=== PATIENT | male | born 1965 | race Hispanic/Latino ===

== ENCOUNTER → 2024-05-13 | Outpatient (CLI) | payer OTHER ==
--- NOTE | 2024-05-13 14:12 | HMCIMG ---
CT HEART SAVER PROMOTIONAL HISTORY: Calcium scoring COMPARISON: None TECHNIQUE: Computed tomography of the heart was performed with ECG gating and suspended respiration. Postprocessing was performed on a computer workstation to obtain diastolic phase images, determine calcium score and provide a quantitative assessment of extent of disease. This CT included only the heart. HeartSaver score is 2836.4. Please see cardiac calcium score report. The available CT chest images show no acute finding. CT was performed with one or more following dose reduction techniques: automated exposure control, adjustment of the mA and kv according to patient's size, or use of a iterative reconstruction technique.
== END | disposition home or self-care (01) ==
LOC: RAH 12:12
PROVIDERS: ATTEND Internal Medicine Cardiovascular Disease
DX: Z13.6 Encounter for screening for cardiovascular disorders (principal)
CPT/HCPCS: 75571

== ENCOUNTER 2024-08-05 02:10 | Inpatient (IN) | payer SELFPAY ==
[2024-08-05] VITALS (45 sets, daily range): BP systolic 101–158; BP diastolic 51–104; PULSE 68–118; RESP 7–30; TEMP 98.3–98.8; O2SAT 96–97
[~2024-08-05] VITALS: Ht 161.8 cm; Wt 72.1 kg
--- NOTE | 2024-08-05 02:17 | NUR ---
UA CUP PROVIDED
--- NOTE | 2024-08-05 02:23 | ERN ---
General Chief Complaint: Chest Pain Stated Complaint: CHEST PAIN Time Seen by MD: 02:12 Source: patient History of Present Illness Initial Comments Patient is a 59-year-old gentleman coming in complaining of left-sided chest pain. Per patient this has been ongoing since today. He quantifies the pain at 8/10. He states the pain is sharp does not radiate anywhere and states that he has been has not taken any aspirin or nitroglycerin. He does have a history of hypertension and cholesterol. Allergies: Coded Allergies: No Known Allergies (Unverified Allergy, Unknown, 08/05/24) ROS Dictation CONSTITUTIONAL: No chills, no fever, no weakness, no diaphoresis, no malaise. HEAD/FACE: No signs of trauma. EENT: No eye pain, no blurred vision, no tearing, no double vision, no ear pain, no ear discharge, no nose pain, no nasal congestion, no throat pain, no throat swelling, no mouth pain. RESPIRATORY: No cough, no orthopnea, no SOB, no stridor, no wheezing. CARDIOVASCULAR: chest pain, no edema, no palpitations, no syncope. GASTROINTESTINAL/ABDOMINAL: No abdominal pain, no constipation, no diarrhea, no nausea, no vomiting. GENITOURINARY: No abnormal discharge, no dysuria, no frequent urination, no hematuria. No complaints of pain in the genitals. MUSCULOSKELETAL: No back pain, no gout, no joint pain, no joint swelling, no muscle pain, no muscle stiffness, no neck pain. INTEGUMENTARY: No change in color, no change in hair/nails, no dryness, no lesion, no lumps, no rash. NEUROLOGICAL/PSYCH: No anxiety, not depressed, no emotional problem, no headache, no numbness, no pre-existing deficit, no history of seizures, no tremors, no weakness. HEMATOLOGIC/LYMPHATIC: Not anemic, no history of blood clots, no apparent bleeding, no bruising, glands not swollen. All Systems Negative, Except as Noted. Physical Exam Physical Exam Dictation VITAL SIGNS: Reviewed. GENERAL APPEARANCE: Alert, oriented x3, no acute distress, obese. HEAD AND FACE: Non-traumatic. EYES: PERRL, pink conjunctivas, eyelid no trauma, anterior chamber clear. EARS: Pinnas intact and no signs of trauma or erythema. Ear canals clear and no discharge. TMs no erythema. NOSE: No discharge, no bleeding. OROPHARYNX: Mouth normal, teeth no caries, tongue pink. Pharynx clear, no erythema. Tonsils no exudates, no abscesses noted. Mucous membrane moist. NECK: Supple, non-tender, no thyromegaly, no masses, no JVD, no bruits. BREAST: Deferred. CHEST: No tenderness, no crepitus, no paradoxical movement, no retractions. LUNGS: Clear, well-ventilated, symmetric, no rales, no wheezing, no rhonchi, no stridor, good breath sounds bilaterally. HEART: Regular rate, regular rhythm, no murmur, no gallops. VASCULAR: No peripheral edema. ABDOMEN: Soft, positive bowel sounds, nondistended, no guarding, nontender, no rebound, no masses no hepatomegaly, no splenomegaly, no Fitch's sign, no hernias. RECTAL: Deferred. GENITAL: Deferred. NEUROLOGICAL: Normal speech, gross motor function intact, gross sensory function intact. MUSCULOSKELETAL: Neck nontender, full range of motion, back nontender, full range of motion. EXTREMITIES: Nontender, full range of motion. SKIN: Color pink, dry, no turgor, no rash, no lacerations, no abrasions, no contusions. LYMPHATICS: Deferred. Results Laboratory and Microbiology Lab and Micro Result Laboratory Tests Test 08/05/24 02:27 08/05/24 04:32 White Blood Count 10.9 K/uL (4.8-10.8) H Red Blood Count 4.86 MIL/uL (4.50-6.20) Hemoglobin 15.5 g/dL (14.0-18.0) Hematocrit 44.4 % (42-54) Mean Corpuscular Volume 91.4 fL (79-99) Mean Corpuscular Hemoglobin 31.9 pg (27.0-33.0) Mean Corpuscular Hemoglobin Concent 34.9 g/dL (32.0-36.0) Red Cell Distribution Width 13.0 % (11.0-15.5) Platelet Count 254 K/uL (130-400) Mean Platelet Volume 9.6 fL (7.5-10.5) Immature Granulocyte % (Auto) 0.4 % (0-1) Neutrophils (%) (Auto) 65.0 % (40.0-77.0) Lymphocytes (%) (Auto) 26.4 % (21.0-51.0) Monocytes (%) (Auto) 7.5 % (3.0-13.0) Eosinophils (%) (Auto) 0.5 % (0.0-8.0) Basophils (%) (Auto) 0.2 % (0.0-5.0) Neutrophils # (Auto) 7.1 K/uL (1.8-7.7) Lymphocytes # (Auto) 2.9 K/uL (1.0-4.8) Monocytes # (Auto) 0.8 K/uL (0.1-1.0) Eosinophils # (Auto) 0.06 K/uL (0.00-0.70) Basophils # (Auto) 0.02 K/uL (0.00-0.20) Absolute Immature Granulocyte (auto 0.04 K/uL (0-1) Nucleated Red Blood Cells 0.0 % (0.0-0.19) Prothrombin Time 9.5 SEC (9.6-11.6) L Prothromb Time International Ratio <= 0.93 (0.85-1.15) Activated Partial Thromboplast Time 22.5 SEC (26.3-35.5) L Urine Color COLORLESS (YELLOW) Urine Appearance CLEAR (CLEAR) Urine pH 6.0 (5.0-8.0) Urine Specific Langtry 1.001 (1.001-1.031) Urine Protein NEGATIVE mg/dL (NEGATIVE) Urine Glucose (UA) 500 mg/dL (NEGATIVE) H Urine Ketones NEGATIVE mg/dL (NEGATIVE) Urine Occult Blood NEGATIVE (NEGATIVE) Urine Nitrate NEGATIVE (NEGATIVE) Urine Bilirubin NEGATIVE mg/dL (NEGATIVE) Urine Urobilinogen 0.2 mg/dL (0.2-1.0) Urine Leukocyte Esterase NEGATIVE Lauren/uL Sodium Level 141 mmol/L (136-145) Potassium Level 3.5 mmol/L (3.5-5.1) Chloride Level 101 mmol/L (101-111) Carbon Dioxide Level 20 mmol/L (21-32) L Blood Urea Nitrogen 6 mg/dL (7-18) L Creatinine 0.7 mg/dL (0.5-1.3) Glomerular Filtration Rate Calc 107 mL/min (>90) Random Glucose 229 mg/dL (70-105) H Total Calcium 9.5 mg/dL (8.5-10.1) Magnesium Level 1.90 mg/dL (1.80-2.40) Total Creatine Kinase 812 U/L (21-232) *H Troponin I High Sensitivity 43676 ng/L (4-75) *H 07063 ng/L (4-75) *H B-Type Natriuretic Peptide 147 pg/mL (0-100) H Urine Opiates Screen NEGATIVE (NEGATIVE) Urine Barbiturates Screen NEGATIVE (NEGATIVE) Urine Phencyclidine Screen NEGATIVE (NEGATIVE) Urine Amphetamines Screen NEGATIVE (NEGATIVE) Urine Benzodiazepines Screen NEGATIVE (NEGATIVE) Urine Cocaine Screen NEGATIVE (NEGATIVE) Urine Marijuana (THC) Screen NEGATIVE (NEGATIVE) Serum Alcohol 117 mg/dL (0-10) H Labs Reviewed?: Yes EKG/XRAY/US/CT/MRI EKG Comment EKG #1 08/05/2024 time 2:15 a.m. Ventricular rate [address] wave elevations in lead three AVF ekg#2 08/05/2024 time 2:[address] wave changes three AVF ekg#3 08/05/2024 time 2:49 a.m. Ventricular rate [address] wave changes in leads three AVF more apparent in the previous ones MDM MDM: Differential diagnosis: STEMI, NSTEMI, ACS, Rationale: Tests considered and ordered secondary to shared decision making include: labs, ECG and radiology Previous outside records reviewed: Old ER visits. Risk of complication and/or morbidity or mortality of patient management: None Medications-Per medication reconciliation Need for hospitalization: Patient does meet criteria for hospitalization. Need for emergency major/minor surgery: No There are no social concerns with this patient. Prescription drug management Prescriptions will include symptomatic care Patient's prior external medical records from other ER visits were reviewed by me as indicated. Prior testing and results from previous visits were reviewed. Prior tests were taken into account with medical decision making and resource utilization, independent historian/historians were used to obtain complete medical history. I independently interpreted the test that were performed, results were reviewed by me and considered findings on radiology if ordered. Medical management and examination interpretation discussions were had by me with other qualified healthcare professionals as indicated for the patient's care. Patient is a 59-year-old gentleman coming in complaining of chest pressure initially is patient states that the pain began 40 minutes prior to ar rival. Cardiac workup positive for elevated troponin as well as EKG changes. STEMI alert was called for Dr. Toure not a true STEMI since she weighs were present. Per Dr Toure states to call off STEMI alert and treat patient medically. Patient will be admitted under the care of hospitalist group. ED Course Orders Procedure Category Date Status Time Cbc With Differential LAB 08/05/24 Complete 02:14 Prothrombin Time With LAB 08/05/24 Complete INR 02:14 B-Type Natriuretic LAB 08/05/24 Complete Peptide 02:14 Chest 1vw RAD 08/05/24 Taken 02:14 12 Lead Ekg Tracing- EKG 08/05/24 Logged Technical 02:14 Magnesium LAB 08/05/24 Complete 02:14 Creatine Kinase, Total LAB 08/05/24 Complete 02:14 Troponin I High LAB 08/05/24 Complete Sensitivity 02:14 Urinalysis Profile LAB 08/05/24 Complete 02:14 Partial LAB 08/05/24 Complete Thromboplastin Time 02:14 Basic Metabolic Panel LAB 08/05/24 Complete 02:14 Nitroglycerin 0.4mg PHA 08/05/24 In Process Sl Tab (Nitrostat) 02:30 Aspirin 325mg Ec Tab PHA 08/05/24 Complete (Aspirin 325mg Ec T 02:30 Drug Screen Urine LAB 08/05/24 Complete 02:14 Alcohol, Blood LAB 08/05/24 Complete 02:14 Pantoprazole 40mg Inj PHA 08/05/24 Complete (Protonix 40mg Inj 02:30 12 Lead Ekg Tracing- EKG 08/05/24 Logged Technical 02:49 Heparin 5,000 Unit PHA 08/05/24 Complete Vial (Heparin 5,000 U 03:00 Heparin 5,000 Unit PHA 08/05/24 Complete Vial (Heparin 5,000 U 11:00 Heparin 25,000 PHA 08/05/24 In Process Units/250ml D5w 03:00 Heparin 5,000 Unit PHA 08/05/24 Complete Vial (Heparin 5,000 U 03:00 Heparin 5,000 Unit PHA 08/05/24 Complete Vial (Heparin 5,000 U 02:57 Heparin 25,000 PHA 08/05/24 Complete Units/250ml D5w 02:57 Ticagrelor (Brilinta) PHA 08/05/24 Complete 03:30 Nitroglycerin PHA 08/05/24 In Process 50mg/D5w 250ml 03:30 Ticagrelor (Brilinta) PHA 08/05/24 Complete 03:08 Troponin I High LAB 08/05/24 Complete Sensitivity 03:19 Government Program Manager Procedure CATH 08/05/24 Logged Request Lidocaine Hcl PHA 08/05/24 Complete 400mg/20ml (Lidocaine 03:27 Iohexol (Omnipaque) PHA 08/05/24 Complete 03:27 Verapamil Hcl PHA 08/05/24 Complete (Calan/Isoptin) 03:27 Heparin 10,000 PHA 08/05/24 Complete Unit/10ml (Heparin 03:27 Heparin-Ns 1,000 PHA 08/05/24 Complete Unit/500 Ml 03:27 Nitroglycerin 50mg PHA 08/05/24 Complete Vial (Tridil 50mg/10m 03:28 Metoprolol Tartrate PHA 08/05/24 Complete (Lopressor) 04:30 Pt And Ptt LAB 08/05/24 Logged 09:00 Current Medications Medications (Trade) Dose Ordered Sig/Isidoro Route PRN Reason Start Time Stop Time Status Last Admin Dose Admin Aspirin (Aspirin 325mg Ec Tab) 325 mg ONCE ONCE PO 08/05/24 02:30 08/05/24 02:31 DC 08/05/24 02:30 Heparin Sodium (Porcine) (HEParin 10,000 UNIT/10ML) 10,000 unit STK-MED ONCE .ROUTE 08/05/24 03:27 08/05/24 03:28 DC Heparin Sodium (Porcine) (HEParin 5,000 UNIT VIAL) 5,000 unit ONCE ONCE IV 08/05/24 03:00 08/05/24 03:01 DC Heparin Sodium (Porcine) (HEParin 5,000 UNIT VIAL) 5,000 unit Q8H SQ 08/05/24 11:00 08/05/24 03:04 DC Heparin Sodium (Porcine) (HEParin 5,000 UNIT VIAL) 5,000 unit STK-MED ONCE .ROUTE 08/05/24 02:57 08/05/24 03:02 DC Heparin Sodium (Porcine) (HEParin 5,000 UNIT VIAL) 6,000 unit ONCE ONCE IV 08/05/24 03:00 08/05/24 03:03 DC 08/05/24 03:09 Heparin Sodium/ Dextrose 250 ml @ As Directed STK-MED ONCE IV 08/05/24 02:57 08/05/24 03:02 DC Heparin Sodium/ Dextrose 250 ml @ 0 mls/hr PROTOCOL IV 08/05/24 03:00 09/04/24 02:59 08/05/24 03:11 Heparin Sodium/ Sodium Chloride 0 ml @ As Directed STK-MED ONCE IV 08/05/24 03:27 08/05/24 03:28 DC Iohexol (Omnipaque) 35,000 mg STK-MED ONCE IV 08/05/24 03:27 08/05/24 03:27 DC Lidocaine HCl (Lidocaine HCl 400mg/20ml) 20 ml STK-MED ONCE .ROUTE 08/05/24 03:27 08/05/24 03:27 DC Metoprolol Tartrate (loprESSOR) 5 mg ONCE ONCE IV 08/05/24 04:30 08/05/24 04:31 DC 08/05/24 04:17 Nitroglycerin (Nitrostat) 0.4 mg AD PRN SL CHEST PAIN 08/05/24 02:30 09/04/24 02:29 08/05/24 02:46 Nitroglycerin (Tridil 50mg/ 10ml) 50 mg STK-MED ONCE .ROUTE 08/05/24 03:28 08/05/24 03:28 DC Nitroglycerin/ Dextrose 250 ml @ 0 mls/hr PROTOCOL IV 08/05/24 03:30 09/04/24 03:29 08/05/24 03:13 Pantoprazole Sodium (PROTonix 40MG INJ) 40 mg ONCE ONCE IVP 08/05/24 02:30 08/05/24 02:31 DC 08/05/24 02:30 Ticagrelor (BRILinta) 90 mg STK-MED ONCE .ROUTE 08/05/24 03:08 08/05/24 03:09 DC Ticagrelor (BRILinta) 180 mg ONCE ONCE PO 08/05/24 03:30 08/05/24 03:31 DC 08/05/24 03:12 Verapamil HCl (Calan/Isoptin) 5 mg STK-MED ONCE .ROUTE 08/05/24 03:27 08/05/24 03:27 DC Vital Signs Date Time Temp Pulse Resp B/P (MAP) Pulse Ox O2 Delivery O2 Flow Rate FiO2 08/05/24 04:28 64 19 116/67 98 Nasal Cannula* 2 28 08/05/24 04:17 120 123/80 08/05/24 04:06 113 19 129/75 98 Nasal Cannula* 2 08/05/24 03:13 121/78 08/05/24 02:25 112 19 147/88 96 Room Air* 0 21 08/05/24 02:11 96.6 118 20 128/95 99 Room Air Critical Care Note Comments Critical Care Procedure Note Authorized and Performed by: me Total critical care time: Approximately 36 minutes Due to a high probability of clinically significant, life threatening deterioration, the patient required my highest level of preparedness to intervene emergently and I personally spent this critical care time directly and personally managing the patient. This critical care time included obtaining a history; examining the patient; pulse oximetry; ordering and review of studies; arranging urgent treatment with development of a management plan; evaluation of patient's response to treatment; frequent reassessment; and, discussions with other providers. This critical care time was performed to assess and manage the high probability of imminent, life-threatening deterioration that could result in multi-organ failure. It was exclusive of separately billable procedures and treating other patients and teaching time. Please see MDM section and the rest of the note for further information on patient assessment and treatment. DX & DISP Disposition: Inpatient Decision to Admit Time: 05:15 Departure Impression: Primary Impression: NSTEMI (non-ST elevated myocardial infarction) Additional Impression: ACS (acute coronary syndrome) Condition: Stable Referrals: MARTHA CHIU MD (PCP) YVON CARDOZO MD August 05, 2024 02:23
[2024-08-05] MEDS: PANTOPrazole 40 MG/VIAL IVP ONE (02:30)
[2024-08-05] MEDS: ASPIRIN 325MG EC TAB PO ONE (02:30)
[2024-08-05] MEDS: NITROGLYCERIN 0.4 MG SL TAB SL PRN (02:31)
[2024-08-05 02:36] LABS: BASOPHILS # (AUTO) 0.02 K/uL (0.00-0.20); BASOPHILS % (AUTO) 0.2 % (0.0-5.0); EOSINOPHILS # (AUTO) 0.06 K/uL (0.00-0.70); EOSINOPHILS % (AUTO) 0.5 % (0.0-8.0); HEMATOCRIT 44.4 % (42-54); IMMATURE GRANULOCYTE ABSOLUTE 0.04 K/uL (0-1); LYMPHOCYTES # (AUTO) 2.9 K/uL (1.0-4.8); LYMPHOCYTES % (AUTO) 26.4 % (21.0-51.0); MEAN CORPUSCULAR HEMOGLOBIN 31.9 pg (27.0-33.0); MEAN CORPUSCULAR HGB CONC 34.9 g/dL (32.0-36.0); MEAN CORPUSCULAR VOLUME 91.4 fL (79-99); MONOCYTES # (AUTO) 0.8 K/uL (0.1-1.0); MONOCYTES % (AUTO) 7.5 % (3.0-13.0); NEUTROPHILS # (AUTO) 7.1 K/uL (1.8-7.7); PLATELET COUNT (AUTO) 254 K/uL (130-400); RED BLOOD CELL COUNT(AUTO) 4.86 MIL/uL (4.50-6.20); WHITE BLOOD COUNT (AUTO) 10.9 K/uL (4.8-10.8)
[2024-08-05 02:37] LABS: APPEARANCE,URINE CLEAR (CLEAR); BILIRUBIN,URINE NEGATIVE (NEGATIVE); COLOR,URINE COLORLESS (YELLOW); GLUCOSE, URINE (UA) 500 mg/dL (NEGATIVE); KETONES,URINE NEGATIVE (NEGATIVE); LEUKOCYTE ESTERASE ,URINE NEGATIVE Leu/uL (NEGATIVE); NITRATE,URINE NEGATIVE (NEGATIVE); OCCULT BLOOD,URINE NEGATIVE (NEGATIVE); PROTEIN,URINE NEGATIVE (NEGATIVE); UROBILINOGEN,URINE 0.2 mg/dL (0.2-1.0)
[2024-08-05 02:40] LABS: ADD UA MICROSCOPIC NO
[2024-08-05 02:44] LABS: CREATININE 0.7 mg/dL (0.5-1.3); POTASSIUM 3.5 mmol/L (3.5-5.1)
[2024-08-05 02:47] LABS: INR <= 0.93 (0.85-1.15); PROTHROMBIN TIME 9.5 SEC (9.6-11.6)
[2024-08-05 02:48] LABS: PARTIAL THROMBOPLASTIN TIME 22.5 SEC (26.3-35.5)
[2024-08-05 02:58] LABS: MAGNESIUM 1.9 mg/dL (1.80-2.40)
[2024-08-05 03:04] LABS: B-TYPE NATRIURETIC PEPTIDE 147 pg/mL (0-100)
[2024-08-05 03:05] LABS: AMPHET/METH SCREEN,URINE NEGATIVE (NEGATIVE); BARBITURATE SCREEN, URINE NEGATIVE (NEGATIVE); BENZODIAZEPINES SCREEN,URINE NEGATIVE (NEGATIVE); CANNABINOID SCREEN,URINE NEGATIVE (NEGATIVE); COCAINE SCREEN,URINE NEGATIVE (NEGATIVE); OPIATE SCREEN,URINE NEGATIVE (NEGATIVE); PHENCYCLIDINE SCREEN,URINE NEGATIVE (NEGATIVE)
[2024-08-05] MEDS: HEParin 5,000 UNIT VIAL ONE (03:07)
[2024-08-05] MEDS: HEParin 5,000 UNIT VIAL IV ONE ×2 (03:08→03:09)
[2024-08-05] MEDS: HEParin 25,000 UNITS/250ML D5W 250 ML IV ONE (03:08)
[2024-08-05] MEDS: HEParin 25,000 UNITS/250ML D5W 250 ML IV SCH (03:11)
[2024-08-05] MEDS: TICAGrelor 90 MG TABLET PO ONE (03:12)
[2024-08-05] MEDS: TICAGrelor 90 MG TABLET ONE (03:12)
[2024-08-05] MEDS: NITROGLYCERIN 50MG/D5W 250ML 250 BOT IV SCH (03:13)
[2024-08-05] MEDS ORDERED: VERAPAMIL HCL 2.5 MG/ML VIAL ONE (03:27)
[2024-08-05] MEDS ORDERED: HEParin 10,000 UNIT/10ML (1,000 UNIT/ML) VIAL ONE ×2 (03:27→12:38)
[2024-08-05] MEDS ORDERED: HEParin-NS 1,000 UNIT/500 ML 0 ML IV ONE (03:27)
[2024-08-05] MEDS ORDERED: LIDOCAINE HCL 400MG/20ML VIAL ONE ×2 (03:27→12:37)
[2024-08-05] MEDS ORDERED: IOHEXOL 350 MG/ML 100ML INFUS..BTL IV ONE ×2 (03:27→12:38)
[2024-08-05] MEDS ORDERED: NITROGLYCERIN 50MG VIAL ONE ×2 (03:28→12:38)
--- NOTE | 2024-08-05 03:28 | NUR ---
SE[facility]ER OPERATOR NURSES AT BEDSIDE, THEY ADVISE DR JOHNSON CANCELLED STEMICODE
[2024-08-05] MEDS: metoPROLOL tartRATE 1 MG/ML 5ML VIAL IV ONE (04:17)
--- NOTE | 2024-08-05 04:42 | NUR ---
PATIENT DID NOT BRING HOME MEDICATIONS
[2024-08-05] MEDS ORDERED: GLUCAGON 1MG KIT 1 MG ML IM PRN (05:30)
[2024-08-05] MEDS ORDERED: PoTASSium chloRIDE 20MEQ/100ML 100 ML IV PRN (05:30)
[2024-08-05] MEDS ORDERED: DEXTROSE 50%-WATER 50 ML DISP.SYRIN IV PRN (05:30)
[2024-08-05] MEDS: 0.9%NACL 1000ML 1,000 ML IV SCH ×2 (05:52→15:22)
--- NOTE | 2024-08-05 05:58 | NUR ---
Myrtle ZHENG NP MADE AWARE OF CRITICAL CARE CONSULT
[2024-08-05] MEDS ORDERED: LORazepam 2 MG/ML 1 ML VIAL IVP PRN (06:00)
[2024-08-05] MEDS ORDERED: PROMETHAZINE HCL 25 MG TABLET PO PRN (06:00)
[2024-08-05] MEDS ORDERED: PHARMACY COMMUNICATION MISC PRN (06:00)
[2024-08-05] MEDS: THIAMINE HCL 100 MG, FOLic ACID 5 MG/ML VIAL 1 MG, M.V.I. IV [ADULT] 10 ML in 0.9%NACL ... IV SCH (06:03)
[2024-08-05] MEDS: morPHINE 2 MG SYG IVP PRN ×2 (06:03→11:20)
--- NOTE | 2024-08-05 06:13 | HP ---
[facility] PH[facility] Date of Service: August 05, 2024 Time of Service: 05:40 PCP: Ganga Maya HISTORY OF PRESENT ILLNESS: This is a 59-year-old male with past medical history of diabetes, hypertension and hyperlipidemia who presents to the ED for complaints of left-sided chest pain which started around 8 pm last night while resting.Patient states he started having a chest pain since 2 days ago and it was intermittent and last night it got worse and becoming more persistent and pain is sharp associated with shortness of breath so he decided to come to the Ed for evaluation.Patient reports he had 5 beers last night denies cigarette and recreational drug use.Upon arrival to ER an initial ECG was taken and revealed ST 110 right bundle branch block inferior infarct acute and second EKG showed ST 108 right bundle branch block inferior infarct recent and the 3rd EKG showed ST 120 with Right bundle branch block Inferior infarct recent and probable posterior infarct acute . Seen and examined patient in the ER awake,alert and coherent ,appears uncomfortable continue to have chest pain. Vital signs temperature 96.6 heart rate 97, blood pressure 114/73 saturation 99% on 2 L nasal cannula. Labs: WBC 10.9 the rest of CBC result is normal. CO2 20, BUN six, glucose 229, BNP 147, total CK 812, troponin 13,930 to 23,113. Urine toxicology serum alcohol 117. Urinalysis consistent difficult for glucose two rest is unremarkable. Chest x- ray result is still pending at this time. While in the ER patient received aspirin 325 mg p.o., Protonix 40 mg IV, Brilinta 90 mg p.o., verapamil 5 mg IV and metoprolol 5 mg IV patient started on heparin and nitroglycerin drip.As per ER Dr Gomez STEMI alert was activated and was notified and consulted. We will admit patient to ICU for further medical management. REVIEW OF SYSTEMS CONSTITUTIONAL: Denies fevers, chills, or night sweats. No unintentional weight loss reported. NEUROLOGICAL: Denies headache, amaurosis fugax, motor weakness, sensory deficit, vertigo/spinning sensation, gait abnormalities, or tremors. ENT: No hearing loss, otalgia, otorrhea, rhinitis, rhinorrhea, hoarseness, or sore throat. CARDIOVASCULAR: Positive chest pain Deniesdyspnea on exertion, orthopnea, paroxysmal nocturnal dyspnea, palpitations, life-threatening arrhythmias, claudication. PULMONARY: Positive shortness of breaths Denies cough, phlegm/sputum, hemopt ysis, pleuritic chest pain. SLEEP: Denies morning headaches, daytime somnolence or napping. Denies di fficulty falling asleep, staying asleep, waking from sleep. Denies knowledge of snoring. GASTROINTESTINAL: Denies any type of dysphagia to either liquids or solids. Denies nausea, vomiting, pyrosis, early satiety, abdominal pain, diarrhea, constipation, or changes in stool consistency or caliber. Denies coffee-ground emesis, hematemesis, hematochezia, or melanotic stools. GENITOURINARY: Denies frequency, urgency, nocturia, hematuria or incontinence (Storage/Irritative symptoms.) Low urinary stream, straining to void, urinary intermittency or hesitancy, splitting of the voiding stream, terminal dribbling. ENDOCRINOLOGIC: Denies polyuria, polydipsia, polyphagia or heat/cold intolerances. HEMATOLOGIC: Denies thrombophilia/previous clots, or coagulopathy/bleeding disorders. ONCOLOGIC: Denies personal history of malignancy. DERMATOLOGIC: Denies rashes or pruritus. PSYCHIATRIC: Denies any suicidal or homicidal ideation. Denies hallucinations. PAST MEDICAL HISTORY: [ Diabetes, hypertension and hyperlipidemia ] PAST SURGICAL HISTORY: [ Patient denies ] PAST SOCIAL HISTORY: [ Patient denies cigarette and recreational drug use admits to drinking are alcohol occasionally and last consumption was last night he said he had five beers ] FAMILY HISTORY: [ Noncontributory] Coded Allergies: No Known Allergies (Unverified Allergy, Unknown, 08/05/24) PHYSICAL EXAM GENERAL APPEARANCE: The patient is awake, alert, and oriented, in no acute cardiopulmonary distress. NEUROLOGICAL: Cranial nerves II-XII grossly intact. Motor is 5/5 in bilateral upper and lower extremities proximal to distal. No sensory deficits. HEENT: Face is symmetric. Pupils are equal and reactive. Extraocular movements are intact. NECK: Supple. No JVD. No thyromegaly. No submental, submandibular, pre-/postauricular, occipital or supraclavicular lymphadenopathy. CHEST: Normal chest expansion. No Telemetry. LUNGS: Absence of any rales, rhonchi or any wheezing. CARDIOVASCULAR: Regular. S1 and S2 normal. No appreciable rubs, murmurs or gallops. ABDOMEN: Soft, nontender, and nondistended. There is no rebound, voluntary guarding, or rigidity. : Deferred. No Fitzpatrick. EXTREMITIES: Non-edematous and not cyanotic. No clubbing. Good capillary refill. SKIN: No skin breakdown. Vital Sign (Last 24 Hours) 08/05/24 08/05/24 02:11 05:34 Temp 96.6 Pulse 97 Resp 19 B/P (MAP) 114/73 Pulse Ox 99 O2 Delivery Nasal Cannula* O2 Flow Rate 2 FiO2 28 LABS: Laboratory: Test 08/05/24 04:32 08/05/24 02:27 Range/Units Troponin I High Sensitivity 14492 *H 4-75 ng/L White Blood Count 10.9 H 4.8-10.8 K/uL Red Blood Count 4.86 4.50-6.20 MIL/uL Hemoglobin 15.5 14.0-18.0 g/dL Hematocrit 44.4 42-54 % Mean Corpuscular Volume 91.4 79-99 fL Mean Corpuscular Hemoglobin 31.9 27.0-33.0 pg Mean Corpuscular Hemoglobin Concent 34.9 32.0-36.0 g/dL Red Cell Distribution Width 13.0 11.0-15.5 % Platelet Count 254 130-400 K/uL Mean Platelet Volume 9.6 7.5-10.5 fL Immature Granulocyte % (Auto) 0.4 0-1 % Neutrophils (%) (Auto) 65.0 40.0-77.0 % Lymphocytes (%) (Auto) 26.4 21.0-51.0 % Monocytes (%) (Auto) 7.5 3.0-13.0 % Eosinophils (%) (Auto) 0.5 0.0-8.0 % Basophils (%) (Auto) 0.2 0.0-5.0 % Neutrophils # (Auto) 7.1 1.8-7.7 K/uL Lymphocytes # (Auto) 2.9 1.0-4.8 K/uL Monocytes # (Auto) 0.8 0.1-1.0 K/uL Eosinophils # (Auto) 0.06 0.00-0.70 K/uL Basophils # (Auto) 0.02 0.00-0.20 K/uL Absolute Immature Granulocyte (auto 0.04 0-1 K/uL Nucleated Red Blood Cells 0.0 0.0-0.19 % Prothrombin Time 9.5 L 9.6-11.6 SEC Prothromb Time International Ratio <= 0.93 0.85-1.15 Activated Partial Thromboplast Time 22.5 L 26.3-35.5 SEC Urine Color COLORLESS YELLOW Urine Appearance CLEAR CLEAR Urine pH 6.0 5.0-8.0 Urine Specific Vevay 1.001 1.001-1.031 Urine Protein NEGATIVE NEGATIVE mg/dL Urine Glucose (UA) 500 H NEGATIVE mg/dL Urine Ketones NEGATIVE NEGATIVE mg/dL Urine Occult Blood NEGATIVE NEGATIVE Urine Nitrate NEGATIVE NEGATIVE Urine Bilirubin NEGATIVE NEGATIVE mg/dL Urine Urobilinogen 0.2 0.2-1.0 mg/dL Urine Leukocyte Esterase NEGATIVE NEGATIVE Lauren/uL Sodium Level 141 136-145 mmol/L Potassium Level 3.5 3.5-5.1 mmol/L Chloride Level 101 101-111 mmol/L Carbon Dioxide Level 20 L 21-32 mmol/L Blood Urea Nitrogen 6 L 7-18 mg/dL Creatinine 0.7 0.5-1.3 mg/dL Glomerular Filtration Rate Calc 107 >90 mL/min Random Glucose 229 H 70-105 mg/dL Total Calcium 9.5 8.5-10.1 mg/dL Magnesium Level 1.90 1.80-2.40 mg/dL Total Creatine Kinase 812 *H 21-232 U/L B-Type Natriuretic Peptide 147 H 0-100 pg/mL Urine Opiates Screen NEGATIVE NEGATIVE Urine Barbiturates Screen NEGATIVE NEGATIVE Urine Phencyclidine Screen NEGATIVE NEGATIVE Urine Amphetamines Screen NEGATIVE NEGATIVE Urine Benzodiazepines Screen NEGATIVE NEGATIVE Urine Cocaine Screen NEGATIVE NEGATIVE Urine Marijuana (THC) Screen NEGATIVE NEGATIVE Serum Alcohol 117 H 0-10 mg/dL Current Medications Medications (Trade) Dose Ordered Sig/Isidoro Route PRN Reason Start Time Stop Time Status Last Admin Dose Admin Dextrose (D50w) 50 ml AD PRN IV HYPOGLYCEMIA PROTOCOL 08/05/24 05:30 09/04/24 05:29 UNV Famotidine (Pepcid 20mg Vial) 20 mg BID IV 08/05/24 09:00 09/04/24 08:59 UNV Glucagon (Glucagon 1mg Kit) 1 mg AD PRN IM HYPOGLYCEMIA PROTOCOL 08/05/24 05:30 09/04/24 05:29 UNV Heparin Sodium (Porcine) (HEParin 5,000 UNIT VIAL) 5,000 unit Q8H SQ 08/05/24 11:00 08/05/24 03:04 DC Heparin Sodium/ Dextrose 250 ml @ 0 mls/hr PROTOCOL IV 08/05/24 03:00 09/04/24 02:59 08/05/24 03:11 13.87 MLS/HR Insulin Human Regular (humuLIN R 100 UNIT/ML 3ML) INSULIN SLIDING SCAL... ACHS SQ 08/05/24 07:30 09/04/24 07:29 UNV Magnesium Sulfate 50 ml @ 0 mls/hr PROTOCOL PRN IV OTHER [SEE ORDER COMMENTS] 08/05/24 05:30 09/04/24 05:29 UNV Nitroglycerin (Nitrostat) 0.4 mg AD PRN SL CHEST PAIN 08/05/24 02:30 09/04/24 02:29 08/05/24 02:46 0.4 MG Nitroglycerin/ Dextrose 250 ml @ 0 mls/hr PROTOCOL IV 08/05/24 03:30 09/04/24 03:29 08/05/24 03:13 3 MLS/HR Ondansetron HCl (zoFRAN 4MG INJ) 4 mg Q6H PRN IV NAUSEA/VOMITING 08/05/24 05:30 09/04/24 05:29 UNV Potassium Chloride 100 ml @ 50 mls/hr AD PRN IV POTASSIUM PROTOCOL 08/05/24 05:30 09/04/24 05:29 UNV Sodium Chloride 1,000 ml @ 100 mls/hr Q10H IV 08/05/24 05:30 09/04/24 05:29 UNV DIAGNOSTICS / RADIOLOGY: [ ] ASSESSMENT: Chest pain rule out ACS POA Possible inferior STEMI POA Alcohol Intoxication POA Uncontrolled diabetes POA Obesity POA Hyperlipidemia POA Hypertension POA Elevated CK POA Active alcohol drinker POA PLAN: We will admit patient in ICU We will keep patient nothing by mouth We will start NS @ 100 ml / hr x2 bags and re evaluate We will continue nitroglycerin and heparin drip We will start patient on aspirin 81 mg p.o. and atorvastatin 40 mg p.o. daily We will start on Famotidine 20 mg IV bid for GI prophylaxis We will replace electrolytes as needed per protocol Monitor for signs of alcohol withdrawal, CIWA protocol in place We will start on insulin sliding scale AC & HS with hypoglycemia protocol We will add prn medication for fever,pain,cough , nausea and vomiting We will reconcile home meds once medlist available Counseled on alcohol use cessation We will trend troponin q.6 x2 We will obtain echocardiogram Cardiology on-call consulted and notified per ER We will seek critical care consultation We will request labs in am Further orders to follow depending on above results Case discussed with attending physician and came up with above treatment and plan of care. ADVANCED CARE PLANNING 1. Which of the following were discussed? Hospice Care - No Therapeutic options - Yes Advance Directives - No Other discussions - 2. Discussed with who? Patient 3. Voluntary nature of this service was explained to the patient? Yes 4. Amount of time spent - __27 5. Reviewed by Physician? (if this service was performed by NPP) Yes Patient seen and examined by me. Agree with note by DRAWER IN SEE ADDITIONAL ORDERS PER CHART DISCUSSED WITH NURSING STAFF BOBBI TIPTONP August 05, 2024 06:13
[2024-08-05] MEDS ORDERED: diazePAM 5 MG/ML 2 ML SYG IVP PRN (06:30)
[2024-08-05 07:26] LABS: HEMOGLOBIN A1C 8.5 % (4.0-6.0)
[2024-08-05] MEDS: FAMOTIDINE 20MG VIAL IV SCH (07:47)
[2024-08-05] MEDS: INSULIN humuLIN R 100 UNIT/ML 3ML SQ SCH ×2 (07:47→12:34)
[2024-08-05 08:25] LABS: THYROID STIMULATING HORMONE 1.52 uIU/mL (0.36-3.74)
--- NOTE | 2024-08-05 08:52 | CONS ---
[facility] CONSULTATION NOTE Date Patient Seen: August 05, 2024 Time of Visit: 08:52 Supervising Physician: Dany Alanis MD Reason for Consultation: [facility] Primary Care Physician: [ Francesco Gee MD] Outpatient Specialists: [none ] Inpatient Consults: [Dany Noel MD, Marcela Talbert DO, DR Khalil Aattending: Dr Paola Frye MD ] PROBLEM LIST: ACS-NSTEMI Type I Leukocytosis w/ left shift essential HTN untreated hyperglycemia in the presence of new onset Type II DM2 Alcohol abuse obese HPI: [This is a 59-year-old obese female with a history of hypertension and hyperlipidemia who presented to ED after a night of drinking alcohol with chest pain. On arrival to the ED temperature was 96.6 heart rate of 118 respiratory rate of 20 blood pressure 128/95 with saturation 99% on room air. Initial laboratory was pertinent for white count of 10.9, sodium of 141 carbon dioxide 20 BUN of six creatinine of 0.7 GFR of 107 mg/dL with a glucose of 229 mg/dL magnesium 1.9 initial CK was 812 troponin 43239 and BNP of 147. Toxicology was positive for serum alcohol 117. Urine with 500 of glucose. On chest x-ray clear lungs. The patient was admitted by the [facility] team for NSTEMI to ICU on heparin drip and nitroglycerin drip per Cardiology recommendations. We were consulted by the primary team for critical care management. On assessment patient is awake alert and oriented x3. He was on nitroglycerin 19 mcg per minute and heparin drip protocol. He reported chest pain poorly 10 on room given morphine 2 mg IV now and ordered BUN q.4 hours. After the morphine patient has seemed to be more comfortable pain was relief. He is pending to be seen per Cardiology. He denies any headache dizziness nausea or vomiting. He only reports substernal chest pain that radiates to her left chest wall. He denies any chills fevers recent illness. 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 PAST MEDICAL HX: see above PAST SURGICAL HX: noncontributory SOCIAL HISTORY: No tobacco, ETOH, or illicit drug use Coded Allergies: No Known Allergies (Unverified Allergy, Unknown, 08/05/24) REVIEW OF SYSTEMS: General: No malaise or fever. Neurological: No fainting episodes or seizures. HEENT: No nasal congestion or nasal secretion. Respiratory: No cough, shortness of breath, or wheezing Cardiac:= chest pain, - palpitations Gastrointestinal: No vomiting or diarrhea. Genitourinary: No dysuria hematuria. Skin: No rashes or lesions. Hematological: No bruises or bleeding. Musculoskeletal: No joint pains or arthralgias. Psychiatric: No depression or panic attacks. PHYSICAL EXAM: GENERAL: alert, weak, awake oriented x 3 HEENT: EOMI, Sclera non icteric, moist mucosa NECK: Supple, no JVD, trachea midline LUNGS: Clear breath sounds bilaterally. No wheezes HEART: Regular rate and rhythm. Normal S1 and S2, without murmurs ABD: Abdomen soft, nontender. Bowel sounds present EXT: No clubbing cyanosis or edema NEURO: Alert and oriented to person, follows commands Vital Signs (last 8hr) Date Time Temp Pulse Resp B/P (MAP) Pulse Ox O2 Delivery O2 Flow Rate FiO2 08/05/24 08:17 69 18 122/67 99 Nasal Cannula* 2 08/05/24 07:34 98.6 63 18 116/66 99 Nasal Cannula* 2 28 08/05/24 06:32 98.4 83 19 108/63 100 Nasal Cannula* 2 28 08/05/24 05:34 97 19 114/73 99 Nasal Cannula* 2 28 08/05/24 04:28 64 19 116/67 98 Nasal Cannula* 2 08/05/24 04:17 120 123/80 08/05/24 04:06 113 19 129/75 98 Nasal Cannula* 2 08/05/24 03:13 121/78 08/05/24 02:25 112 19 147/88 96 Room Air* 0 21 08/05/24 02:11 96.6 118 20 128/95 99 Room Air LABS: Hematology Labs: Test 08/05/24 02:27 Range/Units White Blood Count 10.9 H 4.8-10.8 K/uL Red Blood Count 4.86 4.50-6.20 MIL/uL Hemoglobin 15.5 14.0-18.0 g/dL Hematocrit 44.4 42-54 % Mean Corpuscular Volume 91.4 79-99 fL Mean Corpuscular Hemoglobin 31.9 27.0-33.0 pg Mean Corpuscular Hemoglobin Concent 34.9 32.0-36.0 g/dL Red Cell Distribution Width 13.0 11.0-15.5 % Platelet Count 254 130-400 K/uL Mean Platelet Volume 9.6 7.5-10.5 fL Immature Granulocyte % (Auto) 0.4 0-1 % Neutrophils (%) (Auto) 65.0 40.0-77.0 % Lymphocytes (%) (Auto) 26.4 21.0-51.0 % Monocytes (%) (Auto) 7.5 3.0-13.0 % Eosinophils (%) (Auto) 0.5 0.0-8.0 % Basophils (%) (Auto) 0.2 0.0-5.0 % Neutrophils # (Auto) 7.1 1.8-7.7 K/uL Lymphocytes # (Auto) 2.9 1.0-4.8 K/uL Monocytes # (Auto) 0.8 0.1-1.0 K/uL Eosinophils # (Auto) 0.06 0.00-0.70 K/uL Basophils # (Auto) 0.02 0.00-0.20 K/uL Absolute Immature Granulocyte (auto 0.04 0-1 K/uL Nucleated Red Blood Cells 0.0 0.0-0.19 % Chemistry Labs: Test 08/05/24 07:23 08/05/24 04:32 08/05/24 02:28 08/05/24 02:27 Range/Units Whole Blood Glucose 258 H 70-110 MG/DL Troponin I High Sensitivity 68534 *H 4-75 ng/L Hemoglobin A1c 8.5 H 4.0-6.0 % Estimated Average Glucose (eAG) 197 H 70-126 mg/dL Sodium Level 141 136-145 mmol/L Potassium Level 3.5 3.5-5.1 mmol/L Chloride Level 101 101-111 mmol/L Carbon Dioxide Level 20 L 21-32 mmol/L Blood Urea Nitrogen 6 L 7-18 mg/dL Creatinine 0.7 0.5-1.3 mg/dL Glomerular Filtration Rate Calc 107 >90 mL/min Random Glucose 229 H 70-105 mg/dL Total Calcium 9.5 8.5-10.1 mg/dL Magnesium Level 1.90 1.80-2.40 mg/dL Total Creatine Kinase 812 *H 21-232 U/L B-Type Natriuretic Peptide 147 H 0-100 pg/mL Triglycerides Level 141 30-200 mg/dL Cholesterol Level 132 <200 mg/dL LDL Cholesterol 59 0-99 mg/dL HDL Cholesterol 62 29-71 mg/dL Thyroid Stimulating Hormone (TSH) 1.52 0.36-3.74 uIU/mL Coagulation Labs: Test 08/05/24 02:27 Range/Units Prothrombin Time 9.5 L 9.6-11.6 SEC Prothromb Time International Ratio <= 0.93 0.85-1.15 Activated Partial Thromboplast Time 22.5 L 26.3-35.5 SEC DIAGNOSTICS / RADIOLOGY RESULTS: [Signed PATIENT: MAYRA JUDD MR#: [id number] : 1965 SEX: M AGE: 59 LOCATION: [facility] ORDER 5 STATUS: ADM IN REPORT#: [id number] SERVICE 3 REASON: cp ORDERING PHYSICIAN: YVON CARDOZO MD PROCEDURE: CXR1VW - CHEST 1VW Exam Type: CHEST 1VW Clinical Information: cp Comparison: None Findings: The lungs are clear of infiltrates. The heart is normal in size. The bony and soft tissue structures of the chest are unremarkable. Impression: Clear lungs. DICTATED BY: EJ BLAIR MD DATE: 08/05/24924 ELECTRONICALLY SIGNED BY: EJ BLAIR MD DATE: 08/05/24927 ] PLAN Serial EKG/troponins Continuous cardiac monitoring BNP Cardiology consult 2D echocardiogram Heparin drip nitro gtt PPI for risk of bleeding Statin therapy Glucose goal less than 180 mg/dL Antiplatelet with aspirin, beta kaila, statin therapy Consider referral to cardiac rehab once ready for discharge inital co2 of 20 - order ketones, lR at 75 ml/hr stop once pt has a po diet. NEURO: Minimize central acting medications as possible. Fall Precautions. Well lighted room through the day and minimize interruptions through the night to prevent acute delirium. PULMONARY: Supplemental 02 as needed Titrate Fio2 to keep Spo2 > or = 90% DuoNebs and CPT as needed IS hourly while awake for pulmonary hygiene Out of bed to chair as tolerated VAP Bundle CARDIOVASCULAR: Follow hemodynamics. Titrate vasopressor to keep MAP >65 or systolic blood pressure >95mmHg DIPS: nitro and heparin LINES: [ piv] GI & NUTRITION: Continue nutritional support Aspirations precautions Prokinetic agents and laxatives as needed KIDNEYS & ELECTROLYTES: Strict monitoring of intake and output Daily weights Avoid nephrotoxic agents Monitor electrolytes and replace as needed Goal urine output of 30mL/hr or 0.5mL/kg/hr Urine output: [ ] Fluid Balance: [ ] ENDOCRINE: Maintain blood glucose between 100-180 at all times. Insulin sliding scale for blood glucose management INFECTIOUS DISEASE: Trend temperature. Mera-culture if febrile. Micro: [ ] Antibiotics: [ ] HEMATOLOGY & COAGULATION: Monitor H&H. Keep Hgb > 7 Transfuse 1 unit of PRBC for Hgb < 7 Transfuse 1 pack of platelets of platelets < 20, 000 Watch for any signs and symptoms of bleeding SKIN: Pressure ulcer prevention per facility protocol Rehab: PT/OT Prophylaxis: GI: [protonix ] DVT: on heparin gtt Code Status: Full Resuscitation Disposition: [icu ] Other: Total patient care time exceeds 35 minutes excluding all procedures. Case was discussed and seen with my supervising physician. The above plan was formulated and agreed upon. ATTESTATION BY PHYSICIAN The patient has been seen and evaluated, the case has been discussed with the N P, I agree with the clinical findings and plan of care. Dany Dai MD, NELLY J ARNP August 05, 2024 08:52
[2024-08-05] MEDS: PANTOPrazole 40 MG/VIAL IVP SCH (09:08)
[2024-08-05] MEDS: morPHINE 2 MG SYG IVP ONE (09:08)
[2024-08-05 09:19] LABS: BASOPHILS # (AUTO) 0.02 K/uL (0.00-0.20); BASOPHILS % (AUTO) 0.2 % (0.0-5.0); EOSINOPHILS # (AUTO) 0.01 K/uL (0.00-0.70); EOSINOPHILS % (AUTO) 0.1 % (0.0-8.0); HEMATOCRIT 39.6 % (42-54); IMMATURE GRANULOCYTE ABSOLUTE 0.07 K/uL (0-1); LYMPHOCYTES # (AUTO) 1.1 K/uL (1.0-4.8); LYMPHOCYTES % (AUTO) 9.7 % (21.0-51.0); MEAN CORPUSCULAR HGB CONC 35.1 g/dL (32.0-36.0); MONOCYTES # (AUTO) 0.5 K/uL (0.1-1.0); NEUTROPHILS # (AUTO) 9.2 K/uL (1.8-7.7); NEUTROPHILS % (AUTO) 84.4 % (40.0-77.0); PLATELET COUNT (AUTO) 218 K/uL (130-400); RED BLOOD CELL COUNT(AUTO) 4.35 MIL/uL (4.50-6.20); WHITE BLOOD COUNT (AUTO) 10.9 K/uL (4.8-10.8)
[2024-08-05 09:28] LABS: INR 0.95 (0.85-1.15); PROTHROMBIN TIME 10.1 SEC (9.6-11.6)
--- NOTE | 2024-08-05 09:28 | HMCIMG ---
Exam Type: CHEST 1VW Clinical Information: cp Comparison: None Findings: The lungs are clear of infiltrates. The heart is normal in size. The bony and soft tissue structures of the chest are unremarkable. Impression: Clear lungs.
[2024-08-05 09:30] LABS: PARTIAL THROMBOPLASTIN TIME 67.5 SEC (26.3-35.5)
[2024-08-05 10:09] LABS: POTASSIUM 4.2 mmol/L (3.5-5.1)
[2024-08-05 10:31] LABS: ALBUMIN 3.9 g/dL (3.5-5.0); BILIRUBIN,TOTAL 0.8 mg/dL (0.2-1.0); CREATININE 0.7 mg/dL (0.5-1.3); TOTAL PROTEIN, SERUM 7.6 g/dL (6.0-8.3)
--- NOTE | 2024-08-05 10:45 | PN ---
[facility] PROGRESS NOTE Date of Service: August 05, 2024 Time of Service: 10:45 SUBJECTIVE: This is a case of 59-year-old male with past medical history of diabetes, hypertension and hyperlipidemia who presented to the ED with complaints of left- sided chest pain which started around 8 pm last night while resting. He states that he has been experiencing intermittent chest pain since the past 2 days ago which has become persistent associated with SOB last night. Patient also reports that he had 5 beers last night and denies cigarette and recreational drug use. Initial ECG revealed ST 110 right bundle branch block, inferior infarct acute and second EKG showed ST 108 right bundle branch block inferior infarct recent and the 3rd EKG showed ST 120 with Right bundle branch block Inferior infarct recent and probable posterior infarct acute. Initial Labs WBC 10.9, BNP 147, total CK 812, troponin 13,930, serum alcohol 117. While in the ER patient received aspirin 325 mg p.o., Protonix 40 mg IV, Brilinta 90 mg p.o., verapamil 5 mg IV and metoprolol 5 mg IV and was started on heparin and nitroglycerin drip. He was admitted for further assessment and treatment in view of NSTEMI. 08/05/2024 Patient is seen and examined at the bedside. He complains of mild pressure-like left-sided chest pain and generalized body weakness. Vitals blood pressure ranging in 120/70s. Labs WBC 10.9, hemoglobin 13.9, BNP 147, PT 10.1, INR 0.95. Urinalysis positive for glucose. Urine toxicology negative and serum alcohol 117, glucose 229, magnesium 1.9, TCK 8. Troponin trend [id number] - [id number]. Currently on heparin and nitroglycerin drip. He is scheduled for cardiac catheterization procedure today. Chest x-ray revealed clear lungs and pending 2D echo results. REVIEW OF SYSTEMS CONSTITUTIONAL: Generalized body weakness Denies fevers, chills, or night sweats. No unintentional weight loss reported. NEUROLOGICAL: Denies headache, amaurosis fugax, motor weakness, sensory deficit, vertigo/spinning sensation, gait abnormalities, or tremors. ENT: No hearing loss, otalgia, otorrhea, rhinitis, rhinorrhea, hoarseness, or sore throat. CARDIOVASCULAR: Positive chest pain Deniesdyspnea on exertion, orthopnea, paroxysmal nocturnal dyspnea, palpitations, life-threatening arrhythmias, claudication. PULMONARY: Denies cough, phlegm/sputum, hemoptysis, pleuritic chest pain. SLEEP: Denies morning headaches, daytime somnolence or napping. Denies difficulty falling asleep, staying asleep, waking from sleep. Denies knowledge of snoring. GASTROINTESTINAL: Denies any type of dysphagia to either liquids or solids. Denies nausea, vomiting, pyrosis, early satiety, abdominal pain, diarrhea, constipation, or changes in stool consistency or caliber. Denies coffee-ground emesis, hematemesis, hematochezia, or melanotic stools. GENITOURINARY: Denies frequency, urgency, nocturia, hematuria or incontinence (Storage/Irritative symptoms.) Low urinary stream, straining to void, urinary intermittency or hesitancy, splitting of the voiding stream, terminal dribbling. ENDOCRINOLOGIC: Denies polyuria, polydipsia, polyphagia or heat/cold intolerances. HEMATOLOGIC: Denies thrombophilia/previous clots, or coagulopathy/bleeding disorders. ONCOLOGIC: Denies personal history of malignancy. DERMATOLOGIC: Denies rashes or pruritus. PSYCHIATRIC: Denies any suicidal or homicidal ideation. Denies hallucinations. PHYSICAL EXAM GENERAL APPEARANCE: The patient is awake, alert, and oriented, in no acute cardiopulmonary distress. NEUROLOGICAL: Cranial nerves II-XII grossly intact. Motor is 5/5 in bilateral upper and lower extremities proximal to distal. No sensory deficits. HEENT: Face is symmetric. Pupils are equal and reactive. Extraocular movements are intact. NECK: Supple. No JVD. No thyromegaly. No submental, submandibular, pre- /postauricular, occipital or supraclavicular lymphadenopathy. CHEST: Normal chest expansion. No Telemetry. LUNGS: Absence of any rales, rhonchi or any wheezing. CARDIOVASCULAR: Regular. S1 and S2 normal. No appreciable rubs, murmurs or ga llops. ABDOMEN: Soft, nontender, and nondistended. There is no rebound, voluntary guarding, or rigidity. : Deferred. No Fitzpatrick. EXTREMITIES: Non-edematous and not cyanotic. No clubbing. Good capillary refill. SKIN: No skin breakdown. Vital Signs (last 8hr) Date Time Temp Pulse Resp B/P (MAP) Pulse Ox O2 Delivery O2 Flow Rate FiO2 5/26/25 09:12 98.6 89 18 125/69 99 Nasal Cannula* 2 08/05/24 08:17 69 18 122/67 99 Nasal Cannula* 2 08/05/24 07:34 98.6 63 18 116/66 99 Nasal Cannula* 2 08/05/24 06:32 98.4 83 19 108/63 100 Nasal Cannula* 2 08/05/24 05:34 97 19 114/73 99 Nasal Cannula* 2 08/05/24 04:28 64 19 116/67 98 Nasal Cannula* 2 28 08/05/24 04:17 120 123/80 08/05/24 04:06 113 19 129/75 98 Nasal Cannula* 2 08/05/24 03:13 121/78 LABS: Laboratory: Test 08/05/24 09:10 08/05/24 07:23 08/05/24 04:32 08/05/24 02:28 Range/Units White Blood Count 10.9 H 4.8-10.8 K/uL Red Blood Count 4.35 L 4.50-6.20 MIL/uL Hemoglobin 13.9 L 14.0-18.0 g/dL Hematocrit 39.6 L 42-54 % Mean Corpuscular Volume 91.0 79-99 fL Mean Corpuscular Hemoglobin 32.0 27.0-33.0 pg Mean Corpuscular Hemoglobin Concent 35.1 32.0-36.0 g/dL Red Cell Distribution Width 13.0 11.0-15.5 % Platelet Count 218 130-400 K/uL Mean Platelet Volume 9.7 7.5-10.5 fL Immature Granulocyte % (Auto) 0.6 0-1 % Neutrophils (%) (Auto) 84.4 H 40.0-77.0 % Lymphocytes (%) (Auto) 9.7 L 21.0-51.0 % Monocytes (%) (Auto) 5.0 3.0-13.0 % Eosinophils (%) (Auto) 0.1 0.0-8.0 % Basophils (%) (Auto) 0.2 0.0-5.0 % Neutrophils # (Auto) 9.2 H 1.8-7.7 K/uL Lymphocytes # (Auto) 1.1 1.0-4.8 K/uL Monocytes # (Auto) 0.5 0.1-1.0 K/uL Eosinophils # (Auto) 0.01 0.00-0.70 K/uL Basophils # (Auto) 0.02 0.00-0.20 K/uL Absolute Immature Granulocyte (auto 0.07 0-1 K/uL Nucleated Red Blood Cells 0.0 0.0-0.19 % White Cell Morphology Comment See comments Prothrombin Time 10.1 9.6-11.6 SEC Prothromb Time International Ratio 0.95 0.85-1.15 Activated Partial Thromboplast Time 67.5 #H 26.3-35.5 SEC Sodium Level 138 136-145 mmol/L Potassium Level 4.2 3.5-5.1 mmol/L Chloride Level 102 101-111 mmol/L Carbon Dioxide Level 21 21-32 mmol/L Blood Urea Nitrogen 8 7-18 mg/dL Creatinine 0.7 0.5-1.3 mg/dL Glomerular Filtration Rate Calc 107 >90 mL/min Random Glucose 254 H 70-105 mg/dL Whole Blood Ketones Quantitative 1.6 H 0.0-0.6 mmol/L Lactic Acid Level 1.3 0.8-2.5 mmol/L Total Calcium 8.9 8.5-10.1 mg/dL Total Bilirubin 0.8 0.2-1.0 mg/dL Aspartate Amino Transf (AST/SGOT) 176 H 10-37 U/L Alanine Aminotransferase (ALT/SGPT) 39 12-78 U/L Alkaline Phosphatase 74 50-136 U/L Total Protein 7.6 6.0-8.3 g/dL Albumin 3.9 3.5-5.0 g/dL Whole Blood Glucose 258 H 70-110 MG/DL Troponin I High Sensitivity 22635 *H 4-75 ng/L Hemoglobin A1c 8.5 H 4.0-6.0 % Estimated Average Glucose (eAG) 197 H 70-126 mg/dL Test 08/05/24 02:27 Range/Units Urine Color COLORLESS YELLOW Urine Appearance CLEAR CLEAR Urine pH 6.0 5.0-8.0 Urine Specific [place] 1.001 1.001-1.031 Urine Protein NEGATIVE NEGATIVE mg/dL Urine Glucose (UA) 500 H NEGATIVE mg/dL Urine Ketones NEGATIVE NEGATIVE mg/dL Urine Occult Blood NEGATIVE NEGATIVE Urine Nitrate NEGATIVE NEGATIVE Urine Bilirubin NEGATIVE NEGATIVE mg/dL Urine Urobilinogen 0.2 0.2-1.0 mg/dL Urine Leukocyte Esterase NEGATIVE NEGATIVE Lauren/uL Magnesium Level 1.90 1.80-2.40 mg/dL Total Creatine Kinase 812 *H 21-232 U/L B-Type Natriuretic Peptide 147 H 0-100 pg/mL Triglycerides Level 141 30-200 mg/dL Cholesterol Level 132 <200 mg/dL LDL Cholesterol 59 0-99 mg/dL HDL Cholesterol 62 29-71 mg/dL Thyroid Stimulating Hormone (TSH) 1.52 0.36-3.74 uIU/mL Urine Opiates Screen NEGATIVE NEGATIVE Urine Barbiturates Screen NEGATIVE NEGATIVE Urine Phencyclidine Screen NEGATIVE NEGATIVE Urine Amphetamines Screen NEGATIVE NEGATIVE Urine Benzodiazepines Screen NEGATIVE NEGATIVE Urine Cocaine Screen NEGATIVE NEGATIVE Urine Marijuana (THC) Screen NEGATIVE NEGATIVE Serum Alcohol 117 H 0-10 mg/dL Current Medications Medications (Trade) Dose Ordered Sig/Isidoro Route PRN Reason Start Time Stop Time Status Last Admin Dose Admin Aspirin (Aspirin 81mg Ec Tab) 81 mg DAILY PO 08/06/24 09:00 09/05/24 08:59 Atorvastatin Calcium (LIPItor 40MG) 40 mg HS PO 08/05/24 21:00 09/04/24 20:59 Chlordiazepoxide HCl (LIBrium 25 MG CAP) 25 mg Q2H PRN PO ALCOHOL WITHDRAWAL PROTOCOL 08/05/24 06:00 08/12/24 05:59 Dextrose (D50w) 50 ml AD PRN IV HYPOGLYCEMIA PROTOCOL 08/05/24 05:30 09/04/24 05:29 Diazepam (VALium 5 MG/ML 2 ML SYG) 10 mg Q4H PRN IVP ALCOHOL WITHDRAWAL PROTOCOL 08/05/24 06:30 08/12/24 06:29 Famotidine (Pepcid 20mg Vial) 20 mg BID IV 08/05/24 09:00 08/05/24 09:01 DC 08/05/24 07:47 20 MG Glucagon (Glucagon 1mg Kit) 1 mg AD PRN IM HYPOGLYCEMIA PROTOCOL 08/05/24 05:30 09/04/24 05:29 Heparin Sodium (Porcine) (HEParin 5,000 UNIT VIAL) 5,000 unit Q8H SQ 08/05/24 11:00 08/05/24 03:04 DC Heparin Sodium/ Dextrose 250 ml @ 0 mls/hr PROTOCOL IV 08/05/24 03:00 09/04/24 02:59 5/26/25 03:11 13.87 MLS/HR Insulin Glargine (LANtus 100 UNITS/ML 10 ML VIAL) 10 units BID@0730,2100 SQ 08/05/24 21:00 09/04/24 20:59 Insulin Human Regular (humuLIN R 100 UNIT/ML 3ML) INSULIN SLIDING SCAL... ACHS SQ 08/05/24 07:30 08/05/24 08:55 DC 08/05/24 07:47 5 UNIT Insulin Human Regular (humuLIN R 100 UNIT/ML 3ML) INSULIN SLIDING SCAL... ACHS SQ 08/05/24 11:30 09/04/24 11:29 Lorazepam (AtiVAN) 2 mg Q4H PRN IVP ALCOHOL WITHDRAWAL PROTOCOL 08/05/24 06:00 08/05/24 06:04 DC Magnesium Sulfate 50 ml @ 0 mls/hr PROTOCOL PRN IV OTHER [SEE ORDER COMMENTS] 08/05/24 05:30 09/04/24 05:29 Morphine Sulfate (morPHINE 2MG SYG) 2 mg Q4H PRN IVP SEVERE PAIN (7-10) 08/05/24 06:00 08/05/24 08:31 DC 08/05/24 06:03 2 MG Nitroglycerin (Nitrostat) 0.4 mg AD PRN SL CHEST PAIN 08/05/24 02:30 09/04/24 02:29 08/05/24 02:46 0.4 MG Nitroglycerin/ Dextrose 250 ml @ 0 mls/hr PROTOCOL IV 08/05/24 03:30 09/04/24 03:29 08/05/24 03:13 3 MLS/HR Ondansetron HCl (zoFRAN 4MG INJ) 4 mg Q6H PRN IV NAUSEA/VOMITING 08/05/24 05:30 09/04/24 05:29 Pantoprazole Sodium (PROTonix 40MG INJ) 40 mg DAILY IVP 08/05/24 09:00 09/04/24 08:59 08/05/24 09:08 40 MG Pharmacy Profile Note (Pharmacy Communication) 1 each PROTOCOL PRN MISC ETOH Withdrawal Score changes 08/05/24 06:00 08/12/24 05:59 Potassium Chloride 100 ml @ 50 mls/hr AD PRN IV POTASSIUM PROTOCOL 08/05/24 05:30 09/04/24 05:29 Promethazine HCl (Phenergan) 25 mg Q6H PRN PO NAUSEA 08/05/24 06:00 09/04/24 05:59 Sodium Chloride 1,000 ml @ 75 mls/hr [id number] IV 08/05/24 05:30 09/04/24 05:29 08/05/24 05:52 100 MLS/HR Thiamine HCl 100 mg/Folic Acid 1 mg/Multivitamins/ Minerals 10 ml/ Sodium Chloride 1,011.2 ml @ 100 mls/ hr Q24H IV 08/05/24 06:00 08/07/24 16:07 08/05/24 06:03 100 MLS/HR DIAGNOSTICS / RADIOLOGY: PROCEDURE: [id number] - CHEST 1VW Exam Type: CHEST 1VW Clinical Information: cp Comparison: None Findings: The lungs are clear of infiltrates. The heart is normal in size. The bony and soft tissue structures of the chest are unremarkable. Impression: Clear lungs. ASSESSMENT: Chest pain, POA ACS- NSTEMI POA Alcohol Intoxication POA Uncontrolled diabetes POA Obesity POA Hyperlipidemia POA Hypertension POA Elevated CK POA Active alcohol drinker POA PLAN: Continue telemetry NSTEMI POA Continue nitroglycerin and heparin drip Continue [id number] mg daily Currently on Lipitor 40 mg daily, we will increase the dose to 80 mg We will coordinate with Cardiology on starting P2Y12 inhibitors Appreciate cardiology consult and we will follow their recommendations Elevated TCK POA Continue NS @ 100 ml / hr x2 bags and re evaluate Alcohol Intoxication POA Monitor for signs of alcohol withdrawal CIWA protocol in place Counseled on alcohol use cessation Uncontrolled diabetes POA Glucose 229 Continue insulin sliding scale AC & HS with hypoglycemia protocol Hyperlipidemia POA, Hypertension POA Normal lipid panel results Continue Atorvastatin Continue Famotidine 20 mg IV bid for GI prophylaxis Continue SCDs for DVT prophylaxis Monitor electrolytes and replace them as needed per protocol Continue prn medication for fever,pain,cough , nausea and vomiting Labs in a.m. Follow up on Cardiology consult recommendations ATTESTATION BY PHYSICIAN I have seen and examined the patient. I reviewed the documentation, medical decision making, and treatment plan as noted by the resident above. I agree with the findings and plan of care. Tomás Israel MD, PRIYANKA MD August 05, 2024 10:45
[2024-08-05] MEDS ORDERED: METF-446 PO (10:56)
[2024-08-05] MEDS ORDERED: METO-409 PO (10:56)
[2024-08-05] MEDS ORDERED: HEParin 5,000 UNIT VIAL SQ SCH (11:00)
--- NOTE | 2024-08-05 11:30 | NUR ---
C/O CHEST PAIN, MORPHINE ORDERED BY DR MAJANO. PT CONSTANTLY CALLING PEOPLE ON PHONE. PT ASKED FREQUENTLY TO RELAX AND REST.
[2024-08-05] MEDS ORDERED: HEParin-NS 1,000 UNIT/500 ML 1,000 ML IV ONE (12:38)
[2024-08-05] MEDS ORDERED: FENTanyl CITRate PF 50 MCG/1 ML 2ML VIAL ONE (13:10)
[2024-08-05] MEDS ORDERED: MIDAZOLAM HCL 1 MG/ML 2ML VIAL ONE (13:11)
--- NOTE | 2024-08-05 13:46 | CONS ---
Cardiology Consult Note Attending Architecture Intern: Dr. Eduardo Madrid Consulting Physician: Hospitalist Date of Service: 08/05/2024 Reason for Consult: ACS-NSTEMI HPI: This is a 59y/o male with a past medical HTN, DM2, and alcohol abuse who presents with chest pain of 2 days in duration. The symptoms began spontaneously and initially would develop after eating, but yesterday afternoon, his symptoms progressively worsened and became constant. The pain was described as sharp/burning in quality, 8/10 in intensity, and were nonradiating. The symptoms were not exacerbated or alleviated by anything. Associated symptoms include palpitations and shortness of breath. Pertinent negatives include headache, dizziness, syncope, PND, orthopnea, abdominal pain, nausea, vomiting, weight gain, lower extremity swelling, diaphoresis, fever, or chills. The patient's progression of symptoms prompted him to seek a higher level of care. While on the inpatient service, the patient was found to have progressively elevated troponin I levels. Cardiology was consulted for treatment recommendations. PMH: Listed above PSH: Listed above FH: Noncontributory SH: Positive for alcohol use. Denies tobacco or illicit drug use. Allergies: Coded Allergies: No Known Allergies (Unverified Allergy, Unknown, 08/05/24) Review of systems: General: Denies fever or chills HEENT: Denies changes in vision, earache or sore throat Neck: Denies pain or stiffness Cardio: As per the HPI Pulm: As per the HPI GI: Denies abdominal pain, nausea, vomiting, diarrhea, or constipation. MSK: Denies decrease ROM or joint pain. Heme: Denies anemia, easy bruising, or bleeding. Neuro: Denies headache, dizziness, or syncope. Psyche: Denies anxiety, depression, or suicidal ideation. Physical Exam: Vital Signs Date Time Temp Pulse Resp B/P (MAP) Pulse Ox O2 Delivery O2 Flow Rate FiO2 08/05/24 12:14 98.4 104 20 121/81 (94) 97 08/05/24 09:12 Nasal Cannula* 2 28 General: Alert and oriented. NAD HEENT: NC/AT. Oral mucosa is moist. Neck: No masses, JVD, or carotid bruits Lungs: NRD. SCM. Bilateral air entry. No wheezing, rales or rhonchi. Cardio: Regular rate. Normal S1 and S2, +S4. PMI was not displaced. Abdomen: Soft. NT. ND. Normal active bowel sounds x 4 quadrants. Extremities: Diminished throughout. No edema noted. Neuro: CN II-XII were grossly intact. No obvious focal deficits. Labs: Laboratory Tests Test 08/05/24 02:27 08/05/24 02:28 08/05/24 04:32 08/05/24 07:23 Range/Units White Blood Count 10.9 H 4.8-10.8 K/uL Red Blood Count 4.86 4.50-6.20 MIL/uL Hemoglobin 15.5 14.0-18.0 g/dL Hematocrit 44.4 42-54 % Mean Corpuscular Volume 91.4 79-99 fL Mean Corpuscular Hemoglobin 31.9 27.0-33.0 pg Mean Corpuscular Hemoglobin Concent 34.9 32.0-36.0 g/dL Red Cell Distribution Width 13.0 11.0-15.5 % Platelet Count 254 130-400 K/uL Mean Platelet Volume 9.6 7.5-10.5 fL Immature Granulocyte % (Auto) 0.4 0-1 % Neutrophils (%) (Auto) 65.0 40.0-77.0 % Lymphocytes (%) (Auto) 26.4 21.0-51.0 % Monocytes (%) (Auto) 7.5 3.0-13.0 % Eosinophils (%) (Auto) 0.5 0.0-8.0 % Basophils (%) (Auto) 0.2 0.0-5.0 % Neutrophils # (Auto) 7.1 1.8-7.7 K/uL Lymphocytes # (Auto) 2.9 1.0-4.8 K/uL Monocytes # (Auto) 0.8 0.1-1.0 K/uL Eosinophils # (Auto) 0.06 0.00-0.70 K/uL Basophils # (Auto) 0.02 0.00-0.20 K/uL Absolute Immature Granulocyte (auto 0.04 0-1 K/uL Nucleated Red Blood Cells 0.0 0.0-0.19 % Prothrombin Time 9.5 L 9.6-11.6 SEC Prothromb Time International Ratio <= 0.93 0.85-1.15 Activated Partial Thromboplast Time 22.5 L 26.3-35.5 SEC Urine Color COLORLESS YELLOW Urine Appearance CLEAR CLEAR Urine pH 6.0 5.0-8.0 Urine Specific [place] 1.001 1.001-1.031 Urine Protein NEGATIVE NEGATIVE mg/dL Urine Glucose (UA) 500 H NEGATIVE mg/dL Urine Ketones NEGATIVE NEGATIVE mg/dL Urine Occult Blood NEGATIVE NEGATIVE Urine Nitrate NEGATIVE NEGATIVE Urine Bilirubin NEGATIVE NEGATIVE mg/dL Urine Urobilinogen 0.2 0.2-1.0 mg/dL Urine Leukocyte Esterase NEGATIVE NEGATIVE Lauren/uL Sodium Level 141 136-145 mmol/L Potassium Level 3.5 3.5-5.1 mmol/L Chloride Level 101 101-111 mmol/L Carbon Dioxide Level 20 L 21-32 mmol/L Blood Urea Nitrogen 6 L 7-18 mg/dL Creatinine 0.7 0.5-1.3 mg/dL Glomerular Filtration Rate Calc 107 >90 mL/min Random Glucose 229 H 70-105 mg/dL Total Calcium 9.5 8.5-10.1 mg/dL Magnesium Level 1.90 1.80-2.40 mg/dL Total Creatine Kinase 812 *H 21-232 U/L Troponin I High Sensitivity 86453 *H 55454 *H 4-75 ng/L B-Type Natriuretic Peptide 147 H 0-100 pg/mL Triglycerides Level 141 30-200 mg/dL Cholesterol Level 132 <200 mg/dL LDL Cholesterol 59 0-99 mg/dL HDL Cholesterol 62 29-71 mg/dL Thyroid Stimulating Hormone (TSH) 1.52 0.36-3.74 uIU/mL Urine Opiates Screen NEGATIVE NEGATIVE Urine Barbiturates Screen NEGATIVE NEGATIVE Urine Phencyclidine Screen NEGATIVE NEGATIVE Urine Amphetamines Screen NEGATIVE NEGATIVE Urine Benzodiazepines Screen NEGATIVE NEGATIVE Urine Cocaine Screen NEGATIVE NEGATIVE Urine Marijuana (THC) Screen NEGATIVE NEGATIVE Serum Alcohol 117 H 0-10 mg/dL Hemoglobin A1c 8.5 H 4.0-6.0 % Estimated Average Glucose (eAG) 197 H 70-126 mg/dL Whole Blood Glucose 258 H 70-110 MG/DL Test 08/05/24 09:10 08/05/24 12:25 Range/Units White Blood Count 10.9 H 4.8-10.8 K/uL Red Blood Count 4.35 L 4.50-6.20 MIL/uL Hemoglobin 13.9 L 14.0-18.0 g/dL Hematocrit 39.6 L 42-54 % Mean Corpuscular Volume 91.0 79-99 fL Mean Corpuscular Hemoglobin 32.0 27.0-33.0 pg Mean Corpuscular Hemoglobin Concent 35.1 32.0-36.0 g/dL Red Cell Distribution Width 13.0 11.0-15.5 % Platelet Count 218 130-400 K/uL Mean Platelet Volume 9.7 7.5-10.5 fL Immature Granulocyte % (Auto) 0.6 0-1 % Neutrophils (%) (Auto) 84.4 H 40.0-77.0 % Lymphocytes (%) (Auto) 9.7 L 21.0-51.0 % Monocytes (%) (Auto) 5.0 3.0-13.0 % Eosinophils (%) (Auto) 0.1 0.0-8.0 % Basophils (%) (Auto) 0.2 0.0-5.0 % Neutrophils # (Auto) 9.2 H 1.8-7.7 K/uL Lymphocytes # (Auto) 1.1 1.0-4.8 K/uL Monocytes # (Auto) 0.5 0.1-1.0 K/uL Eosinophils # (Auto) 0.01 0.00-0.70 K/uL Basophils # (Auto) 0.02 0.00-0.20 K/uL Absolute Immature Granulocyte (auto 0.07 0-1 K/uL Nucleated Red Blood Cells 0.0 0.0-0.19 % White Cell Morphology Comment See comments Prothrombin Time 10.1 9.6-11.6 SEC Prothromb Time International Ratio 0.95 0.85-1.15 Activated Partial Thromboplast Time 67.5 #H 26.3-35.5 SEC Sodium Level 138 136-145 mmol/L Potassium Level 4.2 3.5-5.1 mmol/L Chloride Level 102 101-111 mmol/L Carbon Dioxide Level 21 21-32 mmol/L Blood Urea Nitrogen 8 7-18 mg/dL Creatinine 0.7 0.5-1.3 mg/dL Glomerular Filtration Rate Calc 107 >90 mL/min Random Glucose 254 H 70-105 mg/dL Whole Blood Ketones Quantitative 1.6 H 0.0-0.6 mmol/L Lactic Acid Level 1.3 0.8-2.5 mmol/L Total Calcium 8.9 8.5-10.1 mg/dL Total Bilirubin 0.8 0.2-1.0 mg/dL Aspartate Amino Transf (AST/SGOT) 176 H 10-37 U/L Alanine Aminotransferase (ALT/SGPT) 39 12-78 U/L Alkaline Phosphatase 74 50-136 U/L Troponin I High Sensitivity 34115 *H 4-75 ng/L Total Protein 7.6 6.0-8.3 g/dL Albumin 3.9 3.5-5.0 g/dL Whole Blood Glucose 196 H 70-110 MG/DL Assessment: -ACS-NSTEMI -HTN -DM2 -Alcohol abuse Plan: 1. ACS-NSTEMI -Stable -Cardiac enzymes-HS troponin I: 22532>63075>36102 -The above mentioned findings are diagnostic for ACS-NSTEMI. As a result, he will continue on goal directed ACS-NSTEMI treatment which includes aspirin 81 mg daily, ticagrelor 180 mg x 1 dose, IV heparin infusion (ACS protocol), metoprolol tartrate 25 mg BID, and atorvastatin 40 mg QHS. In addition, he will continue on the IV nitroglycerin infusion which should be titrated in order to provide resolution of chest pain. -In light of the patient's persistent chest pain and rising troponin levels, we will schedule the patient for an urgent LHC/coronary angiogram with possible intervention. The risks and benefits of the procedure have been explained to the patient and he wishes to proceed. -A 2D echocardiogram has been ordered (already done) to assess the patient's systolic/diastolic function and for any wall motion abnormalities. Thank you for this interesting consult and allowing us to participate in the car e of your patient. Further recommendations to follow. This case was discussed with my Supervising Physician, Dr. Eduardo Madrid, and the above mentioned plan was formulated and agreed upon. -Consult Note written by Anupama Salcedo, MSN, GERIATRIC AIDE, AGACNP-BC ANUPAMA SALCEDO ASSISTANT TRACK AND FIELD COACH August 05, 2024 13:45
--- NOTE | 2024-08-05 13:52 | EKG ---
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
--- NOTE | 2024-08-05 13:52 | EKG ---
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
--- NOTE | 2024-08-05 13:52 | EKG ---
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
[2024-08-05] MEDS ORDERED: BIVALIRUDIN 250 MG/VIAL IV ONE (13:53)
[2024-08-05] MEDS ORDERED: hydrALAZine 20MG/ML VIAL ONE (14:09)
--- NOTE | 2024-08-05 14:40 | PRN ---
PROCEDURE NOTE Indications: 1. ACS-NSTEMI 2. Chest pain, resistant to nitroglycerin and morphine 3. Acute alcohol intoxication Procedures: LHC, coronary angiogram, femoral angiogram Introduction: After informed written consent was obtained, the patient was brought to the Catheterization Lab in the usual fasting state. Following sterile prep and drape, a time out was performed, then moderate sedation was administered, 1mg of Versed and 50mcg of Fentanyl, then 1% Lidocaine was infiltrated into the right femoral groin. Using a Modified Seldinger technique, a 6Fr Sheath was inserted into the right common femoral artery. While under fluoroscopic guidance, diagnostic coronary catheters were advanced over a wire into the central circulation where they were aspirated, flushed and placed to pressure monitoring, once the wire was removed. Coronary Angio: The left and right coronary arteries were engaged with appropriate catheters and angiography was performed under continuous pressure monitoring. Left Heart Catheterization: A JR4 catheter was inserted into the LV and the pressure was recorded, then the catheter was removed from the LV. Cardiac Findings: Right dominant system LM: Large caliber vessel with mild luminal irregularities. The vessel bifurcates into the LAD and LCX. LAD: Medium caliber vessel with diffuse 80% stenosis in the proximal LAD. The rest of the vessel has mild luminal irregularities. FABIEN 3 blood flow distally. Diag 1: Small caliber vessel with mild luminal irregularities LCx: Medium caliber vessel with 30% stenosis in the mid LCX. OM1: Small caliber vessel with a 40% stenosis in the ostial OM1. OM2: Small caliber vessel with mild luminal irregularities. OM3: Small caliber vessel with mild luminal irregularities. RCA: Large caliber vessel with 95% stenosis in the proximal RCA 100% stenosis (SURGICAL SUPPLY ASSISTANT) in the distal RCA. There is slow flow and thrombus formation in the distal RCA, before the SURGICAL SUPPLY ASSISTANT. RPDA: Medium caliber vessel that reconstitutes via [id number] collateral blood flow (from the LAD). RPLV: Medium caliber vessel that reconstitutes via [id number] collateral blood flow (from the LAD). LVEDP: 13mmHg. Medications given: Versed 1mg, Fentanyl 25mcg, Nitroglycerin 400 mcg IV, Hydralazine 10mg IV Coronary Intervention: None Complications: None Conscious Sedation Monitoring: Under my direct order and supervision, medication for moderate conscious sedation was administered by the nursing staff and the patients level of consciousness and physiological status was monitored by an independent trained nurse. Closure of Access Site: After the case completed the sheath was pulled and a 6Fr Angioseal was deployed in the right common femoral artery without complication. Conclusion: 1. ACS-NSTEMI 2. 2V CAD (80% stenosis in the proximal LAD, 100% stenosis in the distal RCA) 3. Normal left-sided filling pressures, LVEDP 13 mm Hg 4. Chest pain, resistant to both nitroglycerin and morphine 5. Acute alcohol intoxication Recommendation: 1. Consult CT surgery for CABG evaluation (HILLMAN-LAD, [id number]). 2. Groin precautions 3. 4 hours of bed rest 4. Start NS at 100 mL/hour x3 hours 5. Restart heparin drip in 4 hours (6:00 p.m) 6. Stop Brilinta. Continue aspirin 81 mg daily, metoprolol 25 mg BID and statin therapy 7. Titrate nitroglycerin upwards in order to achieve chest pain control ROSALIA MAJANO MD August 05, 2024 14:40
--- NOTE | 2024-08-05 15:16 | NUR ---
DR RIZVI AT BEDSIDE.
--- NOTE | 2024-08-05 15:16 | NUR ---
C/O CHEST PAIN. MORPHINE [address] RIZVI AT BEDSIDE. LOPRESSOR ADM. NITROGYGERIN DRIP INCREASED. NOW AT 80 MICS/MIN.
[2024-08-05] MEDS: metoPROLOL tartRATE 25 MG TAB PO SCH (15:18)
--- NOTE | 2024-08-05 16:52 | NUR ---
DR MAJANO MADE AWARE OF CP WITH MORPHINE GIVEN AND NITRO AT 110 MICS/MIN. ORDERS RECEIVED FOR RANOLAZINE.
[2024-08-05] MEDS: RANOLAZINE 500 MG TAB.SR.12H PO ONE (17:11)
[2024-08-05] MEDS: RANOLAZINE 500 MG TAB.SR.12H PO SCH (17:30)
[2024-08-05] MEDS: atorVAStatin 40 MG TABLET PO SCH (20:37)
[2024-08-05] MEDS: INSULIN GLARgine 100 UNITS/ML 10 ML VIAL SQ SCH (20:38)
[2024-08-05] MEDS ORDERED: RANOLAZINE 500 MG TAB.SR.12H PO SCH (21:00)
[2024-08-05] MEDS: ondanSETRON 4MG INJ IV PRN (22:13)
[2024-08-06] VITALS (34 sets, daily range): BP systolic 96–161; BP diastolic 39–88; PULSE 65–99; RESP 10–29; TEMP 97.8–98.7; O2SAT 97–99
[2024-08-06] MEDS: cefTRIAXone 2GM VIAL IVPB SCH (00:18)
--- NOTE | 2024-08-06 00:55 | HMCSR ---
APPROVED REPORT EXAM: Two-dimensional and M-mode echocardiogram with Doppler and color Doppler. INDICATION ICD: Chest Pain 2D Dimensions RVDd3.3 cmLVEF(%)41.7 (>50%)LVED Vol(simp.)84.4 mL IVSd1.0 (0.7-1.1cm)FS(%)20 %LVES Vol(simp.)39.1 mL LVDd3.8 (3.8-5.6cm)LA (2D)3.0 (1.6-4.0cm)LVEF(%, simp.)54 % PWd1.0 (0.7-1.1cm)Ao Root(2D)3.2 (2.0-3.7cm)LA ESV INDEX (BP)20.57 mL/m2 LVDs3.0 (2.5-4.0cm)LVOT diam1.8 (1.8-2.4cm) IVC diam1.4 cm Deformation Strain Apical 4-14.4 % Apical 2-14.4 % Apical 3-13.5 % Global Strain-14.1 % M-Mode Dimensions EPSS0.7 cm LA (MM)3.3 (1.6-4.0cm) Ao Root(MM)3.4 (2.0-3.7cm) Aortic Valve AoV Vmax1.5 m/Jaz Peak GR8.6 mmHgLVOT Vmax1.1 m/s AoV VTI0.2 mAo Mean GR4.4 mmHgLVOT VTI0.16 m YEHUDA (VMAX)1.88 cm2AVA (VTI) 1.8 cm2 Mitral Valve MV E Vmax50.0 cm/sP 1/2 T32 ms MVA (PHT)6.9 cm2 TDI E/E' Medial7.1E/E' Lateral5.0 Medial E' Peak V7.08 cm/sLateral E' Peak V10.04 cm/s Pulmonary Valve PV Vmax1.2 m/sPV VTI0.18 mPV Mean GR3.1 mmHg PV Peak GR5.9 mmHg Left Ventricle The left ventricle is normal size. The basal inferior wall is hypokinetic. The mid/apical inferior wa ll is normal in function. The anterior, anterolateral, inferolateral, septal, and apical carroll are no rmal in function. Mild concentric left ventricular hypertrophy. Left ventricle systolic function is n ormal, estimated LV EF 55%. Indeterminate diastolic function. Right Ventricle The right ventricle is normal size. The right ventricular systolic function is normal. Atria The left atrium size is normal. The right atrium size is normal. Aortic Valve The aortic valve is normal in structure. No aortic regurgitation is present. There is no aortic valvu lar stenosis. Mitral Valve The mitral valve is normal in structure. Trace mitral regurgitation. There is no mitral valve stenosi s. Tricuspid Valve The tricuspid valve is normal in structure. Trace tricuspid regurgitation. RVSP is normal. Pulmonic Valve Pulmonic valve is not well visualized. Great Vessels The aortic root is normal in size. The IVC is normal in size and collapses >50% with inspiration. Pericardium There is no pericardial effusion. Conclusion The cardiac chambers are normal in size. Mild concentric left ventricular hypertrophy. The basal inferior wall is hypokinetic. The mid/apical inferior wall is normal in function. The ant erior, anterolateral, inferolateral, septal, and apical carroll are normal in function. Left ventricle systolic function is normal, estimated LVEF 55%. Indeterminate diastolic function. Trace mitral regurgitation. Trace tricuspid regurgitation. PASP is normal. There is no pericardial effusion.
[2024-08-06 06:54] LABS: BASOPHILS # (AUTO) 0.02 K/uL (0.00-0.20); BASOPHILS % (AUTO) 0.2 % (0.0-5.0); HEMATOCRIT 33.7 % (42-54); IMMATURE GRANULOCYTE ABSOLUTE 0.03 K/uL (0-1); LYMPHOCYTES # (AUTO) 2.1 K/uL (1.0-4.8); MEAN CORPUSCULAR HEMOGLOBIN 31.3 pg (27.0-33.0); MEAN CORPUSCULAR HGB CONC 34.1 g/dL (32.0-36.0); MEAN CORPUSCULAR VOLUME 91.8 fL (79-99); MONOCYTES # (AUTO) 1.1 K/uL (0.1-1.0); MONOCYTES % (AUTO) 11.3 % (3.0-13.0); NEUTROPHILS # (AUTO) 6.7 K/uL (1.8-7.7); NEUTROPHILS % (AUTO) 67.2 % (40.0-77.0); PLATELET COUNT (AUTO) 174 K/uL (130-400); RED BLOOD CELL COUNT(AUTO) 3.67 MIL/uL (4.50-6.20)
[2024-08-06 07:18] LABS: BILIRUBIN,TOTAL 0.9 mg/dL (0.2-1.0); CREATININE 0.7 mg/dL (0.5-1.3); MAGNESIUM 1.7 mg/dL (1.80-2.40); POTASSIUM 3.5 mmol/L (3.5-5.1); TOTAL PROTEIN, SERUM 6.4 g/dL (6.0-8.3)
[2024-08-06 07:19] LABS: B-TYPE NATRIURETIC PEPTIDE 128 pg/mL (0-100)
[2024-08-06] MEDS: ASPIRIN 81 MG EC TAB PO SCH (09:05)
[2024-08-06] MEDS: DOXYCYCLINE HYCLATE 100 MG TABLET PO SCH (09:06)
[2024-08-06] MEDS: MAGNESIUM 2GM PREMIX 50ML 50 ML IV PRN (09:46)
--- NOTE | 2024-08-06 10:00 | PN ---
[facility] PROGRESS NOTE Date of Service: August 06, 2024 Time of Service: 09:58 SUBJECTIVE: This is a case of 59-year-old male with past medical history of diabetes, hypertension and hyperlipidemia who presented to the ED with complaints of left- sided chest pain which started around 8 pm last night while resting. He states that he has been experiencing intermittent chest pain since the past 2 days ago which has become persistent associated with SOB last night. Patient also reports that he had 5 beers last night and denies cigarette and recreational drug use. Initial ECG revealed ST 110 right bundle branch block, inferior infarct acute and second EKG showed ST 108 right bundle branch block inferior infarct recent and the 3rd EKG showed ST 120 with Right bundle branch block Inferior infarct recent and probable posterior infarct acute. Initial Labs WBC 10.9, BNP 147, total CK 812, troponin 13,930, serum alcohol 117. While in the ER patient received aspirin 325 mg p.o., Protonix 40 mg IV, Brilinta 90 mg p.o., verapamil 5 mg IV and metoprolol 5 mg IV and was started on heparin and nitroglycerin drip. He was admitted for further assessment and treatment in view of NSTEMI. 08/05/2024 Patient is seen and examined at the bedside. He complains of mild pressure-like left-sided chest pain and generalized body weakness. Vitals blood pressure ranging in 120/70s. Labs WBC 10.9, hemoglobin 13.9, BNP 147, PT 10.1, INR 0.95. Urinalysis positive for glucose. Urine toxicology negative and serum alcohol 117, glucose 229, magnesium 1.9, TCK 8. Troponin trend [id number]. Currently on heparin and nitroglycerin drip. He is scheduled for cardiac catheterization procedure today. Chest x-ray revealed clear lungs and pending 2D echo results. 08/06/2024 Patient is seen and examined at the bedside. He complains of generalized body weakness and headache. He denies fever, chills, nausea, vomiting, chest pain, palpitations, abdominal pain. Vitals Blood pressure 137/67. Labs WBC 10, hemoglobin dropped from 13.9-11.5, magnesium 1.70, calcium 8.1, AST improved from 176-115. BNP improved from 147-128 and TCK improved 812-5 75. He underwent left heart catheterization yesterday which revealed two-vessel coronary artery disease with 80% stenosis in the proximal LAD and 100% stenosis in the distal RCA. 2D echo revealed normal Left ventricle systolic function, estimated LVEF 55% and Indeterminate diastolic function. CT surgery was consulted. REVIEW OF SYSTEMS CONSTITUTIONAL: Generalized body weakness Denies fevers, chills, or night sweats. No unintentional weight loss reported. NEUROLOGICAL: Denies headache, amaurosis fugax, motor weakness, sensory deficit, vertigo/spinning sensation, gait abnormalities, or tremors. ENT: No hearing loss, otalgia, otorrhea, rhinitis, rhinorrhea, hoarseness, or sore throat. CARDIOVASCULAR: Denies chest pain Deniesdyspnea on exertion, orthopnea, paroxysmal nocturnal dyspnea, palpitations, life-threatening arrhythmias, claudication. PULMONARY: Denies cough, phlegm/sputum, hemoptysis, pleuritic chest pain. SLEEP: Denies morning headaches, daytime somnolence or napping. Denies difficulty falling asleep, staying asleep, waking from sleep. Denies knowledge of snoring. GASTROINTESTINAL: Denies any type of dysphagia to either liquids or solids. Denies nausea, vomiting, pyrosis, early satiety, abdominal pain, diarrhea, constipation, or changes in stool consistency or caliber. Denies coffee-ground emesis, hematemesis, hematochezia, or melanotic stools. GENITOURINARY: Denies frequency, urgency, nocturia, hematuria or incontinence (Storage/Irritative symptoms.) Low urinary stream, straining to void, urinary intermittency or hesitancy, splitting of the voiding stream, terminal dribbling. ENDOCRINOLOGIC: Denies polyuria, polydipsia, polyphagia or heat/cold intolerances. HEMATOLOGIC: Denies thrombophilia/previous clots, or coagulopathy/bleeding disorders. ONCOLOGIC: Denies personal history of malignancy. DERMATOLOGIC: Denies rashes or pruritus. PSYCHIATRIC: Denies any suicidal or homicidal ideation. Denies hallucinations. PHYSICAL EXAM GENERAL APPEARANCE: The patient is awake, alert, and oriented, in no acute cardiopulmonary distress. NEUROLOGICAL: Cranial nerves II-XII grossly intact. Motor is 5/5 in bilateral upper and lower extremities proximal to distal. No sensory deficits. HEENT: Face is symmetric. Pupils are equal and reactive. Extraocular movements are intact. NECK: Supple. No JVD. No thyromegaly. No submental, submandibular, pre- /postauricular, occipital or supraclavicular lymphadenopathy. CHEST: Normal chest expansion. No Telemetry. LUNGS: Absence of any rales, rhonchi or any wheezing. CARDIOVASCULAR: Regular. S1 and S2 normal. No appreciable rubs, murmurs or gallops. ABDOMEN: Soft, nontender, and nondistended. There is no rebound, voluntary guarding, or rigidity. : Deferred. No Fitzpatrick. EXTREMITIES: Non-edematous and not cyanotic. No clubbing. Good capillary refill. SKIN: No skin breakdown. Vital Signs (last 8hr) Date Time Temp Pulse Resp B/P (MAP) Pulse Ox O2 Delivery O2 Flow Rate FiO2 08/06/24 08:00 98 Room Air* 0 21 08/06/24 08:00 98.1 67 25 119/72 (88) 98 08/06/24 07:00 67 20 139/54 (82) 98 08/06/24 05:44 73 137/67 (90) 96 08/06/24 05:14 68 22 150/72 (98) 95 08/06/24 04:44 99 17 153/61 (91) 96 08/06/24 04:14 82 18 142/67 (92) 95 08/06/24 04:01 97 Room Air* 0 21 08/06/24 03:14 74 109/39 (62) 94 08/06/24 02:44 75 104/41 (62) 92 08/06/24 02:14 70 16 118/47 (70) 94 LABS: Laboratory: Test 08/06/24 06:52 08/06/24 06:33 08/05/24 16:03 08/05/24 09:10 Range/Units Whole Blood Glucose 165 H 70-110 MG/DL White Blood Count 10.0 4.8-10.8 K/uL Red Blood Count 3.67 L 4.50-6.20 MIL/uL Hemoglobin 11.5 L 14.0-18.0 g/dL Hematocrit 33.7 L 42-54 % Mean Corpuscular Volume 91.8 79-99 fL Mean Corpuscular Hemoglobin 31.3 27.0-33.0 pg Mean Corpuscular Hemoglobin Concent 34.1 32.0-36.0 g/dL Red Cell Distribution Width 13.0 11.0-15.5 % Platelet Count 174 130-400 K/uL Mean Platelet Volume 9.5 7.5-10.5 fL Immature Granulocyte % (Auto) 0.3 0-1 % Neutrophils (%) (Auto) 67.2 40.0-77.0 % Lymphocytes (%) (Auto) 21.0 21.0-51.0 % Monocytes (%) (Auto) 11.3 3.0-13.0 % Eosinophils (%) (Auto) 0.0 0.0-8.0 % Basophils (%) (Auto) 0.2 0.0-5.0 % Neutrophils # (Auto) 6.7 1.8-7.7 K/uL Lymphocytes # (Auto) 2.1 1.0-4.8 K/uL Monocytes # (Auto) 1.1 H 0.1-1.0 K/uL Eosinophils # (Auto) 0.00 0.00-0.70 K/uL Basophils # (Auto) 0.02 0.00-0.20 K/uL Absolute Immature Granulocyte (auto 0.03 0-1 K/uL Nucleated Red Blood Cells 0.0 0.0-0.19 % Activated Partial Thromboplast Time 83.3 #H 26.3-35.5 SEC Sodium Level 140 136-145 mmol/L Potassium Level 3.5 3.5-5.1 mmol/L Chloride Level 105 101-111 mmol/L Carbon Dioxide Level 27 21-32 mmol/L Blood Urea Nitrogen 7 7-18 mg/dL Creatinine 0.7 0.5-1.3 mg/dL Glomerular Filtration Rate Calc 107 >90 mL/min Random Glucose 166 H 70-105 mg/dL Total Calcium 8.1 L 8.5-10.1 mg/dL Magnesium Level 1.70 L 1.80-2.40 mg/dL Total Bilirubin 0.9 0.2-1.0 mg/dL Aspartate Amino Transf (AST/SGOT) 115 H 10-37 U/L Alanine Aminotransferase (ALT/SGPT) 28 # 12-78 U/L Alkaline Phosphatase 54 # 50-136 U/L Total Creatine Kinase 575 #*H 21-232 U/L B-Type Natriuretic Peptide 128 H 0-100 pg/mL Total Protein 6.4 6.0-8.3 g/dL Albumin 3.0 #L 3.5-5.0 g/dL Troponin I High Sensitivity 92078 *H 4-75 ng/L White Cell Morphology Comment See comments Prothrombin Time 10.1 9.6-11.6 SEC Prothromb Time International Ratio 0.95 0.85-1.15 Whole Blood Ketones Quantitative 1.6 H 0.0-0.6 mmol/L Lactic Acid Level 1.3 0.8-2.5 mmol/L Test 08/05/24 02:28 08/05/24 02:27 Range/Units Hemoglobin A1c 8.5 H 4.0-6.0 % Estimated Average Glucose (eAG) 197 H 70-126 mg/dL Urine Color COLORLESS YELLOW Urine Appearance CLEAR CLEAR Urine pH 6.0 5.0-8.0 Urine Specific [place] 1.001 1.001-1.031 Urine Protein NEGATIVE NEGATIVE mg/dL Urine Glucose (UA) 500 H NEGATIVE mg/dL Urine Ketones NEGATIVE NEGATIVE mg/dL Urine Occult Blood NEGATIVE NEGATIVE Urine Nitrate NEGATIVE NEGATIVE Urine Bilirubin NEGATIVE NEGATIVE mg/dL Urine Urobilinogen 0.2 0.2-1.0 mg/dL Urine Leukocyte Esterase NEGATIVE NEGATIVE Lauren/uL Triglycerides Level 141 30-200 mg/dL Cholesterol Level 132 <200 mg/dL LDL Cholesterol 59 0-99 mg/dL HDL Cholesterol 62 29-71 mg/dL Thyroid Stimulating Hormone (TSH) 1.52 0.36-3.74 uIU/mL Urine Opiates Screen NEGATIVE NEGATIVE Urine Barbiturates Screen NEGATIVE NEGATIVE Urine Phencyclidine Screen NEGATIVE NEGATIVE Urine Amphetamines Screen NEGATIVE NEGATIVE Urine Benzodiazepines Screen NEGATIVE NEGATIVE Urine Cocaine Screen NEGATIVE NEGATIVE Urine Marijuana (THC) Screen NEGATIVE NEGATIVE Serum Alcohol 117 H 0-10 mg/dL Current Medications Medications (Trade) Dose Ordered Sig/Isidoro Route PRN Reason Start Time Stop Time Status Last Admin Dose Admin Acetaminophen (TYLenol 500MG TAB) 500 mg Q6H PRN PO MILD PAIN (1-3) 08/06/24 10:00 09/05/24 09:59 Aspirin (Aspirin 81mg Ec Tab) 81 mg DAILY PO 08/06/24 09:00 09/05/24 08:59 08/06/24 09:05 81 MG Atorvastatin Calcium (LIPItor 40MG) 40 mg HS PO 08/05/24 21:00 09/04/24 20:59 08/05/24 20:37 40 MG Ceftriaxone Sodium (Rocephin 2gm Inj) 2 gm Q24H IVPB 08/06/24 00:00 08/15/24 23:59 08/06/24 00:18 2 GM Chlordiazepoxide HCl (LIBrium 25 MG CAP) 25 mg Q2H PRN PO ALCOHOL WITHDRAWAL PROTOCOL 08/05/24 06:00 08/12/24 05:59 Dextrose (D50w) 50 ml AD PRN IV HYPOGLYCEMIA PROTOCOL 08/05/24 05:30 09/04/24 05:29 Diazepam (VALium 5 MG/ML 2 ML SYG) 10 mg Q4H PRN IVP ALCOHOL WITHDRAWAL PROTOCOL 08/05/24 06:30 08/12/24 06:29 Doxycycline Hyclate (Doxycycline Hyclate) 100 mg BID PO 08/06/24 09:00 08/16/24 08:59 08/06/24 09:06 100 MG Famotidine (Pepcid 20mg Vial) 20 mg BID IV 08/05/24 09:00 08/05/24 09:01 DC 08/05/24 07:47 20 MG Glucagon (Glucagon 1mg Kit) 1 mg AD PRN IM HYPOGLYCEMIA PROTOCOL 08/05/24 05:30 09/04/24 05:29 Heparin Sodium (Porcine) (HEParin 5,000 UNIT VIAL) 5,000 unit Q8H SQ 08/05/24 11:00 08/05/24 03:04 DC Heparin Sodium/ Dextrose 250 ml @ 0 mls/hr PROTOCOL IV 08/05/24 03:00 09/04/24 02:59 08/06/24 02:04 13.87 MLS/HR Insulin Glargine (LANtus 100 UNITS/ML 10 ML VIAL) 10 units BID@0730,2100 SQ 08/05/24 21:00 09/04/24 20:59 08/06/24 06:58 10 UNITS Insulin Human Regular (humuLIN R 100 UNIT/ML 3ML) INSULIN SLIDING SCAL... ACHS SQ 08/05/24 07:30 08/05/24 08:55 DC 08/05/24 07:47 5 UNIT Insulin Human Regular (humuLIN R 100 UNIT/ML 3ML) INSULIN SLIDING SCAL... ACHS SQ 08/05/24 11:30 09/04/24 11:29 08/06/24 06:58 4 UNIT Lorazepam (AtiVAN) 2 mg Q4H PRN IVP ALCOHOL WITHDRAWAL PROTOCOL 08/05/24 06:00 08/05/24 06:04 DC Magnesium Sulfate 50 ml @ 0 mls/hr PROTOCOL PRN IV OTHER [SEE ORDER COMMENTS] 08/05/24 05:30 09/04/24 05:29 08/06/24 09:46 25 MLS/HR Metoprolol Tartrate (loprESSOR) 25 mg BID PO 08/05/24 14:30 09/04/24 14:29 08/06/24 09:05 25 MG Morphine Sulfate (morPHINE 2MG SYG) 2 mg Q2HPRN PRN IVP SEVERE PAIN (6-10) 08/05/24 11:10 08/12/24 11:09 08/05/24 15:11 2 MG Morphine Sulfate (morPHINE 2MG SYG) 2 mg Q4H PRN IVP SEVERE PAIN (7-10) 08/05/24 06:00 08/05/24 08:31 DC 08/05/24 06:03 2 MG Nitroglycerin (Nitrostat) 0.4 mg AD PRN SL CHEST PAIN 08/05/24 02:30 09/04/24 02:29 08/05/24 02:46 0.4 MG Nitroglycerin/ Dextrose 250 ml @ 0 mls/hr PROTOCOL IV 08/05/24 03:30 09/04/24 03:29 08/06/24 07:15 15 MLS/HR Ondansetron HCl (zoFRAN 4MG INJ) 4 mg Q6H PRN IV NAUSEA/VOMITING 08/05/24 05:30 09/04/24 05:29 08/05/24 22:13 4 MG Pantoprazole Sodium (PROTonix 40MG INJ) 40 mg DAILY IVP 08/05/24 09:00 09/04/24 08:59 08/06/24 09:11 40 MG Pharmacy Profile Note (Pharmacy Communication) 1 each PROTOCOL PRN MISC ETOH Withdrawal Score changes 08/05/24 06:00 08/12/24 05:59 Potassium Chloride 100 ml @ 50 mls/hr AD PRN IV POTASSIUM PROTOCOL 08/05/24 05:30 09/04/24 05:29 Promethazine HCl (Phenergan) 25 mg Q6H PRN PO NAUSEA 08/05/24 06:00 09/04/24 05:59 Ranolazine (Ranexa) 500 mg BID PO 08/05/24 17:30 09/04/24 17:29 08/06/24 09:05 500 MG Ranolazine (Ranexa) 500 mg BID PO 08/05/24 21:00 08/05/24 17:04 DC Sodium Chloride 1,000 ml @ 75 mls/hr [id number] IV 08/05/24 05:30 09/04/24 05:29 08/06/24 06:21 75 MLS/HR Sodium Chloride 1,000 ml @ 100 mls/hr Q10H IV 08/05/24 14:30 08/05/24 17:29 DC 08/05/24 15:22 100 MLS/HR Thiamine HCl 100 mg/Folic Acid 1 mg/Multivitamins/ Minerals 10 ml/ Sodium Chloride 1,011.2 ml @ 100 mls/ hr Q24H IV 08/05/24 06:00 08/07/24 16:07 08/06/24 06:17 100 MLS/HR DIAGNOSTICS / RADIOLOGY: SERVICE 3 REASON: chest pain ORDERING PHYSICIAN: BOBBI TIPTON PROCEDURE: ECHO CMP - ECHO 2-D COMPLETE APPROVED REPORT EXAM: Two-dimensional and M-mode echocardiogram with Doppler and color Doppler. INDICATION ICD: Chest Pain 2D Dimensions RVDd 3.3 cm LVEF(%) 41.7 (>50%) LVED Vol(simp.) 84.4 mL IVSd 1.0 (0.7-1.1cm) FS(%) 20 % LVES Vol(simp.) 39.1 mL LVDd 3.8 (3.8-5.6cm) LA (2D) 3.0 (1.6-4.0cm) LVEF(%, simp.) 54 % PWd 1.0 (0.7-1.1cm) Ao Root(2D) 3.2 (2.0-3.7cm) LA ESV INDEX (BP) 20.57 mL/m2 LVDs 3.0 (2.5-4.0cm) LVOT diam 1.8 (1.8-2.4cm) IVC diam 1.4 cm Deformation Strain Apical 4 -14.4 % Apical 2 -14.4 % Apical 3 -13.5 % Global Strain -14.1 % M-Mode Dimensions EPSS 0.7 cm LA (MM) 3.3 (1.6-4.0cm) Ao Root(MM) 3.4 (2.0-3.7cm) Aortic Valve AoV Vmax 1.5 m/s Ao Peak GR 8.6 mmHg LVOT Vmax 1.1 m/s AoV VTI 0.2 m Ao Mean GR 4.4 mmHg LVOT VTI 0.16 m YEHUDA (VMAX) 1.88 cm2 YEHUDA (VTI) 1.8 cm2 Mitral Valve MV E Vmax 50.0 cm/s P 1/2 T 32 ms MVA (PHT) 6.9 cm2 TDI E/E' Medial 7.1 E/E' Lateral 5.0 Medial E' Peak V 7.08 cm/s Lateral E' Peak V 10.04 cm/s Pulmonary Valve PV Vmax 1.2 m/s PV VTI 0.18 m PV Mean GR 3.1 mmHg PV Peak GR 5.9 mmHg Left Ventricle The left ventricle is normal size. The basal inferior wall is hypokinetic. The mid/apical inferior wall is normal in function. The anterior, anterolateral, inferolateral, septal, and apical carroll are normal in function. Mild concentric left ventricular hypertrophy. Left ventricle systolic function is normal, estimated LV EF 55%. Indeterminate diastolic function. Right Ventricle The right ventricle is normal size. The right ventricular systolic function is normal. Atria The left atrium size is normal. The right atrium size is normal. Aortic Valve The aortic valve is normal in structure. No aortic regurgitation is present. There is no aortic valvular stenosis. Mitral Valve The mitral valve is normal in structure. Trace mitral regurgitation. There is no mitral valve stenosis. Tricuspid Valve The tricuspid valve is normal in structure. Trace tricuspid regurgitation. RVSP is normal. Pulmonic Valve Pulmonic valve is not well visualized. Great Vessels The aortic root is normal in size. The IVC is normal in size and collapses >50% with inspiration. Pericardium There is no pericardial effusion. Conclusion The cardiac chambers are normal in size. Mild concentric left ventricular hypertrophy. The basal inferior wall is hypokinetic. The mid/apical inferior wall is normal in function. The anterior, anterolateral, inferolateral, septal, and apical carroll are normal in function. Left ventricle systolic function is normal, estimated LVEF 55%. Indeterminate diastolic function. Trace mitral regurgitation. Trace tricuspid regurgitation. PASP is normal. There is no pericardial effusion. ASSESSMENT: Chest pain, POA ACS- NSTEMI POA Alcohol Intoxication POA Uncontrolled diabetes POA Acute anemia, not POA Obesity POA Hyperlipidemia POA Hypertension POA Elevated CK POA Active alcohol drinker POA PLAN: Continue telemetry NSTEMI POA Continue nitroglycerin and heparin drip Continue mg daily Continue Lipitor 40 mg daily Hold Brilinta as per Cardiology recommendation Appreciate cardiology consult and we will follow their recommendations Elevated TCK POA Continue NS @75 mL/hour Alcohol Intoxication POA Monitor for signs of alcohol withdrawal CIWA protocol in place Counseled on alcohol use cessation Uncontrolled diabetes POA Glucose 165 Continue insulin sliding scale AC & HS with hypoglycemia protocol Acute anemia, not POA Hemoglobin dropped from 13.9-11.5 We will order an anemia financial compliance officer H&H Hyperlipidemia POA, Hypertension POA Normal lipid panel results Continue Atorvastatin Continue Famotidine 20 mg IV bid for GI prophylaxis Continue SCDs for DVT prophylaxis Monitor electrolytes and replace them as needed per protocol Continue prn medication for fever,pain,cough , nausea and vomiting Labs in a.m. Follow up on Cardiology consult recommendations Follow up on CT surgery consult recommendation ATTESTATION BY PHYSICIAN I have seen and examined the patient. I reviewed the documentation, medical decision making, and treatment plan as noted by the resident above. I agree with the findings and plan of care. Tomás Israel MD, PRIYANKA MD August 06, 2024 10:00
--- NOTE | 2024-08-06 10:01 | PN ---
[facility] CARDIOLOGY PROGRESS NOTE Date Patient Seen: August 06, 2024 Time of Visit: 09:53 Interval History: This is a 59-year-old Latin-Uz[place] male with a past medical history of hypertension, type 2 diabetes mellitus and alcohol abuse who presented with recu rrent chest pain the evening of 08/04/2024 when he developed sharp, burning in quality, 8/10 intensity chest discomfort. He previously developed symptoms after meal and with exertion. On the evening of 08/04/2024, his symptoms were more severe prompting ER visit. Symptom onset was approximately 8:00 p.m. on 08/04/2024 and did not present to the ER until approximately 2:00 a.m. on 08/05/2024. [place] [address]. He was managed for ACS/non ST segment elevation DC and underwent further assessment with a cardiac catheterization on 08/05/2024 demonstrating two-vessel coronary artery disease with 80% stenosis in the proximal LAD and 100% stenosis in the distal RCA. Admission lipid panel demonstrated a total cholesterol of 132, HDL 62, LDL 59 and triglycerides of 141. Hemoglobin A1c of 8.5. AST of 176, ALT of 39 He is currently on IV heparin and IV Tridil as he developed chest pain postprocedure. Surgical consultation has been requested and currently pending. The patient offers no complaints of chest pain overnight, he offers no complaints of shortness of breath. Telemetry has been normal sinus rhythm with a heart rate in the 90 beat per minute range. Physical Examination: GENERAL: No acute distress. HEAD: Normal with no signs of head trauma. EYES: PERRLA, EOMI, conjunctiva and sclera normal. NECK: Supple without JVD. There is no tenderness, lymphadenopathy, or masses. No thyromegaly. Normal carotid upstrokes without bruits. LUNGS: Clear breath sounds bilaterally. No wheezes, or rhonchi. HEART: Normal rate and rhythm. Normal S1 and S2 without murmurs, gallop or rub. VASC: Peripheral pulses +2 bilaterally. Right groin with a small hematoma. EXT: No clubbing, cyanosis or edema. NEURO: Awake, alert, and oriented x3. No focal neurological deficits noted. Laboratory: Hematology Labs: Test 08/06/24 06:33 08/05/24 09:10 Range/Units White Blood Count 10.0 4.8-10.8 K/uL Red Blood Count 3.67 L 4.50-6.20 MIL/uL Hemoglobin 11.5 L 14.0-18.0 g/dL Hematocrit 33.7 L 42-54 % Mean Corpuscular Volume 91.8 79-99 fL Mean Corpuscular Hemoglobin 31.3 27.0-33.0 pg Mean Corpuscular Hemoglobin Concent 34.1 32.0-36.0 g/dL Red Cell Distribution Width 13.0 11.0-15.5 % Platelet Count 174 130-400 K/uL Mean Platelet Volume 9.5 7.5-10.5 fL Immature Granulocyte % (Auto) 0.3 0-1 % Neutrophils (%) (Auto) 67.2 40.0-77.0 % Lymphocytes (%) (Auto) 21.0 21.0-51.0 % Monocytes (%) (Auto) 11.3 3.0-13.0 % Eosinophils (%) (Auto) 0.0 0.0-8.0 % Basophils (%) (Auto) 0.2 0.0-5.0 % Neutrophils # (Auto) 6.7 1.8-7.7 K/uL Lymphocytes # (Auto) 2.1 1.0-4.8 K/uL Monocytes # (Auto) 1.1 H 0.1-1.0 K/uL Eosinophils # (Auto) 0.00 0.00-0.70 K/uL Basophils # (Auto) 0.02 0.00-0.20 K/uL Absolute Immature Granulocyte (auto 0.03 0-1 K/uL Nucleated Red Blood Cells 0.0 0.0-0.19 % White Cell Morphology Comment See comments Chemistry Labs: Test 08/06/24 06:52 08/06/24 06:33 08/05/24 16:03 08/05/24 09:10 Range/Units Whole Blood Glucose 165 H 70-110 MG/DL Sodium Level 140 136-145 mmol/L Potassium Level 3.5 3.5-5.1 mmol/L Chloride Level 105 101-111 mmol/L Carbon Dioxide Level 27 21-32 mmol/L Blood Urea Nitrogen 7 7-18 mg/dL Creatinine 0.7 0.5-1.3 mg/dL Glomerular Filtration Rate Calc 107 >90 mL/min Random Glucose 166 H 70-105 mg/dL Total Calcium 8.1 L 8.5-10.1 mg/dL Magnesium Level 1.70 L 1.80-2.40 mg/dL Total Bilirubin 0.9 0.2-1.0 mg/dL Aspartate Amino Transf (AST/SGOT) 115 H 10-37 U/L Alanine Aminotransferase (ALT/SGPT) 28 # 12-78 U/L Alkaline Phosphatase 54 # 50-136 U/L Total Creatine Kinase 575 #*H 21-232 U/L B-Type Natriuretic Peptide 128 H 0-100 pg/mL Total Protein 6.4 6.0-8.3 g/dL Albumin 3.0 #L 3.5-5.0 g/dL Troponin I High Sensitivity 06568 *H 4-75 ng/L Whole Blood Ketones Quantitative 1.6 H 0.0-0.6 mmol/L Lactic Acid Level 1.3 0.8-2.5 mmol/L Test 08/05/24 02:28 08/05/24 02:27 Range/Units Hemoglobin A1c 8.5 H 4.0-6.0 % Estimated Average Glucose (eAG) 197 H 70-126 mg/dL Triglycerides Level 141 30-200 mg/dL Cholesterol Level 132 <200 mg/dL LDL Cholesterol 59 0-99 mg/dL HDL Cholesterol 62 29-71 mg/dL Thyroid Stimulating Hormone (TSH) 1.52 0.36-3.74 uIU/mL Coagulation Labs: Test 08/06/24 06:33 08/05/24 09:10 Range/Units Activated Partial Thromboplast Time 83.3 #H 26.3-35.5 SEC Prothrombin Time 10.1 9.6-11.6 SEC Prothromb Time International Ratio 0.95 0.85-1.15 Diagnostics / Radiology: 2D echocardiogram 08/05/2024: Conclusion The cardiac chambers are normal in size. Mild concentric left ventricular hypertrophy. The basal inferior wall is hypokinetic. The mid/apical inferior wall is normal in function. The anterior, anterolateral, inferolateral, septal, and apical carroll are normal in function. Left ventricle systolic function is normal, estimated LVEF 55%. Indeterminate diastolic function. Trace mitral regurgitation. Trace tricuspid regurgitation. PASP is normal. There is no pericardial effusion. Impression and Plan: Non [place] [address] Severe two-vessel coronary artery disease with 80% stenosis in the proximal LAD and 100% stenosis in the distal RCA by cardiac catheterization 08/05/2024 Normal LV systolic function with an LVEF of 55% and basal inferior wall hypokinesis by 2D echocardiogram 08/05/2024: -continues on IV heparin and IV Tridil, continue ranolazine -continue beta-kaila therapy, statin therapy and single antiplatelet therapy -pending plans for CABG Hypertension: -continue IV Tridil, metoprolol and adjust management as needed Comorbidities: Type 2 diabetes mellitus Alcohol abuse PHYSICIAN ATTESTATION OF PHYSICIAN CHIEF TALENT OFFICER DOCUMENTATION: I attest that I was physically present for the [place] portions of the service and evaluated the patient with the Physician Project Development Leader, and I reviewed and discussed the case with the Physician Project Development Leader and made modifications to the Physician Project Development Leader's findings and plans of care as documented above ALYSIA VALDOVINOS August 06, 2024 10:01 VINAY WONG MD Aug 14, 2024 10:09
--- NOTE | 2024-08-06 12:18 | PN ---
[facility] PROGRESS NOTE Date Patient Seen: August 06, 2024 Time of Visit: 12:17 Supervising Physician: Dr. Rajan Primary Care Physician: [ Francesco Gee MD] Outpatient Specialists: [none ] Inpatient Consults: [Dany Noel MD, Marcela Talbert DO, DR Khalil Aattending: Dr Paola Frye MD ] PROBLEM LIST: ACS-NSTEMI Type I Leukocytosis w/ left shift Essential HTN Untreated hyperglycemia in the presence of new onset Type II DM2 Alcohol abuse Obesity INTERVAL HISTORY: 08/06/2024: At the time of my evaluation, the patient was sitting up to the bedside chair. The staff nurse reports no acute events overnight. Currently, the patient remains on heparin and a nitro drip. On the monitor, the patient was afebrile, no tachycardia tachypnea and blood pressure was within normal ranges. He remained on. Laboratory data was notable for a WBC within normal range, no acute anemia or thrombocytopenia. Chemistry panel showed elevated CK of 575. There was a magnesium of 1.70. No new imaging for review today. No other complaint. REVIEW OF SYSTEMS: 12-point system review was carried out. Pertinent positive as documented above otherwise pertinent negative. PHYSICAL EXAM: GENERAL: Alert, weak, awake oriented x 3 HEENT: EOMI, Sclera non icteric, moist mucosa NECK: Supple, no JVD, trachea midline LUNGS: Clear breath sounds bilaterally. No wheezes HEART: Regular rate and rhythm. Normal S1 and S2, without murmurs ABD: Abdomen soft, nontender. Bowel sounds present EXT: No clubbing cyanosis or edema NEURO: Alert and oriented to person, follows commands Vital Signs (last 8hr) Date Time Temp Pulse Resp B/P (MAP) Pulse Ox O2 Delivery O2 Flow Rate FiO2 08/06/24 09:00 94 20 118/49 (72) 95 08/06/24 08:00 98 Room Air* 0 21 08/06/24 08:00 98.1 67 25 119/72 (88) 98 08/06/24 07:00 67 20 139/54 (82) 98 08/06/24 05:44 73 137/67 (90) 96 08/06/24 05:14 68 22 150/72 (98) 95 08/06/24 04:44 99 17 153/61 (91) 96 LABS: Hematology Labs: Test 08/06/24 06:33 08/05/24 09:10 Range/Units White Blood Count 10.0 4.8-10.8 K/uL Red Blood Count 3.67 L 4.50-6.20 MIL/uL Hemoglobin 11.5 L 14.0-18.0 g/dL Hematocrit 33.7 L 42-54 % Mean Corpuscular Volume 91.8 79-99 fL Mean Corpuscular Hemoglobin 31.3 27.0-33.0 pg Mean Corpuscular Hemoglobin Concent 34.1 32.0-36.0 g/dL Red Cell Distribution Width 13.0 11.0-15.5 % Platelet Count 174 130-400 K/uL Mean Platelet Volume 9.5 7.5-10.5 fL Immature Granulocyte % (Auto) 0.3 0-1 % Neutrophils (%) (Auto) 67.2 40.0-77.0 % Lymphocytes (%) (Auto) 21.0 21.0-51.0 % Monocytes (%) (Auto) 11.3 3.0-13.0 % Eosinophils (%) (Auto) 0.0 0.0-8.0 % Basophils (%) (Auto) 0.2 0.0-5.0 % Neutrophils # (Auto) 6.7 1.8-7.7 K/uL Lymphocytes # (Auto) 2.1 1.0-4.8 K/uL Monocytes # (Auto) 1.1 H 0.1-1.0 K/uL Eosinophils # (Auto) 0.00 0.00-0.70 K/uL Basophils # (Auto) 0.02 0.00-0.20 K/uL Absolute Immature Granulocyte (auto 0.03 0-1 K/uL Nucleated Red Blood Cells 0.0 0.0-0.19 % White Cell Morphology Comment See comments Chemistry Labs: Test 08/06/24 11:29 08/06/24 06:33 08/05/24 16:03 08/05/24 09:10 Range/Units Whole Blood Glucose 194 H 70-110 MG/DL Sodium Level 140 136-145 mmol/L Potassium Level 3.5 3.5-5.1 mmol/L Chloride Level 105 101-111 mmol/L Carbon Dioxide Level 27 21-32 mmol/L Blood Urea Nitrogen 7 7-18 mg/dL Creatinine 0.7 0.5-1.3 mg/dL Glomerular Filtration Rate Calc 107 >90 mL/min Random Glucose 166 H 70-105 mg/dL Total Calcium 8.1 L 8.5-10.1 mg/dL Magnesium Level 1.70 L 1.80-2.40 mg/dL Total Bilirubin 0.9 0.2-1.0 mg/dL Aspartate Amino Transf (AST/SGOT) 115 H 10-37 U/L Alanine Aminotransferase (ALT/SGPT) 28 # 12-78 U/L Alkaline Phosphatase 54 # 50-136 U/L Total Creatine Kinase 575 #*H 21-232 U/L B-Type Natriuretic Peptide 128 H 0-100 pg/mL Total Protein 6.4 6.0-8.3 g/dL Albumin 3.0 #L 3.5-5.0 g/dL Troponin I High Sensitivity 75655 *H 4-75 ng/L Whole Blood Ketones Quantitative 1.6 H 0.0-0.6 mmol/L Lactic Acid Level 1.3 0.8-2.5 mmol/L Test 08/05/24 02:28 08/05/24 02:27 Range/Units Hemoglobin A1c 8.5 H 4.0-6.0 % Estimated Average Glucose (eAG) 197 H 70-126 mg/dL Triglycerides Level 141 30-200 mg/dL Cholesterol Level 132 <200 mg/dL LDL Cholesterol 59 0-99 mg/dL HDL Cholesterol 62 29-71 mg/dL Thyroid Stimulating Hormone (TSH) 1.52 0.36-3.74 uIU/mL Coagulation Labs: Test 08/06/24 06:33 08/05/24 09:10 Range/Units Activated Partial Thromboplast Time 83.3 #H 26.3-35.5 SEC Prothrombin Time 10.1 9.6-11.6 SEC Prothromb Time International Ratio 0.95 0.85-1.15 DIAGNOSTICS / RADIOLOGY RESULTS: [ ] PLAN Serial EKG/troponins Continuous cardiac monitoring BNP Cardiology consult 2D echocardiogram Heparin drip nitro gtt PPI for risk of bleeding Statin therapy Glucose goal less than 180 mg/dL Antiplatelet with aspirin, beta kaila, statin therapy Consider referral to cardiac rehab once ready for discharge inital co2 of 20 - order ketones, lR at 75 ml/hr stop once pt has a po diet. 08/06/2024: For now, going to continue current management for the patient. We will continue heparin and nitroglycerin drip as ordered and follow the Cardiology and Cardiothoracic surgery team input for further management. The patient currently denies any chest pain. We will correct any electrolyte imbalance as necessary. I am going to discontinue the doxycycline and possibly we will discontinue Rocephin tomorrow. We will repeat surveillance labs in the morning. We will monitor the patient's progress and response to management. We will continue to provide general supportive care, GI and DVT prophylaxis. Further orders per attending MD and hospital course. NEURO: Minimize central acting medications as possible. Fall Precautions. Well lighted room through the day and minimize interruptions through the night to prevent acute delirium. PULMONARY: Supplemental 02 as needed Titrate Fio2 to keep Spo2 > or = 90% DuoNebs and CPT as needed IS hourly while awake for pulmonary hygiene Out of bed to chair as tolerated VAP Bundle CARDIOVASCULAR: Follow hemodynamics. Titrate vasopressor to keep MAP >65 or systolic blood pressure >95mmHg DIPS: nitro and heparin LINES: [ piv] GI & NUTRITION: Continue nutritional support Aspirations precautions Prokinetic agents and laxatives as needed KIDNEYS & ELECTROLYTES: Strict monitoring of intake and output Daily weights Avoid nephrotoxic agents Monitor electrolytes and replace as needed Goal urine output of 30mL/hr or 0.5mL/kg/hr Urine output: [ ] Fluid Balance: [ ] ENDOCRINE: Maintain blood glucose between 100-180 at all times. Insulin sliding scale for blood glucose management INFECTIOUS DISEASE: Trend temperature. Mera-culture if febrile. Micro: [ ] Antibiotics: [ ] HEMATOLOGY & COAGULATION: Monitor H&H. Keep Hgb > 7 Transfuse 1 unit of PRBC for Hgb < 7 Transfuse 1 pack of platelets of platelets < 20, 000 Watch for any signs and symptoms of bleeding SKIN: Pressure ulcer prevention per facility protocol Rehab: PT/OT Prophylaxis: GI: [protonix ] DVT: on heparin gtt Code Status: Full Resuscitation Disposition: ICU Other: I personally spent 42 minutes of critical care time in treatment of this patient. This includes patient management, time at bedside, time reviewing tests, labs, appropriate images and studies, documentation, and patient care coordination. This time excludes separately billable procedures. Case was discussed and seen with my supervising physician. The above plan was formulated and agreed upon. TR LIVINGSTON NP August 06, 2024 12:18
--- NOTE | 2024-08-06 12:35 | NUR ---
PT STABLE- NTG WEAN IN PROGRESS- NO CHEST PAIN. DR RALPH ROUNDED AND PLANS NO SURGERY FOR NOW DUE TO "BRILINTA". HOSPITLAIST DR HARRIS ROUNDED WITH RESIDENT DR SNOW, THEY SPOKE TO ME ABOUT PERFORMING A US OF THE RT GROIN DUE TO PT SORENESS- NO ORDER PLACED FOR US- PAGED DR HARRIS VIA SERVICE TO CLARIFY. OTHERWISE PT IS IN NO DISTRESS. ABLE TO STAND AND SIT IN CHAIR.
--- NOTE | 2024-08-06 13:55 | NUR ---
DCP: HOME with mother Tarah Carter Pt currently staying with his mother Taarh Carter [phone], [address], [place]. Pt states he was scheduled to leave today to [place] for a job, but was admitted. Pt currently has no insurance, PCP is Francesco Schuler and uses [facility] for rx. Pt is independent of his ADLS, no DME or in home care services needed at this time. dcp is home to mother's. Addendum: 08/06/24 at 1404 by GONZALO PEDRO Amended: Links added.
[2024-08-06] MEDS ORDERED: BALSAM PERU/CASTOR OIL 60 GM TUBE TP SCH (14:00)
--- NOTE | 2024-08-06 14:38 | HMCIMG ---
Superficial ultrasound for possible hematoma- right groin Clinical Information: Pain Comparison: None Findings: No fluid collections or masses are seen. Significantly, there is no evidence of hematoma. No increased fluid throughout the visualized tissue planes is identified. No lymphadenopathy is identified. Impression: No evidence of hematoma or fluid collections or other abnormalities.
[2024-08-06] MEDS: acetaMINOPHEN 500 MG TABLET PO PRN (15:05)
--- NOTE | 2024-08-06 20:37 | PN ---
TIME: 11:00 a.m. SUBJECTIVE: The patient is a 59-year-old gentleman, who has 3-vessel coronary artery disease. He was loaded with Brilinta in the dairy lab technician and Cardiac Surgery was consulted for further management. PHYSICAL EXAMINATION: NEUROLOGIC: Alert and oriented with no deficits. CARDIAC: S1, S2, regular rate and rhythm. RESPIRATORY: Clear to auscultation bilaterally. There is no incision. ASSESSMENT AND PLAN: This is a 59-year-old gentleman who has 3-vessel coronary artery disease. He will need coronary artery bypass grafting. I explained the benefits and the risks including loss of limb, loss of life, bleeding, infection, stroke, and others. He understands and he wished to proceed with surgery. We will set him up for surgery in the upcoming days. TID: [id number] RECEIPT: [id number]
--- NOTE | 2024-08-06 20:46 | CONS ---
TIME: 11 a.m. HISTORY OF PRESENT ILLNESS: The patient is a 59-year-old gentleman who had left heart catheterization that showed three-vessel coronary artery disease. He was loaded with Brilinta in the liaison inspection laboratory assistant. Cardiac surgery was consulted for further management. PHYSICAL EXAMINATION: NEUROLOGIC: Alert and oriented. No deficits. CARDIOVASCULAR: S1, S2, regular rate and rhythm. RESPIRATORY: Clear to auscultation bilaterally. ASSESSMENT AND PLAN: The patient is a 59-year-old gentleman who was found to have three-vessel coronary artery disease loaded with Brilinta. He will need coronary artery bypass grafting. I explained the benefits and the risks including loss of bleeding, loss of life, bleeding, infection, stroke, and others. He understands and he wishes to proceed with surgery. We will set him up for CABG in the upcoming days. TID: [id number] RECEIPT: [id number]
[2024-08-06] MEDS: chlordiazePOXIDE HCL 25 MG CAP PO PRN (22:55)
[2024-08-07] VITALS (29 sets, daily range): BP systolic 125–159; BP diastolic 52–87; PULSE 66–98; RESP 6–29; TEMP 97.6–99.2; O2SAT 97–99
[2024-08-07 05:00] LABS: BASOPHILS # (AUTO) 0.02 K/uL (0.00-0.20); BASOPHILS % (AUTO) 0.2 % (0.0-5.0); EOSINOPHILS # (AUTO) 0.02 K/uL (0.00-0.70); EOSINOPHILS % (AUTO) 0.2 % (0.0-8.0); HEMATOCRIT 32.4 % (42-54); IMMATURE GRANULOCYTE ABSOLUTE 0.05 K/uL (0-1); LYMPHOCYTES % (AUTO) 21.2 % (21.0-51.0); MEAN CORPUSCULAR HEMOGLOBIN 31.7 pg (27.0-33.0); MEAN CORPUSCULAR HGB CONC 34.6 g/dL (32.0-36.0); MEAN CORPUSCULAR VOLUME 91.8 fL (79-99); MONOCYTES # (AUTO) 0.9 K/uL (0.1-1.0); MONOCYTES % (AUTO) 9.7 % (3.0-13.0); NEUTROPHILS # (AUTO) 6.5 K/uL (1.8-7.7); NEUTROPHILS % (AUTO) 68.2 % (40.0-77.0); PLATELET COUNT (AUTO) 167 K/uL (130-400); RED BLOOD CELL COUNT(AUTO) 3.53 MIL/uL (4.50-6.20); RED CELL DISTRIBUTION WIDTH 13.2 % (11.0-15.5); WHITE BLOOD COUNT (AUTO) 9.6 K/uL (4.8-10.8)
[2024-08-07 06:47] LABS: ALBUMIN 2.8 g/dL (3.5-5.0); BILIRUBIN,TOTAL 0.6 mg/dL (0.2-1.0); CREATININE 0.6 mg/dL (0.5-1.3); POTASSIUM 3.5 mmol/L (3.5-5.1); TOTAL PROTEIN, SERUM 6.3 g/dL (6.0-8.3)
[2024-08-07 07:56] LABS: % IRON SATURATION 7.1 % (30-44)
--- NOTE | 2024-08-07 08:35 | PN ---
[facility] CARDIOLOGY PROGRESS NOTE Date Patient Seen: August 07, 2024 Time of Visit: 08:29 Interval History: This is a 59-year-old Latin-Ugandan male with a past medical history of hypertension, type 2 diabetes mellitus and alcohol abuse who presented with recu rrent chest pain the evening of 08/04/2024 when he developed sharp, burning in quality, 8/10 intensity chest discomfort. He previously developed symptoms after meal and with exertion. On the evening of 08/04/2024, his symptoms were more severe prompting ER visit. Symptom onset was approximately 8:00 p.m. on 08/04/2024 and did not present to the ER until approximately 2:00 a.m. on 08/05/2024. [place] [address]. He was managed for ACS/Non-STEMI and underwent further assessment with a cardiac catheterization on 08/05/2024 demonstrating two-vessel coronary artery disease with 80% stenosis in the proximal LAD and 100% stenosis in the distal RCA. The patient had some chest pain postprocedure and was initiated on IV Tridil which has now been discontinued. He has had no recurrent angina overnight. He continues on IV heparin. 2D echocardiogram on 08/05/2024 demonstrating basal inferior wall hypokinesis and an LVEF of 55%. He developed some right groin discomfort and underwent an ultrasound of the right groin demonstrated no evidence of hematoma or other acute findings. This morning, he is up in the chair, offers no complaints of chest pain or dyspnea. Telemetry has demonstrated sinus rhythm to sinus tachycardia with a heart rate into the 105 beat per minute range. He is pending timing of his coronary artery bypass. Physical Examination: GENERAL: No acute distress. HEAD: Normal with no signs of head trauma. EYES: PERRLA, EOMI, conjunctiva and sclera normal. NECK: Supple without JVD. There is no tenderness, lymphadenopathy, or masses. No thyromegaly. Normal carotid upstrokes without bruits. LUNGS: Clear breath sounds bilaterally. No wheezes, or rhonchi. HEART: Normal rate and rhythm. Normal S1 and S2 without murmurs, gallop or rub. VASC: Peripheral pulses +2 bilaterally. Right groin with bruising and a small hematoma. EXT: No clubbing, cyanosis or edema. NEURO: Awake, alert, and oriented x3. No focal neurological deficits noted. Laboratory: Hematology Labs: Test 08/07/24 04:13 08/05/24 09:10 Range/Units White Blood Count 9.6 4.8-10.8 K/uL Red Blood Count 3.53 L 4.50-6.20 MIL/uL Hemoglobin 11.2 L 14.0-18.0 g/dL Hematocrit 32.4 L 42-54 % Mean Corpuscular Volume 91.8 79-99 fL Mean Corpuscular Hemoglobin 31.7 27.0-33.0 pg Mean Corpuscular Hemoglobin Concent 34.6 32.0-36.0 g/dL Red Cell Distribution Width 13.2 11.0-15.5 % Platelet Count 167 130-400 K/uL Mean Platelet Volume 10.3 7.5-10.5 fL Immature Granulocyte % (Auto) 0.5 0-1 % Neutrophils (%) (Auto) 68.2 40.0-77.0 % Lymphocytes (%) (Auto) 21.2 21.0-51.0 % Monocytes (%) (Auto) 9.7 3.0-13.0 % Eosinophils (%) (Auto) 0.2 0.0-8.0 % Basophils (%) (Auto) 0.2 0.0-5.0 % Neutrophils # (Auto) 6.5 1.8-7.7 K/uL Lymphocytes # (Auto) 2.0 1.0-4.8 K/uL Monocytes # (Auto) 0.9 0.1-1.0 K/uL Eosinophils # (Auto) 0.02 0.00-0.70 K/uL Basophils # (Auto) 0.02 0.00-0.20 K/uL Absolute Immature Granulocyte (auto 0.05 0-1 K/uL Nucleated Red Blood Cells 0.0 0.0-0.19 % White Cell Morphology Comment See comments Chemistry Labs: Test 08/07/24 04:13 08/06/24 16:25 08/06/24 06:33 08/05/24 16:03 Range/Units Sodium Level 136 136-145 mmol/L Potassium Level 3.5 3.5-5.1 mmol/L Chloride Level 104 101-111 mmol/L Carbon Dioxide Level 22 21-32 mmol/L Blood Urea Nitrogen 7 7-18 mg/dL Creatinine 0.6 0.5-1.3 mg/dL Glomerular Filtration Rate Calc 112 >90 mL/min Random Glucose 140 H 70-105 mg/dL Total Calcium 8.3 L 8.5-10.1 mg/dL Magnesium Level 2.00 1.80-2.40 mg/dL Iron Level 18 L 65-175 mcg/dL Total Iron Binding Capacity 253 250-450 mcg/dL Percent Iron Saturation 7.1 L 30-44 % Ferritin 254 30-400 ng/mL Total Bilirubin 0.6 # 0.2-1.0 mg/dL Aspartate Amino Transf (AST/SGOT) 57 H 10-37 U/L Alanine Aminotransferase (ALT/SGPT) 23 12-78 U/L Alkaline Phosphatase 52 50-136 U/L Total Creatine Kinase 248 #H 21-232 U/L Total Protein 6.3 6.0-8.3 g/dL Albumin 2.8 L 3.5-5.0 g/dL Whole Blood Glucose 139 H 70-110 MG/DL B-Type Natriuretic Peptide 128 H 0-100 pg/mL Troponin I High Sensitivity 67004 *H 4-75 ng/L Test 08/05/24 09:10 Range/Units Whole Blood Ketones Quantitative 1.6 H 0.0-0.6 mmol/L Lactic Acid Level 1.3 0.8-2.5 mmol/L Coagulation Labs: Test 08/07/24 04:13 08/05/24 09:10 Range/Units Activated Partial Thromboplast Time 65.4 H 26.3-35.5 SEC Prothrombin Time 10.1 9.6-11.6 SEC Prothromb Time International Ratio 0.95 0.85-1.15 Diagnostics / Radiology: 2D echocardiogram 08/05/2024: Conclusion The cardiac chambers are normal in size. Mild concentric left ventricular hypertrophy. The basal inferior wall is hypokinetic. The mid/apical inferior wall is normal in function. The anterior, anterolateral, inferolateral, septal, and apical carroll are normal in function. Left ventricle systolic function is normal, estimated LVEF 55%. Indeterminate diastolic function. Trace mitral regurgitation. Trace tricuspid regurgitation. PASP is normal. There is no pericardial effusion. Impression and Plan: Non [place] [address] Severe two-vessel coronary artery disease with 80% stenosis in the proximal LAD and 100% stenosis in the distal RCA by cardiac catheterization 08/05/2024 Normal LV systolic function with an LVEF of 55% and basal inferior wall hypokinesis by 2D echocardiogram 08/05/2024: -continues on IV heparin, continue ranolazine -continue beta-kaila therapy, statin therapy and single antiplatelet therapy -pending plans for CABG Hypertension: -continue metoprolol tartrate 25 mg p.o. b.i.d. -add losartan 50 mg p.o. daily Normocytic normochromic anemia with low iron level: -perhaps related to his chronic alcohol use -continues on multivitamin and mineral supplements Comorbidities: Type 2 diabetes mellitus Alcohol abuse PHYSICIAN ATTESTATION OF PHYSICIAN REGISTERED RADIOLOGIC TECHNOLOGIST DOCUMENTATION: I attest that I was physically present for the [place] portions of the service and evaluated the patient with the Physician Fraud Manager, and I reviewed and discussed the case with the Physician Fraud Manager and made modifications to the Physician Fraud Manager's findings and plans of care as documented above ALYSIA VALDOVINOS August 07, 2024 08:35 VINAY WONG MD Aug 14, 2024 10:08
[2024-08-07 08:47] LABS: RETICULOCYTE % (AUTO) 2.34 % (0.42-2.23)
[2024-08-07] MEDS: LoSARTan 50 MG TABLET PO SCH (08:51)
[2024-08-07] MEDS: PoTASSium chloRIDE 20MEQ ER 20 MEQ ERTAB PO PRN (09:27)
--- NOTE | 2024-08-07 13:07 | PN ---
[facility] PROGRESS NOTE Date of Service: August 07, 2024 Time of Service: 13:05 SUBJECTIVE: This is a case of 59-year-old male with past medical history of diabetes, hypertension and hyperlipidemia who presented to the ED with complaints of left- sided chest pain which started around 8 pm last night while resting. He states that he has been experiencing intermittent chest pain since the past 2 days ago which has become persistent associated with SOB last night. Patient also reports that he had 5 beers last night and denies cigarette and recreational drug use. Initial ECG revealed ST 110 right bundle branch block, inferior infarct acute and second EKG showed ST 108 right bundle branch block inferior infarct recent and the 3rd EKG showed ST 120 with Right bundle branch block Inferior infarct recent and probable posterior infarct acute. Initial Labs WBC 10.9, BNP 147, total CK 812, troponin 13,930, serum alcohol 117. While in the ER patient received aspirin 325 mg p.o., Protonix 40 mg IV, Brilinta 90 mg p.o., verapamil 5 mg IV and metoprolol 5 mg IV and was started on heparin and nitroglycerin drip. He was admitted for further assessment and treatment in view of NSTEMI. 08/05/2024 Patient is seen and examined at the bedside. He complains of mild pressure-like left-sided chest pain and generalized body weakness. Vitals blood pressure ranging in 120/70s. Labs WBC 10.9, hemoglobin 13.9, BNP 147, PT 10.1, INR 0.95. Urinalysis positive for glucose. Urine toxicology negative and serum alcohol 117, glucose 229, magnesium 1.9, TCK 8. Troponin trend [id number]. Currently on heparin and nitroglycerin drip. He is scheduled for cardiac catheterization procedure today. Chest x-ray revealed clear lungs and pending 2D echo results. 08/06/2024 Patient is seen and examined at the bedside. He complains of generalized body weakness and headache. He denies fever, chills, nausea, vomiting, chest pain, palpitations, abdominal pain. Vitals Blood pressure 137/67. Labs WBC 10, hemoglobin dropped from 13.9-11.5, magnesium 1.70, calcium 8.1, AST improved from 176-115. BNP improved from 147-128 and TCK improved 812-5 75. He underwent left heart catheterization yesterday which revealed two-vessel coronary artery disease with 80% stenosis in the proximal LAD and 100% stenosis in the distal RCA. 2D echo revealed normal Left ventricle systolic function, estimated LVEF 55% and Indeterminate diastolic function. CT surgery was consulted. 08/07/24 Patient is seen and examined at the bedside. /He was managed for ACS/Non-STEMI and underwent further assessment with a cardiac catheterization on 08/05/2024 demonstrating two-vessel coronary artery disease with 80% stenosis in the proximal LAD and 100% stenosis in the distal RCA. He has had no recurrent angina overnight. He continues on IV heparin. 2D echocardiogram on 08/05/2024 demonstrating basal inferior wall hypokinesis and an LVEF of 55%. REVIEW OF SYSTEMS CONSTITUTIONAL: Generalized body weakness Denies fevers, chills, or night sweats. No unintentional weight loss reported. NEUROLOGICAL: Denies headache, amaurosis fugax, motor weakness, sensory deficit, vertigo/spinning sensation, gait abnormalities, or tremors. ENT: No hearing loss, otalgia, otorrhea, rhinitis, rhinorrhea, hoarseness, or sore throat. CARDIOVASCULAR: Denies chest pain Deniesdyspnea on exertion, orthopnea, paroxysmal nocturnal dyspnea, palpitations, life-threatening arrhythmias, claudication. PULMONARY: Denies cough, phlegm/sputum, hemoptysis, pleuritic chest pain. SLEEP: Denies morning headaches, daytime somnolence or napping. Denies difficulty falling asleep, staying asleep, waking from sleep. Denies knowledge of snoring. GASTROINTESTINAL: Denies any type of dysphagia to either liquids or solids. Denies nausea, vomiting, pyrosis, early satiety, abdominal pain, diarrhea, constipation, or changes in stool consistency or caliber. Denies coffee-ground emesis, hematemesis, hematochezia, or melanotic stools. GENITOURINARY: Denies frequency, urgency, nocturia, hematuria or incontinence (Storage/Irritative symptoms.) Low urinary stream, straining to void, urinary intermittency or hesitancy, splitting of the voiding stream, terminal dribbling. ENDOCRINOLOGIC: Denies polyuria, polydipsia, polyphagia or heat/cold intolerances. HEMATOLOGIC: Denies thrombophilia/previous clots, or coagulopathy/bleeding disorders. ONCOLOGIC: Denies personal history of malignancy. DERMATOLOGIC: Denies rashes or pruritus. PSYCHIATRIC: Denies any suicidal or homicidal ideation. Denies hallucinations. PHYSICAL EXAM GENERAL APPEARANCE: The patient is awake, alert, and oriented, in no acute cardiopulmonary distress. NEUROLOGICAL: Cranial nerves II-XII grossly intact. Motor is 5/5 in bilateral upper and lower extremities proximal to distal. No sensory deficits. HEENT: Face is symmetric. Pupils are equal and reactive. Extraocular movements are intact. NECK: Supple. No JVD. No thyromegaly. No submental, submandibular, pre- /postauricular, occipital or supraclavicular lymphadenopathy. CHEST: Normal chest expansion. No Telemetry. LUNGS: Absence of any rales, rhonchi or any wheezing. CARDIOVASCULAR: Regular. S1 and S2 normal. No appreciable rubs, murmurs or gallops. ABDOMEN: Soft, nontender, and nondistended. There is no rebound, voluntary guarding, or rigidity. : Deferred. No Fitzpatrick. EXTREMITIES: Non-edematous and not cyanotic. No clubbing. Good capillary refill. SKIN: No skin breakdown. Vital Signs (last 8hr) Date Time Temp Pulse Resp B/P (MAP) Pulse Ox O2 Delivery O2 Flow Rate FiO2 08/07/24 11:45 97.9 88 16 132/76 98 Room Air 08/07/24 09:43 77 19 140/78 (98) 97 08/07/24 08:44 95 18 142/81 (101) 96 08/07/24 08:00 98 Room Air* 0 21 08/07/24 07:45 99.1 98 18 150/77 95 08/07/24 07:45 99.1 98 18 150/77 (101) 95 08/07/24 06:45 82 12 146/73 (97) 98 08/07/24 06:13 83 22 159/64 (95) 95 08/07/24 06:05 74 15 143/71 (95) 96 08/07/24 05:14 77 25 147/70 (95) 96 LABS: Laboratory: Test 08/07/24 12:21 08/07/24 04:13 08/06/24 06:33 08/05/24 16:03 Range/Units Whole Blood Glucose 209 #H 70-110 MG/DL White Blood Count 9.6 4.8-10.8 K/uL Red Blood Count 3.53 L 4.50-6.20 MIL/uL Hemoglobin 11.2 L 14.0-18.0 g/dL Hematocrit 32.4 L 42-54 % Mean Corpuscular Volume 91.8 79-99 fL Mean Corpuscular Hemoglobin 31.7 27.0-33.0 pg Mean Corpuscular Hemoglobin Concent 34.6 32.0-36.0 g/dL Red Cell Distribution Width 13.2 11.0-15.5 % Platelet Count 167 130-400 K/uL Mean Platelet Volume 10.3 7.5-10.5 fL Immature Granulocyte % (Auto) 0.5 0-1 % Neutrophils (%) (Auto) 68.2 40.0-77.0 % Lymphocytes (%) (Auto) 21.2 21.0-51.0 % Monocytes (%) (Auto) 9.7 3.0-13.0 % Eosinophils (%) (Auto) 0.2 0.0-8.0 % Basophils (%) (Auto) 0.2 0.0-5.0 % Neutrophils # (Auto) 6.5 1.8-7.7 K/uL Lymphocytes # (Auto) 2.0 1.0-4.8 K/uL Monocytes # (Auto) 0.9 0.1-1.0 K/uL Eosinophils # (Auto) 0.02 0.00-0.70 K/uL Basophils # (Auto) 0.02 0.00-0.20 K/uL Absolute Immature Granulocyte (auto 0.05 0-1 K/uL Nucleated Red Blood Cells 0.0 0.0-0.19 % Reticulocyte Count (auto) 2.53790 H 0.42-2.23 % Immature Reticulocyte Fraction 13.50 H 0.18-0.48 % Activated Partial Thromboplast Time 65.4 H 26.3-35.5 SEC Sodium Level 136 136-145 mmol/L Potassium Level 3.5 3.5-5.1 mmol/L Chloride Level 104 101-111 mmol/L Carbon Dioxide Level 22 21-32 mmol/L Blood Urea Nitrogen 7 7-18 mg/dL Creatinine 0.6 0.5-1.3 mg/dL Glomerular Filtration Rate Calc 112 >90 mL/min Random Glucose 140 H 70-105 mg/dL Total Calcium 8.3 L 8.5-10.1 mg/dL Magnesium Level 2.00 1.80-2.40 mg/dL Iron Level 18 L 65-175 mcg/dL Total Iron Binding Capacity 253 250-450 mcg/dL Percent Iron Saturation 7.1 L 30-44 % Ferritin 254 30-400 ng/mL Total Bilirubin 0.6 # 0.2-1.0 mg/dL Aspartate Amino Transf (AST/SGOT) 57 H 10-37 U/L Alanine Aminotransferase (ALT/SGPT) 23 12-78 U/L Alkaline Phosphatase 52 50-136 U/L Total Creatine Kinase 248 #H 21-232 U/L Total Protein 6.3 6.0-8.3 g/dL Albumin 2.8 L 3.5-5.0 g/dL Vitamin B12 Level 354 193-986 pg/mL B-Type Natriuretic Peptide 128 H 0-100 pg/mL Troponin I High Sensitivity 26516 *H 4-75 ng/L Current Medications Medications (Trade) Dose Ordered Sig/Isidoro Route PRN Reason Start Time Stop Time Status Last Admin Dose Admin Acetaminophen (TYLenol 500MG TAB) 500 mg Q6H PRN PO MILD PAIN (1-3) 08/06/24 10:00 09/05/24 09:59 08/06/24 20:02 500 MG Aspirin (Aspirin 81mg Ec Tab) 81 mg DAILY PO 08/06/24 09:00 09/05/24 08:59 08/07/24 08:47 81 MG Atorvastatin Calcium (LIPItor 40MG) 40 mg HS PO 08/05/24 21:00 09/04/24 20:59 08/06/24 20:03 40 MG Ceftriaxone Sodium (Rocephin 2gm Inj) 2 gm Q24H IVPB 08/06/24 00:00 08/15/24 23:59 08/06/24 22:55 2 GM Chlordiazepoxide HCl (LIBrium 25 MG CAP) 25 mg Q2H PRN PO ALCOHOL WITHDRAWAL PROTOCOL 08/05/24 06:00 08/12/24 05:59 08/06/24 22:55 25 MG Dextrose (D50w) 50 ml AD PRN IV HYPOGLYCEMIA PROTOCOL 08/05/24 05:30 09/04/24 05:29 Diazepam (VALium 5 MG/ML 2 ML SYG) 10 mg Q4H PRN IVP ALCOHOL WITHDRAWAL PROTOCOL 08/05/24 06:30 08/12/24 06:29 Doxycycline Hyclate (Doxycycline Hyclate) 100 mg BID PO 08/06/24 09:00 08/06/24 12:18 DC 08/06/24 09:06 100 MG Famotidine (Pepcid 20mg Vial) 20 mg BID IV 08/05/24 09:00 08/05/24 09:01 DC 08/05/24 07:47 20 MG Glucagon (Glucagon 1mg Kit) 1 mg AD PRN IM HYPOGLYCEMIA PROTOCOL 08/05/24 05:30 09/04/24 05:29 Heparin Sodium (Porcine) (HEParin 5,000 UNIT VIAL) 5,000 unit Q8H SQ 08/05/24 11:00 08/05/24 03:04 DC Heparin Sodium/ Dextrose 250 ml @ 0 mls/hr PROTOCOL IV 08/05/24 03:00 09/04/24 02:59 08/06/24 22:59 12.2 MLS/HR Insulin Glargine (LANtus 100 UNITS/ML 10 ML VIAL) 10 units BID@0730,2100 SQ 08/05/24 21:00 09/04/24 20:59 08/07/24 07:09 10 UNITS Insulin Human Regular (humuLIN R 100 UNIT/ML 3ML) INSULIN SLIDING SCAL... ACHS SQ 08/05/24 07:30 08/05/24 08:55 DC 08/05/24 07:47 5 UNIT Insulin Human Regular (humuLIN R 100 UNIT/ML 3ML) INSULIN SLIDING SCAL... ACHS SQ 08/05/24 11:30 09/04/24 11:29 08/07/24 12:31 8 UNIT Lorazepam (AtiVAN) 2 mg Q4H PRN IVP ALCOHOL WITHDRAWAL PROTOCOL 08/05/24 06:00 08/05/24 06:04 DC Losartan Potassium (CozAAR 50 mg TAB) 50 mg DAILY PO 08/07/24 09:00 09/06/24 08:59 08/07/24 08:51 50 MG Magnesium Sulfate 50 ml @ 0 mls/hr PROTOCOL PRN IV OTHER [SEE ORDER COMMENTS] 08/05/24 05:30 09/04/24 05:29 08/06/24 09:46 25 MLS/HR Metoprolol Tartrate (loprESSOR) 25 mg BID PO 08/05/24 14:30 09/04/24 14:29 08/07/24 08:47 25 MG Morphine Sulfate (morPHINE 2MG SYG) 2 mg Q2HPRN PRN IVP SEVERE PAIN (6-10) 08/05/24 11:10 08/12/24 11:09 08/07/24 10:21 2 MG Morphine Sulfate (morPHINE 2MG SYG) 2 mg Q4H PRN IVP SEVERE PAIN (7-10) 08/05/24 06:00 08/05/24 08:31 DC 08/05/24 06:03 2 MG Nitroglycerin (Nitrostat) 0.4 mg AD PRN SL CHEST PAIN 08/05/24 02:30 09/04/24 02:29 08/05/24 02:46 0.4 MG Nitroglycerin/ Dextrose 250 ml @ 0 mls/hr PROTOCOL IV 08/05/24 03:30 09/04/24 03:29 08/06/24 07:15 15 MLS/HR Ondansetron HCl (zoFRAN 4MG INJ) 4 mg Q6H PRN IV NAUSEA/VOMITING 08/05/24 05:30 09/04/24 05:29 08/05/24 22:13 4 MG Pantoprazole Sodium (PROTonix 40MG INJ) 40 mg DAILY IVP 08/05/24 09:00 09/04/24 08:59 08/07/24 08:47 40 MG Pharmacy Profile Note (Pharmacy Communication) 1 each PROTOCOL PRN MISC ETOH Withdrawal Score changes 08/05/24 06:00 08/12/24 05:59 Potassium Chloride 100 ml @ 50 mls/hr AD PRN IV POTASSIUM PROTOCOL 08/05/24 05:30 09/04/24 05:29 Potassium Chloride 100 ml @ 100 mls/hr AD PRN IV POTASSIUM PROTOCOL 08/07/24 09:00 09/06/24 08:59 Potassium Chloride (K-Dur/Klor-Con 20meq) 20 meq AD PRN PO POTASSIUM PROTOCOL 08/07/24 09:00 09/06/24 08:59 08/07/24 12:28 20 MEQ Potassium Chloride (KCl 10% Elixir 20meq/15ml) 20 meq AD PRN PO POTASSIUM PROTOCOL 08/07/24 09:00 09/06/24 08:59 Promethazine HCl (Phenergan) 25 mg Q6H PRN PO NAUSEA 08/05/24 06:00 09/04/24 05:59 Ranolazine (Ranexa) 500 mg BID PO 08/05/24 17:30 09/04/24 17:29 08/07/24 08:47 500 MG Ranolazine (Ranexa) 500 mg BID PO 08/05/24 21:00 08/05/24 17:04 DC Sodium Chloride 1,000 ml @ 75 mls/hr [id number] IV 08/05/24 05:30 09/04/24 05:29 08/06/24 19:37 75 MLS/HR Sodium Chloride 1,000 ml @ 100 mls/hr Q10H IV 08/05/24 14:30 08/05/24 17:29 DC 08/05/24 15:22 100 MLS/HR Thiamine HCl 100 mg/Folic Acid 1 mg/Multivitamins/ Minerals 10 ml/ Sodium Chloride 1,011.2 ml @ 100 mls/ hr Q24H IV 08/05/24 06:00 08/07/24 16:07 08/07/24 05:34 100 MLS/HR Wound Care/ Dressing Products (Venelex Ointment) 1 NAKIA AD TID TP 08/06/24 14:00 08/06/24 12:50 DC DIAGNOSTICS / RADIOLOGY: [ ] ASSESSMENT: Chest pain, POA ACS- NSTEMI POA Alcohol Intoxication POA Uncontrolled diabetes POA Acute anemia, not POA Obesity POA Hyperlipidemia POA Hypertension POA Elevated CK POA Active alcohol drinker POA PLAN: Continue telemetry NSTEMI POA Continue nitroglycerin and heparin drip Continue [id number] mg daily Continue Lipitor 40 mg daily Hold Brilinta as per Cardiology recommendation Appreciate cardiology consult and we will follow their recommendations Elevated TCK POA Continue NS @75 mL/hour Alcohol Intoxication POA Monitor for signs of alcohol withdrawal CIWA protocol in place Counseled on alcohol use cessation Uncontrolled diabetes POA Glucose 165 Continue insulin sliding scale AC & HS with hypoglycemia protocol Acute anemia, not POA Hemoglobin dropped from 13.9-11.5 We will order an anemia vest maker H&H Hyperlipidemia POA, Hypertension POA Normal lipid panel results Continue Atorvastatin Continue Famotidine 20 mg IV bid for GI prophylaxis Continue SCDs for DVT prophylaxis Monitor electrolytes and replace them as needed per protocol Continue prn medication for fever,pain,cough , nausea and vomiting Labs in a.m. Follow up on Cardiology consult recommendations Follow up on CT surgery consult recommendation STEPHANIE MARTINEZ MD August 07, 2024 13:06
[2024-08-07] MEDS: chlordiazePOXIDE HCL 25 MG CAP PO ONE (14:20)
--- NOTE | 2024-08-07 15:10 | PN ---
[facility] PROGRESS NOTE Date Patient Seen: August 07, 2024 Time of Visit: 15:08 Supervising Physician: Dr. Rajan Primary Care Physician: [ Francesco Gee MD] Outpatient Specialists: [none ] Inpatient Consults: [Dany Noel MD, Marcela Talbert DO, DR Khalil Aattending: Dr Paola Frye MD ] PROBLEM LIST: ACS-NSTEMI Type I Leukocytosis w/ left shift Essential HTN Untreated hyperglycemia in the presence of new onset Type II DM2 Alcohol abuse Obesity INTERVAL HISTORY: 08/06/2024: At the time of my evaluation, the patient was sitting up to the bedside chair. The staff nurse reports no acute events overnight. Currently, the patient remains on heparin and a nitro drip. On the monitor, the patient was afebrile, no tachycardia tachypnea and blood pressure was within normal ranges. He remained on. Laboratory data was notable for a WBC within normal range, no acute anemia or thrombocytopenia. Chemistry panel showed elevated CK of 575. There was a magnesium of 1.70. No new imaging for review today. No other complaint. 08/07/2024: At the time of my evaluation, the patient is lying in bed. He is awake, alert and verbally interactive. He remains on a CIWA protocol. The patient is currently breathing on room air. She is afebrile, no tachypnea or tachycardia. He voids spontaneously and poor chart documentation, urinary output total 2700 mL over the past 24 hours and has a net balance of +677.4. The patient continues on a heparin drip. He continues on antibiotic therapy with Rocephin. Also on a banana bag. The current plan is for CABG unknown date and time. No other complaint. REVIEW OF SYSTEMS: 12-point system review was carried out. Pertinent positive as documented above otherwise pertinent negative. PHYSICAL EXAM: GENERAL: Alert, weak, awake oriented x 3 HEENT: EOMI, Sclera non icteric, moist mucosa NECK: Supple, no JVD, trachea midline LUNGS: Clear breath sounds bilaterally. No wheezes HEART: Regular rate and rhythm. Normal S1 and S2, without murmurs ABD: Abdomen soft, nontender. Bowel sounds present EXT: No clubbing cyanosis or edema NEURO: Alert and oriented to person, follows commands Vital Signs (last 8hr) Date Time Temp Pulse Resp B/P (MAP) Pulse Ox O2 Delivery O2 Flow Rate FiO2 08/07/24 12:45 88 19 132/65 (87) 97 08/07/24 11:45 97.9 88 16 132/76 98 Room Air 08/07/24 11:45 97.9 88 16 132/76 (94) 98 08/07/24 10:45 72 18 150/52 (84) 97 08/07/24 09:43 77 19 140/78 (98) 97 08/07/24 08:44 95 18 142/81 (101) 96 08/07/24 08:00 98 Room Air* 0 21 08/07/24 07:45 99.1 98 18 150/77 95 08/07/24 07:45 99.1 98 18 150/77 (101) 95 LABS: Hematology Labs: Test 08/07/24 04:13 Range/Units White Blood Count 9.6 4.8-10.8 K/uL Red Blood Count 3.53 L 4.50-6.20 MIL/uL Hemoglobin 11.2 L 14.0-18.0 g/dL Hematocrit 32.4 L 42-54 % Mean Corpuscular Volume 91.8 79-99 fL Mean Corpuscular Hemoglobin 31.7 27.0-33.0 pg Mean Corpuscular Hemoglobin Concent 34.6 32.0-36.0 g/dL Red Cell Distribution Width 13.2 11.0-15.5 % Platelet Count 167 130-400 K/uL Mean Platelet Volume 10.3 7.5-10.5 fL Immature Granulocyte % (Auto) 0.5 0-1 % Neutrophils (%) (Auto) 68.2 40.0-77.0 % Lymphocytes (%) (Auto) 21.2 21.0-51.0 % Monocytes (%) (Auto) 9.7 3.0-13.0 % Eosinophils (%) (Auto) 0.2 0.0-8.0 % Basophils (%) (Auto) 0.2 0.0-5.0 % Neutrophils # (Auto) 6.5 1.8-7.7 K/uL Lymphocytes # (Auto) 2.0 1.0-4.8 K/uL Monocytes # (Auto) 0.9 0.1-1.0 K/uL Eosinophils # (Auto) 0.02 0.00-0.70 K/uL Basophils # (Auto) 0.02 0.00-0.20 K/uL Absolute Immature Granulocyte (auto 0.05 0-1 K/uL Nucleated Red Blood Cells 0.0 0.0-0.19 % Reticulocyte Count (auto) 2.89138 H 0.42-2.23 % Immature Reticulocyte Fraction 13.50 H 0.18-0.48 % Chemistry Labs: Test 08/07/24 12:21 08/07/24 04:13 08/06/24 06:33 08/05/24 16:03 Range/Units Whole Blood Glucose 209 #H 70-110 MG/DL Sodium Level 136 136-145 mmol/L Potassium Level 3.5 3.5-5.1 mmol/L Chloride Level 104 101-111 mmol/L Carbon Dioxide Level 22 21-32 mmol/L Blood Urea Nitrogen 7 7-18 mg/dL Creatinine 0.6 0.5-1.3 mg/dL Glomerular Filtration Rate Calc 112 >90 mL/min Random Glucose 140 H 70-105 mg/dL Total Calcium 8.3 L 8.5-10.1 mg/dL Magnesium Level 2.00 1.80-2.40 mg/dL Iron Level 18 L 65-175 mcg/dL Total Iron Binding Capacity 253 250-450 mcg/dL Percent Iron Saturation 7.1 L 30-44 % Ferritin 254 30-400 ng/mL Total Bilirubin 0.6 # 0.2-1.0 mg/dL Aspartate Amino Transf (AST/SGOT) 57 H 10-37 U/L Alanine Aminotransferase (ALT/SGPT) 23 12-78 U/L Alkaline Phosphatase 52 50-136 U/L Total Creatine Kinase 248 #H 21-232 U/L Total Protein 6.3 6.0-8.3 g/dL Albumin 2.8 L 3.5-5.0 g/dL Vitamin B12 Level 354 193-986 pg/mL B-Type Natriuretic Peptide 128 H 0-100 pg/mL Troponin I High Sensitivity 04737 *H 4-75 ng/L Coagulation Labs: Test 08/07/24 04:13 Range/Units Activated Partial Thromboplast Time 65.4 H 26.3-35.5 SEC DIAGNOSTICS / RADIOLOGY RESULTS: [ ] PLAN 08/07/2024: For now, going to continue current management for the patient. We will continue the CIWA protocol. The patient will continue on multivitamin infusion (banana bag). We will await Cardiothoracic surgery input on plans to proceed with CABG. In the meantime, the patient will remain on heparin drip. He was downgraded to PCCU status. We will monitor the patient's progress and response to management. We will continue to provide general supportive care, GI and DVT prophylaxis. Further orders per attending MD and hospital course. NEURO: Minimize central acting medications as possible. Maintain fall precautions, adequate lighting during the day PULMONARY: Supplemental 02 as needed. Maintain aspiration precautions at all times CARDIOVASCULAR: Follow hemodynamics. Vital signs per facility protocol GI & NUTRITION: Continue with nutritional support. Continue stool softeners and laxatives as needed. KIDNEYS & ELECTROLYTES: Strict monitoring of intake, output and overall fluid balance. Avoid nephrotoxic medications to the extent possible. Medications to be dosed according to renal function. Monitor electrolytes and replace as needed ENDOCRINE: Maintain blood glucose between 100-180 at all times. Hypoglycemia protocol in place INFECTIOUS DISEASE: Trend temperature, WBC and procalcitonin level Follow cultures, deescalate antibiotics as soon as possible. Panculture if new onset fever ONCOLOGY/HEMATOLOGY/COAGULATION: Monitor for s/s of bleeding Monitor hemoglobin, coagulation studies as needed SKIN: Pressure ulcer prevention per facility protocol Specialty mattress ORTHO/REHAB: Continue PT/OT Prophylaxis: Continue GI and DVT prophylaxis Code Status: Full Resuscitation Disposition: TBD Other: Patient was seen and case was discussed with rodney RAMOS. Plan of care was discussed and agreed upon. TR LIVINGSTON NP August 07, 2024 15:10
[2024-08-07] MEDS: guaiFENesin SUGAR-FREE 100 MG/5 ML UDCUP PO PRN (23:28)
[2024-08-08] VITALS (11 sets, daily range): BP systolic 118–171; BP diastolic 66–84; PULSE 63–102; RESP 18–28; TEMP 98.4–98.9; O2SAT 96–98
[2024-08-08 03:58] LABS: BASOPHILS # (AUTO) 0.02 K/uL (0.00-0.20); BASOPHILS % (AUTO) 0.3 % (0.0-5.0); EOSINOPHILS # (AUTO) 0.04 K/uL (0.00-0.70); EOSINOPHILS % (AUTO) 0.5 % (0.0-8.0); HEMATOCRIT 32.1 % (42-54); IMMATURE GRANULOCYTE ABSOLUTE 0.02 K/uL (0-1); LYMPHOCYTES # (AUTO) 2.4 K/uL (1.0-4.8); LYMPHOCYTES % (AUTO) 32.8 % (21.0-51.0); MEAN CORPUSCULAR HEMOGLOBIN 31.4 pg (27.0-33.0); MEAN CORPUSCULAR HGB CONC 33.6 g/dL (32.0-36.0); MEAN CORPUSCULAR VOLUME 93.3 fL (79-99); MONOCYTES # (AUTO) 0.6 K/uL (0.1-1.0); MONOCYTES % (AUTO) 8.8 % (3.0-13.0); NEUTROPHILS # (AUTO) 4.2 K/uL (1.8-7.7); NEUTROPHILS % (AUTO) 57.3 % (40.0-77.0); PLATELET COUNT (AUTO) 154 K/uL (130-400); RED BLOOD CELL COUNT(AUTO) 3.44 MIL/uL (4.50-6.20); WHITE BLOOD COUNT (AUTO) 7.3 K/uL (4.8-10.8)
[2024-08-08 04:14] LABS: CREATININE 0.8 mg/dL (0.5-1.3); MAGNESIUM 1.9 mg/dL (1.80-2.40); POTASSIUM 3.8 mmol/L (3.5-5.1)
--- NOTE | 2024-08-08 08:28 | PN ---
[facility] CARDIOLOGY PROGRESS NOTE Date Patient Seen: August 08, 2024 Time of Visit: 08:26 Interval History: This is a 59-year-old [place] male with a past medical history of hypertension, type 2 diabetes mellitus and alcohol abuse who presented with recu rrent chest pain the evening of 08/04/2024 when he developed sharp, burning in quality, 8/10 intensity chest discomfort. He previously developed symptoms after meal and with exertion. On the evening of 08/04/2024, his symptoms were more severe prompting ER visit. Symptom onset was approximately 8:00 p.m. on 08/04/2024 and did not present to the ER until approximately 2:00 a.m. on 08/05/2024. [place] [address]. He was managed for ACS/Non-STEMI and underwent further assessment with a cardiac catheterization on 08/05/2024 demonstrating severe two-vessel coronary artery disease with 80% stenosis in the proximal LAD and 100% stenosis in the distal RCA, with recommendations for coronary artery bypass grafting. The patient has had post infarction angina pectoris requiring a Tridil infusion which was discontinued and he had recurrent angina this morning after ambulating just a few steps this morning. Topical nitrates will be initiated today. He continues on IV heparin and is pending bypass surgery awaiting several days from his loading dose of Brilinta 08/05/2024. A 2D echocardiogram on 08/05/2024 demonstrating basal inferior wall hypokinesis and an LVEF of 55%. Telemetry has demonstrated sinus rhythm to sinus tachycardia with a heart rate into the 90-100 beat per minute range. Physical Examination: GENERAL: No acute distress. HEAD: Normal with no signs of head trauma. EYES: PERRLA, EOMI, conjunctiva and sclera normal. NECK: Supple without JVD. There is no tenderness, lymphadenopathy, or masses. No thyromegaly. Normal carotid upstrokes without bruits. LUNGS: Clear breath sounds bilaterally. No wheezes, or rhonchi. HEART: Normal rate and rhythm. Normal S1 and S2 without murmurs, gallop or rub. VASC: Peripheral pulses +2 bilaterally. Right groin with bruising and a small hematoma. EXT: No clubbing, cyanosis or edema. NEURO: Awake, alert, and oriented x3. No focal neurological deficits noted. Laboratory: Hematology Labs: Test 08/08/24 03:33 08/07/24 04:13 Range/Units White Blood Count 7.3 4.8-10.8 K/uL Red Blood Count 3.44 L 4.50-6.20 MIL/uL Hemoglobin 10.8 L 14.0-18.0 g/dL Hematocrit 32.1 L 42-54 % Mean Corpuscular Volume 93.3 79-99 fL Mean Corpuscular Hemoglobin 31.4 27.0-33.0 pg Mean Corpuscular Hemoglobin Concent 33.6 32.0-36.0 g/dL Red Cell Distribution Width 13.0 11.0-15.5 % Platelet Count 154 130-400 K/uL Mean Platelet Volume 10.2 7.5-10.5 fL Immature Granulocyte % (Auto) 0.3 0-1 % Neutrophils (%) (Auto) 57.3 40.0-77.0 % Lymphocytes (%) (Auto) 32.8 21.0-51.0 % Monocytes (%) (Auto) 8.8 3.0-13.0 % Eosinophils (%) (Auto) 0.5 0.0-8.0 % Basophils (%) (Auto) 0.3 0.0-5.0 % Neutrophils # (Auto) 4.2 1.8-7.7 K/uL Lymphocytes # (Auto) 2.4 1.0-4.8 K/uL Monocytes # (Auto) 0.6 0.1-1.0 K/uL Eosinophils # (Auto) 0.04 0.00-0.70 K/uL Basophils # (Auto) 0.02 0.00-0.20 K/uL Absolute Immature Granulocyte (auto 0.02 0-1 K/uL Nucleated Red Blood Cells 0.0 0.0-0.19 % Reticulocyte Count (auto) 2.44783 H 0.42-2.23 % Immature Reticulocyte Fraction 13.50 H 0.18-0.48 % Chemistry Labs: Test 08/08/24 07:35 08/08/24 03:33 08/07/24 04:13 Range/Units Whole Blood Glucose 164 H 70-110 MG/DL Sodium Level 137 136-145 mmol/L Potassium Level 3.8 3.5-5.1 mmol/L Chloride Level 105 101-111 mmol/L Carbon Dioxide Level 25 21-32 mmol/L Blood Urea Nitrogen 7 7-18 mg/dL Creatinine 0.8 0.5-1.3 mg/dL Glomerular Filtration Rate Calc 103 >90 mL/min Random Glucose 163 H 70-105 mg/dL Total Calcium 8.1 L 8.5-10.1 mg/dL Magnesium Level 1.90 1.80-2.40 mg/dL Total Creatine Kinase 118 # 21-232 U/L Iron Level 18 L 65-175 mcg/dL Total Iron Binding Capacity 253 250-450 mcg/dL Percent Iron Saturation 7.1 L 30-44 % Ferritin 254 30-400 ng/mL Total Bilirubin 0.6 # 0.2-1.0 mg/dL Aspartate Amino Transf (AST/SGOT) 57 H 10-37 U/L Alanine Aminotransferase (ALT/SGPT) 23 12-78 U/L Alkaline Phosphatase 52 50-136 U/L Total Protein 6.3 6.0-8.3 g/dL Albumin 2.8 L 3.5-5.0 g/dL Vitamin B12 Level 354 193-986 pg/mL Coagulation Labs: Test 08/08/24 03:33 Range/Units Activated Partial Thromboplast Time 47.4 #H 26.3-35.5 SEC Diagnostics / Radiology: 2D echocardiogram 08/05/2024: Conclusion The cardiac chambers are normal in size. Mild concentric left ventricular hypertrophy. The basal inferior wall is hypokinetic. The mid/apical inferior wall is normal in function. The anterior, anterolateral, inferolateral, septal, and apical carroll are normal in function. Left ventricle systolic function is normal, estimated LVEF 55%. Indeterminate diastolic function. Trace mitral regurgitation. Trace tricuspid regurgitation. PASP is normal. There is no pericardial effusion. Impression and Plan: Non [place] [address] Severe two-vessel coronary artery disease with 80% stenosis in the proximal LAD and 100% stenosis in the distal RCA by cardiac catheterization 08/05/2024 Normal LV systolic function with an LVEF of 55% and basal inferior wall hypokinesis by 2D echocardiogram 08/05/2024: Post infarction angina pectoris: -continues on IV heparin, continue ranolazine, add topical nitrates -advanced metoprolol tartrate to 50 mg p.o. b.i.d., continue statin therapy and single antiplatelet therapy -pending CABG Hypertension: -advance metoprolol tartrate to 50 mg p.o. b.i.d. -continue losartan 50 mg p.o. daily Normocytic normochromic iron-deficiency anemia: -perhaps related to his chronic alcohol use -begin Venofer 100 mg IV daily x3 days Comorbidities: Type 2 diabetes mellitus Alcohol abuse PHYSICIAN ATTESTATION OF PHYSICIAN TREE SPECIALIST DOCUMENTATION: I attest that I was physically present for the [place] portions of the service and evaluated the patient with the Physician Electric Tripper Machine Operator, and I reviewed and discussed the case with the Physician Electric Tripper Machine Operator and made modifications to the Physician Electric Tripper Machine Operator's findings and plans of care as documented above ALYSIA VALDOVINOS August 08, 2024 08:28 VINAY WONG MD August 08, 2024 09:09
[2024-08-08] MEDS: metoPROLOL tartRATE 50 MG TAB PO SCH (08:41)
[2024-08-08] MEDS ORDERED: IRON sUCROse COMPLEX 100 MG/5 ML VIAL IV SCH (09:30)
--- NOTE | 2024-08-08 10:28 | PN ---
[facility] PROGRESS NOTE Date of Service: August 08, 2024 Time of Service: 10:27 SUBJECTIVE: This is a case of 59-year-old male with past medical history of diabetes, hypertension and hyperlipidemia who presented to the ED with complaints of left- sided chest pain which started around 8 pm last night while resting. He states that he has been experiencing intermittent chest pain since the past 2 days ago which has become persistent associated with SOB last night. Patient also reports that he had 5 beers last night and denies cigarette and recreational drug use. Initial ECG revealed ST 110 right bundle branch block, inferior infarct acute and second EKG showed ST 108 right bundle branch block inferior infarct recent and the 3rd EKG showed ST 120 with Right bundle branch block Inferior infarct recent and probable posterior infarct acute. Initial Labs WBC 10.9, BNP 147, total CK 812, troponin 13,930, serum alcohol 117. While in the ER patient received aspirin 325 mg p.o., Protonix 40 mg IV, Brilinta 90 mg p.o., verapamil 5 mg IV and metoprolol 5 mg IV and was started on heparin and nitroglycerin drip. He was admitted for further assessment and treatment in view of NSTEMI. 08/05/2024 Patient is seen and examined at the bedside. He complains of mild pressure-like left-sided chest pain and generalized body weakness. Vitals blood pressure ranging in 120/70s. Labs WBC 10.9, hemoglobin 13.9, BNP 147, PT 10.1, INR 0.95. Urinalysis positive for glucose. Urine toxicology negative and serum alcohol 117, glucose 229, magnesium 1.9, TCK 8. Troponin trend [id number] - [id number]. Currently on heparin and nitroglycerin drip. He is scheduled for cardiac catheterization procedure today. Chest x-ray revealed clear lungs and pending 2D echo results. 08/06/2024 Patient is seen and examined at the bedside. He complains of generalized body weakness and headache. He denies fever, chills, nausea, vomiting, chest pain, palpitations, abdominal pain. Vitals Blood pressure 137/67. Labs WBC 10, hemoglobin dropped from 13.9-11.5, magnesium 1.70, calcium 8.1, AST improved from 176-115. BNP improved from 147-128 and TCK improved 812-5 75. He underwent left heart catheterization yesterday which revealed two-vessel coronary artery disease with 80% stenosis in the proximal LAD and 100% stenosis in the distal RCA. 2D echo revealed normal Left ventricle systolic function, estimated LVEF 55% and Indeterminate diastolic function. CT surgery was consulted. 08/07/24 Patient is seen and examined at the bedside. /He was managed for ACS/Non-STEMI and underwent further assessment with a cardiac catheterization on 08/05/2024 demonstrating two-vessel coronary artery disease with 80% stenosis in the proximal LAD and 100% stenosis in the distal RCA. He has had no recurrent angina overnight. He continues on IV heparin. 2D echocardiogram on 08/05/2024 demonstrating basal inferior wall hypokinesis and an LVEF of 55%. 08/08/2024 Patient is seen and examined at the bedside. No acute events last night. Currently on heparin drip. He mentioned about experiencing mild chest discomfort, shortness of breath this morning when he tried to sit in the chair. He also complains of pain and discomfort over right groin. We will order a repeat right groin ultrasound to rule out hematoma. Vitals blood pressure 137/78, respiratory rate 23. Labs hemoglobin decreased from 11.2-10.8, reticulocyte count high at 2.34, iron 18, TIBC 253,% saturation low at 7.1 indicating iron deficiency, BMP unremarkable, TCK normal at 118. Pending CABG. REVIEW OF SYSTEMS CONSTITUTIONAL: Generalized body weakness Denies fevers, chills, or night sweats. No unintentional weight loss reported. NEUROLOGICAL: Denies headache, amaurosis fugax, motor weakness, sensory deficit, vertigo/spinning sensation, gait abnormalities, or tremors. ENT: No hearing loss, otalgia, otorrhea, rhinitis, rhinorrhea, hoarseness, or sore throat. CARDIOVASCULAR: Mild chest discomfort Deniesdyspnea on exertion, orthopnea, paroxysmal nocturnal dyspnea, palpitations, life-threatening arrhythmias, claudication. PULMONARY: Denies cough, phlegm/sputum, hemoptysis, pleuritic chest pain. SLEEP: Denies morning headaches, daytime somnolence or napping. Denies difficulty falling asleep, staying asleep, waking from sleep. Denies knowledge of snoring. GASTROINTESTINAL: Denies any type of dysphagia to either liquids or solids. Denies nausea, vomiting, pyrosis, early satiety, abdominal pain, diarrhea, constipation, or changes in stool consistency or caliber. Denies coffee-ground emesis, hematemesis, hematochezia, or melanotic stools. GENITOURINARY: Denies frequency, urgency, nocturia, hematuria or incontinence (Storage/Irritative symptoms.) Low urinary stream, straining to void, urinary intermittency or hesitancy, splitting of the voiding stream, terminal dribbling. ENDOCRINOLOGIC: Denies polyuria, polydipsia, polyphagia or heat/cold intolerances. HEMATOLOGIC: Denies thrombophilia/previous clots, or coagulopathy/bleeding disorders. ONCOLOGIC: Denies personal history of malignancy. DERMATOLOGIC: Denies rashes or pruritus. PSYCHIATRIC: Denies any suicidal or homicidal ideation. Denies hallucinations. PHYSICAL EXAM GENERAL APPEARANCE: The patient is awake, alert, and oriented, in no acute cardiopulmonary distress. NEUROLOGICAL: Cranial nerves II-XII grossly intact. Motor is 5/5 in bilateral upper and lower extremities proximal to distal. No sensory deficits. HEENT: Face is symmetric. Pupils are equal and reactive. Extraocular movements are intact. NECK: Supple. No JVD. No thyromegaly. No submental, submandibular, pre- /postauricular, occipital or supraclavicular lymphadenopathy. CHEST: Normal chest expansion. No Telemetry. LUNGS: Absence of any rales, rhonchi or any wheezing. CARDIOVASCULAR: Regular. S1 and S2 normal. No appreciable rubs, murmurs or gallops. ABDOMEN: Soft, nontender, and nondistended. There is no rebound, voluntary guarding, or rigidity. : Redness, bruising noted over right groin area Deferred. No Fitzpatrick. EXTREMITIES: Non-edematous and not cyanotic. No clubbing. Good capillary refill. SKIN: No skin breakdown. Vital Signs (last 8hr) Date Time Temp Pulse Resp B/P (MAP) Pulse Ox O2 Delivery O2 Flow Rate FiO2 08/08/24 08:00 99.0 98 23 137/78 96 Room Air 08/08/24 07:00 85 19 135/69 08/08/24 04:00 98.4 68 21 147/78 96 LABS: Laboratory: Test 08/08/24 07:35 08/08/24 03:33 08/07/24 04:13 Range/Units Whole Blood Glucose 164 H 70-110 MG/DL White Blood Count 7.3 4.8-10.8 K/uL Red Blood Count 3.44 L 4.50-6.20 MIL/uL Hemoglobin 10.8 L 14.0-18.0 g/dL Hematocrit 32.1 L 42-54 % Mean Corpuscular Volume 93.3 79-99 fL Mean Corpuscular Hemoglobin 31.4 27.0-33.0 pg Mean Corpuscular Hemoglobin Concent 33.6 32.0-36.0 g/dL Red Cell Distribution Width 13.0 11.0-15.5 % Platelet Count 154 130-400 K/uL Mean Platelet Volume 10.2 7.5-10.5 fL Immature Granulocyte % (Auto) 0.3 0-1 % Neutrophils (%) (Auto) 57.3 40.0-77.0 % Lymphocytes (%) (Auto) 32.8 21.0-51.0 % Monocytes (%) (Auto) 8.8 3.0-13.0 % Eosinophils (%) (Auto) 0.5 0.0-8.0 % Basophils (%) (Auto) 0.3 0.0-5.0 % Neutrophils # (Auto) 4.2 1.8-7.7 K/uL Lymphocytes # (Auto) 2.4 1.0-4.8 K/uL Monocytes # (Auto) 0.6 0.1-1.0 K/uL Eosinophils # (Auto) 0.04 0.00-0.70 K/uL Basophils # (Auto) 0.02 0.00-0.20 K/uL Absolute Immature Granulocyte (auto 0.02 0-1 K/uL Nucleated Red Blood Cells 0.0 0.0-0.19 % Activated Partial Thromboplast Time 47.4 #H 26.3-35.5 SEC Sodium Level 137 136-145 mmol/L Potassium Level 3.8 3.5-5.1 mmol/L Chloride Level 105 101-111 mmol/L Carbon Dioxide Level 25 21-32 mmol/L Blood Urea Nitrogen 7 7-18 mg/dL Creatinine 0.8 0.5-1.3 mg/dL Glomerular Filtration Rate Calc 103 >90 mL/min Random Glucose 163 H 70-105 mg/dL Total Calcium 8.1 L 8.5-10.1 mg/dL Magnesium Level 1.90 1.80-2.40 mg/dL Total Creatine Kinase 118 # 21-232 U/L Reticulocyte Count (auto) 2.86364 H 0.42-2.23 % Immature Reticulocyte Fraction 13.50 H 0.18-0.48 % Iron Level 18 L 65-175 mcg/dL Total Iron Binding Capacity 253 250-450 mcg/dL Percent Iron Saturation 7.1 L 30-44 % Ferritin 254 30-400 ng/mL Total Bilirubin 0.6 # 0.2-1.0 mg/dL Aspartate Amino Transf (AST/SGOT) 57 H 10-37 U/L Alanine Aminotransferase (ALT/SGPT) 23 12-78 U/L Alkaline Phosphatase 52 50-136 U/L Total Protein 6.3 6.0-8.3 g/dL Albumin 2.8 L 3.5-5.0 g/dL Vitamin B12 Level 354 193-986 pg/mL Current Medications Medications (Trade) Dose Ordered Sig/Isidoro Route PRN Reason Start Time Stop Time Status Last Admin Dose Admin Acetaminophen (TYLenol 500MG TAB) 500 mg Q6H PRN PO MILD PAIN (1-3) 08/06/24 10:00 09/05/24 09:59 08/07/24 14:20 500 MG Aspirin (Aspirin 81mg Ec Tab) 81 mg DAILY PO 08/06/24 09:00 09/05/24 08:59 08/08/24 07:44 81 MG Atorvastatin Calcium (LIPItor 40MG) 40 mg HS PO 08/05/24 21:00 09/04/24 20:59 08/07/24 20:34 40 MG Ceftriaxone Sodium (Rocephin 2gm Inj) 2 gm Q24H IVPB 08/06/24 00:00 08/15/24 23:59 08/07/24 22:57 2 GM Chlordiazepoxide HCl (LIBrium 25 MG CAP) 25 mg Q2H PRN PO ALCOHOL WITHDRAWAL PROTOCOL 08/05/24 06:00 08/12/24 05:59 08/06/24 22:55 25 MG Dextrose (D50w) 50 ml AD PRN IV HYPOGLYCEMIA PROTOCOL 08/05/24 05:30 09/04/24 05:29 Diazepam (VALium 5 MG/ML 2 ML SYG) 10 mg Q4H PRN IVP ALCOHOL WITHDRAWAL PROTOCOL 08/05/24 06:30 08/12/24 06:29 Doxycycline Hyclate (Doxycycline Hyclate) 100 mg BID PO 08/06/24 09:00 08/06/24 12:18 DC 08/06/24 09:06 100 MG Famotidine (Pepcid 20mg Vial) 20 mg BID IV 08/05/24 09:00 08/05/24 09:01 DC 08/05/24 07:47 20 MG Glucagon (Glucagon 1mg Kit) 1 mg AD PRN IM HYPOGLYCEMIA PROTOCOL 08/05/24 05:30 09/04/24 05:29 Guaifenesin (RobiTUSSin SUGAR-FREE 100 MG/ 5 ML UDCUP) 200 mg Q4H PRN PO COUGH 08/07/24 23:30 09/06/24 23:29 08/07/24 23:28 200 MG Heparin Sodium (Porcine) (HEParin 5,000 UNIT VIAL) 5,000 unit Q8H SQ 08/05/24 11:00 08/05/24 03:04 DC Heparin Sodium/ Dextrose 250 ml @ 0 mls/hr PROTOCOL IV 08/05/24 03:00 09/04/24 02:59 08/07/24 23:08 0 MLS/HR Insulin Glargine (LANtus 100 UNITS/ML 10 ML VIAL) 10 units BID@0730,2100 SQ 08/05/24 21:00 09/04/24 20:59 08/08/24 07:46 10 UNITS Insulin Human Regular (humuLIN R 100 UNIT/ML 3ML) INSULIN SLIDING SCAL... ACHS SQ 08/05/24 07:30 08/05/24 08:55 DC 08/05/24 07:47 5 UNIT Insulin Human Regular (humuLIN R 100 UNIT/ML 3ML) INSULIN SLIDING SCAL... ACHS SQ 08/05/24 11:30 09/04/24 11:29 08/08/24 07:46 4 UNIT Iron Sucrose (VenoFER) 100 mg DAILY IV 08/08/24 09:30 08/08/24 09:17 DC Iron Sucrose (VenoFER) 100 mg Q24H IV 08/08/24 21:00 08/10/24 22:00 Lorazepam (AtiVAN) 2 mg Q4H PRN IVP ALCOHOL WITHDRAWAL PROTOCOL 08/05/24 06:00 08/05/24 06:04 DC Losartan Potassium (CozAAR 50 mg TAB) 50 mg DAILY PO 08/07/24 09:00 09/06/24 08:59 08/08/24 07:44 50 MG Magnesium Sulfate 50 ml @ 0 mls/hr PROTOCOL PRN IV OTHER [SEE ORDER COMMENTS] 08/05/24 05:30 09/04/24 05:29 08/08/24 08:24 25 MLS/HR Metoprolol Tartrate (loprESSOR) 25 mg BID PO 08/05/24 14:30 08/08/24 08:27 DC 08/08/24 07:44 25 MG Metoprolol Tartrate (loprESSOR) 50 mg BID PO 08/08/24 09:00 09/07/24 08:59 Morphine Sulfate (morPHINE 2MG SYG) 2 mg Q2HPRN PRN IVP SEVERE PAIN (6-10) 08/05/24 11:10 08/12/24 11:09 08/07/24 10:21 2 MG Morphine Sulfate (morPHINE 2MG SYG) 2 mg Q4H PRN IVP SEVERE PAIN (7-10) 08/05/24 06:00 08/05/24 08:31 DC 08/05/24 06:03 2 MG Nitroglycerin (Nitroglycerin 1gm Oint) 0.5 inch Q8H5 TD 08/08/24 13:00 09/07/24 12:59 Nitroglycerin (Nitrostat) 0.4 mg AD PRN SL CHEST PAIN 08/05/24 02:30 08/08/24 08:53 DC 08/05/24 02:46 0.4 MG Nitroglycerin/ Dextrose 250 ml @ 0 mls/hr PROTOCOL IV 08/05/24 03:30 09/04/24 03:29 08/06/24 07:15 15 MLS/HR Ondansetron HCl (zoFRAN 4MG INJ) 4 mg Q6H PRN IV NAUSEA/VOMITING 08/05/24 05:30 09/04/24 05:29 08/05/24 22:13 4 MG Pantoprazole Sodium (PROTonix 40MG INJ) 40 mg DAILY IVP 08/05/24 09:00 09/04/24 08:59 08/08/24 07:45 40 MG Pharmacy Profile Note (Pharmacy Communication) 1 each PROTOCOL PRN MISC ETOH Withdrawal Score changes 08/05/24 06:00 08/12/24 05:59 Potassium Chloride 100 ml @ 50 mls/hr AD PRN IV POTASSIUM PROTOCOL 08/05/24 05:30 08/07/24 18:24 DC Potassium Chloride 100 ml @ 100 mls/hr AD PRN IV POTASSIUM PROTOCOL 08/07/24 09:00 09/06/24 08:59 Potassium Chloride (K-Dur/Klor-Con 20meq) 20 meq AD PRN PO POTASSIUM PROTOCOL 08/07/24 09:00 09/06/24 08:59 08/08/24 07:44 20 MEQ Potassium Chloride (KCl 10% Elixir 20meq/15ml) 20 meq AD PRN PO POTASSIUM PROTOCOL 08/07/24 09:00 09/06/24 08:59 Promethazine HCl (Phenergan) 25 mg Q6H PRN PO NAUSEA 08/05/24 06:00 09/04/24 05:59 Ranolazine (Ranexa) 500 mg BID PO 08/05/24 17:30 09/04/24 17:29 08/08/24 07:44 500 MG Ranolazine (Ranexa) 500 mg BID PO 08/05/24 21:00 08/05/24 17:04 DC Sodium Chloride 1,000 ml @ 75 mls/hr [id number] IV 08/05/24 05:30 09/04/24 05:29 08/07/24 17:11 75 MLS/HR Sodium Chloride 1,000 ml @ 100 mls/hr Q10H IV 08/05/24 14:30 08/05/24 17:29 DC 08/05/24 15:22 100 MLS/HR Thiamine HCl 100 mg/Folic Acid 1 mg/Multivitamins/ Minerals 10 ml/ Sodium Chloride 1,011.2 ml @ 100 mls/ hr Q24H IV 08/05/24 06:00 08/07/24 16:07 DC 08/07/24 05:34 100 MLS/HR Wound Care/ Dressing Products (Venelex Ointment) 1 NAKIA AD TID TP 08/06/24 14:00 08/06/24 12:50 DC DIAGNOSTICS / RADIOLOGY: [ ] ASSESSMENT: Chest pain, POA ACS- NSTEMI POA Alcohol Intoxication POA Uncontrolled diabetes POA Acute anemia, not POA Obesity POA Hyperlipidemia POA Hypertension POA Elevated CK POA Active alcohol drinker POA PLAN: Continue telemetry NSTEMI POA, chest pain Continue heparin drip as per cardiology consult recommendation Continue mg daily Continue Lipitor 40 mg daily Started on topical nitrates Hold Brilinta as per Cardiology recommendation Appreciate cardiology consult and we will follow their recommendations Elevated TCK POA TCK normal at 118 Continue NS @75 mL/hour Alcohol Intoxication POA Monitor for signs of alcohol withdrawal CIWA protocol in place Counseled on alcohol use cessation Uncontrolled diabetes POA Glucose 164 Continue insulin sliding scale AC & HS with hypoglycemia protocol Acute anemia, not POA Hemoglobin dropped from 13.9-11.5 Iron 18, TIBC 253,% saturation 7.1 indicating iron deficiency Started on IV Venofer Q 24 H Monitor H&H Hyperlipidemia POA, Normal lipid panel results Continue Atorvastatin Hypertension, POA Continue metoprolol 50 mg b.i.d., losartan 50 mg p.o. as per Cardiology recommendation Continue Famotidine 20 mg IV bid for GI prophylaxis Continue SCDs for DVT prophylaxis Monitor electrolytes and replace them as needed per protocol Continue prn medication for fever,pain,cough , nausea and vomiting Labs in a.m. Follow up on Cardiology consult recommendations Follow up on CT surgery consult recommendation Follow up on right groin ultrasound results, we will start ice packs for now for right groin bruising,redness Pending CABG ATTESTATION BY PHYSICIAN I have seen and examined the patient. I reviewed the documentation, medical decision making, and treatment plan as noted by the resident above. I agree with the findings and plan of care. Dalton Le MD, PRIYANKA MD August 08, 2024 10:27
[2024-08-08] MEDS: NITROGLYCERIN 1GM OINT 1 INCH/1GM TD SCH (11:53)
--- NOTE | 2024-08-08 17:35 | PN ---
[facility] PROGRESS NOTE Date Patient Seen: August 08, 2024 Time of Visit: 17:34 Supervising Physician: Dr. Jaffe Primary Care Physician: [ Francesco Gee MD] Outpatient Specialists: [none ] Inpatient Consults: [Dany Noel MD, Marcela Talbert DO, DR Remi Arcostending: Dr Paola Frye MD ] PROBLEM LIST: ACS-NSTEMI Type I Leukocytosis w/ left shift Essential HTN Untreated hyperglycemia in the presence of new onset Type II DM2 Alcohol abuse Obesity INTERVAL HISTORY: 08/06/2024: At the time of my evaluation, the patient was sitting up to the bedside chair. The staff nurse reports no acute events overnight. Currently, the patient remains on heparin and a nitro drip. On the monitor, the patient was afebrile, no tachycardia tachypnea and blood pressure was within normal ranges. He remained on. Laboratory data was notable for a WBC within normal range, no acute anemia or thrombocytopenia. Chemistry panel showed elevated CK of 575. There was a magnesium of 1.70. No new imaging for review today. No other complaint. 08/07/2024: At the time of my evaluation, the patient is lying in bed. He is awake, alert and verbally interactive. He remains on a CIWA protocol. The patient is currently breathing on room air. She is afebrile, no tachypnea or tachycardia. He voids spontaneously and poor chart documentation, urinary output total 2700 mL over the past 24 hours and has a net balance of +677.4. The patient continues on a heparin drip. He continues on antibiotic therapy with Rocephin. Also on a banana bag. The current plan is for CABG unknown date and time. No other complaint. 08/08/2024: At the time of my evaluation, the patient was lying in bed. He is awake alert and denies any chest pain. The staff nurse reports no acute events overnight. Vital signs are unremarkable. Laboratory data was unremarkable. No new chest imaging for review. Currently, the patient remains on a heparin drip. He also remains on CIWA protocol. No other complaint. REVIEW OF SYSTEMS: 12-point system review was carried out. Pertinent positive as documented above otherwise pertinent negative. PHYSICAL EXAM: GENERAL: Alert, weak, awake oriented x 3 HEENT: EOMI, Sclera non icteric, moist mucosa NECK: Supple, no JVD, trachea midline LUNGS: Clear breath sounds bilaterally. No wheezes HEART: Regular rate and rhythm. Normal S1 and S2, without murmurs ABD: Abdomen soft, nontender. Bowel sounds present EXT: No clubbing cyanosis or edema NEURO: Alert and oriented to person, follows commands Vital Signs (last 8hr) Date Time Temp Pulse Resp B/P (MAP) Pulse Ox O2 Delivery O2 Flow Rate FiO2 08/08/24 16:00 98.4 79 28 142/76 96 Room Air 08/08/24 14:00 63 22 136/67 96 Room Air 08/08/24 12:00 98.4 85 18 123/66 99 Room Air 08/08/24 10:00 65 23 118/73 99 Room Air LABS: Hematology Labs: Test 08/08/24 03:33 08/07/24 04:13 Range/Units White Blood Count 7.3 4.8-10.8 K/uL Red Blood Count 3.44 L 4.50-6.20 MIL/uL Hemoglobin 10.8 L 14.0-18.0 g/dL Hematocrit 32.1 L 42-54 % Mean Corpuscular Volume 93.3 79-99 fL Mean Corpuscular Hemoglobin 31.4 27.0-33.0 pg Mean Corpuscular Hemoglobin Concent 33.6 32.0-36.0 g/dL Red Cell Distribution Width 13.0 11.0-15.5 % Platelet Count 154 130-400 K/uL Mean Platelet Volume 10.2 7.5-10.5 fL Immature Granulocyte % (Auto) 0.3 0-1 % Neutrophils (%) (Auto) 57.3 40.0-77.0 % Lymphocytes (%) (Auto) 32.8 21.0-51.0 % Monocytes (%) (Auto) 8.8 3.0-13.0 % Eosinophils (%) (Auto) 0.5 0.0-8.0 % Basophils (%) (Auto) 0.3 0.0-5.0 % Neutrophils # (Auto) 4.2 1.8-7.7 K/uL Lymphocytes # (Auto) 2.4 1.0-4.8 K/uL Monocytes # (Auto) 0.6 0.1-1.0 K/uL Eosinophils # (Auto) 0.04 0.00-0.70 K/uL Basophils # (Auto) 0.02 0.00-0.20 K/uL Absolute Immature Granulocyte (auto 0.02 0-1 K/uL Nucleated Red Blood Cells 0.0 0.0-0.19 % Reticulocyte Count (auto) 2.58745 H 0.42-2.23 % Immature Reticulocyte Fraction 13.50 H 0.18-0.48 % Chemistry Labs: Test 08/08/24 11:43 08/08/24 03:33 08/07/24 04:13 Range/Units Whole Blood Glucose 163 H 70-110 MG/DL Sodium Level 137 136-145 mmol/L Potassium Level 3.8 3.5-5.1 mmol/L Chloride Level 105 101-111 mmol/L Carbon Dioxide Level 25 21-32 mmol/L Blood Urea Nitrogen 7 7-18 mg/dL Creatinine 0.8 0.5-1.3 mg/dL Glomerular Filtration Rate Calc 103 >90 mL/min Random Glucose 163 H 70-105 mg/dL Total Calcium 8.1 L 8.5-10.1 mg/dL Magnesium Level 1.90 1.80-2.40 mg/dL Total Creatine Kinase 118 # 21-232 U/L Iron Level 18 L 65-175 mcg/dL Total Iron Binding Capacity 253 250-450 mcg/dL Percent Iron Saturation 7.1 L 30-44 % Ferritin 254 30-400 ng/mL Total Bilirubin 0.6 # 0.2-1.0 mg/dL Aspartate Amino Transf (AST/SGOT) 57 H 10-37 U/L Alanine Aminotransferase (ALT/SGPT) 23 12-78 U/L Alkaline Phosphatase 52 50-136 U/L Total Protein 6.3 6.0-8.3 g/dL Albumin 2.8 L 3.5-5.0 g/dL Vitamin B12 Level 354 193-986 pg/mL Coagulation Labs: Test 08/08/24 03:33 Range/Units Activated Partial Thromboplast Time 47.4 #H 26.3-35.5 SEC DIAGNOSTICS / RADIOLOGY RESULTS: [ ] PLAN 08/07/2024: For now, going to continue current management for the patient. We will continue the CIWA protocol. The patient will continue on multivitamin infusion (banana bag). We will await Cardiothoracic surgery input on plans to proceed with CABG. In the meantime, the patient will remain on heparin drip. He was downgraded to PCCU status. We will monitor the patient's progress and response to management. We will continue to provide general supportive care, GI and DVT prophylaxis. Further orders per attending MD and hospital course. 08/08/2024: For now, going to continue current management for the patient. We are going to continue heparin drip as ordered and we will follow the input from the Cardiology team as well as the Cardiothoracic surgeon. We will monitor the patient's progress and response to management. We will continue to provide general supportive care, GI and DVT prophylaxis. Further orders per attending MD and hospital course. NEURO: Minimize central acting medications as possible. Maintain fall precautions, adequate lighting during the day PULMONARY: Supplemental 02 as needed. Maintain aspiration precautions at all times CARDIOVASCULAR: Follow hemodynamics. Vital signs per facility protocol GI & NUTRITION: Continue with nutritional support. Continue stool softeners and laxatives as needed. KIDNEYS & ELECTROLYTES: Strict monitoring of intake, output and overall fluid balance. Avoid nephrotoxic medications to the extent possible. Medications to be dosed according to renal function. Monitor electrolytes and replace as needed ENDOCRINE: Maintain blood glucose between 100-180 at all times. Hypoglycemia protocol in place INFECTIOUS DISEASE: Trend temperature, WBC and procalcitonin level Follow cultures, deescalate antibiotics as soon as possible. Panculture if new onset fever ONCOLOGY/HEMATOLOGY/COAGULATION: Monitor for s/s of bleeding Monitor hemoglobin, coagulation studies as needed SKIN: Pressure ulcer prevention per facility protocol Specialty mattress ORTHO/REHAB: Continue PT/OT Prophylaxis: Continue GI and DVT prophylaxis Code Status: Full Resuscitation Disposition: TBD Other: Patient was seen and case was discussed with rodney RAMOS. Plan of care was discussed and agreed upon. TR LIVINGSTON NP August 08, 2024 17:35
--- NOTE | 2024-08-08 19:24 | HMCIMG ---
US SOFT TISSUE GROIN REASON: Right groin pain, bruising, to rule out hematoma. COMPARISON: None TECHNIQUE: Right groin ultrasound study was performed. FINDINGS: Multiple right inguinal lymph nodes are seen with the largest measuring 1.5 x 0.5 cm. Normal flow is seen in the right common femoral artery. Noncompressible thrombus is seen in the right common femoral vein suggestive of deep venous thrombosis. No noncompressible thrombus is seen in the right superficial femoral, popliteal, and posterior tibial vein. There may be phlebitis with thickening of the wall of the right greater saphenous vein. IMPRESSION: Multiple right inguinal lymph nodes. Finding consistent with partial deep venous thrombosis with thrombus in right common femoral vein.
[2024-08-08] MEDS: IRON sUCROse COMPLEX 100 MG/5 ML VIAL IV SCH (20:03)
--- NOTE | 2024-08-08 22:50 | NUR ---
reported soft tissue ultrasound results of right groin to zay valdes np. advised patient is currently on heparin drip, awaiting cabg procedure. As per hospitalist, report results to game room attendant. Page also made out to [facility]. As per answering service, dr. traore ammonia technician.
[2024-08-09] VITALS (9 sets, daily range): BP systolic 128–155; BP diastolic 69–99; PULSE 62–83; RESP 16–22; TEMP 97.6–98.6; O2SAT 97–98
[2024-08-09 04:29] LABS: BASOPHILS # (AUTO) 0.03 K/uL (0.00-0.20); BASOPHILS % (AUTO) 0.4 % (0.0-5.0); EOSINOPHILS # (AUTO) 0.08 K/uL (0.00-0.70); EOSINOPHILS % (AUTO) 1.2 % (0.0-8.0); HEMATOCRIT 31.5 % (42-54); IMMATURE GRANULOCYTE ABSOLUTE 0.01 K/uL (0-1); LYMPHOCYTES # (AUTO) 1.9 K/uL (1.0-4.8); LYMPHOCYTES % (AUTO) 27.4 % (21.0-51.0); MEAN CORPUSCULAR HEMOGLOBIN 31.8 pg (27.0-33.0); MEAN CORPUSCULAR HGB CONC 34.6 g/dL (32.0-36.0); MEAN CORPUSCULAR VOLUME 91.8 fL (79-99); MONOCYTES # (AUTO) 0.7 K/uL (0.1-1.0); NEUTROPHILS # (AUTO) 4.1 K/uL (1.8-7.7); NEUTROPHILS % (AUTO) 60.9 % (40.0-77.0); PLATELET COUNT (AUTO) 190 K/uL (130-400); RED BLOOD CELL COUNT(AUTO) 3.43 MIL/uL (4.50-6.20); RED CELL DISTRIBUTION WIDTH 12.8 % (11.0-15.5); WHITE BLOOD COUNT (AUTO) 6.8 K/uL (4.8-10.8)
[2024-08-09 04:51] LABS: CREATININE 0.7 mg/dL (0.5-1.3); POTASSIUM 3.6 mmol/L (3.5-5.1)
[2024-08-09 06:28] LABS: INFLUENZA TYPE A Negative For Type A (NEGATIVE); INFLUENZA TYPE B Negative For Type B (NEGATIVE)
[2024-08-09 07:52] LABS: COVID19 (SARS ANTIGEN RAPID) PRESUMPTIVE NEGATIVE (NEGATIVE)
--- NOTE | 2024-08-09 08:13 | NUR ---
ATTEMPTED TO REACH OUT TO [facility] TO REPORT RIGHT GROIN ULTRASOUND RESULTS. SPOKE TO MYLA. ASKED IF COULD BE CONNECTED TO DETECTOR CAR OPERATOR PROVIDER. WAS TOLD THAT CALL COULD NOT BE TRANSFERRED TO DETECTOR CAR OPERATOR PROVIDER HOWEVER THAT Lola VALDOVINOS WILL BE MAKING ROUNDS THIS AM AND AT THIS TIME RESULTS COULD BE REPORTED.
--- NOTE | 2024-08-09 08:17 | NUR ---
@0011AM AGAIN ATTEMPTED TO CONTACT SENIOR SQL DATABASE DEVELOPER FOR [facility]. PER ANSWERING DR. WOMACK SENIOR SQL DATABASE DEVELOPER.
--- NOTE | 2024-08-09 09:00 | NUR ---
US RESULTS JESSICA VALDOVINOS, CARDIOLOGY CYLINDER PRESS FEEDER ROUNDING ON PATIENT THIS MORNING. RELAYED RESULT OF US SOFT TISSUE OF RIGHT GROIN.
--- NOTE | 2024-08-09 09:16 | PN ---
[facility] PROGRESS NOTE Date Patient Seen: August 09, 2024 Time of Visit: 09:04 Interval History: This is a 59-year-old [place] male with a past medical history of hypertension, type 2 diabetes mellitus and alcohol abuse who presented with recu rrent chest pain the evening of 08/04/2024 when he developed sharp, burning in quality, 8/10 intensity chest discomfort. He previously developed symptoms after meal and with exertion. On the evening of 08/04/2024, his symptoms were more severe prompting ER visit. Symptom onset was approximately 8:00 p.m. on 08/04/2024 and did not present to the ER until approximately 2:00 a.m. on 08/05/2024. [place] [address]. He was managed for ACS/Non-STEMI and underwent further assessment with a cardiac catheterization on 08/05/2024 demonstrating severe two-vessel coronary artery disease with 80% stenosis in the proximal LAD and 100% stenosis in the distal RCA, with recommendations for coronary artery bypass grafting. The patient has had post infarction angina pectoris requiring a Tridil infusion which was discontinued and he had recurrent angina 08/08/2024 after ambulating just a few steps around his bed in while in ICU, topical nitrates were added to his medical regimen. He complained of more right groin discomfort yesterday and a repeat right groin ultrasound 08/08/2024 demonstrated right groin lymph nodes and a right common femoral vein noncompressible thrombus consistent with DVT. He has continued on IV heparin. A 2D echocardiogram on 08/05/2024 demonstrating basal inferior wall hypokinesis and an LVEF of 55%. Telemetry has demonstrated sinus rhythm to sinus tachy cardia with a heart rate into the 90-100 beat per minute range. Physical Examination: GENERAL: No acute distress. HEAD: Normal with no signs of head trauma. EYES: PERRLA, EOMI, conjunctiva and sclera normal. NECK: Supple without JVD. There is no tenderness, lymphadenopathy, or masses. No thyromegaly. Normal carotid upstrokes without bruits. LUNGS: Clear breath sounds bilaterally. No wheezes, or rhonchi. HEART: Normal rate and rhythm. Normal S1 and S2 without murmurs, gallop or rub. VASC: Peripheral pulses +2 bilaterally. Right groin with bruising and a small hematoma is noted. EXT: No clubbing, cyanosis or edema. NEURO: Awake, alert, and oriented x3. No focal neurological deficits noted. Laboratory: Hematology Labs: Test 08/09/24 04:06 Range/Units White Blood Count 6.8 4.8-10.8 K/uL Red Blood Count 3.43 L 4.50-6.20 MIL/uL Hemoglobin 10.9 L 14.0-18.0 g/dL Hematocrit 31.5 L 42-54 % Mean Corpuscular Volume 91.8 79-99 fL Mean Corpuscular Hemoglobin 31.8 27.0-33.0 pg Mean Corpuscular Hemoglobin Concent 34.6 32.0-36.0 g/dL Red Cell Distribution Width 12.8 11.0-15.5 % Platelet Count 190 130-400 K/uL Mean Platelet Volume 10.2 7.5-10.5 fL Immature Granulocyte % (Auto) 0.1 0-1 % Neutrophils (%) (Auto) 60.9 40.0-77.0 % Lymphocytes (%) (Auto) 27.4 21.0-51.0 % Monocytes (%) (Auto) 10.0 3.0-13.0 % Eosinophils (%) (Auto) 1.2 0.0-8.0 % Basophils (%) (Auto) 0.4 0.0-5.0 % Neutrophils # (Auto) 4.1 1.8-7.7 K/uL Lymphocytes # (Auto) 1.9 1.0-4.8 K/uL Monocytes # (Auto) 0.7 0.1-1.0 K/uL Eosinophils # (Auto) 0.08 0.00-0.70 K/uL Basophils # (Auto) 0.03 0.00-0.20 K/uL Absolute Immature Granulocyte (auto 0.01 0-1 K/uL Nucleated Red Blood Cells 0.0 0.0-0.19 % Chemistry Labs: Test 08/09/24 05:49 08/09/24 04:06 08/08/24 03:33 Range/Units Whole Blood Glucose 126 H 70-110 MG/DL Sodium Level 142 136-145 mmol/L Potassium Level 3.6 3.5-5.1 mmol/L Chloride Level 107 101-111 mmol/L Carbon Dioxide Level 28 21-32 mmol/L Blood Urea Nitrogen 6 L 7-18 mg/dL Creatinine 0.7 0.5-1.3 mg/dL Glomerular Filtration Rate Calc 107 >90 mL/min Random Glucose 98 70-105 mg/dL Total Calcium 8.3 L 8.5-10.1 mg/dL Magnesium Level 2.00 1.80-2.40 mg/dL Total Creatine Kinase 118 # 21-232 U/L Coagulation Labs: Test 08/09/24 04:06 Range/Units Activated Partial Thromboplast Time 45.8 H 26.3-35.5 SEC Diagnostics / Radiology: 2D echocardiogram 08/05/2024: Conclusion The cardiac chambers are normal in size. Mild concentric left ventricular hypertrophy. The basal inferior wall is hypokinetic. The mid/apical inferior wall is normal in function. The anterior, anterolateral, inferolateral, septal, and apical carroll are normal in function. Left ventricle systolic function is normal, estimated LVEF 55%. Indeterminate diastolic function. Trace mitral regurgitation. Trace tricuspid regurgitation. PASP is normal. There is no pericardial effusion. US SOFT TISSUE GROIN 08/08/2024: REASON: Right groin pain, bruising, to rule out hematoma. TECHNIQUE: Right groin ultrasound study was performed. FINDINGS: Multiple right inguinal lymph nodes are seen with the largest measuring 1.5 x 0.5 cm. Normal flow is seen in the right common femoral artery. Noncompressible thrombus is seen in the right common femoral vein suggestive of deep venous thrombosis. No noncompressible thrombus is seen in the right superficial femoral, popliteal, and posterior tibial vein. There may be phlebitis with thickening of the wall of the right greater saphenous vein. IMPRESSION: Multiple right inguinal lymph nodes. Finding consistent with partial deep venous thrombosis with thrombus in right common femoral vein. Impression and Plan: [place] [address] Severe two-vessel coronary artery disease with 80% stenosis in the proximal LAD and 100% stenosis in the distal RCA by cardiac catheterization 08/05/2024 Normal LV systolic function with an LVEF of 55% and basal inferior wall hypokinesis by 2D echocardiogram 08/05/2024: Post infarction angina pectoris: -continues on IV heparin, continue ranolazine, add topical nitrates -continue metoprolol tartrate to 50 mg p.o. b.i.d., continue statin therapy and single antiplatelet therapy -pending CABG Right common femoral vein DVT noted on repeat right groin ultrasound Doppler 08/08/2024: -continue IV heparin anticoagulation Hypertension: -advance metoprolol tartrate to 50 mg p.o. b.i.d. -advanced losartan to 50 mg p.o. b.i.d. Normocytic normochromic iron-deficiency anemia: -perhaps related to his chronic alcohol use -begin Venofer 100 mg IV daily x3 days Comorbidities: Type 2 diabetes mellitus Alcohol abuse PHYSICIAN ATTESTATION OF PHYSICIAN SIGN WRITER HAND DOCUMENTATION: I attest that I was physically present for the [place] portions of the service and evaluated the patient with the Physician Honing Machine Try Out Setter, and I reviewed and discussed the case with the Physician Honing Machine Try Out Setter and made modifications to the Physician Honing Machine Try Out Setter's findings and plans of care as documented above ALYSIA VALDOVINOS August 09, 2024 09:16 VINAY WONG MD Aug 14, 2024 10:05
--- NOTE | 2024-08-09 10:43 | PN ---
[facility] PROGRESS NOTE Date of Service: August 09, 2024 Time of Service: 10:42 SUBJECTIVE: This is a case of 59-year-old male with past medical history of diabetes, hypertension and hyperlipidemia who presented to the ED with complaints of left- sided chest pain which started around 8 pm last night while resting. He states that he has been experiencing intermittent chest pain since the past 2 days ago which has become persistent associated with SOB last night. Patient also reports that he had 5 beers last night and denies cigarette and recreational drug use. Initial ECG revealed ST 110 right bundle branch block, inferior infarct acute and second EKG showed ST 108 right bundle branch block inferior infarct recent and the 3rd EKG showed ST 120 with Right bundle branch block Inferior infarct recent and probable posterior infarct acute. Initial Labs WBC 10.9, BNP 147, total CK 812, troponin 13,930, serum alcohol 117. While in the ER patient received aspirin 325 mg p.o., Protonix 40 mg IV, Brilinta 90 mg p.o., verapamil 5 mg IV and metoprolol 5 mg IV and was started on heparin and nitroglycerin drip. He was admitted for further assessment and treatment in view of NSTEMI. 08/05/2024 Patient is seen and examined at the bedside. He complains of mild pressure-like left-sided chest pain and generalized body weakness. Vitals blood pressure ranging in 120/70s. Labs WBC 10.9, hemoglobin 13.9, BNP 147, PT 10.1, INR 0.95. Urinalysis positive for glucose. Urine toxicology negative and serum alcohol 117, glucose 229, magnesium 1.9, TCK 8. Troponin trend [id number] - [id number]. Currently on heparin and nitroglycerin drip. He is scheduled for cardiac catheterization procedure today. Chest x-ray revealed clear lungs and pending 2D echo results. 08/06/2024 Patient is seen and examined at the bedside. He complains of generalized body weakness and headache. He denies fever, chills, nausea, vomiting, chest pain, palpitations, abdominal pain. Vitals Blood pressure 137/67. Labs WBC 10, hemoglobin dropped from 13.9-11.5, magnesium 1.70, calcium 8.1, AST improved from 176-115. BNP improved from 147-128 and TCK improved 812-5 75. He underwent left heart catheterization yesterday which revealed two-vessel coronary artery disease with 80% stenosis in the proximal LAD and 100% stenosis in the distal RCA. 2D echo revealed normal Left ventricle systolic function, estimated LVEF 55% and Indeterminate diastolic function. CT surgery was consulted. 08/07/24 Patient is seen and examined at the bedside. /He was managed for ACS/Non-STEMI and underwent further assessment with a cardiac catheterization on 08/05/2024 demonstrating two-vessel coronary artery disease with 80% stenosis in the proximal LAD and 100% stenosis in the distal RCA. He has had no recurrent angina overnight. He continues on IV heparin. 2D echocardiogram on 08/05/2024 demonstrating basal inferior wall hypokinesis and an LVEF of 55%. 08/08/2024 Patient is seen and examined at the bedside. No acute events last night. Currently on heparin drip. He mentioned about experiencing mild chest discomfort, shortness of breath this morning when he tried to sit in the chair. He also complains of pain and discomfort over right groin. We will order a repeat right groin ultrasound to rule out hematoma. Vitals blood pressure 137/78, respiratory rate 23. Labs hemoglobin decreased from 11.2-10.8, reticulocyte count high at 2.34, iron 18, TIBC 253,% saturation low at 7.1 indicating iron deficiency, BMP unremarkable, TCK normal at 118. Pending CABG. 08/09/2024 Patient is seen and examined at the bedside. No acute events last night. Currently on heparin drip. Vitals blood pressure 151/88, respiratory rate 16. He complains of right groin discomfort and pain. Right groin soft tissue ultrasound revealed multiple right inguinal lymph nodes, partial DVT with thrombus in right common femoral vein, possible phlebitis of great saphenous vein. We will continue the patient on heparin drip for DVT as per cardiology consult recommendation. Labs hemoglobin 10.9, APTT 45.8, BMP unremarkable. Pending CABG. REVIEW OF SYSTEMS CONSTITUTIONAL: Generalized body weakness Denies fevers, chills, or night sweats. No unintentional weight loss reported. NEUROLOGICAL: Denies headache, amaurosis fugax, motor weakness, sensory deficit, vertigo/spinning sensation, gait abnormalities, or tremors. ENT: No hearing loss, otalgia, otorrhea, rhinitis, rhinorrhea, hoarseness, or sore throat. CARDIOVASCULAR: Mild chest discomfort Deniesdyspnea on exertion, orthopnea, paroxysmal nocturnal dyspnea, palpitations, life-threatening arrhythmias, claudication. PULMONARY: Denies cough, phlegm/sputum, hemoptysis, pleuritic chest pain. SLEEP: Denies morning headaches, daytime somnolence or napping. Denies difficulty falling asleep, staying asleep, waking from sleep. Denies knowledge of snoring. GASTROINTESTINAL: Denies any type of dysphagia to either liquids or solids. Denies nausea, vomiting, pyrosis, early satiety, abdominal pain, diarrhea, constipation, or changes in stool consistency or caliber. Denies coffee-ground emesis, hematemesis, hematochezia, or melanotic stools. GENITOURINARY: Denies frequency, urgency, nocturia, hematuria or incontinence (Storage/Irritative symptoms.) Low urinary stream, straining to void, urinary intermittency or hesitancy, splitting of the voiding stream, terminal dribbling. ENDOCRINOLOGIC: Denies polyuria, polydipsia, polyphagia or heat/cold intolerances. HEMATOLOGIC: Denies thrombophilia/previous clots, or coagulopathy/bleeding disorders. ONCOLOGIC: Denies personal history of malignancy. DERMATOLOGIC: Denies rashes or pruritus. PSYCHIATRIC: Denies any suicidal or homicidal ideation. Denies hallucinations. PHYSICAL EXAM GENERAL APPEARANCE: The patient is awake, alert, and oriented, in no acute cardiopulmonary distress. NEUROLOGICAL: Cranial nerves II-XII grossly intact. Motor is 5/5 in bilateral upper and lower extremities proximal to distal. No sensory deficits. HEENT: Face is symmetric. Pupils are equal and reactive. Extraocular movements are intact. NECK: Supple. No JVD. No thyromegaly. No submental, submandibular, pre- /postauricular, occipital or supraclavicular lymphadenopathy. CHEST: Normal chest expansion. No Telemetry. LUNGS: Absence of any rales, rhonchi or any wheezing. CARDIOVASCULAR: Regular. S1 and S2 normal. No appreciable rubs, murmurs or gallops. ABDOMEN: Soft, nontender, and nondistended. There is no rebound, voluntary guarding, or rigidity. : Redness, bruising , firm nodule noted over right groin area Deferred. No Fitzpatrick. EXTREMITIES: Non-edematous and not cyanotic. No clubbing. Good capillary refill. SKIN: No skin breakdown. Vital Signs (last 8hr) Date Time Temp Pulse Resp B/P (MAP) Pulse Ox O2 Delivery O2 Flow Rate FiO2 08/09/24 08:13 98 Room Air* 0 21 08/09/24 08:00 97.7 83 16 151/88 95 Room Air 08/09/24 04:00 98.1 69 18 143/77 98 Room Air LABS: Laboratory: Test 08/09/24 06:09 08/09/24 05:49 08/09/24 04:06 08/08/24 03:33 Range/Units Influenza Type A Antigen Negative For Type A NEGATIVE Influenza Type B Antigen Negative For Type B NEGATIVE SARS-CoV-2 Antigen (Rapid) PRESUMPTIVE NEGATIVE NEGATIVE Whole Blood Glucose 126 H 70-110 MG/DL White Blood Count 6.8 4.8-10.8 K/uL Red Blood Count 3.43 L 4.50-6.20 MIL/uL Hemoglobin 10.9 L 14.0-18.0 g/dL Hematocrit 31.5 L 42-54 % Mean Corpuscular Volume 91.8 79-99 fL Mean Corpuscular Hemoglobin 31.8 27.0-33.0 pg Mean Corpuscular Hemoglobin Concent 34.6 32.0-36.0 g/dL Red Cell Distribution Width 12.8 11.0-15.5 % Platelet Count 190 130-400 K/uL Mean Platelet Volume 10.2 7.5-10.5 fL Immature Granulocyte % (Auto) 0.1 0-1 % Neutrophils (%) (Auto) 60.9 40.0-77.0 % Lymphocytes (%) (Auto) 27.4 21.0-51.0 % Monocytes (%) (Auto) 10.0 3.0-13.0 % Eosinophils (%) (Auto) 1.2 0.0-8.0 % Basophils (%) (Auto) 0.4 0.0-5.0 % Neutrophils # (Auto) 4.1 1.8-7.7 K/uL Lymphocytes # (Auto) 1.9 1.0-4.8 K/uL Monocytes # (Auto) 0.7 0.1-1.0 K/uL Eosinophils # (Auto) 0.08 0.00-0.70 K/uL Basophils # (Auto) 0.03 0.00-0.20 K/uL Absolute Immature Granulocyte (auto 0.01 0-1 K/uL Nucleated Red Blood Cells 0.0 0.0-0.19 % Activated Partial Thromboplast Time 45.8 H 26.3-35.5 SEC Sodium Level 142 136-145 mmol/L Potassium Level 3.6 3.5-5.1 mmol/L Chloride Level 107 101-111 mmol/L Carbon Dioxide Level 28 21-32 mmol/L Blood Urea Nitrogen 6 L 7-18 mg/dL Creatinine 0.7 0.5-1.3 mg/dL Glomerular Filtration Rate Calc 107 >90 mL/min Random Glucose 98 70-105 mg/dL Total Calcium 8.3 L 8.5-10.1 mg/dL Magnesium Level 2.00 1.80-2.40 mg/dL Total Creatine Kinase 118 # 21-232 U/L Current Medications Medications (Trade) Dose Ordered Sig/Isiodro Route PRN Reason Start Time Stop Time Status Last Admin Dose Admin Acetaminophen (TYLenol 500MG TAB) 500 mg Q6H PRN PO MILD PAIN (1-3) 08/06/24 10:00 09/05/24 09:59 08/08/24 20:05 500 MG Aspirin (Aspirin 81mg Ec Tab) 81 mg DAILY PO 08/06/24 09:00 09/05/24 08:59 08/09/24 08:05 81 MG Atorvastatin Calcium (LIPItor 40MG) 40 mg HS PO 08/05/24 21:00 09/04/24 20:59 08/08/24 20:04 40 MG Ceftriaxone Sodium (Rocephin 2gm Inj) 2 gm Q24H IVPB 08/06/24 00:00 08/15/24 23:59 08/08/24 23:54 2 GM Chlordiazepoxide HCl (LIBrium 25 MG CAP) 25 mg Q2H PRN PO ALCOHOL WITHDRAWAL PROTOCOL 08/05/24 06:00 08/12/24 05:59 08/06/24 22:55 25 MG Dextrose (D50w) 50 ml AD PRN IV HYPOGLYCEMIA PROTOCOL 08/05/24 05:30 09/04/24 05:29 Diazepam (VALium 5 MG/ML 2 ML SYG) 10 mg Q4H PRN IVP ALCOHOL WITHDRAWAL PROTOCOL 08/05/24 06:30 08/12/24 06:29 Doxycycline Hyclate (Doxycycline Hyclate) 100 mg BID PO 08/06/24 09:00 08/06/24 12:18 DC 08/06/24 09:06 100 MG Famotidine (Pepcid 20mg Vial) 20 mg BID IV 08/05/24 09:00 08/05/24 09:01 DC 08/05/24 07:47 20 MG Glucagon (Glucagon 1mg Kit) 1 mg AD PRN IM HYPOGLYCEMIA PROTOCOL 08/05/24 05:30 09/04/24 05:29 Guaifenesin (RobiTUSSin SUGAR-FREE 100 MG/ 5 ML UDCUP) 200 mg Q4H PRN PO COUGH 08/07/24 23:30 09/06/24 23:29 08/08/24 20:04 200 MG Heparin Sodium (Porcine) (HEParin 5,000 UNIT VIAL) 5,000 unit Q8H SQ 08/05/24 11:00 08/05/24 03:04 DC Heparin Sodium/ Dextrose 250 ml @ 0 mls/hr PROTOCOL IV 08/05/24 03:00 09/04/24 02:59 08/08/24 23:58 11.07 MLS/HR Insulin Glargine (LANtus 100 UNITS/ML 10 ML VIAL) 10 units BID@0730,2100 SQ 08/05/24 21:00 09/04/24 20:59 08/09/24 08:05 10 UNITS Insulin Human Regular (humuLIN R 100 UNIT/ML 3ML) INSULIN SLIDING SCAL... ACHS SQ 08/05/24 07:30 08/05/24 08:55 DC 08/05/24 07:47 5 UNIT Insulin Human Regular (humuLIN R 100 UNIT/ML 3ML) INSULIN SLIDING SCAL... ACHS SQ 08/05/24 11:30 09/04/24 11:29 08/08/24 21:23 10 UNIT Iron Sucrose (VenoFER) 100 mg DAILY IV 08/08/24 09:30 08/08/24 09:17 DC Iron Sucrose (VenoFER) 100 mg Q24H IV 08/08/24 21:00 08/10/24 22:00 08/08/24 20:03 100 MG Lorazepam (AtiVAN) 2 mg Q4H PRN IVP ALCOHOL WITHDRAWAL PROTOCOL 08/05/24 06:00 08/05/24 06:04 DC Losartan Potassium (CozAAR 50 mg TAB) 50 mg BID PO 08/09/24 21:00 09/06/24 08:59 Losartan Potassium (CozAAR 50 mg TAB) 50 mg DAILY PO 08/07/24 09:00 08/09/24 09:16 DC 08/09/24 08:06 50 MG Magnesium Sulfate 50 ml @ 0 mls/hr PROTOCOL PRN IV OTHER [SEE ORDER COMMENTS] 08/05/24 05:30 09/04/24 05:29 08/08/24 08:24 25 MLS/HR Metoprolol Tartrate (loprESSOR) 25 mg BID PO 08/05/24 14:30 08/08/24 08:27 DC 08/08/24 07:44 25 MG Metoprolol Tartrate (loprESSOR) 50 mg BID PO 08/08/24 09:00 09/07/24 08:59 08/09/24 08:05 50 MG Morphine Sulfate (morPHINE 2MG SYG) 2 mg Q2HPRN PRN IVP SEVERE PAIN (6-10) 08/05/24 11:10 08/12/24 11:09 08/09/24 04:17 2 MG Morphine Sulfate (morPHINE 2MG SYG) 2 mg Q4H PRN IVP SEVERE PAIN (7-10) 08/05/24 06:00 08/05/24 08:31 DC 08/05/24 06:03 2 MG Nitroglycerin (Nitroglycerin 1gm Oint) 0.5 inch Q8H5 TD 08/08/24 13:00 09/07/24 12:59 08/09/24 05:29 0.5 INCH Nitroglycerin (Nitrostat) 0.4 mg AD PRN SL CHEST PAIN 08/05/24 02:30 08/08/24 08:53 DC 08/05/24 02:46 0.4 MG Nitroglycerin/ Dextrose 250 ml @ 0 mls/hr PROTOCOL IV 08/05/24 03:30 09/04/24 03:29 08/06/24 07:15 15 MLS/HR Ondansetron HCl (zoFRAN 4MG INJ) 4 mg Q6H PRN IV NAUSEA/VOMITING 08/05/24 05:30 09/04/24 05:29 08/05/24 22:13 4 MG Pantoprazole Sodium (PROTonix 40MG INJ) 40 mg DAILY IVP 08/05/24 09:00 09/04/24 08:59 08/09/24 08:02 40 MG Pharmacy Profile Note (Pharmacy Communication) 1 each PROTOCOL PRN MISC ETOH Withdrawal Score changes 08/05/24 06:00 08/12/24 05:59 Potassium Chloride 100 ml @ 50 mls/hr AD PRN IV POTASSIUM PROTOCOL 08/05/24 05:30 08/07/24 18:24 DC Potassium Chloride 100 ml @ 100 mls/hr AD PRN IV POTASSIUM PROTOCOL 08/07/24 09:00 09/06/24 08:59 Potassium Chloride (K-Dur/Klor-Con 20meq) 20 meq AD PRN PO POTASSIUM PROTOCOL 08/07/24 09:00 09/06/24 08:59 08/09/24 08:06 20 MEQ Potassium Chloride (KCl 10% Elixir 20meq/15ml) 20 meq AD PRN PO POTASSIUM PROTOCOL 08/07/24 09:00 09/06/24 08:59 Promethazine HCl (Phenergan) 25 mg Q6H PRN PO NAUSEA 08/05/24 06:00 09/04/24 05:59 Ranolazine (Ranexa) 500 mg BID PO 08/05/24 17:30 09/04/24 17:29 08/09/24 08:06 500 MG Ranolazine (Ranexa) 500 mg BID PO 08/05/24 21:00 08/05/24 17:04 DC Sodium Chloride 1,000 ml @ 75 mls/hr [id number] IV 08/05/24 05:30 09/04/24 05:29 08/08/24 16:15 75 MLS/HR Sodium Chloride 1,000 ml @ 100 mls/hr Q10H IV 08/05/24 14:30 08/05/24 17:29 DC 08/05/24 15:22 100 MLS/HR Thiamine HCl 100 mg/Folic Acid 1 mg/Multivitamins/ Minerals 10 ml/ Sodium Chloride 1,011.2 ml @ 100 mls/ hr Q24H IV 08/05/24 06:00 08/07/24 16:07 DC 08/07/24 05:34 100 MLS/HR Wound Care/ Dressing Products (Venelex Ointment) 1 NAKIA AD TID TP 08/06/24 14:00 08/06/24 12:50 DC DIAGNOSTICS / RADIOLOGY: SERVICE 1024 REASON: Right groin pain, bruising, to rule out hematoma ORDERING PHYSICIAN: TABATHA SNOW MD PROCEDURE: SOFT GROIN - US SOFT TISSUE GROIN US SOFT TISSUE GROIN REASON: Right groin pain, bruising, to rule out hematoma. COMPARISON: None TECHNIQUE: Right groin ultrasound study was performed. FINDINGS: Multiple right inguinal lymph nodes are seen with the largest measuring 1.5 x 0.5 cm. Normal flow is seen in the right common femoral artery. Noncompressible thrombus is seen in the right common femoral vein suggestive of deep venous thrombosis. No noncompressible thrombus is seen in the right superficial femoral, popliteal, and posterior tibial vein. There may be phlebitis with thickening of the wall of the right greater saphenous vein. IMPRESSION: Multiple right inguinal lymph nodes. Finding consistent with partial deep venous thrombosis with thrombus in right common femoral vein. ASSESSMENT: Chest pain, POA ACS- NSTEMI POA Alcohol Intoxication POA Uncontrolled diabetes POA Acute anemia, not POA Right common femoral vein thrombus, as per right groin ultrasound on 08/08 Possible phlebitis of great saphenous vein as per right groin ultrasound on 08/08 Multiple right inguinal lymph nodes as per right groin ultrasound on 08/08 Obesity POA Hyperlipidemia POA Hypertension POA Elevated CK POA Active alcohol drinker POA PLAN: Continue telemetry NSTEMI POA, chest pain Continue heparin drip as per cardiology consult recommendation Continue [id number] mg daily Continue Lipitor 40 mg daily Started on topical nitrates Hold Brilinta as per Cardiology recommendation Appreciate cardiology consult and we will follow their recommendations Elevated TCK POA TCK normal at 118 Continue NS @75 mL/hour Alcohol Intoxication POA Monitor for signs of alcohol withdrawal CIWA protocol in place Counseled on alcohol use cessation Uncontrolled diabetes POA Glucose 164 Continue insulin sliding scale AC & HS with hypoglycemia protocol Acute anemia, not POA Hemoglobin dropped from 13.9-11.5 Iron 18, TIBC 253,% saturation 7.1 indicating iron deficiency Started on IV Venofer Q 24 H Monitor H&H Right common femoral vein thrombus, right groin ultrasound on 08/08 Continue IV heparin Possible phlebitis of right saphenous vein as per ultrasound on 08/08 Warm compresses to the area Leg Elevation Multiple right inguinal lymph nodes as per right groin ultrasound on 08/08 Can be attributed to reactive lymphadenopathy due to DVT We will monitor for any signs and symptoms of infection Hyperlipidemia POA, Normal lipid panel results Continue Atorvastatin Hypertension, POA Continue metoprolol 50 mg b.i.d., increase the dose of losartan 50 mg p.o. to losartan 50 mg p.o. b.i.d. as per Cardiology recommendation Continue Famotidine 20 mg IV bid for GI prophylaxis Continue SCDs for DVT prophylaxis Monitor electrolytes and replace them as needed per protocol Continue prn medication for fever,pain,cough , nausea and vomiting Labs in a.m. Follow up on Cardiology consult recommendations Follow up on CT surgery consult recommendation Pending CABG ATTESTATION BY PHYSICIAN I have seen and examined the patient. I reviewed the documentation, medical decision making, and treatment plan as noted by the resident above. I agree with the findings and plan of care. Dalton Le MD, PRIYANKA MD August 09, 2024 10:43
--- NOTE | 2024-08-09 16:34 | PN ---
[facility] PROGRESS NOTE Date Patient Seen: August 09, 2024 Time of Visit: 16:33 Supervising Physician: Dr. Jaffe Primary Care Physician: [ Francesco Gee MD] Outpatient Specialists: [none ] Inpatient Consults: [Dany Noel MD, Marcela Talbert DO, DR Khalil Aattending: Dr Paola Frye MD ] PROBLEM LIST: ACS-NSTEMI Type I Leukocytosis w/ left shift Essential HTN Untreated hyperglycemia in the presence of new onset Type II DM2 Alcohol abuse Obesity INTERVAL HISTORY: 08/06/2024: At the time of my evaluation, the patient was sitting up to the bedside chair. The staff nurse reports no acute events overnight. Currently, the patient remains on heparin and a nitro drip. On the monitor, the patient was afebrile, no tachycardia tachypnea and blood pressure was within normal ranges. He remained on. Laboratory data was notable for a WBC within normal range, no acute anemia or thrombocytopenia. Chemistry panel showed elevated CK of 575. There was a magnesium of 1.70. No new imaging for review today. No other complaint. 08/07/2024: At the time of my evaluation, the patient is lying in bed. He is awake, alert and verbally interactive. He remains on a CIWA protocol. The patient is currently breathing on room air. She is afebrile, no tachypnea or tachycardia. He voids spontaneously and poor chart documentation, urinary output total 2700 mL over the past 24 hours and has a net balance of +677.4. The patient continues on a heparin drip. He continues on antibiotic therapy with Rocephin. Also on a banana bag. The current plan is for CABG unknown date and time. No other complaint. 08/08/2024: At the time of my evaluation, the patient was lying in bed. He is awake alert and denies any chest pain. The staff nurse reports no acute events overnight. Vital signs are unremarkable. Laboratory data was unremarkable. No new chest imaging for review. Currently, the patient remains on a heparin drip. He also remains on CIWA protocol. No other complaint. 08/09/2024: At the time of my evaluation, the patient was sitting up to the bedside chair. The staff nurse reports no acute events overnight. On the monitor, the parameters are unremarkable. Laboratory data today was unremarkable. Imaging data yesterday showed multiple right inguinal lymph nodes and findings consistent with partial deep venous thrombosis with thrombus in the right common femoral vein. Currently, the patient remains on a heparin drip and is on empiric antibiotic therapy with IV Rocephin. No other complaint. . REVIEW OF SYSTEMS: 12-point system review was carried out. Pertinent positive as documented above otherwise pertinent negative. PHYSICAL EXAM: GENERAL: Alert, weak, awake oriented x 3 HEENT: EOMI, Sclera non icteric, moist mucosa NECK: Supple, no JVD, trachea midline LUNGS: Clear breath sounds bilaterally. No wheezes HEART: Regular rate and rhythm. Normal S1 and S2, without murmurs ABD: Abdomen soft, nontender. Bowel sounds present EXT: No clubbing cyanosis or edema NEURO: Alert and oriented to person, follows commands Vital Signs (last 8hr) Date Time Temp Pulse Resp B/P (MAP) Pulse Ox O2 Delivery O2 Flow Rate FiO2 08/09/24 12:12 98.2 68 16 129/99 98 Room Air LABS: Hematology Labs: Test 08/09/24 04:06 Range/Units White Blood Count 6.8 4.8-10.8 K/uL Red Blood Count 3.43 L 4.50-6.20 MIL/uL Hemoglobin 10.9 L 14.0-18.0 g/dL Hematocrit 31.5 L 42-54 % Mean Corpuscular Volume 91.8 79-99 fL Mean Corpuscular Hemoglobin 31.8 27.0-33.0 pg Mean Corpuscular Hemoglobin Concent 34.6 32.0-36.0 g/dL Red Cell Distribution Width 12.8 11.0-15.5 % Platelet Count 190 130-400 K/uL Mean Platelet Volume 10.2 7.5-10.5 fL Immature Granulocyte % (Auto) 0.1 0-1 % Neutrophils (%) (Auto) 60.9 40.0-77.0 % Lymphocytes (%) (Auto) 27.4 21.0-51.0 % Monocytes (%) (Auto) 10.0 3.0-13.0 % Eosinophils (%) (Auto) 1.2 0.0-8.0 % Basophils (%) (Auto) 0.4 0.0-5.0 % Neutrophils # (Auto) 4.1 1.8-7.7 K/uL Lymphocytes # (Auto) 1.9 1.0-4.8 K/uL Monocytes # (Auto) 0.7 0.1-1.0 K/uL Eosinophils # (Auto) 0.08 0.00-0.70 K/uL Basophils # (Auto) 0.03 0.00-0.20 K/uL Absolute Immature Granulocyte (auto 0.01 0-1 K/uL Nucleated Red Blood Cells 0.0 0.0-0.19 % Chemistry Labs: Test 08/09/24 15:50 08/09/24 04:06 08/08/24 03:33 Range/Units Whole Blood Glucose 193 H 70-110 MG/DL Sodium Level 142 136-145 mmol/L Potassium Level 3.6 3.5-5.1 mmol/L Chloride Level 107 101-111 mmol/L Carbon Dioxide Level 28 21-32 mmol/L Blood Urea Nitrogen 6 L 7-18 mg/dL Creatinine 0.7 0.5-1.3 mg/dL Glomerular Filtration Rate Calc 107 >90 mL/min Random Glucose 98 70-105 mg/dL Total Calcium 8.3 L 8.5-10.1 mg/dL Magnesium Level 2.00 1.80-2.40 mg/dL Total Creatine Kinase 118 # 21-232 U/L Coagulation Labs: Test 08/09/24 04:06 Range/Units Activated Partial Thromboplast Time 45.8 H 26.3-35.5 SEC DIAGNOSTICS / RADIOLOGY RESULTS: [ ] PLAN 08/07/2024: For now, going to continue current management for the patient. We will continue the CIWA protocol. The patient will continue on multivitamin in fusion (banana bag). We will await Cardiothoracic surgery input on plans to proceed with CABG. In the meantime, the patient will remain on heparin drip. He was downgraded to PCCU status. We will monitor the patient's progress and response to management. We will continue to provide general supportive care, GI and DVT prophylaxis. Further orders per attending MD and hospital course. 08/08/2024: For now, going to continue current management for the patient. We are going to continue heparin drip as ordered and we will follow the input from the Cardiology team as well as the Cardiothoracic surgeon. We will monitor the patient's progress and response to management. We will continue to provide general supportive care, GI and DVT prophylaxis. Further orders per attending MD and hospital course. 08/09/2024: For now, we are going to continue current management for the patient. Considering the lymph node enlargement of the right groin area, we will discuss with the rodney RAMOS regarding the need for biopsy. The patient is currently on heparin drip considering the right common femoral vein DVT. The patient will remain on bedrest. We will follow Cardiology recommendation on management of his heart disease and continue GDMT. We will monitor the patient's progress and response to management. We will continue to provide general supportive care, GI and DVT prophylaxis. Further orders per attending MD and hospital course. NEURO: Minimize central acting medications as possible. Maintain fall precautions, adequate lighting during the day PULMONARY: Supplemental 02 as needed. Maintain aspiration precautions at all times CARDIOVASCULAR: Follow hemodynamics. Vital signs per facility protocol GI & NUTRITION: Continue with nutritional support. Continue stool softeners and laxatives as needed. KIDNEYS & ELECTROLYTES: Strict monitoring of intake, output and overall fluid balance. Avoid nephrotoxic medications to the extent possible. Medications to be dosed according to renal function. Monitor electrolytes and replace as needed ENDOCRINE: Maintain blood glucose between 100-180 at all times. Hypoglycemia protocol in place INFECTIOUS DISEASE: Trend temperature, WBC and procalcitonin level Follow cultures, deescalate antibiotics as soon as possible. Panculture if new onset fever ONCOLOGY/HEMATOLOGY/COAGULATION: Monitor for s/s of bleeding Monitor hemoglobin, coagulation studies as needed SKIN: Pressure ulcer prevention per facility protocol Specialty mattress ORTHO/REHAB: Continue PT/OT Prophylaxis: Continue GI and DVT prophylaxis Code Status: Full Resuscitation Disposition: TBD Other: Patient was seen and case was discussed with rodney RAMOS. Plan of care was discussed and agreed upon. TR LIVINGSTON NP August 09, 2024 16:34
[2024-08-09] MEDS: LoSARTan 50 MG TABLET PO SCH (21:05)
[2024-08-10] VITALS (8 sets, daily range): BP systolic 118–141; BP diastolic 62–80; PULSE 59–91; RESP 16–20; TEMP 97.4–98.4; O2SAT 99–100
[2024-08-10 03:56] LABS: BASOPHILS # (AUTO) 0.02 K/uL (0.00-0.20); BASOPHILS % (AUTO) 0.3 % (0.0-5.0); EOSINOPHILS # (AUTO) 0.11 K/uL (0.00-0.70); EOSINOPHILS % (AUTO) 1.6 % (0.0-8.0); HEMATOCRIT 31.1 % (42-54); IMMATURE GRANULOCYTE ABSOLUTE 0.03 K/uL (0-1); LYMPHOCYTES # (AUTO) 1.7 K/uL (1.0-4.8); LYMPHOCYTES % (AUTO) 24.5 % (21.0-51.0); MEAN CORPUSCULAR HEMOGLOBIN 31.8 pg (27.0-33.0); MEAN CORPUSCULAR HGB CONC 34.4 g/dL (32.0-36.0); MEAN CORPUSCULAR VOLUME 92.6 fL (79-99); MONOCYTES # (AUTO) 0.6 K/uL (0.1-1.0); MONOCYTES % (AUTO) 9.1 % (3.0-13.0); NEUTROPHILS # (AUTO) 4.4 K/uL (1.8-7.7); NEUTROPHILS % (AUTO) 64.1 % (40.0-77.0); PLATELET COUNT (AUTO) 218 K/uL (130-400); RED BLOOD CELL COUNT(AUTO) 3.36 MIL/uL (4.50-6.20); RED CELL DISTRIBUTION WIDTH 12.8 % (11.0-15.5); WHITE BLOOD COUNT (AUTO) 6.8 K/uL (4.8-10.8)
[2024-08-10 04:03] LABS: CREATININE 0.6 mg/dL (0.5-1.3); MAGNESIUM 1.8 mg/dL (1.80-2.40); POTASSIUM 3.3 mmol/L (3.5-5.1)
--- NOTE | 2024-08-10 13:07 | PN ---
[facility] PROGRESS NOTE Date of Service: August 10, 2024 Time of Service: 13:01 SUBJECTIVE: This is a case of 59-year-old male with past medical history of diabetes, hypertension and hyperlipidemia who presented to the ED with complaints of left- sided chest pain which started around 8 pm last night while resting. He states that he has been experiencing intermittent chest pain since the past 2 days ago which has become persistent associated with SOB last night. Patient also reports that he had 5 beers last night and denies cigarette and recreational drug use. Initial ECG revealed ST 110 right bundle branch block, inferior infarct acute and second EKG showed ST 108 right bundle branch block inferior infarct recent and the 3rd EKG showed ST 120 with Right bundle branch block Inferior infarct recent and probable posterior infarct acute. Initial Labs WBC 10.9, BNP 147, total CK 812, troponin 13,930, serum alcohol 117. While in the ER patient received aspirin 325 mg p.o., Protonix 40 mg IV, Brilinta 90 mg p.o., verapamil 5 mg IV and metoprolol 5 mg IV and was started on heparin and nitroglycerin drip. He was admitted for further assessment and treatment in view of NSTEMI. 08/05/2024 Patient is seen and examined at the bedside. He complains of mild pressure-like left-sided chest pain and generalized body weakness. Vitals blood pressure ranging in 120/70s. Labs WBC 10.9, hemoglobin 13.9, BNP 147, PT 10.1, INR 0.95. Urinalysis positive for glucose. Urine toxicology negative and serum alcohol 117, glucose 229, magnesium 1.9, TCK 8. Troponin trend [id number]. Currently on heparin and nitroglycerin drip. He is scheduled for cardiac catheterization procedure today. Chest x-ray revealed clear lungs and pending 2D echo results. 08/06/2024 Patient is seen and examined at the bedside. He complains of generalized body weakness and headache. He denies fever, chills, nausea, vomiting, chest pain, palpitations, abdominal pain. Vitals Blood pressure 137/67. Labs WBC 10, hemoglobin dropped from 13.9-11.5, magnesium 1.70, calcium 8.1, AST improved from 176-115. BNP improved from 147-128 and TCK improved 812-5 75. He underwent left heart catheterization yesterday which revealed two-vessel coronary artery disease with 80% stenosis in the proximal LAD and 100% stenosis in the distal RCA. 2D echo revealed normal Left ventricle systolic function, estimated LVEF 55% and Indeterminate diastolic function. CT surgery was consulted. 08/07/24 Patient is seen and examined at the bedside. /He was managed for ACS/Non-STEMI and underwent further assessment with a cardiac catheterization on 08/05/2024 demonstrating two-vessel coronary artery disease with 80% stenosis in the proximal LAD and 100% stenosis in the distal RCA. He has had no recurrent angina overnight. He continues on IV heparin. 2D echocardiogram on 08/05/2024 demonstrating basal inferior wall hypokinesis and an LVEF of 55%. 08/08/2024 Patient is seen and examined at the bedside. No acute events last night. Currently on heparin drip. He mentioned about experiencing mild chest discomfort, shortness of breath this morning when he tried to sit in the chair. He also complains of pain and discomfort over right groin. We will order a repeat right groin ultrasound to rule out hematoma. Vitals blood pressure 137/78, respiratory rate 23. Labs hemoglobin decreased from 11.2-10.8, reticulocyte count high at 2.34, iron 18, TIBC 253,% saturation low at 7.1 indicating iron deficiency, BMP unremarkable, TCK normal at 118. Pending CABG. 08/09/2024 Patient is seen and examined at the bedside. No acute events last night. Currently on heparin drip. Vitals blood pressure 151/88, respiratory rate 16. He complains of right groin discomfort and pain. Right groin soft tissue ultrasound revealed multiple right inguinal lymph nodes, partial DVT with thrombus in right common femoral vein, possible phlebitis of great saphenous vein. We will continue the patient on heparin drip for DVT as per cardiology consult recommendation. Labs hemoglobin 10.9, APTT 45.8, BMP unremarkable. Pending CABG. 08/10/24 patient was seen and examined. Patient denies any complaints except dry cough. No acute events overnight. His vitals are stable. Patient reports that his right groin discomfort and pain is getting better and is able to move around. Continue heparin drip. His labs showed hemoglobin 10.7, potassium 3.3 and is being replaced as per the protocol. Magnesium 1.80 and we will cover with the protocol. He is pending CABG. REVIEW OF SYSTEMS CONSTITUTIONAL: Generalized body weakness Denies fevers, chills, or night sweats. No unintentional weight loss reported. NEUROLOGICAL: Denies headache, amaurosis fugax, motor weakness, sensory deficit, vertigo/spinning sensation, gait abnormalities, or tremors. ENT: No hearing loss, otalgia, otorrhea, rhinitis, rhinorrhea, hoarseness, or sore throat. CARDIOVASCULAR: Mild chest discomfort Deniesdyspnea on exertion, orthopnea, paroxysmal nocturnal dyspnea, palpitations, life-threatening arrhythmias, claudication. PULMONARY: Positive for dry cough, phlegm/sputum, hemoptysis, pleuritic chest pain. SLEEP: Denies morning headaches, daytime somnolence or napping. Denies difficulty falling asleep, staying asleep, waking from sleep. Denies knowledge of snoring. GASTROINTESTINAL: Denies any type of dysphagia to either liquids or solids. Denies nausea, vomiting, pyrosis, early satiety, abdominal pain, diarrhea, constipation, or changes in stool consistency or caliber. Denies coffee-ground emesis, hematemesis, hematochezia, or melanotic stools. GENITOURINARY: Denies frequency, urgency, nocturia, hematuria or incontinence (Storage/Irritative symptoms.) Low urinary stream, straining to void, urinary intermittency or hesitancy, splitting of the voiding stream, terminal dribbling. ENDOCRINOLOGIC: Denies polyuria, polydipsia, polyphagia or heat/cold intolerances. HEMATOLOGIC: Denies thrombophilia/previous clots, or coagulopathy/bleeding disorders. ONCOLOGIC: Denies personal history of malignancy. DERMATOLOGIC: Denies rashes or pruritus. PSYCHIATRIC: Denies any suicidal or homicidal ideation. Denies hallucinations. PHYSICAL EXAM GENERAL APPEARANCE: The patient is awake, alert, and oriented, in no acute cardiopulmonary distress. NEUROLOGICAL: Cranial nerves II-XII grossly intact. Motor is 5/5 in bilateral upper and lower extremities proximal to distal. No sensory deficits. HEENT: Face is symmetric. Pupils are equal and reactive. Extraocular movements are intact. NECK: Supple. No JVD. No thyromegaly. No submental, submandibular, pre- /postauricular, occipital or supraclavicular lymphadenopathy. CHEST: Normal chest expansion. No Telemetry. LUNGS: Absence of any rales, rhonchi or any wheezing. CARDIOVASCULAR: Regular. S1 and S2 normal. No appreciable rubs, murmurs or gallops. ABDOMEN: Soft, nontender, and nondistended. There is no rebound, voluntary guarding, or rigidity. : Improving Redness, bruising , firm nodule noted over right groin area Deferred. No Fitzpatrick. EXTREMITIES: Non-edematous and not cyanotic. No clubbing. Good capillary refill. SKIN: No skin breakdown. Vital Signs (last 8hr) Date Time Temp Pulse Resp B/P (MAP) Pulse Ox O2 Delivery O2 Flow Rate FiO2 08/10/24 12:13 97.3 59 16 126/76 100 Room Air 08/10/24 08:26 98.4 91 16 132/80 100 Room Air LABS: Laboratory: Test 08/10/24 11:36 08/10/24 03:43 08/09/24 06:09 Range/Units Whole Blood Glucose 210 H 70-110 MG/DL White Blood Count 6.8 4.8-10.8 K/uL Red Blood Count 3.36 L 4.50-6.20 MIL/uL Hemoglobin 10.7 L 14.0-18.0 g/dL Hematocrit 31.1 L 42-54 % Mean Corpuscular Volume 92.6 79-99 fL Mean Corpuscular Hemoglobin 31.8 27.0-33.0 pg Mean Corpuscular Hemoglobin Concent 34.4 32.0-36.0 g/dL Red Cell Distribution Width 12.8 11.0-15.5 % Platelet Count 218 130-400 K/uL Mean Platelet Volume 9.9 7.5-10.5 fL Immature Granulocyte % (Auto) 0.4 0-1 % Neutrophils (%) (Auto) 64.1 40.0-77.0 % Lymphocytes (%) (Auto) 24.5 21.0-51.0 % Monocytes (%) (Auto) 9.1 3.0-13.0 % Eosinophils (%) (Auto) 1.6 0.0-8.0 % Basophils (%) (Auto) 0.3 0.0-5.0 % Neutrophils # (Auto) 4.4 1.8-7.7 K/uL Lymphocytes # (Auto) 1.7 1.0-4.8 K/uL Monocytes # (Auto) 0.6 0.1-1.0 K/uL Eosinophils # (Auto) 0.11 0.00-0.70 K/uL Basophils # (Auto) 0.02 0.00-0.20 K/uL Absolute Immature Granulocyte (auto 0.03 0-1 K/uL Nucleated Red Blood Cells 0.0 0.0-0.19 % Activated Partial Thromboplast Time 69.0 #H 26.3-35.5 SEC Sodium Level 140 136-145 mmol/L Potassium Level 3.3 L 3.5-5.1 mmol/L Chloride Level 103 101-111 mmol/L Carbon Dioxide Level 28 21-32 mmol/L Blood Urea Nitrogen 6 L 7-18 mg/dL Creatinine 0.6 0.5-1.3 mg/dL Glomerular Filtration Rate Calc 112 >90 mL/min Random Glucose 95 70-105 mg/dL Total Calcium 8.8 8.5-10.1 mg/dL Magnesium Level 1.80 1.80-2.40 mg/dL Influenza Type A Antigen Negative For Type A NEGATIVE Influenza Type B Antigen Negative For Type B NEGATIVE SARS-CoV-2 Antigen (Rapid) PRESUMPTIVE NEGATIVE NEGATIVE Current Medications Medications (Trade) Dose Ordered Sig/Isidoro Route PRN Reason Start Time Stop Time Status Last Admin Dose Admin Acetaminophen (TYLenol 500MG TAB) 500 mg Q6H PRN PO MILD PAIN (1-3) 08/06/24 10:00 09/05/24 09:59 08/08/24 20:05 500 MG Aspirin (Aspirin 81mg Ec Tab) 81 mg DAILY PO 08/06/24 09:00 09/05/24 08:59 08/10/24 08:41 81 MG Atorvastatin Calcium (LIPItor 40MG) 40 mg HS PO 08/05/24 21:00 09/04/24 20:59 08/09/24 21:05 40 MG Ceftriaxone Sodium (Rocephin 2gm Inj) 2 gm Q24H IVPB 08/06/24 00:00 08/15/24 23:59 08/09/24 23:41 2 GM Chlordiazepoxide HCl (LIBrium 25 MG CAP) 25 mg Q2H PRN PO ALCOHOL WITHDRAWAL PROTOCOL 08/05/24 06:00 08/12/24 05:59 08/06/24 22:55 25 MG Dextrose (D50w) 50 ml AD PRN IV HYPOGLYCEMIA PROTOCOL 08/05/24 05:30 09/04/24 05:29 Diazepam (VALium 5 MG/ML 2 ML SYG) 10 mg Q4H PRN IVP ALCOHOL WITHDRAWAL PROTOCOL 08/05/24 06:30 08/12/24 06:29 Doxycycline Hyclate (Doxycycline Hyclate) 100 mg BID PO 08/06/24 09:00 08/06/24 12:18 DC 08/06/24 09:06 100 MG Famotidine (Pepcid 20mg Vial) 20 mg BID IV 08/05/24 09:00 08/05/24 09:01 DC 08/05/24 07:47 20 MG Glucagon (Glucagon 1mg Kit) 1 mg AD PRN IM HYPOGLYCEMIA PROTOCOL 08/05/24 05:30 09/04/24 05:29 Guaifenesin (RobiTUSSin SUGAR-FREE 100 MG/ 5 ML UDCUP) 200 mg Q4H PRN PO COUGH 08/07/24 23:30 09/06/24 23:29 08/09/24 21:09 200 MG Heparin Sodium (Porcine) (HEParin 5,000 UNIT VIAL) 5,000 unit Q8H SQ 08/05/24 11:00 08/05/24 03:04 DC Heparin Sodium/ Dextrose 250 ml @ 0 mls/hr PROTOCOL IV 08/05/24 03:00 09/04/24 02:59 08/09/24 23:53 11.46 MLS/HR Insulin Glargine (LANtus 100 UNITS/ML 10 ML VIAL) 10 units BID@0730,2100 SQ 08/05/24 21:00 09/04/24 20:59 08/10/24 08:48 10 UNITS Insulin Human Regular (humuLIN R 100 UNIT/ML 3ML) INSULIN SLIDING SCAL... ACHS SQ 08/05/24 07:30 08/05/24 08:55 DC 08/05/24 07:47 5 UNIT Insulin Human Regular (humuLIN R 100 UNIT/ML 3ML) INSULIN SLIDING SCAL... ACHS SQ 08/05/24 11:30 09/04/24 11:29 08/10/24 12:24 8 UNIT Iron Sucrose (VenoFER) 100 mg DAILY IV 08/08/24 09:30 08/08/24 09:17 DC Iron Sucrose (VenoFER) 100 mg Q24H IV 08/08/24 21:00 08/10/24 22:00 08/09/24 21:05 100 MG Lorazepam (AtiVAN) 2 mg Q4H PRN IVP ALCOHOL WITHDRAWAL PROTOCOL 08/05/24 06:00 08/05/24 06:04 DC Losartan Potassium (CozAAR 50 mg TAB) 50 mg BID PO 08/09/24 21:00 09/06/24 08:59 08/10/24 08:41 50 MG Losartan Potassium (CozAAR 50 mg TAB) 50 mg DAILY PO 08/07/24 09:00 08/09/24 09:16 DC 08/09/24 08:06 50 MG Magnesium Sulfate 50 ml @ 0 mls/hr PROTOCOL PRN IV OTHER [SEE ORDER COMMENTS] 08/05/24 05:30 09/04/24 05:29 08/10/24 04:13 25 MLS/HR Metoprolol Tartrate (loprESSOR) 25 mg BID PO 08/05/24 14:30 08/08/24 08:27 DC 08/08/24 07:44 25 MG Metoprolol Tartrate (loprESSOR) 50 mg BID PO 08/08/24 09:00 09/07/24 08:59 08/10/24 08:41 50 MG Morphine Sulfate (morPHINE 2MG SYG) 2 mg Q2HPRN PRN IVP SEVERE PAIN (6-10) 08/05/24 11:10 08/12/24 11:09 08/09/24 04:17 2 MG Morphine Sulfate (morPHINE 2MG SYG) 2 mg Q4H PRN IVP SEVERE PAIN (7-10) 08/05/24 06:00 08/05/24 08:31 DC 08/05/24 06:03 2 MG Nitroglycerin (Nitroglycerin 1gm Oint) 0.5 inch Q8H5 TD 08/08/24 13:00 08/10/24 12:43 DC 08/10/24 06:05 0.5 INCH Nitroglycerin (Nitrostat) 0.4 mg AD PRN SL CHEST PAIN 08/05/24 02:30 08/08/24 08:53 DC 08/05/24 02:46 0.4 MG Nitroglycerin/ Dextrose 250 ml @ 0 mls/hr PROTOCOL IV 08/05/24 03:30 09/04/24 03:29 08/06/24 07:15 15 MLS/HR Ondansetron HCl (zoFRAN 4MG INJ) 4 mg Q6H PRN IV NAUSEA/VOMITING 08/05/24 05:30 09/04/24 05:29 08/05/24 22:13 4 MG Pantoprazole Sodium (PROTonix 40MG INJ) 40 mg DAILY IVP 08/05/24 09:00 09/04/24 08:59 08/10/24 08:40 40 MG Pharmacy Profile Note (Pharmacy Communication) 1 each PROTOCOL PRN MISC ETOH Withdrawal Score changes 08/05/24 06:00 08/12/24 05:59 Potassium Chloride 100 ml @ 50 mls/hr AD PRN IV POTASSIUM PROTOCOL 08/05/24 05:30 08/07/24 18:24 DC Potassium Chloride 100 ml @ 100 mls/hr AD PRN IV POTASSIUM PROTOCOL 08/07/24 09:00 09/06/24 08:59 Potassium Chloride (K-Dur/Klor-Con 20meq) 20 meq AD PRN PO POTASSIUM PROTOCOL 08/07/24 09:00 09/06/24 08:59 08/10/24 08:40 20 MEQ Potassium Chloride (KCl 10% Elixir 20meq/15ml) 20 meq AD PRN PO POTASSIUM PROTOCOL 08/07/24 09:00 09/06/24 08:59 Promethazine HCl (Phenergan) 25 mg Q6H PRN PO NAUSEA 08/05/24 06:00 09/04/24 05:59 Ranolazine (Ranexa) 500 mg BID PO 08/05/24 17:30 09/04/24 17:29 08/10/24 08:41 500 MG Ranolazine (Ranexa) 500 mg BID PO 08/05/24 21:00 08/05/24 17:04 DC Sodium Chloride 1,000 ml @ 75 mls/hr [id number] IV 08/05/24 05:30 09/04/24 05:29 08/08/24 16:15 75 MLS/HR Sodium Chloride 1,000 ml @ 100 mls/hr Q10H IV 08/05/24 14:30 08/05/24 17:29 DC 08/05/24 15:22 100 MLS/HR Thiamine HCl 100 mg/Folic Acid 1 mg/Multivitamins/ Minerals 10 ml/ Sodium Chloride 1,011.2 ml @ 100 mls/ hr Q24H IV 08/05/24 06:00 08/07/24 16:07 DC 08/07/24 05:34 100 MLS/HR Wound Care/ Dressing Products (Venelex Ointment) 1 NAKIA AD TID TP 08/06/24 14:00 08/06/24 12:50 DC DIAGNOSTICS / RADIOLOGY: [place] [address] IMAGING REPORT Signed PATIENT: MAYRA JUDD MR#: [id number] : 1965 SEX: M AGE: 59 LOCATION: EDHIP ORDER 5 STATUS: ADM IN REPORT#: [id number] SERVICE 3 REASON: cp ORDERING PHYSICIAN: YVON CARDOZO MD PROCEDURE: CXR1VW - CHEST 1VW Exam Type: CHEST 1VW Clinical Information: cp Comparison: None Findings: The lungs are clear of infiltrates. The heart is normal in size. The bony and soft tissue structures of the chest are unremarkable. Impression: Clear lungs. DICTATED BY: EJ BLAIR MD DATE: 08/05/24924 ELECTRONICALLY SIGNED BY: EJ BLAIR MD DATE: 08/05/[address] [id number] IMAGING REPORT Signed PATIENT: MAYRA JUDD MR#: [id number] : 1965 SEX: M AGE: 59 LOCATION: 2CV ORDER 4 STATUS: ADM IN REPORT#: [id number] SERVICE 3 REASON: chest pain ORDERING PHYSICIAN: BOBBI TIPTON PROCEDURE: ECHO CMP - ECHO 2-D COMPLETE APPROVED REPORT EXAM: Two-dimensional and M-mode echocardiogram with Doppler and color Doppler. INDICATION ICD: Chest Pain 2D Dimensions RVDd 3.3 cm LVEF(%) 41.7 (>50%) LVED Vol(simp.) 84.4 mL IVSd 1.0 (0.7-1.1cm) FS(%) 20 % LVES Vol(simp.) 39.1 mL LVDd 3.8 (3.8-5.6cm) LA (2D) 3.0 (1.6-4.0cm) LVEF(%, simp.) 54 % PWd 1.0 (0.7-1.1cm) Ao Root(2D) 3.2 (2.0-3.7cm) LA ESV INDEX (BP) 20.57 mL/m2 LVDs 3.0 (2.5-4.0cm) LVOT diam 1.8 (1.8-2.4cm) IVC diam 1.4 cm Deformation Strain Apical 4 -14.4 % Apical 2 -14.4 % Apical 3 -13.5 % Global Strain -14.1 % M-Mode Dimensions EPSS 0.7 cm LA (MM) 3.3 (1.6-4.0cm) Ao Root(MM) 3.4 (2.0-3.7cm) Aortic Valve AoV Vmax 1.5 m/s Ao Peak GR 8.6 mmHg LVOT Vmax 1.1 m/s AoV VTI 0.2 m Ao Mean GR 4.4 mmHg LVOT VTI 0.16 m YEHUDA (VMAX) 1.88 cm2 YEHUDA (VTI) 1.8 cm2 Mitral Valve MV E Vmax 50.0 cm/s P 1/2 T 32 ms MVA (PHT) 6.9 cm2 TDI E/E' Medial 7.1 E/E' Lateral 5.0 Medial E' Peak V 7.08 cm/s Lateral E' Peak V 10.04 cm/s Pulmonary Valve PV Vmax 1.2 m/s PV VTI 0.18 m PV Mean GR 3.1 mmHg PV Peak GR 5.9 mmHg Left Ventricle The left ventricle is normal size. The basal inferior wall is hypokinetic. The mid/apical inferior wall is normal in function. The anterior, anterolateral, inferolateral, septal, and apical carroll are normal in function. Mild concentric left ventricular hypertrophy. Left ventricle systolic function is normal, estimated LV EF 55%. Indeterminate diastolic function. Right Ventricle The right ventricle is normal size. The right ventricular systolic function is normal. Atria The left atrium size is normal. The right atrium size is normal. Aortic Valve The aortic valve is normal in structure. No aortic regurgitation is present. There is no aortic valvular stenosis. Mitral Valve The mitral valve is normal in structure. Trace mitral regurgitation. There is no mitral valve stenosis. Tricuspid Valve The tricuspid valve is normal in structure. Trace tricuspid regurgitation. RVSP is normal. Pulmonic Valve Pulmonic valve is not well visualized. Great Vessels The aortic root is normal in size. The IVC is normal in size and collapses >50% with inspiration. Pericardium There is no pericardial effusion. Conclusion The cardiac chambers are normal in size. Mild concentric left ventricular hypertrophy. The basal inferior wall is hypokinetic. The mid/apical inferior wall is normal in function. The anterior, anterolateral, inferolateral, septal, and apical carroll are normal in function. Left ventricle systolic function is normal, estimated LVEF 55%. Indeterminate diastolic function. Trace mitral regurgitation. Trace tricuspid regurgitation. PASP is normal. There is no pericardial effusion. DICTATED BY: ROSALIA MAJANO MD DATE: 08/05/24 0850 ELECTRONICALLY SIGNED BY: ROSALIA MAJANO MD DATE: 08/06/24 0055 [place] [address] IMAGING REPORT Signed PATIENT: MAYRA JUDD MR#: [id number] : 1965 SEX: M AGE: 59 LOCATION: 2CV ORDER 1246 STATUS: ADM IN REPORT#: [id number] SERVICE 1240 REASON: RT GROIN DISCOMFORT ORDERING PHYSICIAN: TABATHA SNOW MD PROCEDURE: SOFT GROIN - US SOFT TISSUE GROIN Superficial ultrasound for possible hematoma- right groin Clinical Information: Pain Comparison: None Findings: No fluid collections or masses are seen. Significantly, there is no evidence of hematoma. No increased fluid throughout the visualized tissue planes is identified. No lymphadenopathy is identified. Impression: No evidence of hematoma or fluid collections or other abnormalities. DICTATED BY: EJ BLAIR MD DATE: 08/06/241434 ELECTRONICALLY SIGNED BY: EJ BLAIR MD DATE: 08/06/24 1438 [place] [address] [address] IMAGING REPORT Signed PATIENT: MAYRA JUDD MR#: [id number] : 1965 SEX: M AGE: 59 LOCATION: 2DH ORDER 1028 STATUS: ADM IN REPORT#: [id number] SERVICE 1024 REASON: Right groin pain, bruising, to rule out hematoma ORDERING PHYSICIAN: TABATHA SNOW MD PROCEDURE: SOFT GROIN - US SOFT TISSUE GROIN US SOFT TISSUE GROIN REASON: Right groin pain, bruising, to rule out hematoma. COMPARISON: None TECHNIQUE: Right groin ultrasound study was performed. FINDINGS: Multiple right inguinal lymph nodes are seen with the largest measuring 1.5 x 0.5 cm. Normal flow is seen in the right common femoral artery. Noncompressible thrombus is seen in the right common femoral vein suggestive of deep venous thrombosis. No noncompressible thrombus is seen in the right superficial femoral, popliteal, and posterior tibial vein. There may be phlebitis with thickening of the wall of the right greater saphenous vein. IMPRESSION: Multiple right inguinal lymph nodes. Finding consistent with partial deep venous thrombosis with thrombus in right common femoral vein. DICTATED BY: KALLIE EDWARDS MD DATE: 08/08/24 191 ELECTRONICALLY SIGNED BY: KALLIE EDWARDS MD DATE: 08/08/241923 ASSESSMENT: Chest pain, POA ACS- NSTEMI POA Alcohol Intoxication POA Uncontrolled diabetes POA Acute anemia, not POA Right common femoral vein thrombus, as per right groin ultrasound on 08/08 Possible phlebitis of great saphenous vein as per right groin ultrasound on 08/08 Multiple right inguinal lymph nodes as per right groin ultrasound on 08/08 Obesity POA Hypokalemia Hyperlipidemia POA Hypertension POA Elevated CK POA Active alcohol drinker POA PLAN: Continue telemetry NSTEMI POA, chest pain Continue heparin drip as per cardiology consult recommendation Continue [id number] mg daily Continue Lipitor 40 mg daily Started on topical nitrates Hold Brilinta as per Cardiology recommendation Appreciate cardiology consult and we will follow their recommendations Pending CABG Elevated TCK POA TCK normal at 118 Continue NS @75 mL/hour Alcohol Intoxication POA Monitor for signs of alcohol withdrawal [facility] protocol in place Counseled on alcohol use cessation Uncontrolled diabetes POA Glucose 164 Continue insulin sliding scale AC & HS with hypoglycemia protocol Acute anemia, not POA Hemoglobin dropped from 13.9-10.7 Iron 18, TIBC 253,% saturation 7.1 indicating iron deficiency Started on IV Venofer Q 24 H Monitor H&H Right common femoral vein thrombus, right groin ultrasound on 08/08 Continue IV heparin Possible phlebitis of right saphenous vein as per ultrasound on 08/08 Warm compresses to the area Leg Elevation Multiple right inguinal lymph nodes as per right groin ultrasound on 08/08 Can be attributed to reactive lymphadenopathy due to DVT We will monitor for any signs and symptoms of infection Hyperlipidemia POA, Normal lipid panel results Continue Atorvastatin Hypertension, POA Continue metoprolol 50 mg b.i.d., increase the dose of losartan 50 mg p.o. to losartan 50 mg p.o. b.i.d. as per Cardiology recommendation Hypokalemia Potassium 3.3 and we will be replaced as per the protocol. Magnesium 1.8 And we will be replaced as per the protocol. Continue Famotidine 20 mg IV bid for GI prophylaxis Continue SCDs for DVT prophylaxis Monitor electrolytes and replace them as needed per protocol Follow up on Cardiology consult recommendations Follow up on CT surgery consult recommendation Pending CABG ATTESTATION BY PHYSICIAN I have seen and examined the patient. I reviewed the documentation, medical deci rebecca making, and treatment plan as noted by the resident provider above. I agree with the findings and plan of care. Dalton Le MD, KRUPALI P MD August 10, 2024 13:07
[2024-08-10] MEDS: ISOSORBIDE MONO 30MG SR TAB PO ONE (14:07)
--- NOTE | 2024-08-10 17:16 | PN ---
[facility] PROGRESS NOTE Date Patient Seen: August 10, 2024 Time of Visit: 17:11 Supervising Physician: Dr. Jaffe Primary Care Physician: [ Francesco Gee MD] Outpatient Specialists: [none ] Inpatient Consults: [Dany Noel MD, Marcela Talbert DO, DR Khalil Aattending: Dr Paola Frye MD ] PROBLEM LIST: ACS-NSTEMI Type I Leukocytosis w/ left shift Essential HTN Untreated hyperglycemia in the presence of new onset Type II DM2 Alcohol abuse Right femoral DVT Right groin lymphadenopathy Obesity INTERVAL HISTORY: 08/06/2024: At the time of my evaluation, the patient was sitting up to the bedside chair. The staff nurse reports no acute events overnight. Currently, the patient remains on heparin and a nitro drip. On the monitor, the patient was afebrile, no tachycardia tachypnea and blood pressure was within normal ranges. He remained on. Laboratory data was notable for a WBC within normal range, no acute anemia or thrombocytopenia. Chemistry panel showed elevated CK of 575. There was a magnesium of 1.70. No new imaging for review today. No other complaint. 08/07/2024: At the time of my evaluation, the patient is lying in bed. He is awake, alert and verbally interactive. He remains on a CIWA protocol. The patient is currently breathing on room air. She is afebrile, no tachypnea or tachycardia. He voids spontaneously and poor chart documentation, urinary output total 2700 mL over the past 24 hours and has a net balance of +677.4. The patient continues on a heparin drip. He continues on antibiotic therapy with Rocephin. Also on a banana bag. The current plan is for CABG unknown date and time. No other complaint. 08/08/2024: At the time of my evaluation, the patient was lying in bed. He is awake alert and denies any chest pain. The staff nurse reports no acute events overnight. Vital signs are unremarkable. Laboratory data was unremarkable. No new chest imaging for review. Currently, the patient remains on a heparin drip. He also remains on CIWA protocol. No other complaint. 08/09/2024: At the time of my evaluation, the patient was sitting up to the bedside chair. The staff nurse reports no acute events overnight. On the monitor, the parameters are unremarkable. Laboratory data today was unremarkable. Imaging data yesterday showed multiple right inguinal lymph nodes and findings consistent with partial deep venous thrombosis with thrombus in the right common femoral vein. Currently, the patient remains on a heparin drip and is on empiric antibiotic therapy with IV Rocephin. No other complaint. 08/10/2024: At the time of my evaluation, the patient was lying in bed. The staff nurse reports no acute events overnight. Patient remains on room air. On the monitor vital sign parameters are unremarkable. Laboratory data is notable for a potassium of 3.3 and a Mag of 1.80. No new imaging for review today. Currently, the patient remains on a heparin drip and is on empiric antibiotic therapy with Rocephin. No other complaint. . REVIEW OF SYSTEMS: 12-point system review was carried out. Pertinent positive as documented above otherwise pertinent negative. PHYSICAL EXAM: GENERAL: Alert, weak, awake oriented x 3 HEENT: EOMI, Sclera non icteric, moist mucosa NECK: Supple, no JVD, trachea midline LUNGS: Clear breath sounds bilaterally. No wheezes HEART: Regular rate and rhythm. Normal S1 and S2, without murmurs ABD: Abdomen soft, nontender. Bowel sounds present EXT: No clubbing cyanosis or edema NEURO: Alert and oriented to person, follows commands Vital Signs (last 8hr) Date Time Temp Pulse Resp B/P (MAP) Pulse Ox O2 Delivery O2 Flow Rate FiO2 08/10/24 16:17 98.1 68 16 129/62 100 Room Air 08/10/24 12:13 97.3 59 16 126/76 100 Room Air LABS: Hematology Labs: Test 08/10/24 03:43 Range/Units White Blood Count 6.8 4.8-10.8 K/uL Red Blood Count 3.36 L 4.50-6.20 MIL/uL Hemoglobin 10.7 L 14.0-18.0 g/dL Hematocrit 31.1 L 42-54 % Mean Corpuscular Volume 92.6 79-99 fL Mean Corpuscular Hemoglobin 31.8 27.0-33.0 pg Mean Corpuscular Hemoglobin Concent 34.4 32.0-36.0 g/dL Red Cell Distribution Width 12.8 11.0-15.5 % Platelet Count 218 130-400 K/uL Mean Platelet Volume 9.9 7.5-10.5 fL Immature Granulocyte % (Auto) 0.4 0-1 % Neutrophils (%) (Auto) 64.1 40.0-77.0 % Lymphocytes (%) (Auto) 24.5 21.0-51.0 % Monocytes (%) (Auto) 9.1 3.0-13.0 % Eosinophils (%) (Auto) 1.6 0.0-8.0 % Basophils (%) (Auto) 0.3 0.0-5.0 % Neutrophils # (Auto) 4.4 1.8-7.7 K/uL Lymphocytes # (Auto) 1.7 1.0-4.8 K/uL Monocytes # (Auto) 0.6 0.1-1.0 K/uL Eosinophils # (Auto) 0.11 0.00-0.70 K/uL Basophils # (Auto) 0.02 0.00-0.20 K/uL Absolute Immature Granulocyte (auto 0.03 0-1 K/uL Nucleated Red Blood Cells 0.0 0.0-0.19 % Chemistry Labs: Test 08/10/24 15:50 08/10/24 03:43 Range/Units Whole Blood Glucose 171 H 70-110 MG/DL Sodium Level 140 136-145 mmol/L Potassium Level 3.3 L 3.5-5.1 mmol/L Chloride Level 103 101-111 mmol/L Carbon Dioxide Level 28 21-32 mmol/L Blood Urea Nitrogen 6 L 7-18 mg/dL Creatinine 0.6 0.5-1.3 mg/dL Glomerular Filtration Rate Calc 112 >90 mL/min Random Glucose 95 70-105 mg/dL Total Calcium 8.8 8.5-10.1 mg/dL Magnesium Level 1.80 1.80-2.40 mg/dL Coagulation Labs: Test 08/10/24 03:43 Range/Units Activated Partial Thromboplast Time 69.0 #H 26.3-35.5 SEC DIAGNOSTICS / RADIOLOGY RESULTS: [ ] PLAN 08/07/2024: For now, going to continue current management for the patient. We will continue the CIWA protocol. The patient will continue on multivitamin infusion (banana bag). We will await Cardiothoracic surgery input on plans to proceed with CABG. In the meantime, the patient will remain on heparin drip. He was downgraded to PCCU status. We will monitor the patient's progress and response to management. We will continue to provide general supportive care, GI and DVT prophylaxis. Further orders per attending MD and hospital course. 08/08/2024: For now, going to continue current management for the patient. We are going to continue heparin drip as ordered and we will follow the input from the Cardiology team as well as the Cardiothoracic surgeon. We will monitor the patient's progress and response to management. We will continue to provide general supportive care, GI and DVT prophylaxis. Further orders per attending MD and hospital course. 08/09/2024: For now, we are going to continue current management for the patient. Considering the lymph node enlargement of the right groin area, we will discuss with the rounding MD regarding the need for biopsy. The patient is currently on heparin drip considering the right common femoral vein DVT. The patient will remain on bedrest. We will follow Cardiology recommendation on m anagement of his heart disease and continue GDMT. We will monitor the patient's progress and response to management. We will continue to provide general supportive care, GI and DVT prophylaxis. Further orders per attending MD and hospital course. 08/10/2024: For now, going to continue current management for the patient. Follow the Cardiothoracic surgeon cardiology team regarding further management of his STEMI. I am going to request warm compresses to the right groin area due to DVT found on imaging and lymphadenopathy. I discussed the findings and plan for further management with the patient. We will monitor the patient's progress and response to management. We will continue to provide general supportive care, GI and DVT prophylaxis. Further orders per attending MD and hospital course. NEURO: Minimize central acting medications as possible. Maintain fall precautions, adequate lighting during the day PULMONARY: Supplemental 02 as needed. Maintain aspiration precautions at all times CARDIOVASCULAR: Follow hemodynamics. Vital signs per facility protocol GI & NUTRITION: Continue with nutritional support. Continue stool softeners and laxatives as needed. KIDNEYS & ELECTROLYTES: Strict monitoring of intake, output and overall fluid balance. Avoid nephrotoxic medications to the extent possible. Medications to be dosed according to renal function. Monitor electrolytes and replace as needed ENDOCRINE: Maintain blood glucose between 100-180 at all times. Hypoglycemia protocol in place INFECTIOUS DISEASE: Trend temperature, WBC and procalcitonin level Follow cultures, deescalate antibiotics as soon as possible. Panculture if new onset fever ONCOLOGY/HEMATOLOGY/COAGULATION: Monitor for s/s of bleeding Monitor hemoglobin, coagulation studies as needed SKIN: Pressure ulcer prevention per facility protocol Specialty mattress ORTHO/REHAB: Continue PT/OT Prophylaxis: Continue GI and DVT prophylaxis Code Status: Full Resuscitation Disposition: TBD Other: Patient was seen and case was discussed with rodney RAMOS. Plan of care was discussed and agreed upon. TR [facility] [employer] August 10, 2024 17:16
[2024-08-11] VITALS (8 sets, daily range): BP systolic 105–137; BP diastolic 52–74; PULSE 56–75; RESP 16–18; TEMP 97.5–98.3; O2SAT 98–100
[2024-08-11 03:39] LABS: BASOPHILS # (AUTO) 0.03 K/uL (0.00-0.20); BASOPHILS % (AUTO) 0.5 % (0.0-5.0); EOSINOPHILS # (AUTO) 0.13 K/uL (0.00-0.70); HEMATOCRIT 32.8 % (42-54); IMMATURE GRANULOCYTE ABSOLUTE 0.02 K/uL (0-1); LYMPHOCYTES # (AUTO) 2.2 K/uL (1.0-4.8); LYMPHOCYTES % (AUTO) 32.8 % (21.0-51.0); MEAN CORPUSCULAR HEMOGLOBIN 31.1 pg (27.0-33.0); MEAN CORPUSCULAR HGB CONC 33.5 g/dL (32.0-36.0); MEAN CORPUSCULAR VOLUME 92.7 fL (79-99); MONOCYTES # (AUTO) 0.6 K/uL (0.1-1.0); MONOCYTES % (AUTO) 9.6 % (3.0-13.0); NEUTROPHILS # (AUTO) 3.6 K/uL (1.8-7.7); NEUTROPHILS % (AUTO) 54.8 % (40.0-77.0); PLATELET COUNT (AUTO) 233 K/uL (130-400); RED BLOOD CELL COUNT(AUTO) 3.54 MIL/uL (4.50-6.20); RED CELL DISTRIBUTION WIDTH 12.9 % (11.0-15.5); WHITE BLOOD COUNT (AUTO) 6.6 K/uL (4.8-10.8)
[2024-08-11 03:47] LABS: CREATININE 0.7 mg/dL (0.5-1.3); MAGNESIUM 2.2 mg/dL (1.80-2.40)
--- NOTE | 2024-08-11 08:38 | PN ---
[facility] PROGRESS NOTE Date of Service: Aug 11, 2024 Time of Service: 08:38 SUBJECTIVE: This is a case of 59-year-old male with past medical history of diabetes, hypertension and hyperlipidemia who presented to the ED with complaints of left- sided chest pain which started around 8 pm last night while resting. He states that he has been experiencing intermittent chest pain since the past 2 days ago which has become persistent associated with SOB last night. Patient also reports that he had 5 beers last night and denies cigarette and recreational drug use. Initial ECG revealed ST 110 right bundle branch block, inferior infarct acute and second EKG showed ST 108 right bundle branch block inferior infarct recent and the 3rd EKG showed ST 120 with Right bundle branch block Inferior infarct recent and probable posterior infarct acute. Initial Labs WBC 10.9, BNP 147, total CK 812, troponin 13,930, serum alcohol 117. While in the ER patient received aspirin 325 mg p.o., Protonix 40 mg IV, Brilinta 90 mg p.o., verapamil 5 mg IV and metoprolol 5 mg IV and was started on heparin and nitroglycerin drip. He was admitted for further assessment and treatment in view of NSTEMI. 08/05/2024 Patient is seen and examined at the bedside. He complains of mild p ressure-like left-sided chest pain and generalized body weakness. Vitals blood pressure ranging in 120/70s. Labs WBC 10.9, hemoglobin 13.9, BNP 147, PT 10.1, INR 0.95. Urinalysis positive for glucose. Urine toxicology negative and serum alcohol 117, glucose 229, magnesium 1.9, TCK 8. Troponin trend [id number] - [id number]. Currently on heparin and nitroglycerin drip. He is scheduled for cardiac catheterization procedure today. Chest x-ray revealed clear lungs and pending 2D echo results. 08/06/2024 Patient is seen and examined at the bedside. He complains of generalized body weakness and headache. He denies fever, chills, nausea, vomiting, chest pain, palpitations, abdominal pain. Vitals Blood pressure 137/67. Labs WBC 10, hemoglobin dropped from 13.9-11.5, magnesium 1.70, calcium 8.1, AST improved from 176-115. BNP improved from 147-128 and TCK improved 812-575. He underwent left heart catheterization yesterday which revealed two- vessel coronary artery disease with 80% stenosis in the proximal LAD and 100% stenosis in the distal RCA. 2D echo revealed normal Left ventricle systolic function, estimated LVEF 55% and Indeterminate diastolic function. CT surgery was consulted. 08/07/24 Patient is seen and examined at the bedside. /He was managed for ACS/Non-STEMI and underwent further assessment with a cardiac catheterization on 08/05/2024 demonstrating two-vessel coronary artery disease with 80% stenosis in the proximal LAD and 100% stenosis in the distal RCA. He has had no recurrent angina overnight. He continues on IV heparin. 2D echocardiogram on 08/05/2024 demonstrating basal inferior wall hypokinesis and an LVEF of 55%. 08/08/2024 Patient is seen and examined at the bedside. No acute events last night. Currently on heparin drip. He mentioned about experiencing mild chest discomfort, shortness of breath this morning when he tried to sit in the chair. He also complains of pain and discomfort over right groin. We will order a repeat right groin ultrasound to rule out hematoma. Vitals blood pressure 137/78, respiratory rate 23. Labs hemoglobin decreased from 11.2-10.8, reticulocyte count high at 2.34, iron 18, TIBC 253,% saturation low at 7.1 indicating iron deficiency, BMP unremarkable, TCK normal at 118. Pending CABG. 08/09/2024 Patient is seen and examined at the bedside. No acute events last night. Currently on heparin drip. Vitals blood pressure 151/88, respiratory rate 16. He complains of right groin discomfort and pain. Right groin soft tissue ultrasound revealed multiple right inguinal lymph nodes, partial DVT with thrombus in right common femoral vein, possible phlebitis of great saphenous vein. We will continue the patient on heparin drip for DVT as per cardiology consult recommendation. Labs hemoglobin 10.9, APTT 45.8, BMP unremarkable. Pending CABG. 08/10/24 patient was seen and examined. Patient denies any complaints except dry cough. No acute events overnight. His vitals are stable. Patient reports that his right groin discomfort and pain is getting better and is able to move around. Continue heparin drip. His labs showed hemoglobin 10.7, potassium 3.3 and is being replaced as per the protocol. Magnesium 1.80 and we will cover with the protocol. He is pending CABG. 08/11/2024 Patient is seen and examined at the bedside. No acute events last night. He states that he feels well and his right groin pain and discomfort has been significantly reduced. Currently on heparin drip. Vitals temperature 98.2, pulse rate 72, respiratory rate 16, blood pressure 126/69, SpO2 98% on room air. Labs hemoglobin improved from 10.7-11, WBC 6.6, BMP unremarkable. Pending CABG procedure. REVIEW OF SYSTEMS CONSTITUTIONAL: Generalized body weakness Denies fevers, chills, or night sweats. No unintentional weight loss reported. NEUROLOGICAL: Denies headache, amaurosis fugax, motor weakness, sensory deficit, vertigo/spinning sensation, gait abnormalities, or tremors. ENT: No hearing loss, otalgia, otorrhea, rhinitis, rhinorrhea, hoarseness, or sore throat. CARDIOVASCULAR: Deniesdyspnea on exertion, orthopnea, paroxysmal nocturnal dyspnea, palpitations, life-threatening arrhythmias, claudication. PULMONARY: , phlegm/sputum, hemoptysis, pleuritic chest pain. SLEEP: Denies morning headaches, daytime somnolence or napping. Denies difficulty falling asleep, staying asleep, waking from sleep. Denies knowledge of snoring. GASTROINTESTINAL: Denies any type of dysphagia to either liquids or solids. Denies nausea, vomiting, pyrosis, early satiety, abdominal pain, diarrhea, constipation, or changes in stool consistency or caliber. Denies coffee-ground emesis, hematemesis, hematochezia, or melanotic stools. GENITOURINARY: Denies frequency, urgency, nocturia, hematuria or incontinence (Storage/Irritative symptoms.) Low urinary stream, straining to void, urinary intermittency or hesitancy, splitting of the voiding stream, terminal dribbling. ENDOCRINOLOGIC: Denies polyuria, polydipsia, polyphagia or heat/cold intolerances. HEMATOLOGIC: Denies thrombophilia/previous clots, or coagulopathy/bleeding disorders. ONCOLOGIC: Denies personal history of malignancy. DERMATOLOGIC: Denies rashes or pruritus. PSYCHIATRIC: Denies any suicidal or homicidal ideation. Denies hallucinations. PHYSICAL EXAM GENERAL APPEARANCE: The patient is awake, alert, and oriented, in no acute cardiopulmonary distress. NEUROLOGICAL: Cranial nerves II-XII grossly intact. Motor is 5/5 in bilateral upper and lower extremities proximal to distal. No sensory deficits. HEENT: Face is symmetric. Pupils are equal and reactive. Extraocular movements are intact. NECK: Supple. No JVD. No thyromegaly. No submental, submandibular, pre- /postauricular, occipital or supraclavicular lymphadenopathy. CHEST: Normal chest expansion. No Telemetry. LUNGS: Absence of any rales, rhonchi or any wheezing. CARDIOVASCULAR: Regular. S1 and S2 normal. No appreciable rubs, murmurs or gallops. ABDOMEN: Soft, nontender, and nondistended. There is no rebound, voluntary guarding, or rigidity. : Improving Redness, bruising , firm nodule noted over right groin area Deferred. No Fitzpatrick. EXTREMITIES: Non-edematous and not cyanotic. No clubbing. Good capillary refill. SKIN: No skin breakdown. Vital Signs (last 8hr) Date Time Temp Pulse Resp B/P (MAP) Pulse Ox O2 Delivery O2 Flow Rate FiO2 08/11/24 08:29 98.2 72 16 126/69 98 Room Air 08/11/24 03:00 98.2 56 18 112/52 98 Room Air LABS: Laboratory: Test 08/11/24 05:16 08/11/24 03:19 Range/Units Whole Blood Glucose 91 # 70-110 MG/DL White Blood Count 6.6 4.8-10.8 K/uL Red Blood Count 3.54 L 4.50-6.20 MIL/uL Hemoglobin 11.0 L 14.0-18.0 g/dL Hematocrit 32.8 L 42-54 % Mean Corpuscular Volume 92.7 79-99 fL Mean Corpuscular Hemoglobin 31.1 27.0-33.0 pg Mean Corpuscular Hemoglobin Concent 33.5 32.0-36.0 g/dL Red Cell Distribution Width 12.9 11.0-15.5 % Platelet Count 233 130-400 K/uL Mean Platelet Volume 9.8 7.5-10.5 fL Immature Granulocyte % (Auto) 0.3 0-1 % Neutrophils (%) (Auto) 54.8 40.0-77.0 % Lymphocytes (%) (Auto) 32.8 21.0-51.0 % Monocytes (%) (Auto) 9.6 3.0-13.0 % Eosinophils (%) (Auto) 2.0 0.0-8.0 % Basophils (%) (Auto) 0.5 0.0-5.0 % Neutrophils # (Auto) 3.6 1.8-7.7 K/uL Lymphocytes # (Auto) 2.2 1.0-4.8 K/uL Monocytes # (Auto) 0.6 0.1-1.0 K/uL Eosinophils # (Auto) 0.13 0.00-0.70 K/uL Basophils # (Auto) 0.03 0.00-0.20 K/uL Absolute Immature Granulocyte (auto 0.02 0-1 K/uL Nucleated Red Blood Cells 0.0 0.0-0.19 % Activated Partial Thromboplast Time 69.8 H 26.3-35.5 SEC Sodium Level 140 136-145 mmol/L Potassium Level 4.0 3.5-5.1 mmol/L Chloride Level 105 101-111 mmol/L Carbon Dioxide Level 28 21-32 mmol/L Blood Urea Nitrogen 8 7-18 mg/dL Creatinine 0.7 0.5-1.3 mg/dL Glomerular Filtration Rate Calc 107 >90 mL/min Random Glucose 76 70-105 mg/dL Total Calcium 9.2 8.5-10.1 mg/dL Magnesium Level 2.20 1.80-2.40 mg/dL Current Medications Medications (Trade) Dose Ordered Sig/Isidoro Route PRN Reason Start Time Stop Time Status Last Admin Dose Admin Acetaminophen (TYLenol 500MG TAB) 500 mg Q6H PRN PO MILD PAIN (1-3) 08/06/24 10:00 09/05/24 09:59 08/08/24 20:05 500 MG Aspirin (Aspirin 81mg Ec Tab) 81 mg DAILY PO 08/06/24 09:00 09/05/24 08:59 08/10/24 08:41 81 MG Atorvastatin Calcium (LIPItor 40MG) 40 mg HS PO 08/05/24 21:00 09/04/24 20:59 08/10/24 22:03 40 MG Ceftriaxone Sodium (Rocephin 2gm Inj) 2 gm Q24H IVPB 08/06/24 00:00 08/15/24 23:59 08/11/24 00:28 2 GM Chlordiazepoxide HCl (LIBrium 25 MG CAP) 25 mg Q2H PRN PO ALCOHOL WITHDRAWAL PROTOCOL 08/05/24 06:00 08/12/24 05:59 08/06/24 22:55 25 MG Dextrose (D50w) 50 ml AD PRN IV HYPOGLYCEMIA PROTOCOL 08/05/24 05:30 09/04/24 05:29 Diazepam (VALium 5 MG/ML 2 ML SYG) 10 mg Q4H PRN IVP ALCOHOL WITHDRAWAL PROTOCOL 08/05/24 06:30 08/12/24 06:29 Doxycycline Hyclate (Doxycycline Hyclate) 100 mg BID PO 08/06/24 09:00 08/06/24 12:18 DC 08/06/24 09:06 100 MG Famotidine (Pepcid 20mg Vial) 20 mg BID IV 08/05/24 09:00 08/05/24 09:01 DC 08/05/24 07:47 20 MG Glucagon (Glucagon 1mg Kit) 1 mg AD PRN IM HYPOGLYCEMIA PROTOCOL 08/05/24 05:30 09/04/24 05:29 Guaifenesin (RobiTUSSin SUGAR-FREE 100 MG/ 5 ML UDCUP) 200 mg Q4H PRN PO COUGH 08/07/24 23:30 09/06/24 23:29 08/09/24 21:09 200 MG Heparin Sodium (Porcine) (HEParin 5,000 UNIT VIAL) 5,000 unit Q8H SQ 08/05/24 11:00 08/05/24 03:04 DC Heparin Sodium/ Dextrose 250 ml @ 0 mls/hr PROTOCOL IV 08/05/24 03:00 09/04/24 02:59 08/10/24 22:12 11.46 MLS/HR Insulin Glargine (LANtus 100 UNITS/ML 10 ML VIAL) 10 units BID@0730,2100 SQ 08/05/24 21:00 09/04/24 20:59 08/10/24 22:08 10 UNITS Insulin Human Regular (humuLIN R 100 UNIT/ML 3ML) INSULIN SLIDING SCAL... ACHS SQ 08/05/24 07:30 08/05/24 08:55 DC 08/05/24 07:47 5 UNIT Insulin Human Regular (humuLIN R 100 UNIT/ML 3ML) INSULIN SLIDING SCAL... ACHS SQ 08/05/24 11:30 09/04/24 11:29 08/10/24 22:07 8 UNIT Iron Sucrose (VenoFER) 100 mg DAILY IV 08/08/24 09:30 08/08/24 09:17 DC Iron Sucrose (VenoFER) 100 mg Q24H IV 08/08/24 21:00 08/10/24 22:00 DC 08/10/24 22:03 100 MG Lorazepam (AtiVAN) 2 mg Q4H PRN IVP ALCOHOL WITHDRAWAL PROTOCOL 08/05/24 06:00 08/05/24 06:04 DC Losartan Potassium (CozAAR 50 mg TAB) 50 mg BID PO 08/09/24 21:00 09/06/24 08:59 08/10/24 22:04 50 MG Losartan Potassium (CozAAR 50 mg TAB) 50 mg DAILY PO 08/07/24 09:00 08/09/24 09:16 DC 08/09/24 08:06 50 MG Magnesium Sulfate 50 ml @ 0 mls/hr PROTOCOL PRN IV OTHER [SEE ORDER COMMENTS] 08/05/24 05:30 09/04/24 05:29 08/10/24 04:13 25 MLS/HR Metoprolol Tartrate (loprESSOR) 25 mg BID PO 08/05/24 14:30 08/08/24 08:27 DC 08/08/24 07:44 25 MG Metoprolol Tartrate (loprESSOR) 50 mg BID PO 08/08/24 09:00 09/07/24 08:59 08/10/24 22:03 50 MG Morphine Sulfate (morPHINE 2MG SYG) 2 mg Q2HPRN PRN IVP SEVERE PAIN (6-10) 08/05/24 11:10 08/10/24 14:09 DC 08/09/24 04:17 2 MG Morphine Sulfate (morPHINE 2MG SYG) 2 mg Q4H PRN IVP SEVERE PAIN (7-10) 08/05/24 06:00 08/05/24 08:31 DC 08/05/24 06:03 2 MG Nitroglycerin (Nitroglycerin 1gm Oint) 0.5 inch Q8H5 TD 08/08/24 13:00 08/10/24 12:43 DC 08/10/24 06:05 0.5 INCH Nitroglycerin (Nitrostat) 0.4 mg AD PRN SL CHEST PAIN 08/05/24 02:30 08/08/24 08:53 DC 08/05/24 02:46 0.4 MG Nitroglycerin/ Dextrose 250 ml @ 0 mls/hr PROTOCOL IV 08/05/24 03:30 09/04/24 03:29 08/06/24 07:15 15 MLS/HR Ondansetron HCl (zoFRAN 4MG INJ) 4 mg Q6H PRN IV NAUSEA/VOMITING 08/05/24 05:30 09/04/24 05:29 08/05/24 22:13 4 MG Pantoprazole Sodium (PROTonix 40MG INJ) 40 mg DAILY IVP 08/05/24 09:00 09/04/24 08:59 08/10/24 08:40 40 MG Pharmacy Profile Note (Pharmacy Communication) 1 each PROTOCOL PRN MISC ETOH Withdrawal Score changes 08/05/24 06:00 08/12/24 05:59 Potassium Chloride 100 ml @ 50 mls/hr AD PRN IV POTASSIUM PROTOCOL 08/05/24 05:30 08/07/24 18:24 DC Potassium Chloride 100 ml @ 100 mls/hr AD PRN IV POTASSIUM PROTOCOL 08/07/24 09:00 09/06/24 08:59 Potassium Chloride (K-Dur/Klor-Con 20meq) 20 meq AD PRN PO POTASSIUM PROTOCOL 08/07/24 09:00 09/06/24 08:59 08/10/24 22:04 20 MEQ Potassium Chloride (KCl 10% Elixir 20meq/15ml) 20 meq AD PRN PO POTASSIUM PROTOCOL 08/07/24 09:00 09/06/24 08:59 Promethazine HCl (Phenergan) 25 mg Q6H PRN PO NAUSEA 08/05/24 06:00 09/04/24 05:59 Ranolazine (Ranexa) 500 mg BID PO 08/05/24 17:30 09/04/24 17:29 08/10/24 22:05 500 MG Ranolazine (Ranexa) 500 mg BID PO 08/05/24 21:00 08/05/24 17:04 DC Sodium Chloride 1,000 ml @ 75 mls/hr [id number] IV 08/05/24 05:30 08/10/24 15:46 DC 08/08/24 16:15 75 MLS/HR Sodium Chloride 1,000 ml @ 100 mls/hr Q10H IV 08/05/24 14:30 08/05/24 17:29 DC 08/05/24 15:22 100 MLS/HR Thiamine HCl 100 mg/Folic Acid 1 mg/Multivitamins/ Minerals 10 ml/ Sodium Chloride 1,011.2 ml @ 100 mls/ hr Q24H IV 08/05/24 06:00 08/07/24 16:07 DC 08/07/24 05:34 100 MLS/HR Wound Care/ Dressing Products (Venelex Ointment) 1 NAKIA AD TID TP 08/06/24 14:00 08/06/24 12:50 DC DIAGNOSTICS / RADIOLOGY: [ ] ASSESSMENT: Chest pain, POA ACS- NSTEMI POA Alcohol Intoxication POA Uncontrolled diabetes POA Acute anemia, not POA Right common femoral vein thrombus, as per right groin ultrasound on 08/08 Possible phlebitis of great saphenous vein as per right groin ultrasound on 08/08 Multiple right inguinal lymph nodes as per right groin ultrasound on 08/08 Obesity POA Hypokalemia Hyperlipidemia POA Hypertension POA Elevated CK POA Active alcohol drinker POA PLAN: Continue telemetry NSTEMI POA, chest pain Continue heparin drip as per cardiology consult recommendation Continue [id number] mg daily Continue Lipitor 40 mg daily Started on isosorbide mononitrate 30 mg p.o. daily by cardiology consult Hold Brilinta as per Cardiology recommendation Appreciate cardiology consult and we will follow their recommendations Pending CABG Elevated TCK POA TCK normal at 118 Continue NS @75 mL/hour Alcohol Intoxication POA Monitor for signs of alcohol withdrawal CIWA protocol in place Counseled on alcohol use cessation Uncontrolled diabetes POA Glucose 91 Continue insulin sliding scale AC & HS with hypoglycemia protocol Acute anemia, not POA Hemoglobin dropped from 13.9-10.7 Iron 18, TIBC 253,% saturation 7.1 indicating iron deficiency Started on IV Venofer Q 24 H Monitor H&H Right common femoral vein thrombus, right groin ultrasound on 08/08 Continue IV heparin Possible phlebitis of right saphenous vein as per ultrasound on 08/08 Warm compresses to the area Leg Elevation Multiple right inguinal lymph nodes as per right groin ultrasound on 08/08 Can be attributed to reactive lymphadenopathy due to DVT We will monitor for any signs and symptoms of infection Hyperlipidemia POA, Normal lipid panel results Continue Atorvastatin Hypertension, POA Continue metoprolol 50 mg b.i.d., increase the dose of losartan 50 mg p.o. to losartan 50 mg p.o. b.i.d. as per Cardiology recommendation Hypokalemia Improved Potassium 4 Continue Famotidine 20 mg IV bid for GI prophylaxis Continue SCDs for DVT prophylaxis Monitor electrolytes and replace them as needed per protocol Follow up on Cardiology consult recommendations Follow up on CT surgery consult recommendations Pending CABG ATTESTATION BY PHYSICIAN I have seen and examined the patient. I reviewed the documentation, medical decision making, and treatment plan as noted by the resident above. I agree with the findings and plan of care. Dalton Le MD, PRIYANKA MD Aug 11, 2024 08:38
--- NOTE | 2024-08-11 10:25 | PN ---
[facility] Cardiology Progress Note PROBLEM LIST: [Non [place] [address] Severe two-vessel coronary artery disease with 80% stenosis in the proximal LAD and 100% stenosis in the distal RCA by cardiac catheterization 08/05/2024 Normal LV systolic function with an LVEF of 55% and basal inferior wall hypokinesis by 2D echocardiogram 08/05/2024 Post infarction angina pectoris: Right common femoral vein DVT noted on repeat right groin ultrasound Doppler 08/08/2024: Hypertension: Normocytic normochromic iron-deficiency anemia: Type 2 diabetes mellitus, A1c 8.5%. Alcohol abuse ] INTERVAL HISTORY: [ Patient is pending CABG sometime next week. No reports of chest tightness or pressure, shortness or breath, palpitations, edema. He is on metoprolol 50 b.i.d., Ranexa 500 mg, and isosorbide 30 mg. Right groin discomfort is improving. No fever, headache, reports of bleeding] PHYSICAL EXAMINATION: Vital Signs (Last 48hrs) Date Time Temp Pulse Resp B/P (MAP) Pulse Ox O2 Delivery O2 Flow Rate FiO2 08/11/24 08:29 98.2 72 16 126/69 98 Room Air 08/11/24 03:00 98.2 56 18 112/52 98 Room Air 08/10/24 23:00 97.5 60 18 120/67 99 Room Air 08/10/24 20:00 99 Room Air* 0 08/10/24 19:00 98.2 74 18 118/66 98 Room Air 08/10/24 16:17 98.1 68 16 129/62 100 Room Air 08/10/24 12:13 97.3 59 16 126/76 100 Room Air 08/10/24 08:30 100 Room Air* 0 08/10/24 08:26 98.4 91 16 132/80 100 Room Air 08/10/24 03:35 97.9 74 20 141/73 98 Room Air 08/09/24 23:35 98.4 62 18 145/75 98 Room Air 08/09/24 19:40 97 Room Air* 0 08/09/24 19:35 97.5 83 22 155/86 100 Room Air 08/09/24 16:34 98.6 65 16 139/69 100 Room Air 08/09/24 12:12 98.2 68 16 129/99 98 Room Air General: Resting comfortably, no acute distress. HEENT: Atraumatic. Hearing is intact. No facial asymmetry, nasal discharge, icterus or lid lag. Cardiovascular: Rhythm and rate regular. No murmur. No edema. Respiratory: Lungs clear to the bases. No retractions, wheezes or rhonchi. Gastrointestinal: Benign, soft, nontender, nondistended. Extremities: No amputations. Range of motion is grossly normal. Neurology/Psychiatry: No tremors. Speech is clear. Alert and oriented x 3. Cooperative and pleasant. LABORATORY DATA: [ Laboratory Tests Test 08/10/24 11:36 08/10/24 15:50 08/10/24 20:16 08/11/24 03:19 Whole Blood Glucose 210 MG/DL (70-110) H 171 MG/DL (70-110) H 203 MG/DL (70-110) H White Blood Count 6.6 K/uL (4.8-10.8) Red Blood Count 3.54 MIL/uL (4.50-6.20) L Hemoglobin 11.0 g/dL (14.0-18.0) L Hematocrit 32.8 % (42-54) L Mean Corpuscular Volume 92.7 fL (79-99) Mean Corpuscular Hemoglobin 31.1 pg (27.0-33.0) Mean Corpuscular Hemoglobin Concent 33.5 g/dL (32.0-36.0) Red Cell Distribution Width 12.9 % (11.0-15.5) Platelet Count 233 K/uL (130-400) Mean Platelet Volume 9.8 fL (7.5-10.5) Immature Granulocyte % (Auto) 0.3 % (0-1) Neutrophils (%) (Auto) 54.8 % (40.0-77.0) Lymphocytes (%) (Auto) 32.8 % (21.0-51.0) Monocytes (%) (Auto) 9.6 % (3.0-13.0) Eosinophils (%) (Auto) 2.0 % (0.0-8.0) Basophils (%) (Auto) 0.5 % (0.0-5.0) Neutrophils # (Auto) 3.6 K/uL (1.8-7.7) Lymphocytes # (Auto) 2.2 K/uL (1.0-4.8) Monocytes # (Auto) 0.6 K/uL (0.1-1.0) Eosinophils # (Auto) 0.13 K/uL (0.00-0.70) Basophils # (Auto) 0.03 K/uL (0.00-0.20) Absolute Immature Granulocyte (auto 0.02 K/uL (0-1) Nucleated Red Blood Cells 0.0 % (0.0-0.19) Activated Partial Thromboplast Time 69.8 SEC (26.3-35.5) H Sodium Level 140 mmol/L (136-145) Potassium Level 4.0 mmol/L (3.5-5.1) Chloride Level 105 mmol/L (101-111) Carbon Dioxide Level 28 mmol/L (21-32) Blood Urea Nitrogen 8 mg/dL (7-18) Creatinine 0.7 mg/dL (0.5-1.3) Glomerular Filtration Rate Calc 107 mL/min (>90) Random Glucose 76 mg/dL (70-105) Total Calcium 9.2 mg/dL (8.5-10.1) Magnesium Level 2.20 mg/dL (1.80-2.40) Test 08/11/24 05:16 Whole Blood Glucose 91 MG/DL (70-110) # ] RADIOLOGY: [] PLAN: [Pending surgical revascularization sometime next week. Continue antianginals and antihypertensives as above. Continue statin and aspirin.] MEJIA HIDALGO [facility] Aug 11, 2024 10:25
--- NOTE | 2024-08-11 11:15 | NUR ---
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
[2024-08-11] MEDS: ISOSORBIDE MONO 30MG SR TAB PO SCH (14:17)
--- NOTE | 2024-08-11 17:34 | PN ---
[facility] PROGRESS NOTE Date Patient Seen: Aug 11, 2024 Time of Visit: 17:33 Supervising Physician: Dr. Dai Primary Care Physician: [ Francesco Gee MD] Outpatient Specialists: [none ] Inpatient Consults: [Dany Noel MD, Marcela Talbert DO, DR Khalil Aattending: Dr Paola Frye MD ] PROBLEM LIST: ACS-NSTEMI Type I Leukocytosis w/ left shift Essential HTN Untreated hyperglycemia in the presence of new onset Type II DM2 Alcohol abuse Right femoral DVT Right groin lymphadenopathy Obesity INTERVAL HISTORY: 08/06/2024: At the time of my evaluation, the patient was sitting up to the bedside chair. The staff nurse reports no acute events overnight. Currently, the patient remains on heparin and a nitro drip. On the monitor, the patient was afebrile, no tachycardia tachypnea and blood pressure was within normal ranges. He remained on. Laboratory data was notable for a WBC within normal range, no acute anemia or thrombocytopenia. Chemistry panel showed elevated CK of 575. There was a magnesium of 1.70. No new imaging for review today. No other complaint. 08/07/2024: At the time of my evaluation, the patient is lying in bed. He is awake, alert and verbally interactive. He remains on a CIWA protocol. The patient is currently breathing on room air. She is afebrile, no tachypnea or tachycardia. He voids spontaneously and poor chart documentation, urinary output total 2700 mL over the past 24 hours and has a net balance of +677.4. The patient continues on a heparin drip. He continues on antibiotic therapy with Rocephin. Also on a banana bag. The current plan is for CABG unknown date and time. No other complaint. 08/08/2024: At the time of my evaluation, the patient was lying in bed. He is awake alert and denies any chest pain. The staff nurse reports no acute events overnight. Vital signs are unremarkable. Laboratory data was unremarkable. No new chest imaging for review. Currently, the patient remains on a heparin drip. He also remains on CIWA protocol. No other complaint. 08/09/2024: At the time of my evaluation, the patient was sitting up to the bedside chair. The staff nurse reports no acute events overnight. On the monitor, the parameters are unremarkable. Laboratory data today was unremarkable. Imaging data yesterday showed multiple right inguinal lymph nodes and findings consistent with partial deep venous thrombosis with thrombus in the right common femoral vein. Currently, the patient remains on a heparin drip and is on empiric antibiotic therapy with IV Rocephin. No other complaint. 08/10/2024: At the time of my evaluation, the patient was lying in bed. The staff nurse reports no acute events overnight. Patient remains on room air. On the monitor vital sign parameters are unremarkable. Laboratory data is notable for a potassium of 3.3 and a Mag of 1.80. No new imaging for review today. Currently, the patient remains on a heparin drip and is on empiric antibiotic therapy with Rocephin. No other complaint. 08/11/2024: At the time of my evaluation, the patient was lying in bed. The staff nurse reports no acute events overnight. He remains on room air and vital sign parameters are unremarkable. Laboratory data today remains unremarkable. The patient denies any chest pain. No new imaging for review. Currently, the patient continues on a heparin drip. No other complaint. . REVIEW OF SYSTEMS: 12-point system review was carried out. Pertinent positive as documented above otherwise pertinent negative. PHYSICAL EXAM: GENERAL: Alert, weak, awake oriented x 3 HEENT: EOMI, Sclera non icteric, moist mucosa NECK: Supple, no JVD, trachea midline LUNGS: Clear breath sounds bilaterally. No wheezes HEART: Regular rate and rhythm. Normal S1 and S2, without murmurs ABD: Abdomen soft, nontender. Bowel sounds present EXT: No clubbing cyanosis or edema NEURO: Alert and oriented to person, follows commands Vital Signs (last 8hr) Date Time Temp Pulse Resp B/P (MAP) Pulse Ox O2 Delivery O2 Flow Rate FiO2 08/11/24 16:00 97.7 65 16 123/73 96 Room Air 08/11/24 12:07 97.5 62 16 105/69 100 Room Air LABS: Hematology Labs: Test 08/11/24 03:19 Range/Units White Blood Count 6.6 4.8-10.8 K/uL Red Blood Count 3.54 L 4.50-6.20 MIL/uL Hemoglobin 11.0 L 14.0-18.0 g/dL Hematocrit 32.8 L 42-54 % Mean Corpuscular Volume 92.7 79-99 fL Mean Corpuscular Hemoglobin 31.1 27.0-33.0 pg Mean Corpuscular Hemoglobin Concent 33.5 32.0-36.0 g/dL Red Cell Distribution Width 12.9 11.0-15.5 % Platelet Count 233 130-400 K/uL Mean Platelet Volume 9.8 7.5-10.5 fL Immature Granulocyte % (Auto) 0.3 0-1 % Neutrophils (%) (Auto) 54.8 40.0-77.0 % Lymphocytes (%) (Auto) 32.8 21.0-51.0 % Monocytes (%) (Auto) 9.6 3.0-13.0 % Eosinophils (%) (Auto) 2.0 0.0-8.0 % Basophils (%) (Auto) 0.5 0.0-5.0 % Neutrophils # (Auto) 3.6 1.8-7.7 K/uL Lymphocytes # (Auto) 2.2 1.0-4.8 K/uL Monocytes # (Auto) 0.6 0.1-1.0 K/uL Eosinophils # (Auto) 0.13 0.00-0.70 K/uL Basophils # (Auto) 0.03 0.00-0.20 K/uL Absolute Immature Granulocyte (auto 0.02 0-1 K/uL Nucleated Red Blood Cells 0.0 0.0-0.19 % Chemistry Labs: Test 08/11/24 16:23 08/11/24 03:19 Range/Units Whole Blood Glucose 143 H 70-110 MG/DL Sodium Level 140 136-145 mmol/L Potassium Level 4.0 3.5-5.1 mmol/L Chloride Level 105 101-111 mmol/L Carbon Dioxide Level 28 21-32 mmol/L Blood Urea Nitrogen 8 7-18 mg/dL Creatinine 0.7 0.5-1.3 mg/dL Glomerular Filtration Rate Calc 107 >90 mL/min Random Glucose 76 70-105 mg/dL Total Calcium 9.2 8.5-10.1 mg/dL Magnesium Level 2.20 1.80-2.40 mg/dL Coagulation Labs: Test 08/11/24 03:19 Range/Units Activated Partial Thromboplast Time 69.8 H 26.3-35.5 SEC DIAGNOSTICS / RADIOLOGY RESULTS: [ ] PLAN 08/07/2024: For now, going to continue current management for the patient. We will continue the CIWA protocol. The patient will continue on multivitamin infusion (banana bag). We will await Cardiothoracic surgery input on plans to proceed with CABG. In the meantime, the patient will remain on heparin drip. He was downgraded to PCCU status. We will monitor the patient's progress and response to management. We will continue to provide general supportive care, GI and DVT prophylaxis. Further orders per attending MD and hospital course. 08/08/2024: For now, going to continue current management for the patient. We are going to continue heparin drip as ordered and we will follow the input from the Cardiology team as well as the Cardiothoracic surgeon. We will monitor the patient's progress and response to management. We will continue to provide general supportive care, GI and DVT prophylaxis. Further orders per attending MD and hospital course. 08/09/2024: For now, we are going to continue current management for the patient. Considering the lymph node enlargement of the right groin area, we will discuss with the rounding MD regarding the need for biopsy. The patient is currently on heparin drip considering the right common femoral vein DVT. The patient will remain on bedrest. We will follow Cardiology recommendation on management of his heart disease and continue GDMT. We will monitor the patient's progress and response to management. We will continue to provide general supportive care, GI and DVT prophylaxis. Further orders per attending MD and hospital course. 08/10/2024: For now, going to continue current management for the patient. Follow the Cardiothoracic surgeon cardiology team regarding further management of his STEMI. I am going to request warm compresses to the right groin area due to DVT found on imaging and lymphadenopathy. I discussed the findings and plan for further management with the patient. We will monitor the patient's progress and response to management. We will continue to provide general supportive care, GI and DVT prophylaxis. Further orders per attending MD and hospital course. 08/11/2024: For now, we are going to continue current management for the patient. He will remain on heparin drip as ordered. He is pending Cardiothoracic surgery evaluation for possible CABG also, the patient will continuing on warm compresses to the right growing due to the finding of a DVT and surrounding lymphadenopathy. We will monitor the patient's progress and response to management. We will continue to provide general supportive care, GI and DVT prophylaxis. Further orders per attending MD and hospital course. NEURO: Minimize central acting medications as possible. Maintain fall precautions, adequate lighting during the day PULMONARY: Supplemental 02 as needed. Maintain aspiration precautions at all times CARDIOVASCULAR: Follow hemodynamics. Vital signs per facility protocol GI & NUTRITION: Continue with nutritional support. Continue stool softeners and laxatives as needed. KIDNEYS & ELECTROLYTES: Strict monitoring of intake, output and overall fluid balance. Avoid nephrotoxic medications to the extent possible. Medications to be dosed according to renal function. Monitor electrolytes and replace as needed ENDOCRINE: Maintain blood glucose between 100-180 at all times. Hypoglycemia protocol in place INFECTIOUS DISEASE: Trend temperature, WBC and procalcitonin level Follow cultures, deescalate antibiotics as soon as possible. Panculture if new onset fever ONCOLOGY/HEMATOLOGY/COAGULATION: Monitor for s/s of bleeding Monitor hemoglobin, coagulation studies as needed SKIN: Pressure ulcer prevention per facility protocol Specialty mattress ORTHO/REHAB: Continue PT/OT Prophylaxis: Continue GI and DVT prophylaxis Code Status: Full Resuscitation Disposition: TBD Other: Patient was seen and case was discussed with rodney RAMOS. Plan of care was disc ussed and agreed upon. TR LIVINGSTON NP Aug 11, 2024 17:34
[2024-08-11] MEDS ORDERED: ceFAZolin SODIUM 2 GM VIAL IVP PRN (18:30)
--- NOTE | 2024-08-11 21:02 | PN ---
PROBLEM LIST: * Non-ST elevation [place] on admission, peak troponin 45,000. * Severe 2-vessel CAD with 80% proximal LAD and 100% distal RCA stenosis by coronary angiogram on 08/05/2024. * On 08/05/2024 echo with EF 55% with basal inferior hypokinesis. * Post infarct angina. * Right common femoral DVT via right groin ultrasound 08/08/2024. * Hypertension. * Normocytic normochromic anemia. * Type 2 diabetes. * Alcohol abuse and intoxication on admission. INTERVAL HISTORY: The patient is resting comfortably in bed. Denies any chest tightness or pressure, shortness of breath, palpitations or dizziness. He is pending surgical revascularization next week sometime. No reports of fever or bleeding. PHYSICAL EXAMINATION: GENERAL: Overweight, middle-aged male, in no distress. VITAL SIGNS: Temperature 97.3, pulse 59, respirations 16, blood pressure 126/76. HEENT: Hearing intact. No facial asymmetry, nasal discharge or icterus. CARDIOVASCULAR: Rhythm and rate regular. No murmurs noted. No edema. RESPIRATORY: Clear bilaterally. No crackles or wheezes. GASTROINTESTINAL: No guarding, distention, or tenderness. EXTREMITIES: No amputations or deformities. Range of motion is grossly normal. No amputations. NEUROLOGIC AND PSYCHIATRY: Alert and oriented x 3, cooperative and pleasant. No tremors or slurring. LABORATORY DATA: H and H 10.7 and 31. Chemistries notable potassium 3.3, otherwise unremarkable. PLAN: The patient is pending surgical revascularization next week. He is currently on losartan 50 mg b.i.d. He has nitroglycerin ointment on which we will change to isosorbide. Continue metoprolol 50 b.i.d., aspirin, and atorvastatin. He is also on Ranexa 500 mg b.i.d. TID: [id number] RECEIPT: [id number]
[2024-08-12] VITALS (45 sets, daily range): BP systolic 100–190; BP diastolic 47–114; PULSE 53–114; RESP 9–32; TEMP 97.6–98.1; O2SAT 40–100
[2024-08-12 03:39] LABS: BASOPHILS # (AUTO) 0.02 K/uL (0.00-0.20); BASOPHILS % (AUTO) 0.3 % (0.0-5.0); EOSINOPHILS # (AUTO) 0.14 K/uL (0.00-0.70); EOSINOPHILS % (AUTO) 1.9 % (0.0-8.0); HEMATOCRIT 32.4 % (42-54); IMMATURE GRANULOCYTE ABSOLUTE 0.03 K/uL (0-1); LYMPHOCYTES # (AUTO) 1.8 K/uL (1.0-4.8); LYMPHOCYTES % (AUTO) 24.1 % (21.0-51.0); MEAN CORPUSCULAR HEMOGLOBIN 31.1 pg (27.0-33.0); MEAN CORPUSCULAR VOLUME 94.2 fL (79-99); MONOCYTES # (AUTO) 0.8 K/uL (0.1-1.0); MONOCYTES % (AUTO) 10.1 % (3.0-13.0); NEUTROPHILS # (AUTO) 4.7 K/uL (1.8-7.7); NEUTROPHILS % (AUTO) 63.2 % (40.0-77.0); PLATELET COUNT (AUTO) 255 K/uL (130-400); RED BLOOD CELL COUNT(AUTO) 3.44 MIL/uL (4.50-6.20); WHITE BLOOD COUNT (AUTO) 7.5 K/uL (4.8-10.8)
[2024-08-12 03:50] LABS: CREATININE 0.7 mg/dL (0.5-1.3); POTASSIUM 3.9 mmol/L (3.5-5.1)
[2024-08-12 03:54] LABS: ALBUMIN 2.9 g/dL (3.5-5.0); BILIRUBIN,TOTAL 0.5 mg/dL (0.2-1.0)
[2024-08-12 04:05] LABS: B-TYPE NATRIURETIC PEPTIDE 105 pg/mL (0-100)
[2024-08-12 04:15] LABS: ABG BASE EXCESS 3.3 mmol/L (-2.0-3.0); ABG HCO3 28.1 mmol/L (21.0-28.0); ABG OXYGEN SATURATION 95.8 % (94.0-98.0); ABG PCO2 43 mmHg (35-48); PO2, ARTERIAL BG 78.2 mmHg (83.0-108.0); VENT MODE, BG RA (ROOM AIR)
[2024-08-12 04:17] LABS: PROTHROMBIN TIME 10.6 SEC (9.6-11.6)
[2024-08-12 04:18] LABS: PARTIAL THROMBOPLASTIN TIME 69.5 SEC (26.3-35.5)
[2024-08-12] MEDS ORDERED: NOREPINEPHRIN 8MG/250ML NS 250 ML IV PRN (06:30)
[2024-08-12] MEDS ORDERED: aminoCAProic ACID 5,000MG VIAL 15,000 MG in 0.9% NACL 500ML IV.SOLN 420 ML IV PRN (06:30)
[2024-08-12] MEDS ORDERED: EPINEPHrine PF 1MG (1:1,000) 10 MG in 0.9% NACL 250ML 240 ML IV PRN ×2 (06:30→15:30)
--- NOTE | 2024-08-12 06:44 | EKG ---
[facility] Test Date: 2024-08-12 Test Time: 06:06:21 Pat Name: MAYRA JUDD Department: [facility], [facility]–1983 Room: 214 Gender: M Accounts Receivable Coordinator: [id number] : 1965 Requested By: KEYA CALVO Order Number: [id number] Reading MD: Ricardo Saenz Measurements Intervals [place] Rate: 73 P: 46 SD: 176 QRS: -58 QRSD: 142 T: -36 QT: 408 QTc: 451 Interpretive Statements Sinus rhythm Right bundle branch block Inferior infarct, age indeterminate Compared to ECG 08/05/2024 10:27:40 No significant changes Electronically Signed On 08-12-2024 22:16:54 CDT by Ricardo Saenz Please click the below link to view image of tracing.
--- NOTE | 2024-08-12 06:54 | PN ---
[facility] Cardiology Progress Note CARDIOLOGY PROGRESS NOTE AUGUST 12, 2024 Problems: 1. Non ST-elevation [place] 2. Multivessel CAD with LV ejection fraction of 55% hypokinesis of the inferior wall 3. Post infarct angina 4. Right common femoral vein deep vein thrombosis 5. Normocytic anemia 6. Diabetes mellitus type 2 7. Alcohol dependence 8. Dyslipidemia Blood pressure is 1 20-130 systolic heart rate is in the 70s. Hemoglobin 10.7 which has been stable. Platelet count 337542. Potassium 3.9 BUN nine creatinine 0.7 With estimated GFR of 107. The patient continues on aspirin atorvastatin heparin protocol insulin scale isosorbide mononitrate losartan metoprolol tartrate pantoprazole ranolazine. The patient has been pain-free overnight. He has good breath sounds bilaterally. He is tentatively scheduled for aortocoronary bypass graft surgery this afternoon. Risks and benefits have been reviewed. ROSALIA LINDSAY MD Aug 12, 2024 06:54
--- NOTE | 2024-08-12 10:28 | PN ---
[facility] PROGRESS NOTE Date of Service: Aug 12, 2024 Time of Service: 10:28 SUBJECTIVE: This is a case of 59-year-old male with past medical history of diabetes, hypertension and hyperlipidemia who presented to the ED with complaints of left- sided chest pain which started around 8 pm last night while resting. He states that he has been experiencing intermittent chest pain since the past 2 days ago which has become persistent associated with SOB last night. Patient also reports that he had 5 beers last night and denies cigarette and recreational drug use. Initial ECG revealed ST 110 right bundle branch block, inferior infarct acute and second EKG showed ST 108 right bundle branch block inferior infarct recent and the 3rd EKG showed ST 120 with Right bundle branch block Inferior infarct recent and probable posterior infarct acute. Initial Labs WBC 10.9, BNP 147, total CK 812, troponin 13,930, serum alcohol 117. While in the ER patient received aspirin 325 mg p.o., Protonix 40 mg IV, Brilinta 90 mg p.o., verapamil 5 mg IV and metoprolol 5 mg IV and was started on heparin and nitroglycerin drip. He was admitted for further assessment and treatment in view of NSTEMI. 08/05/2024 Patient is seen and examined at the bedside. He complains of mild p ressure-like left-sided chest pain and generalized body weakness. Vitals blood pressure ranging in 120/70s. Labs WBC 10.9, hemoglobin 13.9, BNP 147, PT 10.1, INR 0.95. Urinalysis positive for glucose. Urine toxicology negative and serum alcohol 117, glucose 229, magnesium 1.9, TCK 8. Troponin trend [id number] - [id number]. Currently on heparin and nitroglycerin drip. He is scheduled for cardiac catheterization procedure today. Chest x-ray revealed clear lungs and pending 2D echo results. 08/06/2024 Patient is seen and examined at the bedside. He complains of generalized body weakness and headache. He denies fever, chills, nausea, vomiting, chest pain, palpitations, abdominal pain. Vitals Blood pressure 137/67. Labs WBC 10, hemoglobin dropped from 13.9-11.5, magnesium 1.70, calcium 8.1, AST improved from 176-115. BNP improved from 147-128 and TCK improved 812-575. He underwent left heart catheterization yesterday which revealed two- vessel coronary artery disease with 80% stenosis in the proximal LAD and 100% stenosis in the distal RCA. 2D echo revealed normal Left ventricle systolic function, estimated LVEF 55% and Indeterminate diastolic function. CT surgery was consulted. 08/07/24 Patient is seen and examined at the bedside. /He was managed for ACS/Non-STEMI and underwent further assessment with a cardiac catheterization on 08/05/2024 demonstrating two-vessel coronary artery disease with 80% stenosis in the proximal LAD and 100% stenosis in the distal RCA. He has had no recurrent angina overnight. He continues on IV heparin. 2D echocardiogram on 08/05/2024 demonstrating basal inferior wall hypokinesis and an LVEF of 55%. 08/08/2024 Patient is seen and examined at the bedside. No acute events last night. Currently on heparin drip. He mentioned about experiencing mild chest discomfort, shortness of breath this morning when he tried to sit in the chair. He also complains of pain and discomfort over right groin. We will order a repeat right groin ultrasound to rule out hematoma. Vitals blood pressure 137/78, respiratory rate 23. Labs hemoglobin decreased from 11.2-10.8, reticulocyte count high at 2.34, iron 18, TIBC 253,% saturation low at 7.1 indicating iron deficiency, BMP unremarkable, TCK normal at 118. Pending CABG. 08/09/2024 Patient is seen and examined at the bedside. No acute events last night. Currently on heparin drip. Vitals blood pressure 151/88, respiratory rate 16. He complains of right groin discomfort and pain. Right groin soft tissue ultrasound revealed multiple right inguinal lymph nodes, partial DVT with thrombus in right common femoral vein, possible phlebitis of great saphenous vein. We will continue the patient on heparin drip for DVT as per cardiology consult recommendation. Labs hemoglobin 10.9, APTT 45.8, BMP unremarkable. Pending CABG. 08/10/24 patient was seen and examined. Patient denies any complaints except dry cough. No acute events overnight. His vitals are stable. Patient reports that his right groin discomfort and pain is getting better and is able to move around. Continue heparin drip. His labs showed hemoglobin 10.7, potassium 3.3 and is being replaced as per the protocol. Magnesium 1.80 and we will cover with the protocol. He is pending CABG. 08/11/2024 Patient is seen and examined at the bedside. No acute events last night. He states that he feels well and his right groin pain and discomfort has been significantly reduced. Currently on heparin drip. Vitals temperature 98.2, pulse rate 72, respiratory rate 16, blood pressure 126/69, SpO2 98% on room air. Labs hemoglobin improved from 10.7-11, WBC 6.6, BMP unremarkable. Pending CABG procedure. 08/12/2024 Patient is seen and examined at the bedside. No acute events last night. He states that he feels well and has no complaints. Currently NPO. Vitals temperature 97.9, pulse rate 78, blood pressure 133/77, respiratory rate 20, SpO2 99% on room air. Labs WBC 7.5, hemoglobin decreased from 11-10.7, BMP, LFT and lipid panel levels are normal. ABG showed pH 7.43, PO2 78.2, HC03 28.1, pCO2 43. Scheduled for CABG procedure today. REVIEW OF SYSTEMS CONSTITUTIONAL: Denies fevers, chills, or night sweats. No unintentional weight loss reported. NEUROLOGICAL: Denies headache, amaurosis fugax, motor weakness, sensory deficit, vertigo/spinning sensation, gait abnormalities, or tremors. ENT: No hearing loss, otalgia, otorrhea, rhinitis, rhinorrhea, hoarseness, or sore throat. CARDIOVASCULAR: Deniesdyspnea on exertion, orthopnea, paroxysmal nocturnal dyspnea, palpitations, life-threatening arrhythmias, claudication. PULMONARY: , phlegm/sputum, hemoptysis, pleuritic chest pain. SLEEP: Denies morning headaches, daytime somnolence or napping. Denies difficulty falling asleep, staying asleep, waking from sleep. Denies knowledge of snoring. GASTROINTESTINAL: Denies any type of dysphagia to either liquids or solids. Denies nausea, vomiting, pyrosis, early satiety, abdominal pain, diarrhea, constipation, or changes in stool consistency or caliber. Denies coffee-ground emesis, hematemesis, hematochezia, or melanotic stools. GENITOURINARY: Denies frequency, urgency, nocturia, hematuria or incontinence (Storage/Irritative symptoms.) Low urinary stream, straining to void, urinary intermittency or hesitancy, splitting of the voiding stream, terminal dribbling. ENDOCRINOLOGIC: Denies polyuria, polydipsia, polyphagia or heat/cold intolerances. HEMATOLOGIC: Denies thrombophilia/previous clots, or coagulopathy/bleeding disorders. ONCOLOGIC: Denies personal history of malignancy. DERMATOLOGIC: Denies rashes or pruritus. PSYCHIATRIC: Denies any suicidal or homicidal ideation. Denies hallucinations. PHYSICAL EXAM GENERAL APPEARANCE: The patient is awake, alert, and oriented, in no acute cardiopulmonary distress. NEUROLOGICAL: Cranial nerves II-XII grossly intact. Motor is 5/5 in bilateral upper and lower extremities proximal to distal. No sensory deficits. HEENT: Face is symmetric. Pupils are equal and reactive. Extraocular movements are intact. NECK: Supple. No JVD. No thyromegaly. No submental, submandibular, pre- /postauricular, occipital or supraclavicular lymphadenopathy. CHEST: Normal chest expansion. No Telemetry. LUNGS: Absence of any rales, rhonchi or any wheezing. CARDIOVASCULAR: Regular. S1 and S2 normal. No appreciable rubs, murmurs or gallops. ABDOMEN: Soft, nontender, and nondistended. There is no rebound, voluntary guarding, or rigidity. : Improving Redness, bruising over right groin area Deferred. No Fitzpatrick. EXTREMITIES: Non-edematous and not cyanotic. No clubbing. Good capillary refill. SKIN: No skin breakdown. Vital Signs (last 8hr) Date Time Temp Pulse Resp B/P (MAP) Pulse Ox O2 Delivery O2 Flow Rate FiO2 08/12/24 07:00 97.9 78 20 133/77 99 Room Air 08/12/24 03:00 98.1 70 18 127/83 99 Room Air LABS: Laboratory: Test 08/12/24 06:12 08/12/24 04:12 08/12/24 03:26 08/11/24 03:19 Range/Units Whole Blood Glucose 137 #H 70-110 MG/DL Blood Gas Specimen Type Arterial Arterial Blood pH 7.430 7.350-7.450 Arterial Blood Partial Pressure CO2 43 35-48 mmHg Arterial Blood Partial Pressure O2 78.2 L 83.0-108.0 mmHg Arterial Blood HCO3 28.1 H 21.0-28.0 mmol/L Arterial Blood Oxygen Saturation 95.8 94.0-98.0 % Arterial Blood Base Excess 3.3 H -2.0-3.0 mmol/L Blood Gas Temperature 37.0 35.5-37.0 CELSIUS Blood Gas Vent Mode RA ROOM AIR FiO2 21.0 % Blood Gas Specimen Comment RN ,LB White Blood Count 7.5 4.8-10.8 K/uL Red Blood Count 3.44 L 4.50-6.20 MIL/uL Hemoglobin 10.7 L 14.0-18.0 g/dL Hematocrit 32.4 L 42-54 % Mean Corpuscular Volume 94.2 79-99 fL Mean Corpuscular Hemoglobin 31.1 27.0-33.0 pg Mean Corpuscular Hemoglobin Concent 33.0 32.0-36.0 g/dL Red Cell Distribution Width 13.0 11.0-15.5 % Platelet Count 255 130-400 K/uL Mean Platelet Volume 9.6 7.5-10.5 fL Immature Granulocyte % (Auto) 0.4 0-1 % Neutrophils (%) (Auto) 63.2 40.0-77.0 % Lymphocytes (%) (Auto) 24.1 21.0-51.0 % Monocytes (%) (Auto) 10.1 3.0-13.0 % Eosinophils (%) (Auto) 1.9 0.0-8.0 % Basophils (%) (Auto) 0.3 0.0-5.0 % Neutrophils # (Auto) 4.7 1.8-7.7 K/uL Lymphocytes # (Auto) 1.8 1.0-4.8 K/uL Monocytes # (Auto) 0.8 0.1-1.0 K/uL Eosinophils # (Auto) 0.14 0.00-0.70 K/uL Basophils # (Auto) 0.02 0.00-0.20 K/uL Absolute Immature Granulocyte (auto 0.03 0-1 K/uL Nucleated Red Blood Cells 0.0 0.0-0.19 % Prothrombin Time 10.6 9.6-11.6 SEC Prothromb Time International Ratio 1.00 0.85-1.15 Activated Partial Thromboplast Time 69.5 H 26.3-35.5 SEC Sodium Level 139 136-145 mmol/L Potassium Level 3.9 3.5-5.1 mmol/L Chloride Level 104 101-111 mmol/L Carbon Dioxide Level 30 21-32 mmol/L Blood Urea Nitrogen 9 7-18 mg/dL Creatinine 0.7 0.5-1.3 mg/dL Glomerular Filtration Rate Calc 107 >90 mL/min Random Glucose 105 70-105 mg/dL Total Calcium 9.1 8.5-10.1 mg/dL Total Bilirubin 0.5 0.2-1.0 mg/dL Aspartate Amino Transf (AST/SGOT) 24 10-37 U/L Alanine Aminotransferase (ALT/SGPT) 42 12-78 U/L Alkaline Phosphatase 65 50-136 U/L B-Type Natriuretic Peptide 105 H 0-100 pg/mL Total Protein 7.0 6.0-8.3 g/dL Albumin 2.9 L 3.5-5.0 g/dL Triglycerides Level 50 30-200 mg/dL Cholesterol Level 104 # <200 mg/dL LDL Cholesterol 47 0-99 mg/dL HDL Cholesterol 51 29-71 mg/dL Magnesium Level 2.20 1.80-2.40 mg/dL Current Medications Medications (Trade) Dose Ordered Sig/Isidoro Route PRN Reason Start Time Stop Time Status Last Admin Dose Admin Acetaminophen (TYLenol 500MG TAB) 500 mg Q6H PRN PO MILD PAIN (1-3) 08/06/24 10:00 09/05/24 09:59 08/08/24 20:05 500 MG Aminocaproic Acid 33575 mg/Sodium Chloride 480 ml @ 0 mls/hr AD PRN IV BLEEDING CONTROL 08/12/24 06:30 09/11/24 06:29 Aspirin (Aspirin 81mg Ec Tab) 81 mg DAILY PO 08/06/24 09:00 09/05/24 08:59 08/11/24 09:24 81 MG Atorvastatin Calcium (LIPItor 40MG) 40 mg HS PO 08/05/24 21:00 09/04/24 20:59 08/11/24 20:37 40 MG Cefazolin Sodium (Ancef) 2 gm ONCALL PRN IVP SURGERY 08/11/24 18:30 08/13/24 18:29 Ceftriaxone Sodium (Rocephin 2gm Inj) 2 gm Q24H IVPB 08/06/24 00:00 08/15/24 23:59 08/12/24 01:32 2 GM Chlordiazepoxide HCl (LIBrium 25 MG CAP) 25 mg Q2H PRN PO ALCOHOL WITHDRAWAL PROTOCOL 08/05/24 06:00 08/12/24 05:59 DC 08/06/24 22:55 25 MG Dextrose (D50w) 50 ml AD PRN IV HYPOGLYCEMIA PROTOCOL 08/05/24 05:30 09/04/24 05:29 Diazepam (VALium 5 MG/ML 2 ML SYG) 10 mg Q4H PRN IVP ALCOHOL WITHDRAWAL PROTOCOL 08/05/24 06:30 08/12/24 06:29 DC Doxycycline Hyclate (Doxycycline Hyclate) 100 mg BID PO 08/06/24 09:00 08/06/24 12:18 DC 08/06/24 09:06 100 MG Epinephrine HCl 10 mg/Sodium Chloride 250 ml @ 0 mls/hr AD PRN IV TITRATE 08/12/24 06:30 09/11/24 06:29 Famotidine (Pepcid 20mg Vial) 20 mg BID IV 08/05/24 09:00 08/05/24 09:01 DC 08/05/24 07:47 20 MG Glucagon (Glucagon 1mg Kit) 1 mg AD PRN IM HYPOGLYCEMIA PROTOCOL 08/05/24 05:30 09/04/24 05:29 Guaifenesin (RobiTUSSin SUGAR-FREE 100 MG/ 5 ML UDCUP) 200 mg Q4H PRN PO COUGH 08/07/24 23:30 09/06/24 23:29 08/09/24 21:09 200 MG Heparin Sodium (Porcine) (HEParin 5,000 UNIT VIAL) 5,000 unit Q8H SQ 08/05/24 11:00 08/05/24 03:04 DC Heparin Sodium/ Dextrose 250 ml @ 0 mls/hr PROTOCOL IV 08/05/24 03:00 09/04/24 02:59 08/11/24 21:27 11.46 MLS/HR Insulin Glargine (LANtus 100 UNITS/ML 10 ML VIAL) 10 units BID@0730,2100 SQ 08/05/24 21:00 09/04/24 20:59 08/11/24 20:31 10 UNITS Insulin Human Regular (humuLIN R 100 UNIT/ML 3ML) INSULIN SLIDING SCAL... ACHS SQ 08/05/24 07:30 08/05/24 08:55 DC 08/05/24 07:47 5 UNIT Insulin Human Regular (humuLIN R 100 UNIT/ML 3ML) INSULIN SLIDING SCAL... ACHS SQ 08/05/24 11:30 09/04/24 11:29 08/11/24 20:34 14 UNIT Iron Sucrose (VenoFER) 100 mg DAILY IV 08/08/24 09:30 08/08/24 09:17 DC Iron Sucrose (VenoFER) 100 mg Q24H IV 08/08/24 21:00 08/10/24 22:00 DC 08/10/24 22:03 100 MG Isosorbide Mononitrate (Imdur 30mg Sr) 30 mg DAILY PO 08/11/24 13:00 09/10/24 12:59 08/11/24 14:17 30 MG Lorazepam (AtiVAN) 2 mg Q4H PRN IVP ALCOHOL WITHDRAWAL PROTOCOL 08/05/24 06:00 08/05/24 06:04 DC Losartan Potassium (CozAAR 50 mg TAB) 50 mg BID PO 08/09/24 21:00 09/06/24 08:59 08/11/24 20:39 50 MG Losartan Potassium (CozAAR 50 mg TAB) 50 mg DAILY PO 08/07/24 09:00 08/09/24 09:16 DC 08/09/24 08:06 50 MG Magnesium Sulfate 50 ml @ 0 mls/hr PROTOCOL PRN IV OTHER [SEE ORDER COMMENTS] 08/05/24 05:30 09/04/24 05:29 08/10/24 04:13 25 MLS/HR Metoprolol Tartrate (loprESSOR) 25 mg BID PO 08/05/24 14:30 08/08/24 08:27 DC 08/08/24 07:44 25 MG Metoprolol Tartrate (loprESSOR) 50 mg BID PO 08/08/24 09:00 09/07/24 08:59 08/12/24 08:24 50 MG Morphine Sulfate (morPHINE 2MG SYG) 2 mg Q2HPRN PRN IVP SEVERE PAIN (6-10) 08/05/24 11:10 08/10/24 14:09 DC 08/09/24 04:17 2 MG Morphine Sulfate (morPHINE 2MG SYG) 2 mg Q4H PRN IVP SEVERE PAIN (7-10) 08/05/24 06:00 08/05/24 08:31 DC 08/05/24 06:03 2 MG Nitroglycerin (Nitroglycerin 1gm Oint) 0.5 inch Q8H5 TD 08/08/24 13:00 08/10/24 12:43 DC 08/10/24 06:05 0.5 INCH Nitroglycerin (Nitrostat) 0.4 mg AD PRN SL CHEST PAIN 08/05/24 02:30 08/08/24 08:53 DC 08/05/24 02:46 0.4 MG Nitroglycerin/ Dextrose 250 ml @ 0 mls/hr PROTOCOL IV 08/05/24 03:30 09/04/24 03:29 08/06/24 07:15 15 MLS/HR Norepinephrine Bitartrate 250 ml @ 0 mls/hr AD PRN IV TITRATE 08/12/24 06:30 09/11/24 06:29 Ondansetron HCl (zoFRAN 4MG INJ) 4 mg Q6H PRN IV NAUSEA/VOMITING 08/05/24 05:30 09/04/24 05:29 08/05/24 22:13 4 MG Pantoprazole Sodium (PROTonix 40MG INJ) 40 mg DAILY IVP 08/05/24 09:00 09/04/24 08:59 08/12/24 08:24 40 MG Pharmacy Profile Note (Pharmacy Communication) 1 each PROTOCOL PRN MISC ETOH Withdrawal Score changes 08/05/24 06:00 08/12/24 05:59 DC Potassium Chloride 100 ml @ 50 mls/hr AD PRN IV POTASSIUM PROTOCOL 08/05/24 05:30 08/07/24 18:24 DC Potassium Chloride 100 ml @ 100 mls/hr AD PRN IV POTASSIUM PROTOCOL 08/07/24 09:00 09/06/24 08:59 Potassium Chloride (K-Dur/Klor-Con 20meq) 20 meq AD PRN PO POTASSIUM PROTOCOL 08/07/24 09:00 09/06/24 08:59 08/10/24 22:04 20 MEQ Potassium Chloride (KCl 10% Elixir 20meq/15ml) 20 meq AD PRN PO POTASSIUM PROTOCOL 08/07/24 09:00 09/06/24 08:59 Promethazine HCl (Phenergan) 25 mg Q6H PRN PO NAUSEA 08/05/24 06:00 09/04/24 05:59 Ranolazine (Ranexa) 500 mg BID PO 08/05/24 17:30 09/04/24 17:29 08/11/24 20:38 500 MG Ranolazine (Ranexa) 500 mg BID PO 08/05/24 21:00 08/05/24 17:04 DC Sodium Chloride 1,000 ml @ 75 mls/hr [id number] IV 08/05/24 05:30 08/10/24 15:46 DC 08/08/24 16:15 75 MLS/HR Sodium Chloride 1,000 ml @ 100 mls/hr Q10H IV 08/05/24 14:30 08/05/24 17:29 DC 08/05/24 15:22 100 MLS/HR Thiamine HCl 100 mg/Folic Acid 1 mg/Multivitamins/ Minerals 10 ml/ Sodium Chloride 1,011.2 ml @ 100 mls/ hr Q24H IV 08/05/24 06:00 08/07/24 16:07 DC 08/07/24 05:34 100 MLS/HR Wound Care/ Dressing Products (Venelex Ointment) 1 NAKIA AD TID TP 08/06/24 14:00 08/06/24 12:50 DC DIAGNOSTICS / RADIOLOGY: [ ] ASSESSMENT: Chest pain, POA ACS- NSTEMI POA Severe 2-vessel CAD with 80% proximal LAD and 100% distal RCA stenosis by coronary angiogram on 08/05/2024. EF 55% with basal inferior hypokinesis, as per 2D echo on 08/05/2024 Alcohol Intoxication POA Uncontrolled diabetes POA Acute anemia, not POA Right common femoral vein thrombus, as per right groin ultrasound on 08/08 Possible phlebitis of great saphenous vein as per right groin ultrasound on 08/08 Multiple right inguinal lymph nodes as per right groin ultrasound on 08/08 Obesity POA Hypokalemia Hyperlipidemia POA Hypertension POA Elevated CK POA Active alcohol drinker POA PLAN: Continue telemetry NSTEMI POA, chest pain Continue [id number] mg daily Continue Lipitor 40 mg daily Started on isosorbide mononitrate 30 mg p.o. daily by cardiology consult Hold Brilinta as per Cardiology recommendation Appreciate cardiology consult and we will follow their recommendations Severe 2-vessel CAD with 80% proximal LAD and 100% distal RCA stenosis Scheduled for CABG today Elevated TCK POA TCK normal at 118 Continue NS @75 mL/hour Alcohol Intoxication POA Monitor for signs of alcohol withdrawal CIWA protocol in place Counseled on alcohol use cessation Uncontrolled diabetes POA Glucose 91 Continue insulin sliding scale AC & HS with hypoglycemia protocol Acute anemia, not POA Hemoglobin decreased from 11-10.7 Iron 18, TIBC 253,% saturation 7.1 indicating iron deficiency Monitor H&H Right common femoral vein thrombus, right groin ultrasound on 08/08 Continue heparin drip Possible phlebitis of right saphenous vein as per ultrasound on 08/08 Warm compresses to the area Leg Elevation Multiple right inguinal lymph nodes as per right groin ultrasound on 08/08 Can be attributed to reactive lymphadenopathy due to DVT We will monitor for any signs and symptoms of infection Hyperlipidemia POA, Normal lipid panel results Continue Atorvastatin Hypertension, POA Continue metoprolol 50 mg b.i.d., increase the dose of losartan 50 mg p.o. to losartan 50 mg p.o. b.i.d. , Ranexa as per Cardiology recommendation Hypokalemia Improved Continue Famotidine 20 mg IV bid for GI prophylaxis Continue SCDs for DVT prophylaxis Monitor electrolytes and replace them as needed per protocol Follow up on Cardiology consult recommendations Follow up on CT surgery consult recommendations ATTESTATION BY PHYSICIAN I have seen and examined the patient. I reviewed the documentation, medical decision making, and treatment plan as noted by the resident above. I agree with the findings and plan of care. Dalton Le MD, PRIYANKA MD Aug 12, 2024 10:28
--- NOTE | 2024-08-12 11:50 | NUR ---
PATIENT IS BEING TAKEN TO OR FOR PRE-OP, PATIENT HAS ALL BELONGINGS. SECURITY HAS BEEN NOTIFIED TO MEET PATIENT IN PRE-OP TO GATHER ALL HIS BELONGINGS.
--- NOTE | 2024-08-12 11:57 | PN ---
[facility] PROGRESS NOTE Date Patient Seen: Aug 12, 2024 Time of Visit: 11:57 Supervising Physician: Dr. Laney Dai. Primary Care Physician: [ Francesco Gee MD] Outpatient Specialists: [none ] Inpatient Consults: [Dany Noel MD, Marcela Talbert DO, DR Khalil Aattending: Dr Paola Frye MD ] PROBLEM LIST: ACS-NSTEMI Type I Leukocytosis w/ left shift Essential HTN Untreated hyperglycemia in the presence of new onset Type II DM2 Alcohol abuse Right femoral DVT Right groin lymphadenopathy Obesity INTERVAL HISTORY: 08/06/2024: At the time of my evaluation, the patient was sitting up to the bedside chair. The staff nurse reports no acute events overnight. Currently, the patient remains on heparin and a nitro drip. On the monitor, the patient was afebrile, no tachycardia tachypnea and blood pressure was within normal ranges. He remained on. Laboratory data was notable for a WBC within normal range, no acute anemia or thrombocytopenia. Chemistry panel showed elevated CK of 575. There was a magnesium of 1.70. No new imaging for review today. No other complaint. 08/07/2024: At the time of my evaluation, the patient is lying in bed. He is awake, alert and verbally interactive. He remains on a CIWA protocol. The patient is currently breathing on room air. She is afebrile, no tachypnea or tachycardia. He voids spontaneously and poor chart documentation, urinary output total 2700 mL over the past 24 hours and has a net balance of +677.4. The patient continues on a heparin drip. He continues on antibiotic therapy with Rocephin. Also on a banana bag. The current plan is for CABG unknown date and time. No other complaint. 08/08/2024: At the time of my evaluation, the patient was lying in bed. He is awake alert and denies any chest pain. The staff nurse reports no acute events overnight. Vital signs are unremarkable. Laboratory data was unremarkable. No new chest imaging for review. Currently, the patient remains on a heparin drip. He also remains on CIWA protocol. No other complaint. 08/09/2024: At the time of my evaluation, the patient was sitting up to the bedside chair. The staff nurse reports no acute events overnight. On the monitor, the parameters are unremarkable. Laboratory data today was unremarkable. Imaging data yesterday showed multiple right inguinal lymph nodes and findings consistent with partial deep venous thrombosis with thrombus in the right common femoral vein. Currently, the patient remains on a heparin drip and is on empiric antibiotic therapy with IV Rocephin. No other complaint. 08/10/2024: At the time of my evaluation, the patient was lying in bed. The staff nurse reports no acute events overnight. Patient remains on room air. On the monitor vital sign parameters are unremarkable. Laboratory data is notable for a potassium of 3.3 and a Mag of 1.80. No new imaging for review today. Currently, the patient remains on a heparin drip and is on empiric antibiotic t herapy with Rocephin. No other complaint. 08/11/2024: At the time of my evaluation, the patient was lying in bed. The staff nurse reports no acute events overnight. He remains on room air and vital sign parameters are unremarkable. Laboratory data today remains unremarkable. The patient denies any chest pain. No new imaging for review. Currently, the patient continues on a heparin drip. No other complaint. 08/12/2024: At the time of my evaluation, the patient is lying in bed. The staff nurse reports no acute events overnight. The patient remains on room air. On the monitor, there was no tachycardia, no tachypnea and is normotensive. Laboratory data today is unremarkable. Chest imaging today showed no acute airspace disease. No other complaint. . REVIEW OF SYSTEMS: 12-point system review was carried out. Pertinent positive as documented above otherwise pertinent negative. PHYSICAL EXAM: GENERAL: Alert, weak, awake oriented x 3 HEENT: EOMI, Sclera non icteric, moist mucosa NECK: Supple, no JVD, trachea midline LUNGS: Clear breath sounds bilaterally. No wheezes HEART: Regular rate and rhythm. Normal S1 and S2, without murmurs ABD: Abdomen soft, nontender. Bowel sounds present EXT: No clubbing cyanosis or edema NEURO: Alert and oriented to person, follows commands Vital Signs (last 8hr) Date Time Temp Pulse Resp B/P (MAP) Pulse Ox O2 Delivery O2 Flow Rate FiO2 08/12/24 08:00 99 Room Air* 0 21 08/12/24 07:00 97.9 78 20 133/77 99 Room Air LABS: Hematology Labs: Test 08/12/24 03:26 Range/Units White Blood Count 7.5 4.8-10.8 K/uL Red Blood Count 3.44 L 4.50-6.20 MIL/uL Hemoglobin 10.7 L 14.0-18.0 g/dL Hematocrit 32.4 L 42-54 % Mean Corpuscular Volume 94.2 79-99 fL Mean Corpuscular Hemoglobin 31.1 27.0-33.0 pg Mean Corpuscular Hemoglobin Concent 33.0 32.0-36.0 g/dL Red Cell Distribution Width 13.0 11.0-15.5 % Platelet Count 255 130-400 K/uL Mean Platelet Volume 9.6 7.5-10.5 fL Immature Granulocyte % (Auto) 0.4 0-1 % Neutrophils (%) (Auto) 63.2 40.0-77.0 % Lymphocytes (%) (Auto) 24.1 21.0-51.0 % Monocytes (%) (Auto) 10.1 3.0-13.0 % Eosinophils (%) (Auto) 1.9 0.0-8.0 % Basophils (%) (Auto) 0.3 0.0-5.0 % Neutrophils # (Auto) 4.7 1.8-7.7 K/uL Lymphocytes # (Auto) 1.8 1.0-4.8 K/uL Monocytes # (Auto) 0.8 0.1-1.0 K/uL Eosinophils # (Auto) 0.14 0.00-0.70 K/uL Basophils # (Auto) 0.02 0.00-0.20 K/uL Absolute Immature Granulocyte (auto 0.03 0-1 K/uL Nucleated Red Blood Cells 0.0 0.0-0.19 % Chemistry Labs: Test 08/12/24 11:04 08/12/24 03:26 08/11/24 03:19 Range/Units Whole Blood Glucose 144 H 70-110 MG/DL Bedside Glucose Comment Notified Nurse Sodium Level 139 136-145 mmol/L Potassium Level 3.9 3.5-5.1 mmol/L Chloride Level 104 101-111 mmol/L Carbon Dioxide Level 30 21-32 mmol/L Blood Urea Nitrogen 9 7-18 mg/dL Creatinine 0.7 0.5-1.3 mg/dL Glomerular Filtration Rate Calc 107 >90 mL/min Random Glucose 105 70-105 mg/dL Total Calcium 9.1 8.5-10.1 mg/dL Total Bilirubin 0.5 0.2-1.0 mg/dL Aspartate Amino Transf (AST/SGOT) 24 10-37 U/L Alanine Aminotransferase (ALT/SGPT) 42 12-78 U/L Alkaline Phosphatase 65 50-136 U/L B-Type Natriuretic Peptide 105 H 0-100 pg/mL Total Protein 7.0 6.0-8.3 g/dL Albumin 2.9 L 3.5-5.0 g/dL Triglycerides Level 50 30-200 mg/dL Cholesterol Level 104 # <200 mg/dL LDL Cholesterol 47 0-99 mg/dL HDL Cholesterol 51 29-71 mg/dL Magnesium Level 2.20 1.80-2.40 mg/dL Coagulation Labs: Test 08/12/24 03:26 Range/Units Prothrombin Time 10.6 9.6-11.6 SEC Prothromb Time International Ratio 1.00 0.85-1.15 Activated Partial Thromboplast Time 69.5 H 26.3-35.5 SEC DIAGNOSTICS / RADIOLOGY RESULTS: [ ] PLAN 08/07/2024: For now, going to continue current management for the patient. We will continue the CIWA protocol. The patient will continue on multivitamin infusion (banana bag). We will await Cardiothoracic surgery input on plans to proceed with CABG. In the meantime, the patient will remain on heparin drip. He was downgraded to PCCU status. We will monitor the patient's progress and response to management. We will continue to provide general supportive care, GI and DVT prophylaxis. Further orders per attending MD and hospital course. 08/08/2024: For now, going to continue current management for the patient. We are going to continue heparin drip as ordered and we will follow the input from the Cardiology team as well as the Cardiothoracic surgeon. We will monitor the patient's progress and response to management. We will continue to provide general supportive care, GI and DVT prophylaxis. Further orders per attending MD and hospital course. 08/09/2024: For now, we are going to continue current management for the patient. Considering the lymph node enlargement of the right groin area, we will discuss with the rounding MD regarding the need for biopsy. The patient is currently on heparin drip considering the right common femoral vein DVT. The patient will remain on bedrest. We will follow Cardiology recommendation on management of his heart disease and continue GDMT. We will monitor the patient's progress and response to management. We will continue to provide general supportive care, GI and DVT prophylaxis. Further orders per attending MD and hospital course. 08/10/2024: For now, going to continue current management for the patient. Follow the Cardiothoracic surgeon cardiology team regarding further management of his STEMI. I am going to request warm compresses to the right groin area due to DVT found on imaging and lymphadenopathy. I discussed the findings and plan for further management with the patient. We will monitor the patient's progress and response to management. We will continue to provide general supportive care, GI and DVT prophylaxis. Further orders per attending MD and hospital course. 08/11/2024: For now, we are going to continue current management for the patient. He will remain on heparin drip as ordered. He is pending Cardiothoracic surgery evaluation for possible CABG also, the patient will continuing on warm compresses to the right growing due to the finding of a DVT and surrounding lymphadenopathy. We will monitor the patient's progress and response to management. We will continue to provide general supportive care, GI and DVT prophylaxis. Further orders per attending MD and hospital course. 08/12/2024: For now, we are going to continue current management for the patient. The plan for today is for the patient to undergo CABG by Dr. Colon. We will follow the preparation and we will also follow up with the patient postoperatively. I discussed the findings and plan for further management with the patient. We will monitor the patient's progress and response to management. We will continue to provide general supportive care, GI and DVT prophylaxis. Further orders per attending MD and hospital course. NEURO: Minimize central acting medications as possible. Maintain fall precautions, adequate lighting during the day PULMONARY: Supplemental 02 as needed. Maintain aspiration precautions at all times CARDIOVASCULAR: Follow hemodynamics. Vital signs per facility protocol GI & NUTRITION: Continue with nutritional support. Continue stool softeners and laxatives as needed. KIDNEYS & ELECTROLYTES: Strict monitoring of intake, output and overall fluid balance. Avoid nephrotoxic medications to the extent possible. Medications to be dosed according to renal function. Monitor electrolytes and replace as needed ENDOCRINE: Maintain blood glucose between 100-180 at all times. Hypoglycemia protocol in place INFECTIOUS DISEASE: Trend temperature, WBC and procalcitonin level Follow cultures, deescalate antibiotics as soon as possible. Panculture if new onset fever ONCOLOGY/HEMATOLOGY/COAGULATION: Monitor for s/s of bleeding Monitor hemoglobin, coagulation studies as needed SKIN: Pressure ulcer prevention per facility protocol Specialty mattress ORTHO/REHAB: Continue PT/OT Prophylaxis: Continue GI and DVT prophylaxis Code Status: Full Resuscitation Disposition: TBD Other: Patient was seen and case was discussed with rodney RAMOS. Plan of care was discussed and agreed upon. TR LIVINGSTON NP Aug 12, 2024 11:57
[2024-08-12] MEDS ORDERED: PAPAVERINE HCL 30 MG/ML 2ML VIAL ONE (12:10)
[2024-08-12] MEDS ORDERED: NITROGLYCERIN 50MG/D5W 250ML 1 BOT ONE (12:28)
[2024-08-12] MEDS ORDERED: HEParin 10,000 UNIT/10ML (1,000 UNIT/ML) VIAL ONE ×2 (12:30→16:13)
[2024-08-12] MEDS ORDERED: LIDOCAINE PF 100MG/5ML (2%) SYRINGE 5ML ONE (13:00)
[2024-08-12] MEDS ORDERED: rocuRONium bROMide 10MG/1ML 5ML VL ONE ×2 (13:00→13:44)
[2024-08-12] MEDS ORDERED: proPOFol 10 MG/ML 20ML VIAL IV ONE (13:00)
[2024-08-12] MEDS ORDERED: MIDAZOLAM HCL 1 MG/ML 2ML VIAL ONE (13:00)
[2024-08-12] MEDS ORDERED: FENTanyl CITRate PF 50 MCG/1 ML 20ML VIAL IJ ONE (13:03)
--- NOTE | 2024-08-12 13:17 | HMCIMG ---
CHEST 1VW REASON: preop CABG COMPARISON: 08/05/2024 FINDINGS: Single view of the chest was obtained. Lungs are clear. Heart size is normal. There is no pulmonary vascular congestion. Mediastinum and bony thorax appear unremarkable. IMPRESSION: 1. Normal view chest x-ray.
[2024-08-12 13:31] LABS: ABG BASE EXCESS 1.2 mmol/L (-2.0-3.0); ABG HCO3 26.2 mmol/L (21.0-28.0); ABG OXYGEN SATURATION 99.8 % (94.0-98.0); ABG PCO2 43 mmHg (35-48); ABG PH 7.406 (7.350-7.450); CARBON MONOXIDE 0.4 % (0.5-1.5); DEVICE COMMENT 1; HHb 0.2; PO2, ARTERIAL BG > 500.0 mmHg (83.0-108.0)
[2024-08-12] MEDS: ceFAZolin SODIUM 1 GM VIAL ONE (13:53)
[2024-08-12] MEDS: PAPAVERINE HCL 30 MG/ML 2ML VIAL IRRIG ONE (13:54)
--- NOTE | 2024-08-12 13:56 | HMCIMG ---
US CAROTID DUPLEX REASON: preop CABG TECHNIQUE: Exam was performed using spectral analysis and color flow imaging. FINDINGS: Color flow Doppler ultrasound shows normal-appearing bifurcations. There is no anatomic evidence of significant focal narrowing. Flow velocities and velocity ratios appear normal throughout. There is antegrade flow in both vertebral arteries. RIGHT CAROTID: CCA: 69 cm/sec ICA: 86 cm/sec Ratio: ICA/CCA: 1.2 ECA: 87 cm/sec Vertebral artery: 39 cm/sec LEFT CAROTID: CCA: 102 cm/sec ICA: 101 cm/sec Ratio: ICA/CCA: 0.9 ECA: 106 cm/sec Vertebral artery: 20 cm/sec IMPRESSION: Normal bilateral carotid Doppler ultrasound.
[2024-08-12] MEDS: HEParin-NS 1,000 UNIT/500 ML 500 ML IV ONE (14:20)
[2024-08-12] MEDS ORDERED: DEXTROSE 50%-WATER 50 ML DISP.SYRIN IV PRN (15:30)
[2024-08-12] MEDS ORDERED: morPHINE 2 MG SYG IV PRN (15:30)
[2024-08-12] MEDS ORDERED: NOREPINEPHRINE BITARTRATE 8 MG in DEXTROSE 5%-WATER 250 ML IV PRN (15:30)
[2024-08-12] MEDS ORDERED: poTASSium PHOS 15 mMOL+NS250ML 250 ML IV PRN (15:30)
[2024-08-12] MEDS ORDERED: traMADol HCL 50 MG TABLET PO PRN (15:30)
[2024-08-12] MEDS ORDERED: proPOFol 1000 MG/100 ML 100 ML IV PRN (15:30)
[2024-08-12] MEDS ORDERED: 0.9% NACL 500ML IV.SOLN 500 ML IV SCH (15:30)
[2024-08-12] MEDS ORDERED: dexmedeTOMIDine 400MCG/NS100ML IV SCH (15:30)
[2024-08-12] MEDS ORDERED: PoTASSium chloRIDE 20MEQ/100ML 100 ML IV PRN (15:30)
[2024-08-12] MEDS ORDERED: acetaMINOPHEN 325 MG TAB PO PRN (15:30)
[2024-08-12] MEDS ORDERED: ALBUMIN (HUMAN) 5% 250 ML IV PRN (15:30)
[2024-08-12] MEDS ORDERED: 0.9%NACL 10ML VIAL IVP PRN (15:30)
[2024-08-12] MEDS ORDERED: aminoCAProic ACID 5,000MG VIAL 15,000 MG in 0.9% NACL 250ML 250 ML IV SCH (15:30)
[2024-08-12] MEDS ORDERED: NITROGLYCERIN 50MG/D5W 250ML 250 BOT IV SCH (15:30)
[2024-08-12] MEDS ORDERED: acetaMINOPHEN 650 MG SUPPOSITORY RC PRN (15:30)
[2024-08-12] MEDS ORDERED: GLUCAGON 1MG KIT 1 MG ML IM PRN (15:30)
[2024-08-12] MEDS ORDERED: ondanSETRON 4MG INJ IV PRN (15:30)
[2024-08-12 16:09] LABS: ABG BASE EXCESS -6.2 mmol/L (-2.0-3.0); ABG HCO3 19.8 mmol/L (21.0-28.0); ABG OXYGEN SATURATION 99.6 % (94.0-98.0); ABG PCO2 41 mmHg (35-48); CARBON MONOXIDE 0.3 % (0.5-1.5); DEVICE COMMENT 3; HHb 0.4; PO2, ARTERIAL BG 464.9 mmHg (83.0-108.0)
[2024-08-12] MEDS ORDERED: PROTamine SULFate 10 MG/ML 25ML VIAL IV ONE (16:13)
[2024-08-12] MEDS ORDERED: SODIUM BICARB 50MEQ 50ML VIAL 250 ML ONE (16:13)
[2024-08-12 16:41] LABS: ABG HCO3 25.3 mmol/L (21.0-28.0); ABG OXYGEN SATURATION 99.2 % (94.0-98.0); ABG PCO2 44 mmHg (35-48); ABG PH 7.377 (7.350-7.450); CARBON MONOXIDE 0.3 % (0.5-1.5); DEVICE COMMENT A-LINE RENE; HHb 0.8; PO2, ARTERIAL BG 472.1 mmHg (83.0-108.0); VENT MODE, BG AMBU TRANSPORT (ROOM AIR)
[2024-08-12 16:45] LABS: MEAN CORPUSCULAR HGB CONC 33.9 g/dL (32.0-36.0); MEAN CORPUSCULAR VOLUME 94.3 fL (79-99); RED BLOOD CELL COUNT(AUTO) 2.97 MIL/uL (4.50-6.20); RED CELL DISTRIBUTION WIDTH 12.9 % (11.0-15.5); WHITE BLOOD COUNT (AUTO) 11.8 K/uL (4.8-10.8)
[2024-08-12] MEDS: INSULIN REGULAR, HUMAN 3ML 100 UNIT in 0.9%NACL 100ML 99 ML IV SCH (16:52)
[2024-08-12 16:56] LABS: CREATININE 0.8 mg/dL (0.5-1.3); MAGNESIUM 1.5 mg/dL (1.80-2.40); PHOSPHORUS 4.6 mg/dL (2.5-4.9); POTASSIUM 4.4 mmol/L (3.5-5.1)
[2024-08-12 17:02] LABS: INR 1.09 (0.85-1.15); PROTHROMBIN TIME 11.5 SEC (9.6-11.6)
[2024-08-12 17:04] LABS: PARTIAL THROMBOPLASTIN TIME 21.3 SEC (26.3-35.5)
[2024-08-12] MEDS: morPHINE 2 MG SYG IV PRN (17:05)
[2024-08-12] MEDS: acetaMINOPHEN 1,000 MG/100 ML VIAL IV SCH (17:09)
[2024-08-12] MEDS: 0.9%NACL 1000ML 1,000 ML IV SCH (17:29)
[2024-08-12 18:26] LABS: ABG BASE EXCESS -1.8 mmol/L (-2.0-3.0); ABG HCO3 23.7 mmol/L (21.0-28.0); ABG OXYGEN SATURATION 99.4 % (94.0-98.0); ABG PCO2 43 mmHg (35-48); ABG PH 7.355 (7.350-7.450); CARBON MONOXIDE 0.3 % (0.5-1.5); HHb 0.6; PO2, ARTERIAL BG 458.5 mmHg (83.0-108.0); VENT MODE, BG SIMV (ROOM AIR)
[2024-08-12] MEDS: MAGNESIUM 2GM PREMIX 50ML 50 ML IV PRN (18:38)
[2024-08-12] MEDS: PoTASSium chloRIDE 20MEQ/100ML 100 ML IV PRN (18:38)
[2024-08-12] MEDS: SODIUM BICARB 50MEQ 50ML VIAL IV PRN (18:39)
[2024-08-12] MEDS: ASPIRIN 81MG CHEW TAB NG ONE (18:55)
[2024-08-12 19:48] LABS: ABG BASE EXCESS -1.5 mmol/L (-2.0-3.0); ABG HCO3 23.9 mmol/L (21.0-28.0); ABG OXYGEN SATURATION 99.1 % (94.0-98.0); ABG PCO2 43 mmHg (35-48); ABG PH 7.363 (7.350-7.450); CARBON MONOXIDE 0 % (0.5-1.5); HHb 0.9; PO2, ARTERIAL BG 239.5 mmHg (83.0-108.0); VENT MODE, BG SIMV (ROOM AIR)
--- NOTE | 2024-08-12 20:04 | HMCIMG ---
CHEST 1VW HISTORY: Post CABG COMPARISON: 08/12/2024 FINDINGS: A frontal projection of the chest was obtained. Mild bilateral pulmonary infiltrates are seen may be related to mild pulmonary vascular congestion with possible superimposed pneumonitis. Poststernotomy changes are seen. The heart is enlarged. Degenerative changes of the thoracolumbar spine are present. All the lines and tubes are again seen in place. No evidence of aortic calcification is seen. IMPRESSION: 1. Mild bilateral pulmonary infiltrates are seen may be related to mild pulmonary vascular congestion with possible superimposed pneumonitis.
[2024-08-12] MEDS: FAMOTIDINE 20MG VIAL IV SCH (20:12)
[2024-08-12] MEDS ORDERED: ceFAZolin SODIUM 2 GM VIAL IVPB SCH (20:30)
[2024-08-12 20:51] LABS: ABG BASE EXCESS 3.3 mmol/L (-2.0-3.0); ABG HCO3 28.6 mmol/L (21.0-28.0); ABG OXYGEN SATURATION 98.3 % (94.0-98.0); ABG PCO2 47 mmHg (35-48); ABG PH 7.403 (7.350-7.450); CARBON MONOXIDE 0.3 % (0.5-1.5); HHb 1.7; PO2, ARTERIAL BG 144.3 mmHg (83.0-108.0); VENT MODE, BG SIMV (ROOM AIR)
--- NOTE | 2024-08-12 20:55 | NUR ---
Pt extubated at this time. Prior to extubation, pt was alert, following commands, and moving all extremities. Pt able to achieve NIF of -23 cmH20 and Vital capacity of 853 cmH20. Tolerated extubation well. Oral care performed and then pt was placed on aerosol mask 40% FiO2.
[2024-08-12] MEDS: ceFAZolin SODIUM 2 GM VIAL IVP PRN (21:07)
[2024-08-12] MEDS: traMADol HCL 50 MG TABLET PO PRN (22:23)
[2024-08-12] MEDS: doCUSate SODIUM 100 MG CAP PO SCH (22:23)
[2024-08-12 22:25] LABS: ABG BASE EXCESS 1.1 mmol/L (-2.0-3.0); ABG HCO3 27.1 mmol/L (21.0-28.0); ABG OXYGEN SATURATION 98.2 % (94.0-98.0); ABG PCO2 49 mmHg (35-48); ABG PH 7.359 (7.350-7.450); CARBON MONOXIDE 0.2 % (0.5-1.5); HHb 1.8; PO2, ARTERIAL BG 136.1 mmHg (83.0-108.0); VENT MODE, BG AM,40 (ROOM AIR)
[2024-08-13] VITALS (110 sets, daily range): BP systolic 98–219; BP diastolic 44–89; PULSE 79–110; RESP 10–37; TEMP 98.4–99.2; O2SAT 40–98
[2024-08-13 03:18] LABS: BASOPHILS # (AUTO) 0.01 K/uL (0.00-0.20); BASOPHILS % (AUTO) 0.1 % (0.0-5.0); HEMATOCRIT 29.2 % (42-54); IMMATURE GRANULOCYTE ABSOLUTE 0.06 K/uL (0-1); LYMPHOCYTES # (AUTO) 0.6 K/uL (1.0-4.8); LYMPHOCYTES % (AUTO) 6.6 % (21.0-51.0); MEAN CORPUSCULAR HEMOGLOBIN 31.8 pg (27.0-33.0); MEAN CORPUSCULAR HGB CONC 33.6 g/dL (32.0-36.0); MEAN CORPUSCULAR VOLUME 94.8 fL (79-99); MONOCYTES # (AUTO) 0.6 K/uL (0.1-1.0); MONOCYTES % (AUTO) 7.1 % (3.0-13.0); NEUTROPHILS # (AUTO) 7.7 K/uL (1.8-7.7); NEUTROPHILS % (AUTO) 85.5 % (40.0-77.0); PLATELET COUNT (AUTO) 245 K/uL (130-400); RED BLOOD CELL COUNT(AUTO) 3.08 MIL/uL (4.50-6.20); RED CELL DISTRIBUTION WIDTH 13.2 % (11.0-15.5); WHITE BLOOD COUNT (AUTO) 9.1 K/uL (4.8-10.8)
[2024-08-13] MEDS: CALCIUM GLUC 1GM 1 GM in 0.9%NACL 50ML 50 ML IV PRN (03:20)
[2024-08-13 03:26] LABS: ALBUMIN 2.7 g/dL (3.5-5.0); BILIRUBIN,TOTAL 0.4 mg/dL (0.2-1.0); CREATININE 0.7 mg/dL (0.5-1.3); MAGNESIUM 1.9 mg/dL (1.80-2.40); PHOSPHORUS 3.8 mg/dL (2.5-4.9); POTASSIUM 3.8 mmol/L (3.5-5.1); TOTAL PROTEIN, SERUM 6.4 g/dL (6.0-8.3)
[2024-08-13 03:43] LABS: INR 0.99 (0.85-1.15); PROTHROMBIN TIME 10.5 SEC (9.6-11.6)
[2024-08-13 03:44] LABS: PARTIAL THROMBOPLASTIN TIME 23.6 SEC (26.3-35.5)
[2024-08-13 05:14] LABS: ABG BASE EXCESS -0.5 mmol/L (-2.0-3.0); ABG HCO3 23.8 mmol/L (21.0-28.0); ABG OXYGEN SATURATION 97.7 % (94.0-98.0); ABG PCO2 38 mmHg (35-48); ABG PH 7.413 (7.350-7.450); PO2, ARTERIAL BG 100.4 mmHg (83.0-108.0); VENT MODE, BG NC (ROOM AIR)
--- NOTE | 2024-08-13 06:32 | EKG ---
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
--- NOTE | 2024-08-13 06:51 | OP ---
DATE OF PROCEDURE: 08/12/2024 PREOPERATIVE DIAGNOSIS: Coronary artery disease. POSTOPERATIVE DIAGNOSIS: Coronary artery disease. PROCEDURE PERFORMED: Off-pump CABG x 2, HILLMAN to LAD and reverse saphenous vein graft to PDA. SURGEON: Abram Colon MD COMPLETION ENGINEER: Ovi Gee. ANESTHESIA: Jaylen Mckeon DO CARDIOLOGY: Eduardo Madrid MD DISPOSITION: Stable. COMPLICATIONS: None. ESTIMATED BLOOD LOSS: 500 mL. BLOOD UTILIZATION: None. IMPLANTS: Three ANTIONETTE plates with eighteen #16 gauge screws. INDICATIONS: This is a patient of Dr. Madrid. I had the opportunity to review the medical record, examined the patient and discussed the case with the caring yarrow gatherer. We both agreed surgery as indicated, and we have recommended. The patient understood the indications of surgery as well as the potential complications of the operation including but not limited to postoperative bleeding, infection, stroke, and/or , as well as the associated morbidity and mortality of the procedure as it relates to his own comorbidities and is depicted in the manner of morbidity and mortality in the Society of Thor[employer] Surgeons' clinical current database. He wished to proceed with surgery. FINDINGS AT THE TIME OF SURGERY: There was a 1.75 mm LAD distal to the obstruction, which was bypassed with the mammary artery. The right coronary artery was and it was bypassed distal to the obstruction at the of the PDA. The oblique marginal vessel had only 30% obstruction, this was not bypassed. At the end of the procedure, EKG was isoelectric. The patient was hemodynamically stable. Transesophageal echocardiogram demonstrates good function. DESCRIPTION OF PROCEDURE IN DETAIL: With the patient in the supine position after adequate induction of general endotracheal anesthesia, preoperative intravenous antibiotics, percutaneous arterial and venous lines, surgeon directed timeout utilizing two patient identifiers followed by a mid sternotomy, simultaneous harvesting of the left internal mammary artery from anterior left chest wall and the greater saphenous vein from the left lower extremity using endoscope technique. The patient was systemically heparinized and the mammary artery was from the chest in preparation for bypass. A chest retractor was placed utilizing mechanical stabilizer and 4-prong tourniquet for vascular control. Two-distal anastomosis was performed in the end-to-side fashion with the HILLMAN and LAD, and reverse saphenous vein graft and PDA. Utilizing a heartstring device, a proximal anastomosis was performed with running suture of 5-0 Prolene. Graft deaired and the myocardium revascularized. Protamine, hemostasis, and closure. Two chest drains, stainless steel wires for sternum, open reduction and internal fixation utilizing three ANTIONETTE plates and eighteen #16 gauge screws, #1 Vicryl and 3-0 Monocryl for closure. The patient was transferred in stable condition to the ICU. TID: [id number] RECEIPT: [id number]
--- NOTE | 2024-08-13 06:51 | PN ---
[facility] Cardiology Progress Note Calves on cardiology progress note August 13, 2024 Problems: 1. Non ST-elevation [place] 2. Multivessel CAD with LV ejection fraction of 55% hypokinesis of the inferior wall status post aortocoronary bypass graft surgery with a HILLMAN graft to the LAD and saphenous vein graft 3. Dyslipidemia 4. Right common femoral vein deep vein thrombosis 5. Normocytic anemia 6. Diabetes mellitus type 2 7. Alcohol abuse The patient underwent bypass surgery yesterday. He is currently up in the chair extubated and on some intravenous nitroglycerin as well as insulin scale. This morning blood pressure is running 130-140 systolic heart rate is 100 per minute white count 9.1 The pericardial rub is present. Hemoglobin 9.8 Platelet count 700927. Potassium 3.8 BUN eight creatinine 0.7. Chest x-ray this morning is a portable film. Cardiomegaly is present. There was minimal blunting of the left costophrenic angle. No pneumothorax. Post sternotomy changes are noted. The patient continues on aspirin atorvastatin Lovenox 30 mg subQ daily famotidine furosemide insulin scale and metoprolol. I will increase his metoprolol dose to 25 mg b.i.d. today. At some point we will initiate full anticoagulation for his deep vein thrombosis but given recent bypass surgery and chest tube in place we will wait 24-48 hours. ROSALIA LINDSAY MD Aug 13, 2024 06:50
[2024-08-13] MEDS: metoPROLOL tartRATE 25 MG TAB PO SCH (08:49)
[2024-08-13] MEDS ORDERED: PoTASSium chl 10% ELIXIR 20MEQ 20 MEQ/15 ML UDCUP PO PRN (09:00)
[2024-08-13] MEDS ORDERED: PoTASSium chloRIDE 20MEQ ER 20 MEQ ERTAB PO PRN (09:00)
[2024-08-13] MEDS ORDERED: furoSEMIDE 20MG VIAL IV SCH (09:00)
--- NOTE | 2024-08-13 09:46 | PN ---
[facility] PROGRESS NOTE Date of Service: Aug 13, 2024 Time of Service: 09:46 SUBJECTIVE: This is a case of 59-year-old male with past medical history of diabetes, hypertension and hyperlipidemia who presented to the ED with complaints of left- sided chest pain which started around 8 pm last night while resting. He states that he has been experiencing intermittent chest pain since the past 2 days ago which has become persistent associated with SOB last night. Patient also reports that he had 5 beers last night and denies cigarette and recreational drug use. Initial ECG revealed ST 110 right bundle branch block, inferior infarct acute and second EKG showed ST 108 right bundle branch block inferior infarct recent and the 3rd EKG showed ST 120 with Right bundle branch block Inferior infarct recent and probable posterior infarct acute. Initial Labs WBC 10.9, BNP 147, total CK 812, troponin 13,930, serum alcohol 117. While in the ER patient received aspirin 325 mg p.o., Protonix 40 mg IV, Brilinta 90 mg p.o., verapamil 5 mg IV and metoprolol 5 mg IV and was started on heparin and nitroglycerin drip. He was admitted for further assessment and treatment in view of NSTEMI. 08/05/2024 Patient is seen and examined at the bedside. He complains of mild p ressure-like left-sided chest pain and generalized body weakness. Vitals blood pressure ranging in 120/70s. Labs WBC 10.9, hemoglobin 13.9, BNP 147, PT 10.1, INR 0.95. Urinalysis positive for glucose. Urine toxicology negative and serum alcohol 117, glucose 229, magnesium 1.9, TCK 8. Troponin trend [id number]. Currently on heparin and nitroglycerin drip. He is scheduled for cardiac catheterization procedure today. Chest x-ray revealed clear lungs and pending 2D echo results. 08/06/2024 Patient is seen and examined at the bedside. He complains of generalized body weakness and headache. He denies fever, chills, nausea, vomiting, chest pain, palpitations, abdominal pain. Vitals Blood pressure 137/67. Labs WBC 10, hemoglobin dropped from 13.9-11.5, magnesium 1.70, calcium 8.1, AST improved from 176-115. BNP improved from 147-128 and TCK improved 812-575. He underwent left heart catheterization yesterday which revealed two- vessel coronary artery disease with 80% stenosis in the proximal LAD and 100% stenosis in the distal RCA. 2D echo revealed normal Left ventricle systolic function, estimated LVEF 55% and Indeterminate diastolic function. CT surgery was consulted. 08/07/24 Patient is seen and examined at the bedside. /He was managed for ACS/Non-STEMI and underwent further assessment with a cardiac catheterization on 08/05/2024 demonstrating two-vessel coronary artery disease with 80% stenosis in the proximal LAD and 100% stenosis in the distal RCA. He has had no recurrent angina overnight. He continues on IV heparin. 2D echocardiogram on 08/05/2024 demonstrating basal inferior wall hypokinesis and an LVEF of 55%. 08/08/2024 Patient is seen and examined at the bedside. No acute events last night. Currently on heparin drip. He mentioned about experiencing mild chest discomfort, shortness of breath this morning when he tried to sit in the chair. He also complains of pain and discomfort over right groin. We will order a repeat right groin ultrasound to rule out hematoma. Vitals blood pressure 137/78, respiratory rate 23. Labs hemoglobin decreased from 11.2-10.8, reticulocyte count high at 2.34, iron 18, TIBC 253,% saturation low at 7.1 indicating iron deficiency, BMP unremarkable, TCK normal at 118. Pending CABG. 08/09/2024 Patient is seen and examined at the bedside. No acute events last night. Currently on heparin drip. Vitals blood pressure 151/88, respiratory rate 16. He complains of right groin discomfort and pain. Right groin soft tissue ultrasound revealed multiple right inguinal lymph nodes, partial DVT with thrombus in right common femoral vein, possible phlebitis of great saphenous vein. We will continue the patient on heparin drip for DVT as per cardiology consult recommendation. Labs hemoglobin 10.9, APTT 45.8, BMP unremarkable. Pending CABG. 08/10/24 patient was seen and examined. Patient denies any complaints except dry cough. No acute events overnight. His vitals are stable. Patient reports that his right groin discomfort and pain is getting better and is able to move around. Continue heparin drip. His labs showed hemoglobin 10.7, potassium 3.3 and is being replaced as per the protocol. Magnesium 1.80 and we will cover with the protocol. He is pending CABG. 08/11/2024 Patient is seen and examined at the bedside. No acute events last night. He states that he feels well and his right groin pain and discomfort has been significantly reduced. Currently on heparin drip. Vitals temperature 98.2, pulse rate 72, respiratory rate 16, blood pressure 126/69, SpO2 98% on room air. Labs hemoglobin improved from 10.7-11, WBC 6.6, BMP unremarkable. Pending CABG procedure. 08/12/2024 Patient is seen and examined at the bedside. No acute events last night. He states that he feels well and has no complaints. Currently NPO. Vitals temperature 97.9, pulse rate 78, blood pressure 133/77, respiratory rate 20, SpO2 99% on room air. Labs WBC 7.5, hemoglobin decreased from 11-10.7, BMP, LFT and lipid panel levels are normal. ABG showed pH 7.43, PO2 78.2, HC03 28.1, pCO2 43. Scheduled for CABG procedure today. 08/13/2024 Post CABG day 1 Patient is seen and examined at the bedside. He complains of moderate chest pain and discomfort. No Acute events last night. Vitals pulse rate 106, respiratory rate 25, blood pressure 136/51, SpO2 99% on 2 L nasal cannula. Urine output 1.4 L, chest tube drainage 320 mL. Currently on nitroglycerin drip. Labs WBC improved from 11.8-9.1, hemoglobin improved from 9.5-9.8, BMP unremarkable. Carotid ultrasound results are normal. Pending Chest x-ray results. REVIEW OF SYSTEMS CONSTITUTIONAL: Denies fevers, chills, or night sweats. No unintentional weight loss reported. NEUROLOGICAL: Denies headache, amaurosis fugax, motor weakness, sensory deficit, vertigo/spinning sensation, gait abnormalities, or tremors. ENT: No hearing loss, otalgia, otorrhea, rhinitis, rhinorrhea, hoarseness, or sore throat. CARDIOVASCULAR: Deniesdyspnea on exertion, orthopnea, paroxysmal nocturnal dyspnea, palpitations, life-threatening arrhythmias, claudication. PULMONARY: , phlegm/sputum, hemoptysis, pleuritic chest pain. SLEEP: Denies morning headaches, daytime somnolence or napping. Denies d ifficulty falling asleep, staying asleep, waking from sleep. Denies knowledge of snoring. GASTROINTESTINAL: Denies any type of dysphagia to either liquids or solids. Denies nausea, vomiting, pyrosis, early satiety, abdominal pain, diarrhea, constipation, or changes in stool consistency or caliber. Denies coffee-ground emesis, hematemesis, hematochezia, or melanotic stools. GENITOURINARY: Denies frequency, urgency, nocturia, hematuria or incontinence (Storage/Irritative symptoms.) Low urinary stream, straining to void, urinary intermittency or hesitancy, splitting of the voiding stream, terminal dribbling. ENDOCRINOLOGIC: Denies polyuria, polydipsia, polyphagia or heat/cold intolerances. HEMATOLOGIC: Denies thrombophilia/previous clots, or coagulopathy/bleeding disorders. ONCOLOGIC: Denies personal history of malignancy. DERMATOLOGIC: Denies rashes or pruritus. PSYCHIATRIC: Denies any suicidal or homicidal ideation. Denies hallucinations. PHYSICAL EXAM GENERAL APPEARANCE: The patient is awake, alert, and oriented, in no acute cardiopulmonary distress. NEUROLOGICAL: Cranial nerves II-XII grossly intact. Motor is 5/5 in bilateral upper and lower extremities proximal to distal. No sensory deficits. HEENT: Face is symmetric. Pupils are equal and reactive. Extraocular movements are intact. NECK: Supple. No JVD. No thyromegaly. No submental, submandibular, pre- /postauricular, occipital or supraclavicular lymphadenopathy. CHEST: Normal chest expansion. No Telemetry. LUNGS: Absence of any rales, rhonchi or any wheezing. CARDIOVASCULAR: Regular. S1 and S2 normal. No appreciable rubs, murmurs or gallops. ABDOMEN: Soft, nontender, and nondistended. There is no rebound, voluntary guarding, or rigidity. : Improving Redness, bruising over right groin area Deferred. No Fitzpatrick. EXTREMITIES: Non-edematous and not cyanotic. No clubbing. Good capillary refill. SKIN: No skin breakdown. Vital Signs (last 8hr) Date Time Temp Pulse Resp B/P (MAP) Pulse Ox O2 Delivery O2 Flow Rate FiO2 08/13/24 08:45 106 25 114/73 (87) 99 136/51 (79) 08/13/24 08:30 105 15 100 154/53 (86) 08/13/24 08:15 106 15 99 157/53 (87) 08/13/24 08:00 40 Nasal Cannula* 2 28 08/13/24 08:00 106 24 98 156/62 (93) 08/13/24 07:47 98.4 08/13/24 07:45 107 25 117/70 (86) 98 139/59 (85) 08/13/24 07:30 100 15 98 131/55 (80) 08/13/24 07:20 100 16 N/Cannula Low lpm 2.0 28 08/13/24 07:15 97 14 98 141/57 (85) 08/13/24 07:00 102 20 98 128/55 (79) 08/13/24 06:45 101 21 119/55 (76) 97 08/13/24 06:30 99 20 97 143/59 (87) 08/13/24 06:15 109 23 93 132/68 (89) 08/13/24 06:00 104 15 111/62 (78) 98 28 131/59 (83) 08/13/24 05:45 104 15 98 139/62 (87) 08/13/24 05:30 106 37 99 153/63 (93) 08/13/24 05:15 103 25 138/63 (88) 98 08/13/24 05:00 105 27 118/65 (82) 99 28 130/62 (84) 08/13/24 04:45 105 30 130/65 (86) 99 08/13/24 04:30 107 30 148/66 (93) 99 08/13/24 04:15 102 30 160/64 (96) 99 28 08/13/24 04:00 96 16 119/72 (88) 100 149/63 (91) 08/13/24 04:00 99.1 08/13/24 03:50 96 20 152/65 (94) 100 08/13/24 03:44 96 16 155/67 (96) 100 08/13/24 03:35 96 16 150/62 (91) 100 08/13/24 03:30 95 15 144/57 (86) 100 08/13/24 03:15 94 16 139/56 (83) 100 08/13/24 03:00 93 16 118/74 (89) 100 40 143/56 (85) 08/13/24 02:45 92 18 144/58 (86) 100 08/13/24 02:40 40 Aerosol Mask+ 40 08/13/24 02:30 92 19 137/56 (83) 100 08/13/24 02:15 93 19 140/58 (85) 100 08/13/24 02:00 95 29 122/78 (93) 100 40 139/58 (85) LABS: Laboratory: Test 08/13/24 08:55 08/13/24 05:13 08/13/24 03:00 08/12/24 22:23 Range/Units Whole Blood Glucose 177 #H 70-110 MG/DL Blood Gas Specimen Type Arterial Arterial Blood pH 7.413 7.350-7.450 Arterial Blood Partial Pressure CO2 38 35-48 mmHg Arterial Blood Partial Pressure O2 100.4 83.0-108.0 mmHg Arterial Blood HCO3 23.8 21.0-28.0 mmol/L Arterial Blood Oxygen Saturation 97.7 94.0-98.0 % Arterial Blood Base Excess -0.5 -2.0-3.0 mmol/L Blood Gas Temperature 37.0 35.5-37.0 CELSIUS Blood Gas Flow-by 3.00 0.00-15.00 L/min Blood Gas Vent Mode NC ROOM AIR FiO2 32.0 % Blood Gas Specimen Comment DIPESH BRENNAN White Blood Count 9.1 4.8-10.8 K/uL Red Blood Count 3.08 L 4.50-6.20 MIL/uL Hemoglobin 9.8 L 14.0-18.0 g/dL Hematocrit 29.2 L 42-54 % Mean Corpuscular Volume 94.8 79-99 fL Mean Corpuscular Hemoglobin 31.8 27.0-33.0 pg Mean Corpuscular Hemoglobin Concent 33.6 32.0-36.0 g/dL Red Cell Distribution Width 13.2 11.0-15.5 % Platelet Count 245 # 130-400 K/uL Mean Platelet Volume 9.6 7.5-10.5 fL Immature Granulocyte % (Auto) 0.7 0-1 % Neutrophils (%) (Auto) 85.5 H 40.0-77.0 % Lymphocytes (%) (Auto) 6.6 L 21.0-51.0 % Monocytes (%) (Auto) 7.1 3.0-13.0 % Eosinophils (%) (Auto) 0.0 0.0-8.0 % Basophils (%) (Auto) 0.1 0.0-5.0 % Neutrophils # (Auto) 7.7 1.8-7.7 K/uL Lymphocytes # (Auto) 0.6 L 1.0-4.8 K/uL Monocytes # (Auto) 0.6 0.1-1.0 K/uL Eosinophils # (Auto) 0.00 0.00-0.70 K/uL Basophils # (Auto) 0.01 0.00-0.20 K/uL Absolute Immature Granulocyte (auto 0.06 0-1 K/uL Nucleated Red Blood Cells 0.0 0.0-0.19 % White Cell Morphology Comment See comments Prothrombin Time 10.5 9.6-11.6 SEC Prothromb Time International Ratio 0.99 0.85-1.15 Activated Partial Thromboplast Time 23.6 L 26.3-35.5 SEC Sodium Level 140 136-145 mmol/L Potassium Level 3.8 3.5-5.1 mmol/L Chloride Level 106 101-111 mmol/L Carbon Dioxide Level 29 21-32 mmol/L Blood Urea Nitrogen 8 7-18 mg/dL Creatinine 0.7 0.5-1.3 mg/dL Glomerular Filtration Rate Calc 107 >90 mL/min Random Glucose 125 H 70-105 mg/dL Total Calcium 8.7 8.5-10.1 mg/dL Ionized Calcium 1.14 L 1.15-1.33 MMOL/L Phosphorus Level 3.8 2.5-4.9 mg/dL Magnesium Level 1.90 1.80-2.40 mg/dL Total Bilirubin 0.4 0.2-1.0 mg/dL Aspartate Amino Transf (AST/SGOT) 28 10-37 U/L Alanine Aminotransferase (ALT/SGPT) 48 12-78 U/L Alkaline Phosphatase 64 50-136 U/L Total Protein 6.4 6.0-8.3 g/dL Albumin 2.7 L 3.5-5.0 g/dL Hemoglobin (Blood Gas) 11.3 L 13.5-17.5 g/dL Sodium (Blood Gas) 141 136-145 MMOL/L Bedside Potassium (Blood Gas) 4.2 3.4-4.5 MMOL/L Bedside Chloride (Blood Gas) 103 98-107 MMOL/L Bedside Glucose (Blood Gas) 166 H 65-95 MG/DL Bedside Ionized Calcium (Blood Gas) 1.22 1.15-1.33 MMOL/L Bedside Lactic Acid (Blood Gas) 2.84 H 0.36-0.75 MMOL/L Test 08/12/24 20:50 08/12/24 11:04 08/12/24 03:26 Range/Units Blood Gas Respiration Rate 4.0 min. Blood Gas Tidal Volume 600 ml Blood Gas PEEP 5 cm H2O Bedside Glucose Comment Notified Nurse B-Type Natriuretic Peptide 105 H 0-100 pg/mL Triglycerides Level 50 30-200 mg/dL Cholesterol Level 104 # <200 mg/dL LDL Cholesterol 47 0-99 mg/dL HDL Cholesterol 51 29-71 mg/dL Current Medications Medications (Trade) Dose Ordered Sig/Isidoro Route PRN Reason Start Time Stop Time Status Last Admin Dose Admin Acetaminophen (TYLenol 325MG TAB) 650 mg Q4H PRN PO Temp >38.3C(AFTER EXTUBATION) 08/12/24 15:30 09/11/24 15:29 Acetaminophen (TYLenol 325MG TAB) 650 mg Q6H PRN PO MILD PAIN (1-3) 08/12/24 15:30 08/12/24 16:09 DC Acetaminophen (TYLenol 500MG TAB) 500 mg Q6H PRN PO MILD PAIN (1-3) 08/06/24 10:00 09/05/24 09:59 08/08/24 20:05 500 MG Acetaminophen (TYLenol 650MG SUPPOSITORY) 650 mg Q4H PRN RC Temp >38.3C WHILE INTUBATED 08/12/24 15:30 09/11/24 15:29 Acetaminophen (acetaMINOPHEN) 1,000 mg Q6H6 IV 08/12/24 18:00 08/13/24 17:59 08/13/24 05:11 1,000 MG Albumin Human 250 ml @ 0 mls/hr AD PRN IV IF HEMODYNAMICALLY UNSTABLE 08/12/24 15:30 Aminocaproic Acid 42848 mg/Sodium Chloride 310 ml @ 25 mls/hr AD IV 08/12/24 15:30 08/12/24 15:32 DC Aminocaproic Acid 58268 mg/Sodium Chloride 480 ml @ 0 mls/hr AD PRN IV BLEEDING CONTROL 08/12/24 06:30 09/11/24 06:29 Aspirin (Aspirin 81mg Ec Tab) 81 mg DAILY PO 08/06/24 09:00 09/05/24 08:59 08/13/24 08:32 81 MG Atorvastatin Calcium (LIPItor 40MG) 40 mg HS PO 08/05/24 21:00 09/04/24 20:59 08/12/24 22:23 40 MG Calcium Gluconate 1 gm/Sodium Chloride 60 ml @ 200 mls/hr AD PRN IV HYPOCALCEMIA 08/12/24 15:30 09/11/24 15:29 08/13/24 03:20 200 MLS/HR Cefazolin Sodium (Ancef) 2 gm ONCALL PRN IVP SURGERY 08/11/24 18:30 08/12/24 16:01 DC Cefazolin Sodium (Ancef) 2 gm ONCALL PRN IVP SURGERY 08/12/24 16:30 08/14/24 16:29 08/12/24 21:07 2 GM Cefazolin Sodium (Ancef) 2 gm Q8H IVPB 08/12/24 20:30 08/12/24 16:05 DC Ceftriaxone Sodium (Rocephin 2gm Inj) 2 gm Q24H IVPB 08/06/24 00:00 08/15/24 23:59 08/12/24 23:06 2 GM Chlordiazepoxide HCl (LIBrium 25 MG CAP) 25 mg Q2H PRN PO ALCOHOL WITHDRAWAL PROTOCOL 08/05/24 06:00 08/12/24 05:59 DC 08/06/24 22:55 25 MG Dexmedetomidine/ Sodium Chloride (PRECEdex 400MCG/ 100ML-NS) 400 mcg PROTOCOL IV 08/12/24 15:30 08/13/24 15:29 Dextrose (D50w) 50 ml AD PRN IV HYPOGLYCEMIA PROTOCOL 08/05/24 05:30 08/12/24 16:00 DC Dextrose (D50w) 50 ml AD PRN IV HYPOGLYCEMIA PROTOCOL 08/12/24 15:30 09/11/24 15:29 Diazepam (VALium 5 MG/ML 2 ML SYG) 10 mg Q4H PRN IVP ALCOHOL WITHDRAWAL PROTOCOL 08/05/24 06:30 08/12/24 06:29 DC Docusate Sodium (COLace 100MG CAP) 100 mg BID PO 08/12/24 21:00 09/11/24 20:59 08/13/24 08:32 100 MG Doxycycline Hyclate (Doxycycline Hyclate) 100 mg BID PO 08/06/24 09:00 08/06/24 12:18 DC 08/06/24 09:06 100 MG Enoxaparin Sodium (Lovenox) 30 mg DAILY SQ 08/15/24 09:00 09/14/24 08:59 Epinephrine HCl 10 mg/Sodium Chloride 250 ml @ 0 mls/hr AD PRN IV TITRATE 08/12/24 06:30 09/11/24 06:29 Epinephrine HCl 10 mg/Sodium Chloride 250 ml @ 0 mls/hr AD PRN IV POST-OP CARDIOVASCULAR ORDERS 08/12/24 15:30 08/12/24 15:32 DC Famotidine (Pepcid 20mg Vial) 20 mg BID IV 08/05/24 09:00 08/05/24 09:01 DC 08/05/24 07:47 20 MG Famotidine (Pepcid 20mg Vial) 20 mg BID IV 08/12/24 21:00 08/13/24 07:32 DC 08/12/24 20:12 20 MG Furosemide (LASix 20MG TAB) 20 mg Q12H PO 08/14/24 09:00 09/13/24 08:59 Furosemide (LASix 20MG VIAL) 20 mg Q12H IV 08/13/24 09:00 08/12/24 16:01 DC Glucagon (Glucagon 1mg Kit) 1 mg AD PRN IM HYPOGLYCEMIA PROTOCOL 08/05/24 05:30 08/12/24 16:00 DC Glucagon (Glucagon 1mg Kit) 1 mg AD PRN IM HYPOGLYCEMIA PROTOCOL 08/12/24 15:30 09/11/24 15:29 Guaifenesin (RobiTUSSin SUGAR-FREE 100 MG/ 5 ML UDCUP) 200 mg Q4H PRN PO COUGH 08/07/24 23:30 08/12/24 15:17 DC 08/09/24 21:09 200 MG Heparin Sodium (Porcine) (HEParin 5,000 UNIT VIAL) 5,000 unit Q8H SQ 08/05/24 11:00 08/05/24 03:04 DC Heparin Sodium/ Dextrose 250 ml @ 0 mls/hr PROTOCOL IV 08/05/24 03:00 08/12/24 15:17 DC 08/11/24 21:27 11.46 MLS/HR Insulin Glargine (LANtus 100 UNITS/ML 10 ML VIAL) 10 units BID@0730,2100 SQ 08/05/24 21:00 08/12/24 15:17 DC 08/11/24 20:31 10 UNITS Insulin Human Regular (humuLIN R 100 UNIT/ML 3ML) INSULIN SLIDING SCAL... ACHS SQ 08/05/24 07:30 08/05/24 08:55 DC 08/05/24 07:47 5 UNIT Insulin Human Regular (humuLIN R 100 UNIT/ML 3ML) INSULIN SLIDING SCAL... ACHS SQ 08/05/24 11:30 08/12/24 15:17 DC 08/11/24 20:34 14 UNIT Insulin Human Regular 100 unit/ Sodium Chloride 100 ml @ 0 mls/hr AD IV 08/12/24 15:30 08/14/24 15:29 08/12/24 16:52 4 MLS/HR Iron Sucrose (VenoFER) 100 mg DAILY IV 08/08/24 09:30 08/08/24 09:17 DC Iron Sucrose (VenoFER) 100 mg Q24H IV 08/08/24 21:00 08/10/24 22:00 DC 08/10/24 22:03 100 MG Isosorbide Mononitrate (Imdur 30mg Sr) 30 mg DAILY PO 08/11/24 13:00 08/12/24 15:17 DC 08/11/24 14:17 30 MG Lactulose (Constulose 20gm/ 30ml Udcup) 20 gm BID PRN PO CONSTIPATION 08/12/24 15:30 09/11/24 15:29 Lorazepam (AtiVAN) 2 mg Q4H PRN IVP ALCOHOL WITHDRAWAL PROTOCOL 08/05/24 06:00 08/05/24 06:04 DC Losartan Potassium (CozAAR 50 mg TAB) 50 mg BID PO 08/09/24 21:00 08/12/24 15:17 DC 08/11/24 20:39 50 MG Losartan Potassium (CozAAR 50 mg TAB) 50 mg DAILY PO 08/07/24 09:00 08/09/24 09:16 DC 08/09/24 08:06 50 MG Magnesium Hydroxide (Milk Of Magnesium 30ml) 30 ml DAILY PRN PO CONSTIPATION 08/12/24 15:30 09/11/24 15:29 Magnesium Sulfate 50 ml @ 12.5 mls/hr AD PRN IV MAG LEVEL LESS THAN 2.0 08/12/24 15:30 09/11/24 15:29 08/13/24 08:32 12.5 MLS/HR Magnesium Sulfate 50 ml @ 0 mls/hr PROTOCOL PRN IV OTHER [SEE ORDER COMMENTS] 08/05/24 05:30 08/12/24 16:01 DC 08/10/24 04:13 25 MLS/HR Metoprolol Tartrate (loprESSOR) 12.5 mg BID PO 08/14/24 09:00 08/13/24 06:52 DC Metoprolol Tartrate (loprESSOR) 25 mg BID PO 08/05/24 14:30 08/08/24 08:27 DC 08/08/24 07:44 25 MG Metoprolol Tartrate (loprESSOR) 25 mg BID PO 08/13/24 09:00 09/12/24 08:59 08/13/24 08:49 25 MG Metoprolol Tartrate (loprESSOR) 25 mg BID PO 08/14/24 09:00 08/13/24 08:43 DC Metoprolol Tartrate (loprESSOR) 50 mg BID PO 08/08/24 09:00 08/12/24 15:17 DC 08/12/24 08:24 50 MG Morphine Sulfate (morPHINE 2MG SYG) 0.5 mg Q2H PRN IV MODERATE PAIN (4-6) 08/12/24 15:30 08/13/24 15:29 Morphine Sulfate (morPHINE 2MG SYG) 1 mg Q2H PRN IV SEVERE PAIN (7-10) 08/12/24 15:30 08/13/24 15:29 08/12/24 18:55 1 MG Morphine Sulfate (morPHINE 2MG SYG) 2 mg Q2HPRN PRN IVP SEVERE PAIN (6-10) 08/05/24 11:10 08/10/24 14:09 DC 08/09/24 04:17 2 MG Morphine Sulfate (morPHINE 2MG SYG) 2 mg Q4H PRN IVP SEVERE PAIN (7-10) 08/05/24 06:00 08/05/24 08:31 DC 08/05/24 06:03 2 MG Nicardipine HCl 100 mg/Sodium Chloride 100 ml @ 0 mls/hr AD PRN IV TITRATE 08/12/24 17:30 09/11/24 17:29 Nitroglycerin (Nitroglycerin 1gm Oint) 0.5 inch Q8H5 TD 08/08/24 13:00 08/10/24 12:43 DC 08/10/24 06:05 0.5 INCH Nitroglycerin (Nitrostat) 0.4 mg AD PRN SL CHEST PAIN 08/05/24 02:30 08/08/24 08:53 DC 08/05/24 02:46 0.4 MG Nitroglycerin/ Dextrose 0 ml @ 0 mls/hr AD IV 08/12/24 15:30 08/12/24 16:07 DC Nitroglycerin/ Dextrose 250 ml @ 0 mls/hr PROTOCOL IV 08/05/24 03:30 09/04/24 03:29 08/12/24 17:28 0 MLS/HR Norepinephrine Bitartrate 250 ml @ 0 mls/hr AD PRN IV TITRATE 08/12/24 06:30 09/11/24 06:29 Norepinephrine Bitartrate 8 mg/ Dextrose 250 ml @ 0 mls/hr AD PRN IV POST-OP CARDIOVASCULAR ORDERS 08/12/24 15:30 08/12/24 15:32 DC Ondansetron HCl (zoFRAN 4MG INJ) 4 mg Q6H PRN IV NAUSEA/VOMITING 08/05/24 05:30 09/04/24 05:29 08/12/24 18:54 4 MG Ondansetron HCl (zoFRAN 4MG INJ) 4 mg Q6H PRN IV NAUSEA/VOMITING 08/12/24 15:30 08/12/24 16:02 DC Pantoprazole Sodium (PROTonix 40MG INJ) 40 mg DAILY IVP 08/05/24 09:00 08/12/24 15:17 DC 08/12/24 08:24 40 MG Pharmacy Profile Note (Pharmacy Communication) 1 each PROTOCOL PRN MISC ETOH Withdrawal Score changes 08/05/24 06:00 08/12/24 05:59 DC Potassium Phosphate 250 ml @ 42 mls/hr AD PRN IV LOW PHOS LEVEL 08/12/24 15:30 09/11/24 15:29 Potassium Chloride 100 ml @ 50 mls/hr AD PRN IV POTASSIUM PROTOCOL 08/05/24 05:30 08/07/24 18:24 DC Potassium Chloride 100 ml @ 100 mls/hr AD PRN IV POTASSIUM PROTOCOL 08/07/24 09:00 09/06/24 08:59 08/13/24 03:34 100 MLS/HR Potassium Chloride 100 ml @ 100 mls/hr AD PRN IV HYPOKALEMIA 08/12/24 15:30 08/13/24 09:00 DC Potassium Chloride (K-Dur/Klor-Con 20meq) 20 meq AD PRN PO POTASSIUM PROTOCOL 08/07/24 09:00 09/06/24 08:59 08/10/24 22:04 20 MEQ Potassium Chloride (K-Dur/Klor-Con 20meq) 20 meq AD PRN PO POTASSIUM PROTOCOL 08/13/24 09:00 08/13/24 09:00 DC Potassium Chloride (KCl 10% Elixir 20meq/15ml) 20 meq AD PRN PO POTASSIUM PROTOCOL 08/07/24 09:00 09/06/24 08:59 Potassium Chloride (KCl 10% Elixir 20meq/15ml) 20 meq AD PRN PO POTASSIUM PROTOCOL 08/13/24 09:00 08/13/24 09:00 DC Promethazine HCl (Phenergan) 25 mg Q6H PRN PO NAUSEA 08/05/24 06:00 08/12/24 15:17 DC Propofol 100 ml @ 0 mls/hr AD PRN IV SEDATION 08/12/24 15:30 08/16/24 15:29 Ranolazine (Ranexa) 500 mg BID PO 08/05/24 17:30 08/12/24 15:17 DC 08/11/24 20:38 500 MG Ranolazine (Ranexa) 500 mg BID PO 08/05/24 21:00 08/05/24 17:04 DC Sodium Bicarbonate (Sodium Bicarb 50meq 50ml Vial) 50 meq AD PRN IV OTHER[SEE DOSING INSTRUCTIONS] 08/12/24 15:30 08/15/24 15:29 08/12/24 19:50 50 MEQ Sodium Chloride 500 ml @ 0 mls/hr AD IV 08/12/24 15:30 09/11/24 15:29 Sodium Chloride 1,000 ml @ 10 mls/hr ONCE IV 08/12/24 15:30 08/13/24 15:29 08/12/24 17:29 10 MLS/HR Sodium Chloride 1,000 ml @ 75 mls/hr [id number] IV 08/05/24 05:30 08/10/24 15:46 DC 08/08/24 16:15 75 MLS/HR Sodium Chloride 1,000 ml @ 100 mls/hr Q10H IV 08/05/24 14:30 08/05/24 17:29 DC 08/05/24 15:22 100 MLS/HR Sodium Chloride (NS Flush 10ml) 10 ml Q8H PRN IVP IV LINE FLUSH 08/12/24 15:30 09/11/24 15:29 Thiamine HCl 100 mg/Folic Acid 1 mg/Multivitamins/ Minerals 10 ml/ Sodium Chloride 1,011.2 ml @ 100 mls/ hr Q24H IV 08/05/24 06:00 08/07/24 16:07 DC 08/07/24 05:34 100 MLS/HR Tramadol HCl (UltRAM) 25 mg Q6H PRN PO MODERATE PAIN (4-6) 08/12/24 15:30 08/17/24 15:29 Tramadol HCl (UltRAM) 50 mg Q6H PRN PO SEVERE PAIN (7-10) 08/12/24 15:30 08/17/24 15:29 08/13/24 04:33 50 MG Wound Care/ Dressing Products (Venelex Ointment) 1 NAKIA AD TID TP 08/06/24 14:00 08/06/24 12:50 DC DIAGNOSTICS / RADIOLOGY: [ ] ASSESSMENT: Chest pain, POA ACS- NSTEMI POA Multivessel CAD with LV ejection fraction of 55% hypokinesis of the inferior wall status post CABG with a HILLMAN graft to the LAD and saphenous vein graft Alcohol Intoxication POA Uncontrolled diabetes POA Acute anemia, not POA Right common femoral vein thrombus, as per right groin ultrasound on 08/08 Possible phlebitis of great saphenous vein as per right groin ultrasound on 08/08 Multiple right inguinal lymph nodes as per right groin ultrasound on 08/08 Obesity POA Hypokalemia Hyperlipidemia POA Hypertension POA Elevated CK POA Active alcohol drinker POA PLAN: Continue telemetry NSTEMI POA, chest pain Continue [id number] mg daily Continue Lipitor 40 mg daily Hold Brilinta as per Cardiology recommendation Appreciate cardiology consult and we will follow their recommendations Multivessel CAD with LV ejection fraction of 55% hypokinesis of the inferior wall status post CABG Underwent CABG procedure on 08/12/2024 Chest tube drainage 320 mL No postprocedure complications noted Elevated TCK POA TCK normal at 118 Alcohol Intoxication POA Monitor for signs of alcohol withdrawal CIWA protocol in place Counseled on alcohol use cessation Uncontrolled diabetes POA Glucose 91 Continue insulin sliding scale AC & HS with hypoglycemia protocol Acute anemia, not POA Hemoglobin 9.8 Iron 18, TIBC 253,% saturation 7.1 indicating iron deficiency Monitor H&H Right common femoral vein thrombus, right groin ultrasound on 08/08 Currently On Lovenox 30 mg SQ, plan to start full-dose anticoagulation within next 24-48 hours as per cardiology consult Possible phlebitis of right saphenous vein as per ultrasound on 08/08 Warm compresses to the area Leg Elevation Multiple right inguinal lymph nodes as per right groin ultrasound on 08/08 Can be attributed to reactive lymphadenopathy due to DVT We will monitor for any signs and symptoms of infection Hyperlipidemia POA, Normal lipid panel results Continue Atorvastatin Hypertension, POA Continue metoprolol 25 mg b.i.d., losartan 50 mg p.o. to losartan 50 mg p.o. b.i.d. as per Cardiology recommendation Hypokalemia Improved Continue Famotidine 20 mg IV bid for GI prophylaxis Continue Lovenox 30 mg SQ for DVT prophylaxis Monitor electrolytes and replace them as needed per protocol Follow up on Cardiology consult recommendations Follow up on CT surgery consult recommendations ATTESTATION BY PHYSICIAN I have seen and examined the patient. I reviewed the documentation, medical decision making, and treatment plan as noted by the resident above. I agree with the findings and plan of care. Dalton Le MD, PRIYANKA MD Aug 13, 2024 09:46
--- NOTE | 2024-08-13 10:50 | PN ---
[facility] PROGRESS NOTE Date Patient Seen: Aug 13, 2024 Time of Visit: 10:50 Supervising Physician: Dr. Rajan Primary Care Physician: [ Francesco Gee MD] Outpatient Specialists: [none ] Inpatient Consults: [Dany Noel MD, Marcela Talbert DO, DR Khalil Aattending: Dr Paola Frye MD ] PROBLEM LIST: ACS-NSTEMI Type I Leukocytosis w/ left shift Essential HTN Untreated hyperglycemia in the presence of new onset Type II DM2 Alcohol abuse Right femoral DVT Right groin lymphadenopathy Obesity INTERVAL HISTORY: 08/06/2024: At the time of my evaluation, the patient was sitting up to the bedside chair. The staff nurse reports no acute events overnight. Currently, the patient remains on heparin and a nitro drip. On the monitor, the patient was afebrile, no tachycardia tachypnea and blood pressure was within normal ranges. He remained on. Laboratory data was notable for a WBC within normal range, no acute anemia or thrombocytopenia. Chemistry panel showed elevated CK of 575. There was a magnesium of 1.70. No new imaging for review today. No other complaint. 08/07/2024: At the time of my evaluation, the patient is lying in bed. He is awake, alert and verbally interactive. He remains on a CIWA protocol. The patient is currently breathing on room air. She is afebrile, no tachypnea or tachycardia. He voids spontaneously and poor chart documentation, urinary output total 2700 mL over the past 24 hours and has a net balance of +677.4. The patient continues on a heparin drip. He continues on antibiotic therapy with Rocephin. Also on a banana bag. The current plan is for CABG unknown date and time. No other complaint. 08/08/2024: At the time of my evaluation, the patient was lying in bed. He is awake alert and denies any chest pain. The staff nurse reports no acute events overnight. Vital signs are unremarkable. Laboratory data was unremarkable. No new chest imaging for review. Currently, the patient remains on a heparin drip. He also remains on CIWA protocol. No other complaint. 08/09/2024: At the time of my evaluation, the patient was sitting up to the bedside chair. The staff nurse reports no acute events overnight. On the monitor, the parameters are unremarkable. Laboratory data today was unremarkable. Imaging data yesterday showed multiple right inguinal lymph nodes and findings consistent with partial deep venous thrombosis with thrombus in the right common femoral vein. Currently, the patient remains on a heparin drip and is on empiric antibiotic therapy with IV Rocephin. No other complaint. 08/10/2024: At the time of my evaluation, the patient was lying in bed. The staff nurse reports no acute events overnight. Patient remains on room air. On the monitor vital sign parameters are unremarkable. Laboratory data is notable for a potassium of 3.3 and a Mag of 1.80. No new imaging for review today. Currently, the patient remains on a heparin drip and is on empiric antibiotic therapy with Rocephin. No other complaint. 08/11/2024: At the time of my evaluation, the patient was lying in bed. The staff nurse reports no acute events overnight. He remains on room air and vital sign parameters are unremarkable. Laboratory data today remains unremarkable. The patient denies any chest pain. No new imaging for review. Currently, the patient continues on a heparin drip. No other complaint. 08/12/2024: At the time of my evaluation, the patient is lying in bed. The staff nurse reports no acute events overnight. The patient remains on room air. On the monitor, there was no tachycardia, no tachypnea and is normotensive. Laboratory data today is unremarkable. Chest imaging today showed no acute airspace disease. No other complaint. 08/13/2024: At the time of my evaluation, the patient was sitting up to the bedside chair. ABG this a.m. was unremarkable. He remains on epinephrine drip and a insulin drip. Chest tube remains in place with a estimated total output overnight of 320 mL. Laboratory data today was unremarkable except for a slightly low sodium of 133, chloride of 99 and a Mag of 1.8. Chest x-ray showed tube and lines in adequate position, per sternotomy changes and cardiomegaly. No other complaint. . REVIEW OF SYSTEMS: 12-point system review was carried out. Pertinent positive as documented above otherwise pertinent negative. PHYSICAL EXAM: GENERAL: Alert, weak, awake oriented x 3 HEENT: EOMI, Sclera non icteric, moist mucosa NECK: Supple, no JVD, trachea midline LUNGS: Clear breath sounds bilaterally. No wheezes HEART: Regular rate and rhythm. Normal S1 and S2, without murmurs ABD: Abdomen soft, nontender. Bowel sounds present EXT: No clubbing cyanosis or edema Skin: Surgical site benign Cordis and Chest tube insertion site benign NEURO: Alert and oriented to person, follows commands Vital Signs (last 8hr) Date Time Temp Pulse Resp B/P (MAP) Pulse Ox O2 Delivery O2 Flow Rate FiO2 08/13/24 08:45 106 25 114/73 (87) 99 136/51 (79) 08/13/24 08:30 105 15 100 154/53 (86) 08/13/24 08:15 106 15 99 157/53 (87) 08/13/24 08:00 40 Nasal Cannula* 2 28 08/13/24 08:00 106 24 98 156/62 (93) 08/13/24 07:47 98.4 08/13/24 07:45 107 25 117/70 (86) 98 139/59 (85) 08/13/24 07:30 100 15 98 131/55 (80) 08/13/24 07:20 100 16 N/Cannula Low lpm 2.0 28 08/13/24 07:15 97 14 98 141/57 (85) 08/13/24 07:00 102 20 98 128/55 (79) 08/13/24 06:45 101 21 119/55 (76) 97 08/13/24 06:30 99 20 97 143/59 (87) 08/13/24 06:15 109 23 93 132/68 (89) 08/13/24 06:00 104 15 111/62 (78) 98 28 131/59 (83) 08/13/24 05:45 104 15 98 139/62 (87) 08/13/24 05:30 106 37 99 153/63 (93) 08/13/24 05:15 103 25 138/63 (88) 98 08/13/24 05:00 105 27 118/65 (82) 99 28 130/62 (84) 08/13/24 04:45 105 30 130/65 (86) 99 08/13/24 04:30 107 30 148/66 (93) 99 08/13/24 04:15 102 30 160/64 (96) 99 28 08/13/24 04:00 96 16 119/72 (88) 100 149/63 (91) 08/13/24 04:00 99.1 08/13/24 03:50 96 20 152/65 (94) 100 08/13/24 03:44 96 16 155/67 (96) 100 08/13/24 03:35 96 16 150/62 (91) 100 08/13/24 03:30 95 15 144/57 (86) 100 08/13/24 03:15 94 16 139/56 (83) 100 08/13/24 03:00 93 16 118/74 (89) 100 40 143/56 (85) LABS: Hematology Labs: Test 08/13/24 03:00 Range/Units White Blood Count 9.1 4.8-10.8 K/uL Red Blood Count 3.08 L 4.50-6.20 MIL/uL Hemoglobin 9.8 L 14.0-18.0 g/dL Hematocrit 29.2 L 42-54 % Mean Corpuscular Volume 94.8 79-99 fL Mean Corpuscular Hemoglobin 31.8 27.0-33.0 pg Mean Corpuscular Hemoglobin Concent 33.6 32.0-36.0 g/dL Red Cell Distribution Width 13.2 11.0-15.5 % Platelet Count 245 # 130-400 K/uL Mean Platelet Volume 9.6 7.5-10.5 fL Immature Granulocyte % (Auto) 0.7 0-1 % Neutrophils (%) (Auto) 85.5 H 40.0-77.0 % Lymphocytes (%) (Auto) 6.6 L 21.0-51.0 % Monocytes (%) (Auto) 7.1 3.0-13.0 % Eosinophils (%) (Auto) 0.0 0.0-8.0 % Basophils (%) (Auto) 0.1 0.0-5.0 % Neutrophils # (Auto) 7.7 1.8-7.7 K/uL Lymphocytes # (Auto) 0.6 L 1.0-4.8 K/uL Monocytes # (Auto) 0.6 0.1-1.0 K/uL Eosinophils # (Auto) 0.00 0.00-0.70 K/uL Basophils # (Auto) 0.01 0.00-0.20 K/uL Absolute Immature Granulocyte (auto 0.06 0-1 K/uL Nucleated Red Blood Cells 0.0 0.0-0.19 % White Cell Morphology Comment See comments Chemistry Labs: Test 08/13/24 10:05 08/13/24 03:00 08/12/24 11:04 08/12/24 03:26 Range/Units Whole Blood Glucose 150 H 70-110 MG/DL Sodium Level 140 136-145 mmol/L Potassium Level 3.8 3.5-5.1 mmol/L Chloride Level 106 101-111 mmol/L Carbon Dioxide Level 29 21-32 mmol/L Blood Urea Nitrogen 8 7-18 mg/dL Creatinine 0.7 0.5-1.3 mg/dL Glomerular Filtration Rate Calc 107 >90 mL/min Random Glucose 125 H 70-105 mg/dL Total Calcium 8.7 8.5-10.1 mg/dL Ionized Calcium 1.14 L 1.15-1.33 MMOL/L Phosphorus Level 3.8 2.5-4.9 mg/dL Magnesium Level 1.90 1.80-2.40 mg/dL Total Bilirubin 0.4 0.2-1.0 mg/dL Aspartate Amino Transf (AST/SGOT) 28 10-37 U/L Alanine Aminotransferase (ALT/SGPT) 48 12-78 U/L Alkaline Phosphatase 64 50-136 U/L Total Protein 6.4 6.0-8.3 g/dL Albumin 2.7 L 3.5-5.0 g/dL Bedside Glucose Comment Notified Nurse B-Type Natriuretic Peptide 105 H 0-100 pg/mL Triglycerides Level 50 30-200 mg/dL Cholesterol Level 104 # <200 mg/dL LDL Cholesterol 47 0-99 mg/dL HDL Cholesterol 51 29-71 mg/dL Coagulation Labs: Test 08/13/24 03:00 Range/Units Prothrombin Time 10.5 9.6-11.6 SEC Prothromb Time International Ratio 0.99 0.85-1.15 Activated Partial Thromboplast Time 23.6 L 26.3-35.5 SEC DIAGNOSTICS / RADIOLOGY RESULTS: [ ] PLAN Serial EKG/troponins Continuous cardiac monitoring BNP Cardiology consult 2D echocardiogram Heparin drip nitro gtt PPI for risk of bleeding Statin therapy Glucose goal less than 180 mg/dL Antiplatelet with aspirin, beta kaila, statin therapy Consider referral to cardiac rehab once ready for discharge inital co2 of 20 - order ketones, lR at 75 ml/hr stop once pt has a po diet. 08/06/2024: For now, going to continue current management for the patient. We will continue heparin and nitroglycerin drip as ordered and follow the Cardiology and Cardiothoracic surgery team input for further management. The patient currently denies any chest pain. We will correct any electrolyte imbalance as necessary. I am going to discontinue the doxycycline and possibly we will discontinue Rocephin tomorrow. We will repeat surveillance labs in the morning. We will monitor the patient's progress and response to management. We will continue to provide general supportive care, GI and DVT prophylaxis. Further orders per attending MD and hospital course. 08/13/2024: For now, going to continue current management for the patient. Patient will continue on cardiac management per the Cardiology team/CTVS. Cordis and chest tube mediastinal and pleural we will be managed per the Cardiothoracic surgeon. We will repeat surveillance labs in morning. We will follow the recommendation of the CTS and we will intervene if necessary. We will continue to provide general supportive care, GI and DVT prophylaxis. Further orders per attending MD and hospital course. NEURO: Minimize central acting medications as possible. Fall Precautions. Well lighted room through the day and minimize interruptions through the night to prevent acute delirium. PULMONARY: Supplemental 02 as needed Titrate Fio2 to keep Spo2 > or = 90% DuoNebs and CPT as needed IS hourly while awake for pulmonary hygiene Out of bed to chair as tolerated VAP Bundle CARDIOVASCULAR: Follow hemodynamics. Titrate vasopressor to keep MAP >65 or systolic blood pressure >95mmHg DIPS: nitro and heparin LINES: [ piv] GI & NUTRITION: Continue nutritional support Aspirations precautions Prokinetic agents and laxatives as needed KIDNEYS & ELECTROLYTES: Strict monitoring of intake and output Daily weights Avoid nephrotoxic agents Monitor electrolytes and replace as needed Goal urine output of 30mL/hr or 0.5mL/kg/hr Urine output: [ ] Fluid Balance: [ ] ENDOCRINE: Maintain blood glucose between 100-180 at all times. Insulin sliding scale for blood glucose management INFECTIOUS DISEASE: Trend temperature. Mera-culture if febrile. Micro: [ ] Antibiotics: [ ] HEMATOLOGY & COAGULATION: Monitor H&H. Keep Hgb > 7 Transfuse 1 unit of PRBC for Hgb < 7 Transfuse 1 pack of platelets of platelets < 20, 000 Watch for any signs and symptoms of bleeding SKIN: Pressure ulcer prevention per facility protocol Rehab: PT/OT Prophylaxis: GI: [protonix ] DVT: on heparin gtt Code Status: Full Resuscitation Disposition: ICU Other: I personally spent 40 minutes of critical care time in treatment of this patient. This includes patient management, time at bedside, time reviewing tests, labs, appropriate images and studies, documentation, and patient care coordination. This time excludes separately billable procedures. Case was discussed and seen with my supervising physician. The above plan was formulated and agreed upon. TR LIVINGSTON NP Aug 13, 2024 10:50
--- NOTE | 2024-08-13 13:32 | HMCIMG ---
CHEST 1VW REASON: s/p CABG COMPARISON: 08/12/2024 FINDINGS: Heart size appears larger. Lungs are clear. There is no vascular congestion or pleural effusion. ET and NG tubes have been removed. Henderson-Dontrell introducer sheath remains in place. IMPRESSION: 1 stable postop chest.
[2024-08-13] MEDS: furoSEMIDE 20MG VIAL IV SCH (13:41)
--- NOTE | 2024-08-13 16:05 | NUR ---
NURSING NOTE REPORT HANDED OFF TO ELIDA LANDON
[2024-08-13 17:45] LABS: MAGNESIUM 2.2 mg/dL (1.80-2.40); POTASSIUM 3.9 mmol/L (3.5-5.1)
[2024-08-13] MEDS: metoPROLOL tartRATE 50 MG TAB PO SCH (20:09)
[2024-08-14] VITALS (107 sets, daily range): BP systolic 75–209; BP diastolic 47–89; PULSE 84–127; RESP 10–47; TEMP 97.3–99; O2SAT 95–99
[2024-08-14 03:47] LABS: HEMATOCRIT 28.4 % (42-54); MEAN CORPUSCULAR HEMOGLOBIN 31.9 pg (27.0-33.0); MEAN CORPUSCULAR HGB CONC 33.5 g/dL (32.0-36.0); MEAN CORPUSCULAR VOLUME 95.3 fL (79-99); RED BLOOD CELL COUNT(AUTO) 2.98 MIL/uL (4.50-6.20); RED CELL DISTRIBUTION WIDTH 13.2 % (11.0-15.5); WHITE BLOOD COUNT (AUTO) 10.2 K/uL (4.8-10.8)
[2024-08-14 03:56] LABS: ABG BASE EXCESS 2.2 mmol/L (-2.0-3.0); ABG HCO3 26.1 mmol/L (21.0-28.0); ABG OXYGEN SATURATION 94.3 % (94.0-98.0); ABG PCO2 38 mmHg (35-48); ABG PH 7.454 (7.350-7.450); CARBON MONOXIDE 0.5 % (0.5-1.5); HHb 5.7; PO2, ARTERIAL BG 73.2 mmHg (83.0-108.0); VENT MODE, BG 2LNC (ROOM AIR)
--- NOTE | 2024-08-14 03:56 | EKG ---
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1965 Requested By: KEYA CALVO Order Number: [id number] Reading MD: Francesco Gee Measurements Intervals [place] Rate: 108 P: 42 MA: 158 QRS: -46 QRSD: 136 T: -10 QT: 368 QTc: 493 Interpretive Statements Sinus tachycardia Left axis deviation Right bundle branch block Minimal voltage criteria for LVH, may be normal variant Inferior infarct , age undetermined Anterior injury pattern ACUTE PA / STEMI Compared to ECG 08/14/2024 03:36:41 Left-axis deviation now present Left ventricular hypertrophy now present Myocardial infarct finding still present Electronically Signed On 08-14-2024 11:35:14 CDT by Francesco Gee Please click the below link to view image of tracing.
[2024-08-14] MEDS: acetaMINOPHEN 325 MG TAB PO PRN (03:59)
[2024-08-14 04:05] LABS: CREATININE 0.7 mg/dL (0.5-1.3); MAGNESIUM 1.8 mg/dL (1.80-2.40); POTASSIUM 3.9 mmol/L (3.5-5.1)
--- NOTE | 2024-08-14 07:33 | PN ---
[facility] Cardiology Progress Note CARDIOLOGY PROGRESS NOTE AUGUST 14, 2024 Problems: 1. Non ST-elevation [place] 2. Multivessel CAD with LV ejection fraction of 55% hypokinesis of the inferior wall status post aortocoronary bypass graft surgery with a HILLMAN graft to the LAD and saphenous vein graft 3. Dyslipidemia 4. Right common femoral vein deep vein thrombosis 5. Normocytic anemia 6. Diabetes mellitus type 2 7. Alcohol abuse Blood pressure is systolic heart rate has been in the 90s. White count is 10.2 Hemoglobin 9.5 Platelet count [id number]. Potassium 3.9 BUN eight creatinine 0.7. The patient continues on aspirin atorvastatin furosemide metoprolol tartrate potassium protocol tramadol p.r.n.. Yesterday morning metoprolol was increased from 12-1/2-25 mg b.i.d. and later in the day increased to 50 mg b.i.d.. Heart rate and blood pressure are better controlled. Chest x- ray shows poor inspiratory effort, post sternotomy changes. No effusions are present. Chest tubes will be evaluated by CT surgery. ROSALIA LINDSAY MD Aug 14, 2024 07:33
[2024-08-14] MEDS: furoSEMIDE 20 MG TABLET PO SCH (08:38)
[2024-08-14] MEDS ORDERED: metoPROLOL tartRATE 25 MG TAB PO SCH ×2 (09:00)
[2024-08-14] MEDS ORDERED: DEXTROSE 50%-WATER 50 ML DISP.SYRIN IV PRN (09:30)
[2024-08-14] MEDS ORDERED: GLUCAGON 1MG KIT 1 MG ML IM PRN (09:30)
--- NOTE | 2024-08-14 09:36 | PN ---
[facility] PROGRESS NOTE Date Patient Seen: Aug 14, 2024 Time of Visit: 09:36 Supervising Physician: VICENTE ULRICH MD Primary Care Physician: [ Francesco Gee MD] Outpatient Specialists: [none ] Inpatient Consults: [Dany Noel MD, Marcela Talbert DO, DR Khalil Aattending: Dr Paola Frye MD ] PROBLEM LIST: Multivessel CAD status post CABG x2 on 08/12/24 Acs-Nstemi Type I S/P Coronary Angiogram On 08/05/24 With Findings On Severe Two Vessel Cad With 80% Proximal Lad 100% Distal Rca Stenosis Elevated CK levels POA Leukocytosis w/ left shift Postoperative Acute blood loss anemia, not POA Essential HTN Untreated hyperglycemia in the presence of new onset Type II DM2 Alcohol abuse, POA Right femoral DVT Right groin lymphadenopathy Obesity INTERVAL HISTORY: Day 2. Status post CABG. He is in no apparent distress. Currently on nitroglycerin drip at 120 mcg/min, with a blood pressure of 118/67 with a map of 84, heart rate in the 90s respiratory rate of 20 saturating 95% on room air and afebrile with a T-max of 98.8 and T low of 97.3. Patient reports breakthrough midsternal incision tenderness with chest pain which is resolving as per patient's post tramadol administration and nitroglycerin drip. We will start weaning off nitro drip increase metoprolol to 75 mg b.i.d. and add losartan daily, currently pulling 750 on the IS. Start gabapentin 100 mg p.o. 3 times a day to decrease pain. Patient's urine output is 3.3 L in last 24 hours with chest tube drainage of 150 mL. Balance of-2.2 L. on laboratory H&H is 9.5/28.4 platelet count is normal. Kidneys are doing well creatinine of 0.7 with a GFR of 107 glucose 158 mg/dL sodium of 133. Chest x-ray with mild cardiomegaly there is no pulmonary vascular congestion. Lungs are clear no pneumothorax stable postop chest. We will continue to follow CV surgery protocol. REVIEW OF SYSTEMS: 12-point system review was carried out. Pertinent positive as documented above otherwise pertinent negative. PHYSICAL EXAM: GENERAL: Alert, weak, awake oriented x 3 HEENT: EOMI, Sclera non icteric, moist mucosa NECK: Supple, no JVD, trachea midline LUNGS: Clear breath sounds bilaterally. No wheezes HEART: Regular rate and rhythm. Normal S1 and S2, without murmurs ABD: Abdomen soft, nontender. Bowel sounds present EXT: No clubbing cyanosis or edema Skin: Surgical site benign Cordis and Chest tube insertion site benign NEURO: Alert and oriented to person, follows commands Vital Signs (last 8hr) Date Time Temp Pulse Resp B/P (MAP) Pulse Ox O2 Delivery O2 Flow Rate FiO2 08/14/24 09:01 124/70 08/14/24 06:58 104 16 131/70 (90) 96 163/62 (95) 08/14/24 06:45 101 16 N/Cannula Low lpm 3.0 32 08/14/24 06:43 106 16 128/67 (87) 95 156/59 (91) 08/14/24 06:28 108 16 128/74 (92) 94 144/58 (86) 08/14/24 06:13 105 16 114/72 (86) 98 146/63 (90) 08/14/24 05:58 103 16 104/60 (75) 97 131/54 (79) 08/14/24 05:43 98 15 106/62 (77) 97 136/55 (82) 08/14/24 05:28 98 17 109/66 (80) 97 136/55 (82) 08/14/24 05:13 100 15 113/60 (77) 97 126/53 (77) 08/14/24 04:58 99 15 118/65 (82) 97 143/56 (85) 08/14/24 04:45 104 21 97 140/59 (86) 08/14/24 04:43 100 18 114/67 (83) 97 140/58 (85) 08/14/24 04:30 104 34 96 130/58 (82) 08/14/24 04:28 103 34 120/66 (84) 96 138/61 (86) 08/14/24 04:15 105 30 96 139/62 (87) 08/14/24 04:13 105 30 119/62 (81) 96 134/60 (84) 08/14/24 04:00 98.4 08/14/24 04:00 107 36 97 140/60 (86) 08/14/24 03:58 108 36 119/69 (86) 98 148/62 (90) 08/14/24 03:45 110 47 97 164/65 (98) 08/14/24 03:43 111 44 124/77 (93) 96 152/62 (92) 08/14/24 03:30 113 35 95 161/63 (95) 08/14/24 03:28 110 41 124/71 (88) 95 158/59 (92) 08/14/24 03:15 108 40 95 163/60 (94) 08/14/24 03:13 108 44 128/76 (93) 96 159/59 (92) 08/14/24 03:00 105 30 96 150/58 (88) 08/14/24 03:00 97 Nasal Cannula* 2 28 08/14/24 02:58 106 37 123/70 (87) 96 159/59 (92) 08/14/24 02:45 104 46 97 157/60 (92) 08/14/24 02:43 104 35 117/77 (90) 97 149/57 (87) 08/14/24 02:30 103 42 97 151/59 (89) 08/14/24 02:28 102 35 120/72 (88) 96 144/56 (85) 08/14/24 02:15 100 33 96 150/57 (88) 08/14/24 02:13 101 35 119/75 (90) 96 154/59 (90) 08/14/24 02:00 99 28 96 151/58 (89) 08/14/24 01:58 105 31 129/86 (100) 96 167/64 (98) 08/14/24 01:45 101 28 96 154/61 (92) 08/14/24 01:43 99 35 127/87 (100) 95 163/64 (97) LABS: Hematology Labs: Test 08/14/24 03:39 08/13/24 03:00 Range/Units White Blood Count 10.2 4.8-10.8 K/uL Red Blood Count 2.98 L 4.50-6.20 MIL/uL Hemoglobin 9.5 L 14.0-18.0 g/dL Hematocrit 28.4 L 42-54 % Mean Corpuscular Volume 95.3 79-99 fL Mean Corpuscular Hemoglobin 31.9 27.0-33.0 pg Mean Corpuscular Hemoglobin Concent 33.5 32.0-36.0 g/dL Red Cell Distribution Width 13.2 11.0-15.5 % Platelet Count 240 130-400 K/uL Mean Platelet Volume 9.3 7.5-10.5 fL Nucleated Red Blood Cells 0.0 0.0-0.19 % Immature Granulocyte % (Auto) 0.7 0-1 % Neutrophils (%) (Auto) 85.5 H 40.0-77.0 % Lymphocytes (%) (Auto) 6.6 L 21.0-51.0 % Monocytes (%) (Auto) 7.1 3.0-13.0 % Eosinophils (%) (Auto) 0.0 0.0-8.0 % Basophils (%) (Auto) 0.1 0.0-5.0 % Neutrophils # (Auto) 7.7 1.8-7.7 K/uL Lymphocytes # (Auto) 0.6 L 1.0-4.8 K/uL Monocytes # (Auto) 0.6 0.1-1.0 K/uL Eosinophils # (Auto) 0.00 0.00-0.70 K/uL Basophils # (Auto) 0.01 0.00-0.20 K/uL Absolute Immature Granulocyte (auto 0.06 0-1 K/uL White Cell Morphology Comment See comments Chemistry Labs: Test 08/14/24 06:23 08/14/24 03:39 08/13/24 03:00 08/12/24 11:04 Range/Units Whole Blood Glucose 134 H 70-110 MG/DL Sodium Level 133 L 136-145 mmol/L Potassium Level 3.9 3.5-5.1 mmol/L Chloride Level 99 L 101-111 mmol/L Carbon Dioxide Level 30 21-32 mmol/L Blood Urea Nitrogen 8 7-18 mg/dL Creatinine 0.7 0.5-1.3 mg/dL Glomerular Filtration Rate Calc 107 >90 mL/min Random Glucose 158 H 70-105 mg/dL Total Calcium 8.6 8.5-10.1 mg/dL Magnesium Level 1.80 1.80-2.40 mg/dL Ionized Calcium 1.14 L 1.15-1.33 MMOL/L Phosphorus Level 3.8 2.5-4.9 mg/dL Total Bilirubin 0.4 0.2-1.0 mg/dL Aspartate Amino Transf (AST/SGOT) 28 10-37 U/L Alanine Aminotransferase (ALT/SGPT) 48 12-78 U/L Alkaline Phosphatase 64 50-136 U/L Total Protein 6.4 6.0-8.3 g/dL Albumin 2.7 L 3.5-5.0 g/dL Bedside Glucose Comment Notified Nurse Coagulation Labs: Test 08/13/24 03:00 08/12/24 16:07 Range/Units Prothrombin Time 10.5 9.6-11.6 SEC Prothromb Time International Ratio 0.99 0.85-1.15 Activated Partial Thromboplast Time 23.6 L 26.3-35.5 SEC Activated Clotting Time 103 100-180 SEC DIAGNOSTICS / RADIOLOGY RESULTS: [[facility] [address] [place] [address] IMAGING REPORT Signed PATIENT: MAYRA JUDD MR#: [id number] : 1965 SEX: M AGE: 59 LOCATION: 2CH ORDER 2300 STATUS: ADM IN REPORT#: [id number] SERVICE 0400 REASON: s/p CABG ORDERING PHYSICIAN: KEYA CALVO MD PROCEDURE: CXR1VW - CHEST 1VW CHEST 1VW REASON: s/p CABG COMPARISON: 08/13/2024 FINDINGS: There is mild cardiomegaly, unchanged. There is no pulmonary vascular congestion. Lungs are clear. Revere-Dontrell introducer sheath remains in place. There is no pneumothorax. IMPRESSION: 1. Stable postop chest. DICTATED BY: MOIZ HANKINS MD DATE: 08/14/24 124 ELECTRONICALLY SIGNED BY: MOIZ HANKINS MD DATE: 08/14/24 1244 ] PLAN Follow CT surgeon recommendations Follow cardiology recommendations Multimodal pain management Monitoring H&H Monitor chest tube output Chest x-ray in the morning Transfuse if absolutely necessary to keep hemoglobin above 8 Maintain O2 sats greater than 92% Incentive spirometry Glycemic control with goal of 80-180 Referral for cardiac rehabilitation Speech to eval once patient is extubated monitor electrolytes: K Goal of 4 Magnesium goal of 2 Replace accordingly NEURO: Minimize central acting medications as possible. Fall Precautions. Well lighted room through the day and minimize interruptions through the night to prevent acute delirium. PULMONARY: Supplemental 02 as needed Titrate Fio2 to keep Spo2 > or = 90% DuoNebs and CPT as needed IS hourly while awake for pulmonary hygiene Out of bed to chair as tolerated VAP Bundle CARDIOVASCULAR: Follow hemodynamics. Titrate vasopressor to keep MAP >65 or systolic blood pressure >95mmHg DIPS: nitro gtt LINES: cvc arterial line fc chest tube GI & NUTRITION: Continue nutritional support Aspirations precautions Prokinetic agents and laxatives as needed KIDNEYS & ELECTROLYTES: Strict monitoring of intake and output Daily weights Avoid nephrotoxic agents Monitor electrolytes and replace as needed Goal urine output of 30mL/hr or 0.5mL/kg/hr Urine output: [ ] Fluid Balance: [ ] ENDOCRINE: Maintain blood glucose between 100-180 at all times. Insulin sliding scale for blood glucose management INFECTIOUS DISEASE: Trend temperature. Mera-culture if febrile. Micro: [ ] Antibiotics: [ ] HEMATOLOGY & COAGULATION: Monitor H&H. Keep Hgb > 7 Transfuse 1 unit of PRBC for Hgb < 7 Transfuse 1 pack of platelets of platelets < 20, 000 Watch for any signs and symptoms of bleeding SKIN: Pressure ulcer prevention per facility protocol Rehab: PT/OT Prophylaxis: GI: [protonix ] DVT: on heparin gtt Code Status: Full Resuscitation Disposition: ICU Other: I personally spent 40 minutes of critical care time in treatment of this patient. This includes patient management, time at bedside, time reviewing tests, labs, appropriate images and studies, documentation, and patient care coordination. This time excludes separately billable procedures. Case was discussed and seen with my supervising physician. The above plan was formulated and agreed upon. CHONG BEASLEY [employer] Aug 14, 2024 09:36
--- NOTE | 2024-08-14 09:46 | PN ---
[facility] PROGRESS NOTE Date of Service: Aug 14, 2024 Time of Service: 09:46 SUBJECTIVE: This is a case of 59-year-old male with past medical history of diabetes, hypertension and hyperlipidemia who presented to the ED with complaints of left- sided chest pain which started around 8 pm last night while resting. He states that he has been experiencing intermittent chest pain since the past 2 days ago which has become persistent associated with SOB last night. Patient also reports that he had 5 beers last night and denies cigarette and recreational drug use. Initial ECG revealed ST 110 right bundle branch block, inferior infarct acute and second EKG showed ST 108 right bundle branch block inferior infarct recent and the 3rd EKG showed ST 120 with Right bundle branch block Inferior infarct recent and probable posterior infarct acute. Initial Labs WBC 10.9, BNP 147, total CK 812, troponin 13,930, serum alcohol 117. While in the ER patient received aspirin 325 mg p.o., Protonix 40 mg IV, Brilinta 90 mg p.o., verapamil 5 mg IV and metoprolol 5 mg IV and was started on heparin and nitroglycerin drip. He was admitted for further assessment and treatment in view of NSTEMI. 08/05/2024 Patient is seen and examined at the bedside. He complains of mild p ressure-like left-sided chest pain and generalized body weakness. Vitals blood pressure ranging in 120/70s. Labs WBC 10.9, hemoglobin 13.9, BNP 147, PT 10.1, INR 0.95. Urinalysis positive for glucose. Urine toxicology negative and serum alcohol 117, glucose 229, magnesium 1.9, TCK 8. Troponin trend [id number] - [id number]. Currently on heparin and nitroglycerin drip. He is scheduled for cardiac catheterization procedure today. Chest x-ray revealed clear lungs and pending 2D echo results. 08/06/2024 Patient is seen and examined at the bedside. He complains of generalized body weakness and headache. He denies fever, chills, nausea, vomiting, chest pain, palpitations, abdominal pain. Vitals Blood pressure 137/67. Labs WBC 10, hemoglobin dropped from 13.9-11.5, magnesium 1.70, calcium 8.1, AST improved from 176-115. BNP improved from 147-128 and TCK improved 812-575. He underwent left heart catheterization yesterday which revealed two- vessel coronary artery disease with 80% stenosis in the proximal LAD and 100% stenosis in the distal RCA. 2D echo revealed normal Left ventricle systolic function, estimated LVEF 55% and Indeterminate diastolic function. CT surgery was consulted. 08/07/24 Patient is seen and examined at the bedside. /He was managed for ACS/Non-STEMI and underwent further assessment with a cardiac catheterization on 08/05/2024 demonstrating two-vessel coronary artery disease with 80% stenosis in the proximal LAD and 100% stenosis in the distal RCA. He has had no recurrent angina overnight. He continues on IV heparin. 2D echocardiogram on 08/05/2024 demonstrating basal inferior wall hypokinesis and an LVEF of 55%. 08/08/2024 Patient is seen and examined at the bedside. No acute events last night. Currently on heparin drip. He mentioned about experiencing mild chest discomfort, shortness of breath this morning when he tried to sit in the chair. He also complains of pain and discomfort over right groin. We will order a repeat right groin ultrasound to rule out hematoma. Vitals blood pressure 137/78, respiratory rate 23. Labs hemoglobin decreased from 11.2-10.8, reticulocyte count high at 2.34, iron 18, TIBC 253,% saturation low at 7.1 indicating iron deficiency, BMP unremarkable, TCK normal at 118. Pending CABG. 08/09/2024 Patient is seen and examined at the bedside. No acute events last night. Currently on heparin drip. Vitals blood pressure 151/88, respiratory rate 16. He complains of right groin discomfort and pain. Right groin soft tissue ultrasound revealed multiple right inguinal lymph nodes, partial DVT with thrombus in right common femoral vein, possible phlebitis of great saphenous vein. We will continue the patient on heparin drip for DVT as per cardiology consult recommendation. Labs hemoglobin 10.9, APTT 45.8, BMP unremarkable. Pending CABG. 08/10/24 patient was seen and examined. Patient denies any complaints except dry cough. No acute events overnight. His vitals are stable. Patient reports that his right groin discomfort and pain is getting better and is able to move around. Continue heparin drip. His labs showed hemoglobin 10.7, potassium 3.3 and is being replaced as per the protocol. Magnesium 1.80 and we will cover with the protocol. He is pending CABG. 08/11/2024 Patient is seen and examined at the bedside. No acute events last night. He states that he feels well and his right groin pain and discomfort has been significantly reduced. Currently on heparin drip. Vitals temperature 98.2, pulse rate 72, respiratory rate 16, blood pressure 126/69, SpO2 98% on room air. Labs hemoglobin improved from 10.7-11, WBC 6.6, BMP unremarkable. Pending CABG procedure. 08/12/2024 Patient is seen and examined at the bedside. No acute events last night. He states that he feels well and has no complaints. Currently NPO. Vitals temperature 97.9, pulse rate 78, blood pressure 133/77, respiratory rate 20, SpO2 99% on room air. Labs WBC 7.5, hemoglobin decreased from 11-10.7, BMP, LFT and lipid panel levels are normal. ABG showed pH 7.43, PO2 78.2, HC03 28.1, pCO2 43. Scheduled for CABG procedure today. 08/13/2024 Post CABG day 1 Patient is seen and examined at the bedside. He complains of moderate chest pain and discomfort. No Acute events last night. Vitals pulse rate 106, respiratory rate 25, blood pressure 136/51, SpO2 99% on 2 L nasal cannula. Urine output 1.4 L, chest tube drainage 320 mL. Currently on nitroglycerin drip. Labs WBC improved from 11.8-9.1, hemoglobin improved from 9.5-9.8, BMP unremarkable. Carotid ultrasound results are normal. Pending Chest x-ray results. 08/14/2024 Post CABG day 2 Patient is seen and examined at the bedside. He mentioned about experiencing difficulty in breathing secondary to chest pain and discomfort yesterday night. He states that his chest pain has gotten better today after receiving the pain medication. Currently on insulin and nitroglycerin drip. Vitals blood pressure 31/70, pulse rate 104, SpO2 greater than 95% on 3 L nasal cannula. Urine output 3.3 L. Chest tube drainage 150 mL. Labs WBC 10.2, hemoglobin decreased from 9.8-9.5, sodium 133, chloride 99. ABG revealed pH 7.45, pCO2 38, PO2 73.2, HC03 26.1 indicating mild hypoxemia and alkalosis. REVIEW OF SYSTEMS CONSTITUTIONAL: Denies fevers, chills, or night sweats. No unintentional w eight loss reported. NEUROLOGICAL: Denies headache, amaurosis fugax, motor weakness, sensory deficit, vertigo/spinning sensation, gait abnormalities, or tremors. ENT: No hearing loss, otalgia, otorrhea, rhinitis, rhinorrhea, hoarseness, or sore throat. CARDIOVASCULAR: Chest pain, shortness of breath, Deniesdyspnea on exertion, orthopnea, paroxysmal nocturnal dyspnea, palpitations, life-threatening arrhy thmias, claudication. PULMONARY: , phlegm/sputum, hemoptysis, pleuritic chest pain. SLEEP: Denies morning headaches, daytime somnolence or napping. Denies difficulty falling asleep, staying asleep, waking from sleep. Denies knowledge of snoring. GASTROINTESTINAL: Denies any type of dysphagia to either liquids or solids. Denies nausea, vomiting, pyrosis, early satiety, abdominal pain, diarrhea, constipation, or changes in stool consistency or caliber. Denies coffee-ground emesis, hematemesis, hematochezia, or melanotic stools. GENITOURINARY: Denies frequency, urgency, nocturia, hematuria or incontinence (Storage/Irritative symptoms.) Low urinary stream, straining to void, urinary intermittency or hesitancy, splitting of the voiding stream, terminal dribbling. ENDOCRINOLOGIC: Denies polyuria, polydipsia, polyphagia or heat/cold intolerances. HEMATOLOGIC: Denies thrombophilia/previous clots, or coagulopathy/bleeding disorders. ONCOLOGIC: Denies personal history of malignancy. DERMATOLOGIC: Denies rashes or pruritus. PSYCHIATRIC: Denies any suicidal or homicidal ideation. Denies hallucinations. PHYSICAL EXAM GENERAL APPEARANCE: The patient is awake, alert, and oriented, in no acute cardiopulmonary distress. NEUROLOGICAL: Cranial nerves II-XII grossly intact. Motor is 5/5 in bilateral upper and lower extremities proximal to distal. No sensory deficits. HEENT: Face is symmetric. Pupils are equal and reactive. Extraocular movements are intact. NECK: Supple. No JVD. No thyromegaly. No submental, submandibular, pre- /postauricular, occipital or supraclavicular lymphadenopathy. CHEST: Normal chest expansion. No Telemetry. LUNGS: Absence of any rales, rhonchi or any wheezing. CARDIOVASCULAR: Regular. S1 and S2 normal. No appreciable rubs, murmurs or gallops. ABDOMEN: Soft, nontender, and nondistended. There is no rebound, voluntary guarding, or rigidity. : Improving Redness, bruising over right groin area Deferred. No Fitzpatrick. EXTREMITIES: Non-edematous and not cyanotic. No clubbing. Good capillary refi ll. SKIN: No skin breakdown. Vital Signs (last 8hr) Date Time Temp Pulse Resp B/P (MAP) Pulse Ox O2 Delivery O2 Flow Rate FiO2 08/14/24 09:01 124/70 08/14/24 06:58 104 16 131/70 (90) 96 163/62 (95) 08/14/24 06:45 101 16 N/Cannula Low lpm 3.0 32 08/14/24 06:43 106 16 128/67 (87) 95 156/59 (91) 08/14/24 06:28 108 16 128/74 (92) 94 144/58 (86) 08/14/24 06:13 105 16 114/72 (86) 98 146/63 (90) 08/14/24 05:58 103 16 104/60 (75) 97 131/54 (79) 08/14/24 05:43 98 15 106/62 (77) 97 136/55 (82) 08/14/24 05:28 98 17 109/66 (80) 97 136/55 (82) 08/14/24 05:13 100 15 113/60 (77) 97 126/53 (77) 08/14/24 04:58 99 15 118/65 (82) 97 143/56 (85) 08/14/24 04:45 104 21 97 140/59 (86) 08/14/24 04:43 100 18 114/67 (83) 97 140/58 (85) 08/14/24 04:30 104 34 96 130/58 (82) 08/14/24 04:28 103 34 120/66 (84) 96 138/61 (86) 08/14/24 04:15 105 30 96 139/62 (87) 08/14/24 04:13 105 30 119/62 (81) 96 134/60 (84) 08/14/24 04:00 98.4 08/14/24 04:00 107 36 97 140/60 (86) 08/14/24 03:58 108 36 119/69 (86) 98 148/62 (90) 08/14/24 03:45 110 47 97 164/65 (98) 08/14/24 03:43 111 44 124/77 (93) 96 152/62 (92) 08/14/24 03:30 113 35 95 161/63 (95) 08/14/24 03:28 110 41 124/71 (88) 95 158/59 (92) 08/14/24 03:15 108 40 95 163/60 (94) 08/14/24 03:13 108 44 128/76 (93) 96 159/59 (92) 08/14/24 03:00 105 30 96 150/58 (88) 08/14/24 03:00 97 Nasal Cannula* 2 28 08/14/24 02:58 106 37 123/70 (87) 96 159/59 (92) 08/14/24 02:45 104 46 97 157/60 (92) 08/14/24 02:43 104 35 117/77 (90) 97 149/57 (87) 08/14/24 02:30 103 42 97 151/59 (89) 08/14/24 02:28 102 35 120/72 (88) 96 144/56 (85) 08/14/24 02:15 100 33 96 150/57 (88) 08/14/24 02:13 101 35 119/75 (90) 96 154/59 (90) 08/14/24 02:00 99 28 96 151/58 (89) 08/14/24 01:58 105 31 129/86 (100) 96 167/64 (98) LABS: Laboratory: Test 08/14/24 06:23 08/14/24 03:54 08/14/24 03:39 08/13/24 03:00 Range/Units Whole Blood Glucose 134 H 70-110 MG/DL Blood Gas Specimen Type Arterial Arterial Blood pH 7.454 H 7.350-7.450 Arterial Blood Partial Pressure CO2 38 35-48 mmHg Arterial Blood Partial Pressure O2 73.2 L 83.0-108.0 mmHg Arterial Blood HCO3 26.1 21.0-28.0 mmol/L Arterial Blood Oxygen Saturation 94.3 94.0-98.0 % Arterial Blood Base Excess 2.2 -2.0-3.0 mmol/L Hemoglobin (Blood Gas) 10.6 L 13.5-17.5 g/dL Sodium (Blood Gas) 133 L 136-145 MMOL/L Bedside Potassium (Blood Gas) 4.0 3.4-4.5 MMOL/L Bedside Chloride (Blood Gas) 98 98-107 MMOL/L Bedside Glucose (Blood Gas) 152 H 65-95 MG/DL Bedside Ionized Calcium (Blood Gas) 1.14 L 1.15-1.33 MMOL/L Bedside Lactic Acid (Blood Gas) 0.90 H 0.36-0.75 MMOL/L Blood Gas Temperature 37.0 35.5-37.0 CELSIUS Blood Gas Flow-by 2.00 0.00-15.00 L/min Blood Gas Vent Mode 2LNC ROOM AIR FiO2 28.0 % Blood Gas Specimen Comment EDDIE [place], [place] White Blood Count 10.2 4.8-10.8 K/uL Red Blood Count 2.98 L 4.50-6.20 MIL/uL Hemoglobin 9.5 L 14.0-18.0 g/dL Hematocrit 28.4 L 42-54 % Mean Corpuscular Volume 95.3 79-99 fL Mean Corpuscular Hemoglobin 31.9 27.0-33.0 pg Mean Corpuscular Hemoglobin Concent 33.5 32.0-36.0 g/dL Red Cell Distribution Width 13.2 11.0-15.5 % Platelet Count 240 130-400 K/uL Mean Platelet Volume 9.3 7.5-10.5 fL Nucleated Red Blood Cells 0.0 0.0-0.19 % Sodium Level 133 L 136-145 mmol/L Potassium Level 3.9 3.5-5.1 mmol/L Chloride Level 99 L 101-111 mmol/L Carbon Dioxide Level 30 21-32 mmol/L Blood Urea Nitrogen 8 7-18 mg/dL Creatinine 0.7 0.5-1.3 mg/dL Glomerular Filtration Rate Calc 107 >90 mL/min Random Glucose 158 H 70-105 mg/dL Total Calcium 8.6 8.5-10.1 mg/dL Magnesium Level 1.80 1.80-2.40 mg/dL Immature Granulocyte % (Auto) 0.7 0-1 % Neutrophils (%) (Auto) 85.5 H 40.0-77.0 % Lymphocytes (%) (Auto) 6.6 L 21.0-51.0 % Monocytes (%) (Auto) 7.1 3.0-13.0 % Eosinophils (%) (Auto) 0.0 0.0-8.0 % Basophils (%) (Auto) 0.1 0.0-5.0 % Neutrophils # (Auto) 7.7 1.8-7.7 K/uL Lymphocytes # (Auto) 0.6 L 1.0-4.8 K/uL Monocytes # (Auto) 0.6 0.1-1.0 K/uL Eosinophils # (Auto) 0.00 0.00-0.70 K/uL Basophils # (Auto) 0.01 0.00-0.20 K/uL Absolute Immature Granulocyte (auto 0.06 0-1 K/uL White Cell Morphology Comment See comments Prothrombin Time 10.5 9.6-11.6 SEC Prothromb Time International Ratio 0.99 0.85-1.15 Activated Partial Thromboplast Time 23.6 L 26.3-35.5 SEC Ionized Calcium 1.14 L 1.15-1.33 MMOL/L Phosphorus Level 3.8 2.5-4.9 mg/dL Total Bilirubin 0.4 0.2-1.0 mg/dL Aspartate Amino Transf (AST/SGOT) 28 10-37 U/L Alanine Aminotransferase (ALT/SGPT) 48 12-78 U/L Alkaline Phosphatase 64 50-136 U/L Total Protein 6.4 6.0-8.3 g/dL Albumin 2.7 L 3.5-5.0 g/dL Test 08/12/24 20:50 08/12/24 16:07 08/12/24 11:04 Range/Units Blood Gas Respiration Rate 4.0 min. Blood Gas Tidal Volume 600 ml Blood Gas PEEP 5 cm H2O Activated Clotting Time 103 100-180 SEC Bedside Glucose Comment Notified Nurse Current Medications Medications (Trade) Dose Ordered Sig/Isidoro Route PRN Reason Start Time Stop Time Status Last Admin Dose Admin Acetaminophen (TYLenol 325MG TAB) 650 mg Q4H PRN PO Temp >38.3C(AFTER EXTUBATION) 08/12/24 15:30 09/11/24 15:29 08/14/24 03:59 650 MG Acetaminophen (TYLenol 325MG TAB) 650 mg Q6H PRN PO MILD PAIN (1-3) 08/12/24 15:30 08/12/24 16:09 DC Acetaminophen (TYLenol 500MG TAB) 500 mg Q6H PRN PO MILD PAIN (1-3) 08/06/24 10:00 09/05/24 09:59 08/08/24 20:05 500 MG Acetaminophen (TYLenol 650MG SUPPOSITORY) 650 mg Q4H PRN RC Temp >38.3C WHILE INTUBATED 08/12/24 15:30 09/11/24 15:29 Acetaminophen (acetaMINOPHEN) 1,000 mg Q6H6 IV 08/12/24 18:00 08/13/24 17:59 DC 08/13/24 14:06 1,000 MG Albumin Human 250 ml @ 0 mls/hr AD PRN IV IF HEMODYNAMICALLY UNSTABLE 08/12/24 15:30 Aminocaproic Acid 93563 mg/Sodium Chloride 310 ml @ 25 mls/hr AD IV 08/12/24 15:30 08/12/24 15:32 DC Aminocaproic Acid 91243 mg/Sodium Chloride 480 ml @ 0 mls/hr AD PRN IV BLEEDING CONTROL 08/12/24 06:30 09/11/24 06:29 Aspirin (Aspirin 81mg Ec Tab) 81 mg DAILY PO 08/06/24 09:00 09/05/24 08:59 08/14/24 08:38 81 MG Atorvastatin Calcium (LIPItor 40MG) 40 mg HS PO 08/05/24 21:00 09/04/24 20:59 08/13/24 20:09 40 MG Benzocaine (Cepacol Sore Throat Lozenge) 1 each Q4H PRN MM SORE THROAT 08/13/24 20:30 09/12/24 20:29 Calcium Gluconate 1 gm/Sodium Chloride 60 ml @ 200 mls/hr AD PRN IV HYPOCALCEMIA 08/12/24 15:30 09/11/24 15:29 08/13/24 03:20 200 MLS/HR Cefazolin Sodium (Ancef) 2 gm ONCALL PRN IVP SURGERY 08/11/24 18:30 08/12/24 16:01 DC Cefazolin Sodium (Ancef) 2 gm ONCALL PRN IVP SURGERY 08/12/24 16:30 08/14/24 16:29 08/12/24 21:07 2 GM Cefazolin Sodium (Ancef) 2 gm Q8H IVPB 08/12/24 20:30 08/12/24 16:05 DC Ceftriaxone Sodium (Rocephin 2gm Inj) 2 gm Q24H IVPB 08/06/24 00:00 08/15/24 23:59 08/14/24 01:15 2 GM Chlordiazepoxide HCl (LIBrium 25 MG CAP) 25 mg Q2H PRN PO ALCOHOL WITHDRAWAL PROTOCOL 08/05/24 06:00 08/12/24 05:59 DC 08/06/24 22:55 25 MG Dexmedetomidine/ Sodium Chloride (PRECEdex 400MCG/ 100ML-NS) 400 mcg PROTOCOL IV 08/12/24 15:30 08/13/24 15:29 DC Dextrose (D50w) 50 ml AD PRN IV HYPOGLYCEMIA PROTOCOL 08/05/24 05:30 08/12/24 16:00 DC Dextrose (D50w) 50 ml AD PRN IV HYPOGLYCEMIA PROTOCOL 08/12/24 15:30 08/14/24 09:28 DC Dextrose (D50w) 50 ml AD PRN IV HYPOGLYCEMIA PROTOCOL 08/14/24 09:30 09/13/24 09:29 Diazepam (VALium 5 MG/ML 2 ML SYG) 10 mg Q4H PRN IVP ALCOHOL WITHDRAWAL PROTOCOL 08/05/24 06:30 08/12/24 06:29 DC Docusate Sodium (COLace 100MG CAP) 100 mg BID PO 08/12/24 21:00 09/11/24 20:59 08/14/24 08:37 100 MG Doxycycline Hyclate (Doxycycline Hyclate) 100 mg BID PO 08/06/24 09:00 08/06/24 12:18 DC 08/06/24 09:06 100 MG Enoxaparin Sodium (Lovenox) 30 mg DAILY SQ 08/15/24 09:00 09/14/24 08:59 Epinephrine HCl 10 mg/Sodium Chloride 250 ml @ 0 mls/hr AD PRN IV TITRATE 08/12/24 06:30 09/11/24 06:29 Epinephrine HCl 10 mg/Sodium Chloride 250 ml @ 0 mls/hr AD PRN IV POST-OP CARDIOVASCULAR ORDERS 08/12/24 15:30 08/12/24 15:32 DC Famotidine (Pepcid 20mg Vial) 20 mg BID IV 08/05/24 09:00 08/05/24 09:01 DC 08/05/24 07:47 20 MG Famotidine (Pepcid 20mg Vial) 20 mg BID IV 08/12/24 21:00 08/13/24 07:32 DC 08/12/24 20:12 20 MG Furosemide (LASix 20MG TAB) 20 mg Q12H PO 08/14/24 09:00 09/13/24 08:59 08/14/24 08:38 20 MG Furosemide (LASix 20MG VIAL) 20 mg Q12H IV 08/13/24 09:00 08/12/24 16:01 DC Furosemide (LASix 20MG VIAL) 20 mg Q12H IV 08/13/24 14:00 09/12/24 13:59 08/14/24 01:15 20 MG Glucagon (Glucagon 1mg Kit) 1 mg AD PRN IM HYPOGLYCEMIA PROTOCOL 08/05/24 05:30 08/12/24 16:00 DC Glucagon (Glucagon 1mg Kit) 1 mg AD PRN IM HYPOGLYCEMIA PROTOCOL 08/12/24 15:30 08/14/24 09:28 DC Glucagon (Glucagon 1mg Kit) 1 mg AD PRN IM HYPOGLYCEMIA PROTOCOL 08/14/24 09:30 09/13/24 09:29 Guaifenesin (RobiTUSSin SUGAR-FREE 100 MG/ 5 ML UDCUP) 200 mg Q4H PRN PO COUGH 08/07/24 23:30 08/12/24 15:17 DC 08/09/24 21:09 200 MG Heparin Sodium (Porcine) (HEParin 5,000 UNIT VIAL) 5,000 unit Q8H SQ 08/05/24 11:00 08/05/24 03:04 DC Heparin Sodium/ Dextrose 250 ml @ 0 mls/hr PROTOCOL IV 08/05/24 03:00 08/12/24 15:17 DC 08/11/24 21:27 11.46 MLS/HR Insulin Glargine (LANtus 100 UNITS/ML 10 ML VIAL) 10 units BID@0730,2100 SQ 08/05/24 21:00 08/12/24 15:17 DC 08/11/24 20:31 10 UNITS Insulin Human Regular (humuLIN R 100 UNIT/ML 3ML) INSULIN SLIDING SCAL... ACHS SQ 08/05/24 07:30 08/05/24 08:55 DC 08/05/24 07:47 5 UNIT Insulin Human Regular (humuLIN R 100 UNIT/ML 3ML) INSULIN SLIDING SCAL... ACHS SQ 08/05/24 11:30 08/12/24 15:17 DC 08/11/24 20:34 14 UNIT Insulin Human Regular (humuLIN R 100 UNIT/ML 3ML) INSULIN SLIDING SCAL... ACHS SQ 08/14/24 11:30 09/13/24 11:29 Insulin Human Regular 100 unit/ Sodium Chloride 100 ml @ 0 mls/hr AD IV 08/12/24 15:30 08/14/24 09:26 DC 08/13/24 11:02 5 MLS/HR Iron Sucrose (VenoFER) 100 mg DAILY IV 08/08/24 09:30 08/08/24 09:17 DC Iron Sucrose (VenoFER) 100 mg Q24H IV 08/08/24 21:00 08/10/24 22:00 DC 08/10/24 22:03 100 MG Isosorbide Mononitrate (Imdur 30mg Sr) 30 mg DAILY PO 08/11/24 13:00 08/12/24 15:17 DC 08/11/24 14:17 30 MG Lactulose (Constulose 20gm/ 30ml Udcup) 20 gm BID PRN PO CONSTIPATION 08/12/24 15:30 09/11/24 15:29 Lorazepam (AtiVAN) 2 mg Q4H PRN IVP ALCOHOL WITHDRAWAL PROTOCOL 08/05/24 06:00 08/05/24 06:04 DC Losartan Potassium (CozAAR 50 mg TAB) 50 mg BID PO 08/09/24 21:00 08/12/24 15:17 DC 08/11/24 20:39 50 MG Losartan Potassium (CozAAR 50 mg TAB) 50 mg DAILY PO 08/07/24 09:00 08/09/24 09:16 DC 08/09/24 08:06 50 MG Magnesium Hydroxide (Milk Of Magnesium 30ml) 30 ml DAILY PRN PO CONSTIPATION 08/12/24 15:30 09/11/24 15:29 Magnesium Sulfate 50 ml @ 12.5 mls/hr AD PRN IV MAG LEVEL LESS THAN 2.0 08/12/24 15:30 09/11/24 15:29 08/14/24 06:16 12.5 MLS/HR Magnesium Sulfate 50 ml @ 0 mls/hr PROTOCOL PRN IV OTHER [SEE ORDER COMMENTS] 08/05/24 05:30 08/12/24 16:01 DC 08/10/24 04:13 25 MLS/HR Metoprolol Tartrate (loprESSOR) 12.5 mg BID PO 08/14/24 09:00 08/13/24 06:52 DC Metoprolol Tartrate (loprESSOR) 25 mg BID PO 08/05/24 14:30 08/08/24 08:27 DC 08/08/24 07:44 25 MG Metoprolol Tartrate (loprESSOR) 25 mg BID PO 08/13/24 09:00 08/13/24 19:21 DC 08/13/24 08:49 25 MG Metoprolol Tartrate (loprESSOR) 25 mg BID PO 08/14/24 09:00 08/13/24 08:43 DC Metoprolol Tartrate (loprESSOR) 50 mg BID PO 08/08/24 09:00 08/12/24 15:17 DC 08/12/24 08:24 50 MG Metoprolol Tartrate (loprESSOR) 50 mg BID PO 08/13/24 21:00 09/12/24 20:59 08/14/24 08:37 50 MG Morphine Sulfate (morPHINE 2MG SYG) 0.5 mg Q2H PRN IV MODERATE PAIN (4-6) 08/12/24 15:30 08/13/24 15:29 DC Morphine Sulfate (morPHINE 2MG SYG) 1 mg Q2H PRN IV SEVERE PAIN (7-10) 08/12/24 15:30 08/13/24 15:29 DC 08/12/24 18:55 1 MG Morphine Sulfate (morPHINE 2MG SYG) 2 mg Q2HPRN PRN IVP SEVERE PAIN (6-10) 08/05/24 11:10 08/10/24 14:09 DC 08/09/24 04:17 2 MG Morphine Sulfate (morPHINE 2MG SYG) 2 mg Q4H PRN IVP SEVERE PAIN (7-10) 08/05/24 06:00 08/05/24 08:31 DC 08/05/24 06:03 2 MG Nicardipine HCl 100 mg/Sodium Chloride 100 ml @ 0 mls/hr AD PRN IV TITRATE 08/12/24 17:30 09/11/24 17:29 Nitroglycerin (Nitroglycerin 1gm Oint) 0.5 inch Q8H5 TD 08/08/24 13:00 08/10/24 12:43 DC 08/10/24 06:05 0.5 INCH Nitroglycerin (Nitrostat) 0.4 mg AD PRN SL CHEST PAIN 08/05/24 02:30 08/08/24 08:53 DC 08/05/24 02:46 0.4 MG Nitroglycerin/ Dextrose 0 ml @ 0 mls/hr AD IV 08/12/24 15:30 08/12/24 16:07 DC Nitroglycerin/ Dextrose 250 ml @ 0 mls/hr PROTOCOL IV 08/05/24 03:30 09/04/24 03:29 08/14/24 09:01 30 MLS/HR Norepinephrine Bitartrate 250 ml @ 0 mls/hr AD PRN IV TITRATE 08/12/24 06:30 09/11/24 06:29 Norepinephrine Bitartrate 8 mg/ Dextrose 250 ml @ 0 mls/hr AD PRN IV POST-OP CARDIOVASCULAR ORDERS 08/12/24 15:30 08/12/24 15:32 DC Ondansetron HCl (zoFRAN 4MG INJ) 4 mg Q6H PRN IV NAUSEA/VOMITING 08/05/24 05:30 09/04/24 05:29 08/12/24 18:54 4 MG Ondansetron HCl (zoFRAN 4MG INJ) 4 mg Q6H PRN IV NAUSEA/VOMITING 08/12/24 15:30 08/12/24 16:02 DC Pantoprazole Sodium (PROTonix 40MG INJ) 40 mg DAILY IVP 08/05/24 09:00 08/12/24 15:17 DC 08/12/24 08:24 40 MG Pharmacy Profile Note (Pharmacy Communication) 1 each PROTOCOL PRN MISC ETOH Withdrawal Score changes 08/05/24 06:00 08/12/24 05:59 DC Potassium Phosphate 250 ml @ 42 mls/hr AD PRN IV LOW PHOS LEVEL 08/12/24 15:30 09/11/24 15:29 Potassium Chloride 100 ml @ 50 mls/hr AD PRN IV POTASSIUM PROTOCOL 08/05/24 05:30 08/07/24 18:24 DC Potassium Chloride 100 ml @ 100 mls/hr AD PRN IV POTASSIUM PROTOCOL 08/07/24 09:00 09/06/24 08:59 08/13/24 03:34 100 MLS/HR Potassium Chloride 100 ml @ 100 mls/hr AD PRN IV HYPOKALEMIA 08/12/24 15:30 08/13/24 09:00 DC Potassium Chloride (K-Dur/Klor-Con 20meq) 20 meq AD PRN PO POTASSIUM PROTOCOL 08/07/24 09:00 09/06/24 08:59 08/14/24 06:15 20 MEQ Potassium Chloride (K-Dur/Klor-Con 20meq) 20 meq AD PRN PO POTASSIUM PROTOCOL 08/13/24 09:00 08/13/24 09:00 DC Potassium Chloride (KCl 10% Elixir 20meq/15ml) 20 meq AD PRN PO POTASSIUM PROTOCOL 08/07/24 09:00 09/06/24 08:59 Potassium Chloride (KCl 10% Elixir 20meq/15ml) 20 meq AD PRN PO POTASSIUM PROTOCOL 08/13/24 09:00 08/13/24 09:00 DC Promethazine HCl (Phenergan) 25 mg Q6H PRN PO NAUSEA 08/05/24 06:00 08/12/24 15:17 DC Propofol 100 ml @ 0 mls/hr AD PRN IV SEDATION 08/12/24 15:30 08/16/24 15:29 Ranolazine (Ranexa) 500 mg BID PO 08/05/24 17:30 08/12/24 15:17 DC 08/11/24 20:38 500 MG Ranolazine (Ranexa) 500 mg BID PO 08/05/24 21:00 08/05/24 17:04 DC Sodium Bicarbonate (Sodium Bicarb 50meq 50ml Vial) 50 meq AD PRN IV OTHER[SEE DOSING INSTRUCTIONS] 08/12/24 15:30 08/15/24 15:29 08/12/24 19:50 50 MEQ Sodium Chloride 500 ml @ 0 mls/hr AD IV 08/12/24 15:30 09/11/24 15:29 Sodium Chloride 1,000 ml @ 10 mls/hr ONCE IV 08/12/24 15:30 08/13/24 15:29 DC 08/12/24 17:29 10 MLS/HR Sodium Chloride 1,000 ml @ 75 mls/hr [id number] IV 08/05/24 05:30 08/10/24 15:46 DC 08/08/24 16:15 75 MLS/HR Sodium Chloride 1,000 ml @ 100 mls/hr Q10H IV 08/05/24 14:30 08/05/24 17:29 DC 08/05/24 15:22 100 MLS/HR Sodium Chloride (NS Flush 10ml) 10 ml Q8H PRN IVP IV LINE FLUSH 08/12/24 15:30 09/11/24 15:29 Thiamine HCl 100 mg/Folic Acid 1 mg/Multivitamins/ Minerals 10 ml/ Sodium Chloride 1,011.2 ml @ 100 mls/ hr Q24H IV 08/05/24 06:00 08/07/24 16:07 DC 08/07/24 05:34 100 MLS/HR Tramadol HCl (UltRAM) 25 mg Q6H PRN PO MODERATE PAIN (4-6) 08/12/24 15:30 08/17/24 15:29 Tramadol HCl (UltRAM) 50 mg Q6H PRN PO SEVERE PAIN (7-10) 08/12/24 15:30 08/17/24 15:29 08/14/24 08:05 50 MG Wound Care/ Dressing Products (Venelex Ointment) 1 NAKIA AD TID TP 08/06/24 14:00 08/06/24 12:50 DC DIAGNOSTICS / RADIOLOGY: SERVICE 0400 REASON: s/p CABG ORDERING PHYSICIAN: KEYA CALVO MD PROCEDURE: CXR1VW - CHEST 1VW CHEST 1VW REASON: s/p CABG COMPARISON: 08/12/2024 FINDINGS: Heart size appears larger. Lungs are clear. There is no vascular congestion or pleural effusion. ET and NG tubes have been removed. [place]-Dontrell introducer sheath remains in place. IMPRESSION: 1 stable postop chest. ASSESSMENT: Chest pain, POA ACS- NSTEMI POA Multivessel CAD with LV ejection fraction of 55% hypokinesis of the inferior wall status post CABG with a HILLMAN graft to the LAD and saphenous vein graft Severe 2-vessel CAD with 80% proximal LAD and 100% distal RCA stenosis by coronary angiogram on 08/05/2024 Alcohol Intoxication POA Uncontrolled diabetes POA Acute anemia, not POA Right common femoral vein thrombus, as per right groin ultrasound on 08/08 Possible phlebitis of great saphenous vein as per right groin ultrasound on 08/08 Multiple right inguinal lymph nodes as per right groin ultrasound on 08/08 Obesity POA Hypokalemia Hyperlipidemia POA Hypertension POA Elevated CK POA Active alcohol drinker POA PLAN: Continue telemetry NSTEMI POA, chest pain Continue [id number] mg daily Continue Lipitor 40 mg daily Hold Brilinta as per Cardiology recommendation Appreciate cardiology consult and we will follow their recommendations Severe 2-vessel CAD with 80% proximal LAD and 100% distal RCA stenosis Multivessel CAD with LV ejection fraction of 55% hypokinesis of the inferior wall status post CABG Underwent CABG procedure with a HILLMAN graft to the LAD and saphenous vein graft on 08/12/2024 Postop day 2 Chest tube drainage 150 ml Plan to remove all chest tubes today as per CT surgery consult No postprocedure complications noted Elevated TCK POA Improved TCK normal at 118 Alcohol Intoxication POA Monitor for signs of alcohol withdrawal CIWA protocol in place Counseled on alcohol use cessation Uncontrolled diabetes POA HbA1c 8.5 Continue insulin sliding scale AC & HS with hypoglycemia protocol Acute anemia, not POA Hemoglobin currently at 9.5 Iron 18, TIBC 253,% saturation 7.1 indicating iron deficiency Received 3 doses of IV Venofer so far Monitor H&H Right common femoral vein thrombus, right groin ultrasound on 08/08 Currently On Lovenox 30 mg SQ, plan to start full-dose anticoagulation within next 24-48 hours as per cardiology consult Possible phlebitis of right saphenous vein as per ultrasound on 08/08 Warm compresses to the area Leg Elevation Multiple right inguinal lymph nodes as per right groin ultrasound on 08/08 Can be attributed to reactive lymphadenopathy due to DVT We will monitor for any signs and symptoms of infection Hyperlipidemia POA, Normal lipid panel results Continue Atorvastatin Hypertension, POA Continue metoprolol 50 mg b.i.d., losartan 50 mg p.o. b.i.d. as per Cardiology recommendation Hypokalemia Improved Continue Famotidine 20 mg IV bid for GI prophylaxis Continue SCDs for DVT prophylaxis Monitor electrolytes and replace them as needed per protocol Follow up on Cardiology consult recommendations Follow up on CT surgery consult recommendations ATTESTATION BY PHYSICIAN I have seen and examined the patient. I reviewed the documentation, medical decision making, and treatment plan as noted by the resident above. I agree with the findings and plan of care. Dalton Le MD, PRIYANKA MD Aug 14, 2024 09:46
--- NOTE | 2024-08-14 10:07 | NUR ---
SPOKE WITH DR. CALVO REGARDING PATIENT CHEST PAIN AND INCREASING NITRO DRIP. MD OK TO REMOVE CHEST TUBE TO TRY AND ALLEVIATE THE PAIN.
[2024-08-14] MEDS: INSULIN humuLIN R 100 UNIT/ML 3ML SQ SCH (11:17)
[2024-08-14] MEDS: acetaMINOPHEN 1,000 MG/100 ML VIAL IVPB SCH (12:13)
--- NOTE | 2024-08-14 12:44 | HMCIMG ---
CHEST 1VW REASON: s/p CABG COMPARISON: 08/13/2024 FINDINGS: There is mild cardiomegaly, unchanged. There is no pulmonary vascular congestion. Lungs are clear. [place]-Dontrell introducer sheath remains in place. There is no pneumothorax. IMPRESSION: 1. Stable postop chest.
[2024-08-14] MEDS: GABApentin 100 MG CAPSULE PO SCH (14:15)
[2024-08-14] MEDS: metoPROLOL tartRATE 50 MG TAB PO SCH (21:15)
[2024-08-15] VITALS (65 sets, daily range): BP systolic 74–191; BP diastolic 54–144; PULSE 63–109; RESP 9–51; TEMP 97.9–98.5; O2SAT 93–99
[2024-08-15 04:42] LABS: HEMATOCRIT 29.6 % (42-54); MEAN CORPUSCULAR HEMOGLOBIN 31.6 pg (27.0-33.0); MEAN CORPUSCULAR HGB CONC 32.8 g/dL (32.0-36.0); MEAN CORPUSCULAR VOLUME 96.4 fL (79-99); RED BLOOD CELL COUNT(AUTO) 3.07 MIL/uL (4.50-6.20); WHITE BLOOD COUNT (AUTO) 8.9 K/uL (4.8-10.8)
[2024-08-15 04:55] LABS: CREATININE 0.8 mg/dL (0.5-1.3)
--- NOTE | 2024-08-15 07:00 | NUR ---
DR. LINDSAY ROUNDED ON PATIENT. UPDATED MD ON PATIENT STATUS. MD STATED HE WOULD CHANGE/INPUT ORDERS ON METOPROLOL AND ADD A MEDICATION.
--- NOTE | 2024-08-15 07:03 | PN ---
[facility] Cardiology Progress Note CARDIOLOGY PROGRESS NOTE AUGUST 15, 2024 Problems: 1. Non ST-elevation CA 2. Multivessel CAD with LV ejection fraction of 55% hypokinesis of the inferior wall status post aortocoronary bypass graft surgery with a HILLMAN graft to the LAD and saphenous vein graft 3. Dyslipidemia 4. Right common femoral vein deep vein thrombosis 5. Normocytic anemia 6. Diabetes mellitus type 2 7. Alcohol abuse Blood pressure is running 130-140 systolic heart rate is 90s. White count 0.9 0.7 Platelet count [id number] potassium 4.0 BUN 10 creatinine 0 eight. The patient continues on aspirin atorvastatin Lovenox for DVT prophylaxis furosemide losartan metoprolol tartrate. Chest x-ray this morning shows cardiomegaly post sternotomy changes and blunting of the left costophrenic angle. He is currently up in the chair chest tubes are out he continues with the incentive spirometry. Heart rate is still somewhat high and we will increase metoprolol further to 100 b.i.d. ROSALIA LINDSAY MD Aug 15, 2024 07:03
[2024-08-15] MEDS: metoPROLOL tartRATE 50 MG TAB PO SCH (08:06)
[2024-08-15] MEDS: LoSARTan 50 MG TABLET PO SCH (08:06)
[2024-08-15] MEDS: ENOXAPARIN SODIUM 30 MG/0.3 ML SQ SCH (08:08)
--- NOTE | 2024-08-15 09:05 | HMCIMG ---
Exam Type: CHEST 1VW Clinical Information: s/p CABG Comparison: None Findings and impression: Removal of the previously seen left-sided chest tube. No pneumothorax. No other interval changes.
--- NOTE | 2024-08-15 09:23 | PN ---
[facility] PROGRESS NOTE Date Patient Seen: Aug 15, 2024 Time of Visit: 09:23 Supervising Physician: [ MICHAEL SOTOMAYOR MD ] Primary Care Physician: [ Francesco Gee MD] Outpatient Specialists: [none ] Inpatient Consults: [Dany Noel MD, Marcela Talbert DO, DR Khalil Aattending: Dr Paola Frye MD ] PROBLEM LIST: Multivessel CAD status post CABG x2 on 08/12/24 Acs-Nstemi Type I S/P Coronary Angiogram On 08/05/24 With Findings On Severe Two Vessel Cad With 80% Proximal Lad 100% Distal Rca Stenosis Elevated CK levels POA Leukocytosis w/ left shift Postoperative Acute blood loss anemia, not POA Essential HTN Untreated hyperglycemia in the presence of new onset Type II DM2 Alcohol abuse, POA Right femoral DVT RT Groin hematoma 2.2 x 1.2x0.9cm Right groin lymphadenopathy Obesity INTERVAL HISTORY: Day 3 s/p CABG. The overnight events. He is off drips hemodynamically stable. Patient has been afebrile with a T-max of 98.4 and a T low of 97.3 in the last 24 hours. He has a good urine output 4.2 L with a balance is-3.8 L. Chemistries unremarkable. H&H is stable 9.7/29.6. chest XR with improvement no pneumothorax noted post chest tube removal. we will continue to follow c ardiology and CV surgery recs. REVIEW OF SYSTEMS: General: No malaise or fever. Neurological: No fainting episodes or seizures. HEENT: No nasal congestion or nasal secretion. Respiratory: No cough, shortness of breath, or wheezing Cardiac: No chest pain or palpitations. Gastrointestinal: No vomiting or diarrhea. Genitourinary: No dysuria hematuria. Skin: No rashes or lesions. Hematological: No bruises or bleeding. Musculoskeletal: No joint pains or arthralgias. Psychiatric: No depression or panic attacks. PHYSICAL EXAM: GENERAL: Alert, weak, awake oriented x 3 HEENT: EOMI, Sclera non icteric, moist mucosa NECK: Supple, no JVD, trachea midline LUNGS: Clear breath sounds bilaterally. No wheezes HEART: Regular rate and rhythm. Normal S1 and S2, without murmurs. dressing to midsternal area clean dry and intact. ABD: Abdomen soft, nontender. Bowel sounds present EXT: No clubbing cyanosis or edema Skin: Surgical site benign Cordis and Chest tube insertion site benign NEURO: Alert and oriented to person, follows commands Vital Signs (last 8hr) Date Time Temp Pulse Resp B/P (MAP) Pulse Ox O2 Delivery O2 Flow Rate FiO2 08/15/24 07:31 98 Nasal Cannula* 1 24 08/15/24 07:00 98 9 150/83 100 Nasal Cannula 2.0 08/15/24 06:00 97 11 147/88 (107) 99 146/144 (145) 08/15/24 05:28 100 10 141/82 (101) 93 128/89 (102) 08/15/24 05:13 100 19 141/82 (101) 92 133/74 (93) 08/15/24 04:58 104 15 131/88 (102) 92 131/80 (97) 08/15/24 04:43 90 18 118/72 (87) 94 85/72 (76) 08/15/24 04:28 88 20 118/70 (86) 94 83/72 (76) 08/15/24 04:13 91 11 104/70 (81) 93 76/75 (75) 08/15/24 04:00 98.2 08/15/24 03:43 88 15 122/73 (89) 93 77/68 (71) 08/15/24 03:28 89 19 125/79 (94) 94 160/69 (99) 08/15/24 03:13 98 13 139/89 (106) 92 183/79 (113) 08/15/24 02:58 98 13 135/85 (102) 92 191/78 (115) 08/15/24 02:43 91 14 125/75 (92) 93 81/72 (75) 08/15/24 02:28 91 16 130/78 (95) 94 83/75 (78) 08/15/24 02:13 87 24 127/79 (95) 93 84/76 (79) 08/15/24 01:58 91 21 119/78 (92) 91 90/83 (85) 08/15/24 01:43 86 21 116/71 (86) 94 83/67 (72) 08/15/24 01:28 90 12 125/71 (89) 92 102/67 (79) LABS: Hematology Labs: Test 08/15/24 04:21 Range/Units White Blood Count 8.9 4.8-10.8 K/uL Red Blood Count 3.07 L 4.50-6.20 MIL/uL Hemoglobin 9.7 L 14.0-18.0 g/dL Hematocrit 29.6 L 42-54 % Mean Corpuscular Volume 96.4 79-99 fL Mean Corpuscular Hemoglobin 31.6 27.0-33.0 pg Mean Corpuscular Hemoglobin Concent 32.8 32.0-36.0 g/dL Red Cell Distribution Width 13.0 11.0-15.5 % Platelet Count 277 130-400 K/uL Mean Platelet Volume 9.3 7.5-10.5 fL Nucleated Red Blood Cells 0.0 0.0-0.19 % Chemistry Labs: Test 08/15/24 06:31 08/15/24 04:21 Range/Units Whole Blood Glucose 145 H 70-110 MG/DL Sodium Level 137 136-145 mmol/L Potassium Level 4.0 3.5-5.1 mmol/L Chloride Level 101 101-111 mmol/L Carbon Dioxide Level 32 21-32 mmol/L Blood Urea Nitrogen 10 7-18 mg/dL Creatinine 0.8 0.5-1.3 mg/dL Glomerular Filtration Rate Calc 103 >90 mL/min Random Glucose 162 H 70-105 mg/dL Total Calcium 8.6 8.5-10.1 mg/dL Magnesium Level 2.00 1.80-2.40 mg/dL DIAGNOSTICS / RADIOLOGY RESULTS: [IMAGING REPORT Signed PATIENT: MAYRA JUDD MR#: [id number] : 1965 SEX: M AGE: 59 LOCATION: [facility] ORDER 2300 STATUS: ADM IN REPORT#: [id number] SERVICE 0400 REASON: s/p CABG ORDERING PHYSICIAN: KEYA CALVO MD PROCEDURE: CXR1VW - CHEST 1VW Exam Type: CHEST 1VW Clinical Information: s/p CABG Comparison: None Findings and impression: Removal of the previously seen left-sided chest tube. No pneumothorax. No other interval changes. DICTATED BY: EJ BLAIR MD DATE: 08/15/24901 ELECTRONICALLY SIGNED BY: EJ BLAIR MD DATE: 08/15/24904 ] PLAN Follow CT surgeon recommendations Follow cardiology recommendations Multimodal pain management Monitoring H&H Monitor chest tube output Chest x-ray in the morning Transfuse if absolutely necessary to keep hemoglobin above 8 Maintain O2 sats greater than 92% Incentive spirometry Glycemic control with goal of 80-180 Referral for cardiac rehabilitation Speech to eval once patient is extubated monitor electrolytes: K Goal of 4 Magnesium goal of 2 Replace accordingly NEURO: Minimize central acting medications as possible. Fall Precautions. Well lighted room through the day and minimize interruptions through the night to prevent acute delirium. PULMONARY: Supplemental 02 as needed Titrate Fio2 to keep Spo2 > or = 90% DuoNebs and CPT as needed IS hourly while awake for pulmonary hygiene Out of bed to chair as tolerated VAP Bundle CARDIOVASCULAR: Follow hemodynamics. Titrate vasopressor to keep MAP >65 or systolic blood pressure >95mmHg DIPS: nitro gtt LINES: cvc arterial line fc chest tube GI & NUTRITION: Continue nutritional support Aspirations precautions Prokinetic agents and laxatives as needed KIDNEYS & ELECTROLYTES: Strict monitoring of intake and output Daily weights Avoid nephrotoxic agents Monitor electrolytes and replace as needed Goal urine output of 30mL/hr or 0.5mL/kg/hr Urine output: [ ] Fluid Balance: [ ] ENDOCRINE: Maintain blood glucose between 100-180 at all times. Insulin sliding scale for blood glucose management INFECTIOUS DISEASE: Trend temperature. Mera-culture if febrile. Micro: [ ] Antibiotics: [ ] HEMATOLOGY & COAGULATION: Monitor H&H. Keep Hgb > 7 Transfuse 1 unit of PRBC for Hgb < 7 Transfuse 1 pack of platelets of platelets < 20, 000 Watch for any signs and symptoms of bleeding SKIN: Pressure ulcer prevention per facility protocol Rehab: PT/OT Prophylaxis: GI: [protonix ] DVT: on heparin gtt Code Status: Full Resuscitation Disposition: ICU Other: I personally spent 40 minutes of critical care time in treatment of this patient. This includes patient management, time at bedside, time reviewing tests, labs, appropriate images and studies, documentation, and patient care coordination. This time excludes separately billable procedures. Case was discussed and seen with my supervising physician. The above plan was formulated and agreed upon. ATTESTATION BY PHYSICIAN I reviewed the documentation, medical decision making, and treatment plan as noted by the mid-level provider above. I agree with the findings and plan of care. Michael Sotomayor MD, [facility] Aug 15, 2024 09:23
--- NOTE | 2024-08-15 09:48 | PN ---
[facility] PROGRESS NOTE Date of Service: Aug 15, 2024 Time of Service: 09:47 SUBJECTIVE: This is a case of 59-year-old male with past medical history of diabetes, hypertension and hyperlipidemia who presented to the ED with complaints of left- sided chest pain which started around 8 pm last night while resting. He states that he has been experiencing intermittent chest pain since the past 2 days ago which has become persistent associated with SOB last night. Patient also reports that he had 5 beers last night and denies cigarette and recreational drug use. Initial ECG revealed ST 110 right bundle branch block, inferior infarct acute and second EKG showed ST 108 right bundle branch block inferior infarct recent and the 3rd EKG showed ST 120 with Right bundle branch block Inferior infarct recent and probable posterior infarct acute. Initial Labs WBC 10.9, BNP 147, total CK 812, troponin 13,930, serum alcohol 117. While in the ER patient received aspirin 325 mg p.o., Protonix 40 mg IV, Brilinta 90 mg p.o., verapamil 5 mg IV and metoprolol 5 mg IV and was started on heparin and nitroglycerin drip. He was admitted for further assessment and treatment in view of NSTEMI. 08/05/2024 Patient is seen and examined at the bedside. He complains of mild p ressure-like left-sided chest pain and generalized body weakness. Vitals blood pressure ranging in 120/70s. Labs WBC 10.9, hemoglobin 13.9, BNP 147, PT 10.1, INR 0.95. Urinalysis positive for glucose. Urine toxicology negative and serum alcohol 117, glucose 229, magnesium 1.9, TCK 8. Troponin trend [id number]. Currently on heparin and nitroglycerin drip. He is scheduled for cardiac catheterization procedure today. Chest x-ray revealed clear lungs and pending 2D echo results. 08/06/2024 Patient is seen and examined at the bedside. He complains of generalized body weakness and headache. He denies fever, chills, nausea, vomiting, chest pain, palpitations, abdominal pain. Vitals Blood pressure 137/67. Labs WBC 10, hemoglobin dropped from 13.9-11.5, magnesium 1.70, calcium 8.1, AST improved from 176-115. BNP improved from 147-128 and TCK improved 812-575. He underwent left heart catheterization yesterday which revealed two- vessel coronary artery disease with 80% stenosis in the proximal LAD and 100% stenosis in the distal RCA. 2D echo revealed normal Left ventricle systolic function, estimated LVEF 55% and Indeterminate diastolic function. CT surgery was consulted. 08/07/24 Patient is seen and examined at the bedside. /He was managed for ACS/Non-STEMI and underwent further assessment with a cardiac catheterization on 08/05/2024 demonstrating two-vessel coronary artery disease with 80% stenosis in the proximal LAD and 100% stenosis in the distal RCA. He has had no recurrent angina overnight. He continues on IV heparin. 2D echocardiogram on 08/05/2024 demonstrating basal inferior wall hypokinesis and an LVEF of 55%. 08/08/2024 Patient is seen and examined at the bedside. No acute events last night. Currently on heparin drip. He mentioned about experiencing mild chest discomfort, shortness of breath this morning when he tried to sit in the chair. He also complains of pain and discomfort over right groin. We will order a repeat right groin ultrasound to rule out hematoma. Vitals blood pressure 137/78, respiratory rate 23. Labs hemoglobin decreased from 11.2-10.8, reticulocyte count high at 2.34, iron 18, TIBC 253,% saturation low at 7.1 indicating iron deficiency, BMP unremarkable, TCK normal at 118. Pending CABG. 08/09/2024 Patient is seen and examined at the bedside. No acute events last night. Currently on heparin drip. Vitals blood pressure 151/88, respiratory rate 16. He complains of right groin discomfort and pain. Right groin soft tissue ultrasound revealed multiple right inguinal lymph nodes, partial DVT with thrombus in right common femoral vein, possible phlebitis of great saphenous vein. We will continue the patient on heparin drip for DVT as per cardiology consult recommendation. Labs hemoglobin 10.9, APTT 45.8, BMP unremarkable. Pending CABG. 08/10/24 patient was seen and examined. Patient denies any complaints except dry cough. No acute events overnight. His vitals are stable. Patient reports that his right groin discomfort and pain is getting better and is able to move around. Continue heparin drip. His labs showed hemoglobin 10.7, potassium 3.3 and is being replaced as per the protocol. Magnesium 1.80 and we will cover with the protocol. He is pending CABG. 08/11/2024 Patient is seen and examined at the bedside. No acute events last night. He states that he feels well and his right groin pain and discomfort has been significantly reduced. Currently on heparin drip. Vitals temperature 98.2, pulse rate 72, respiratory rate 16, blood pressure 126/69, SpO2 98% on room air. Labs hemoglobin improved from 10.7-11, WBC 6.6, BMP unremarkable. Pending CABG procedure. 08/12/2024 Patient is seen and examined at the bedside. No acute events last night. He states that he feels well and has no complaints. Currently NPO. Vitals temperature 97.9, pulse rate 78, blood pressure 133/77, respiratory rate 20, SpO2 99% on room air. Labs WBC 7.5, hemoglobin decreased from 11-10.7, BMP, LFT and lipid panel levels are normal. ABG showed pH 7.43, PO2 78.2, HC03 28.1, pCO2 43. Scheduled for CABG procedure today. 08/13/2024 Post CABG day 1 Patient is seen and examined at the bedside. He complains of moderate chest pain and discomfort. No Acute events last night. Vitals pulse rate 106, respiratory rate 25, blood pressure 136/51, SpO2 99% on 2 L nasal cannula. Urine output 1.4 L, chest tube drainage 320 mL. Currently on nitroglycerin drip. Labs WBC improved from 11.8-9.1, hemoglobin improved from 9.5-9.8, BMP unremarkable. Carotid ultrasound results are normal. Pending Chest x-ray results. 08/14/2024 Post CABG day 2 Patient is seen and examined at the bedside. He mentioned about experiencing difficulty in breathing secondary to chest pain and discomfort yesterday night. He states that his chest pain has gotten better today after receiving the pain medication. Currently on insulin and nitroglycerin drip. Vitals blood pressure 31/70, pulse rate 104, SpO2 greater than 95% on 3 L nasal cannula. Urine output 3.3 L. Chest tube drainage 150 mL. Labs WBC 10.2, hemoglobin decreased from 9.8-9.5, sodium 133, chloride 99. ABG revealed pH 7.45, pCO2 38, PO2 73.2, HC03 26.1 indicating mild hypoxemia and alkalosis. 08/15/2024 Post CABG Day3 Patient is seen and examined at the bedside. He mentioned about experiencing similar difficulty in breathing secondary to pain and discomfort yesterday night. He feels better today. Vitals pulse rate 98, respiratory rate 9, blood pressure 150/83, SpO2 98% on 1 L nasal cannula. Urine output 4.2 L. Hemoglobin improved from 9.5-9.7, BMP unremarkable. Chest x-ray revealed no interval/acute changes. REVIEW OF SYSTEMS CONSTITUTIONAL: Denies fevers, chills, or night sweats. No unintentional weight loss reported. NEUROLOGICAL: Denies headache, amaurosis fugax, motor weakness, sensory deficit, vertigo/spinning sensation, gait abnormalities, or tremors. ENT: No hearing loss, otalgia, otorrhea, rhinitis, rhinorrhea, hoarseness, or sore throat. CARDIOVASCULAR: Chest pain, shortness of breath, Deniesdyspnea on exertion, orthopnea, paroxysmal nocturnal dyspnea, palpitations, life-threatening arrhythmias, claudication. PULMONARY: , phlegm/sputum, hemoptysis, pleuritic chest pain. SLEEP: Denies morning headaches, daytime somnolence or napping. Denies difficulty falling asleep, staying asleep, waking from sleep. Denies knowledge of snoring. GASTROINTESTINAL: Denies any type of dysphagia to either liquids or solids. Denies nausea, vomiting, pyrosis, early satiety, abdominal pain, diarrhea, constipation, or changes in stool consistency or caliber. Denies coffee-ground emesis, hematemesis, hematochezia, or melanotic stools. GENITOURINARY: Denies frequency, urgency, nocturia, hematuria or incontinence (Storage/Irritative symptoms.) Low urinary stream, straining to void, urinary intermittency or hesitancy, splitting of the voiding stream, terminal dribbling. ENDOCRINOLOGIC: Denies polyuria, polydipsia, polyphagia or heat/cold intolerances. HEMATOLOGIC: Denies thrombophilia/previous clots, or coagulopathy/bleeding disorders. ONCOLOGIC: Denies personal history of malignancy. DERMATOLOGIC: Denies rashes or pruritus. PSYCHIATRIC: Denies any suicidal or homicidal ideation. Denies hallucinations. PHYSICAL EXAM GENERAL APPEARANCE: The patient is awake, alert, and oriented, in no acute cardiopulmonary distress. NEUROLOGICAL: Cranial nerves II-XII grossly intact. Motor is 5/5 in bilateral upper and lower extremities proximal to distal. No sensory deficits. HEENT: Face is symmetric. Pupils are equal and reactive. Extraocular movements are intact. NECK: Supple. No JVD. No thyromegaly. No submental, submandibular, pre- /postauricular, occipital or supraclavicular lymphadenopathy. CHEST: Normal chest expansion. No Telemetry. LUNGS: Absence of any rales, rhonchi or any wheezing. CARDIOVASCULAR: Regular. S1 and S2 normal. No appreciable rubs, murmurs or gallops. ABDOMEN: Soft, nontender, and nondistended. There is no rebound, voluntary guarding, or rigidity. : Improving Redness, bruising over right groin area Deferred. No Fitzpatrick. EXTREMITIES: Non-edematous and not cyanotic. No clubbing. Good capillary refill. SKIN: No skin breakdown. Vital Signs (last 8hr) Date Time Temp Pulse Resp B/P (MAP) Pulse Ox O2 Delivery O2 Flow Rate FiO2 08/15/24 07:31 98 Nasal Cannula* 1 24 08/15/24 07:00 98 9 150/83 100 Nasal Cannula 2.0 08/15/24 06:00 97 11 147/88 (107) 99 146/144 (145) 08/15/24 05:28 100 10 141/82 (101) 93 128/89 (102) 08/15/24 05:13 100 19 141/82 (101) 92 133/74 (93) 08/15/24 04:58 104 15 131/88 (102) 92 131/80 (97) 08/15/24 04:43 90 18 118/72 (87) 94 85/72 (76) 08/15/24 04:28 88 20 118/70 (86) 94 83/72 (76) 08/15/24 04:13 91 11 104/70 (81) 93 76/75 (75) 08/15/24 04:00 98.2 08/15/24 03:43 88 15 122/73 (89) 93 77/68 (71) 08/15/24 03:28 89 19 125/79 (94) 94 160/69 (99) 08/15/24 03:13 98 13 139/89 (106) 92 183/79 (113) 08/15/24 02:58 98 13 135/85 (102) 92 191/78 (115) 08/15/24 02:43 91 14 125/75 (92) 93 81/72 (75) 08/15/24 02:28 91 16 130/78 (95) 94 83/75 (78) 08/15/24 02:13 87 24 127/79 (95) 93 84/76 (79) 08/15/24 01:58 91 21 119/78 (92) 91 90/83 (85) LABS: Laboratory: Test 08/15/24 06:31 08/15/24 04:21 08/14/24 03:54 Range/Units Whole Blood Glucose 145 H 70-110 MG/DL White Blood Count 8.9 4.8-10.8 K/uL Red Blood Count 3.07 L 4.50-6.20 MIL/uL Hemoglobin 9.7 L 14.0-18.0 g/dL Hematocrit 29.6 L 42-54 % Mean Corpuscular Volume 96.4 79-99 fL Mean Corpuscular Hemoglobin 31.6 27.0-33.0 pg Mean Corpuscular Hemoglobin Concent 32.8 32.0-36.0 g/dL Red Cell Distribution Width 13.0 11.0-15.5 % Platelet Count 277 130-400 K/uL Mean Platelet Volume 9.3 7.5-10.5 fL Nucleated Red Blood Cells 0.0 0.0-0.19 % Sodium Level 137 136-145 mmol/L Potassium Level 4.0 3.5-5.1 mmol/L Chloride Level 101 101-111 mmol/L Carbon Dioxide Level 32 21-32 mmol/L Blood Urea Nitrogen 10 7-18 mg/dL Creatinine 0.8 0.5-1.3 mg/dL Glomerular Filtration Rate Calc 103 >90 mL/min Random Glucose 162 H 70-105 mg/dL Total Calcium 8.6 8.5-10.1 mg/dL Magnesium Level 2.00 1.80-2.40 mg/dL Blood Gas Specimen Type Arterial Arterial Blood pH 7.454 H 7.350-7.450 Arterial Blood Partial Pressure CO2 38 35-48 mmHg Arterial Blood Partial Pressure O2 73.2 L 83.0-108.0 mmHg Arterial Blood HCO3 26.1 21.0-28.0 mmol/L Arterial Blood Oxygen Saturation 94.3 94.0-98.0 % Arterial Blood Base Excess 2.2 -2.0-3.0 mmol/L Hemoglobin (Blood Gas) 10.6 L 13.5-17.5 g/dL Sodium (Blood Gas) 133 L 136-145 MMOL/L Bedside Potassium (Blood Gas) 4.0 3.4-4.5 MMOL/L Bedside Chloride (Blood Gas) 98 98-107 MMOL/L Bedside Glucose (Blood Gas) 152 H 65-95 MG/DL Bedside Ionized Calcium (Blood Gas) 1.14 L 1.15-1.33 MMOL/L Bedside Lactic Acid (Blood Gas) 0.90 H 0.36-0.75 MMOL/L Blood Gas Temperature 37.0 35.5-37.0 CELSIUS Blood Gas Flow-by 2.00 0.00-15.00 L/min Blood Gas Vent Mode 2LNC ROOM AIR FiO2 28.0 % Blood Gas Specimen Comment EDDIE [place], [place] Current Medications Medications (Trade) Dose Ordered Sig/Isidoro Route PRN Reason Start Time Stop Time Status Last Admin Dose Admin Acetaminophen (TYLenol 325MG TAB) 650 mg Q4H PRN PO Temp >38.3C(AFTER EXTUBATION) 08/12/24 15:30 09/11/24 15:29 08/14/24 18:15 650 MG Acetaminophen (TYLenol 325MG TAB) 650 mg Q6H PRN PO MILD PAIN (1-3) 08/12/24 15:30 08/12/24 16:09 DC Acetaminophen (TYLenol 500MG TAB) 500 mg Q6H PRN PO MILD PAIN (1-3) 08/06/24 10:00 09/05/24 09:59 08/08/24 20:05 500 MG Acetaminophen (TYLenol 650MG SUPPOSITORY) 650 mg Q4H PRN RC Temp >38.3C WHILE INTUBATED 08/12/24 15:30 09/11/24 15:29 Acetaminophen (acetaMINOPHEN) 1,000 mg Q6H6 IV 08/12/24 18:00 08/13/24 17:59 DC 08/13/24 14:06 1,000 MG Acetaminophen (acetaMINOPHEN) 1,000 mg Q6H6 IVPB 08/14/24 12:00 08/14/24 12:14 DC 08/14/24 12:13 1,000 MG Albumin Human 250 ml @ 0 mls/hr AD PRN IV IF HEMODYNAMICALLY UNSTABLE 08/12/24 15:30 Aminocaproic Acid 71805 mg/Sodium Chloride 310 ml @ 25 mls/hr AD IV 08/12/24 15:30 08/12/24 15:32 DC Aminocaproic Acid 35435 mg/Sodium Chloride 480 ml @ 0 mls/hr AD PRN IV BLEEDING CONTROL 08/12/24 06:30 09/11/24 06:29 Aspirin (Aspirin 81mg Ec Tab) 81 mg DAILY PO 08/06/24 09:00 09/05/24 08:59 08/15/24 08:05 81 MG Atorvastatin Calcium (LIPItor 40MG) 40 mg HS PO 08/05/24 21:00 09/04/24 20:59 08/14/24 21:05 40 MG Benzocaine (Cepacol Sore Throat Lozenge) 1 each Q4H PRN MM SORE THROAT 08/13/24 20:30 09/12/24 20:29 Calcium Gluconate 1 gm/Sodium Chloride 60 ml @ 200 mls/hr AD PRN IV HYPOCALCEMIA 08/12/24 15:30 09/11/24 15:29 08/13/24 03:20 200 MLS/HR Cefazolin Sodium (Ancef) 2 gm ONCALL PRN IVP SURGERY 08/11/24 18:30 08/12/24 16:01 DC Cefazolin Sodium (Ancef) 2 gm ONCALL PRN IVP SURGERY 08/12/24 16:30 08/14/24 16:29 DC 08/12/24 21:07 2 GM Cefazolin Sodium (Ancef) 2 gm Q8H IVPB 08/12/24 20:30 08/12/24 16:05 DC Ceftriaxone Sodium (Rocephin 2gm Inj) 2 gm Q24H IVPB 08/06/24 00:00 08/15/24 23:59 08/15/24 01:32 2 GM Chlordiazepoxide HCl (LIBrium 25 MG CAP) 25 mg Q2H PRN PO ALCOHOL WITHDRAWAL PROTOCOL 08/05/24 06:00 08/12/24 05:59 DC 08/06/24 22:55 25 MG Dexmedetomidine/ Sodium Chloride (PRECEdex 400MCG/ 100ML-NS) 400 mcg PROTOCOL IV 08/12/24 15:30 08/13/24 15:29 DC Dextrose (D50w) 50 ml AD PRN IV HYPOGLYCEMIA PROTOCOL 08/05/24 05:30 08/12/24 16:00 DC Dextrose (D50w) 50 ml AD PRN IV HYPOGLYCEMIA PROTOCOL 08/12/24 15:30 08/14/24 09:28 DC Dextrose (D50w) 50 ml AD PRN IV HYPOGLYCEMIA PROTOCOL 08/14/24 09:30 09/13/24 09:29 Diazepam (VALium 5 MG/ML 2 ML SYG) 10 mg Q4H PRN IVP ALCOHOL WITHDRAWAL PROTOCOL 08/05/24 06:30 08/12/24 06:29 DC Docusate Sodium (COLace 100MG CAP) 100 mg BID PO 08/12/24 21:00 09/11/24 20:59 08/15/24 08:05 100 MG Doxycycline Hyclate (Doxycycline Hyclate) 100 mg BID PO 08/06/24 09:00 08/06/24 12:18 DC 08/06/24 09:06 100 MG Enoxaparin Sodium (Lovenox) 30 mg DAILY SQ 08/15/24 09:00 09/14/24 08:59 08/15/24 08:08 30 MG Epinephrine HCl 10 mg/Sodium Chloride 250 ml @ 0 mls/hr AD PRN IV TITRATE 08/12/24 06:30 09/11/24 06:29 Epinephrine HCl 10 mg/Sodium Chloride 250 ml @ 0 mls/hr AD PRN IV POST-OP CARDIOVASCULAR ORDERS 08/12/24 15:30 08/12/24 15:32 DC Famotidine (Pepcid 20mg Vial) 20 mg BID IV 08/05/24 09:00 08/05/24 09:01 DC 08/05/24 07:47 20 MG Famotidine (Pepcid 20mg Vial) 20 mg BID IV 08/12/24 21:00 08/13/24 07:32 DC 08/12/24 20:12 20 MG Furosemide (LASix 20MG TAB) 20 mg Q12H PO 08/14/24 09:00 09/13/24 08:59 08/15/24 08:06 20 MG Furosemide (LASix 20MG VIAL) 20 mg Q12H IV 08/13/24 09:00 08/12/24 16:01 DC Furosemide (LASix 20MG VIAL) 20 mg Q12H IV 08/13/24 14:00 09/12/24 13:59 08/15/24 01:35 20 MG Gabapentin (NEURontin 100 mg CAP) 100 mg TID PO 08/14/24 14:00 09/13/24 13:59 08/15/24 08:07 100 MG Glucagon (Glucagon 1mg Kit) 1 mg AD PRN IM HYPOGLYCEMIA PROTOCOL 08/05/24 05:30 08/12/24 16:00 DC Glucagon (Glucagon 1mg Kit) 1 mg AD PRN IM HYPOGLYCEMIA PROTOCOL 08/12/24 15:30 08/14/24 09:28 DC Glucagon (Glucagon 1mg Kit) 1 mg AD PRN IM HYPOGLYCEMIA PROTOCOL 08/14/24 09:30 09/13/24 09:29 Guaifenesin (RobiTUSSin SUGAR-FREE 100 MG/ 5 ML UDCUP) 200 mg Q4H PRN PO COUGH 08/07/24 23:30 08/12/24 15:17 DC 08/09/24 21:09 200 MG Heparin Sodium (Porcine) (HEParin 5,000 UNIT VIAL) 5,000 unit Q8H SQ 08/05/24 11:00 08/05/24 03:04 DC Heparin Sodium/ Dextrose 250 ml @ 0 mls/hr PROTOCOL IV 08/05/24 03:00 08/12/24 15:17 DC 08/11/24 21:27 11.46 MLS/HR Insulin Glargine (LANtus 100 UNITS/ML 10 ML VIAL) 10 units BID@0730,2100 SQ 08/05/24 21:00 08/12/24 15:17 DC 08/11/24 20:31 10 UNITS Insulin Human Regular (humuLIN R 100 UNIT/ML 3ML) INSULIN SLIDING SCAL... ACHS SQ 08/05/24 07:30 08/05/24 08:55 DC 08/05/24 07:47 5 UNIT Insulin Human Regular (humuLIN R 100 UNIT/ML 3ML) INSULIN SLIDING SCAL... ACHS SQ 08/05/24 11:30 08/12/24 15:17 DC 08/11/24 20:34 14 UNIT Insulin Human Regular (humuLIN R 100 UNIT/ML 3ML) INSULIN SLIDING SCAL... ACHS SQ 08/14/24 11:30 09/13/24 11:29 08/14/24 21:09 4 UNIT Insulin Human Regular 100 unit/ Sodium Chloride 100 ml @ 0 mls/hr AD IV 08/12/24 15:30 08/14/24 09:26 DC 08/13/24 11:02 5 MLS/HR Iron Sucrose (VenoFER) 100 mg DAILY IV 08/08/24 09:30 08/08/24 09:17 DC Iron Sucrose (VenoFER) 100 mg Q24H IV 08/08/24 21:00 08/10/24 22:00 DC 08/10/24 22:03 100 MG Isosorbide Mononitrate (Imdur 30mg Sr) 30 mg DAILY PO 08/11/24 13:00 08/12/24 15:17 DC 08/11/24 14:17 30 MG Lactulose (Constulose 20gm/ 30ml Udcup) 20 gm BID PRN PO CONSTIPATION 08/12/24 15:30 09/11/24 15:29 Lorazepam (AtiVAN) 2 mg Q4H PRN IVP ALCOHOL WITHDRAWAL PROTOCOL 08/05/24 06:00 08/05/24 06:04 DC Losartan Potassium (CozAAR 50 mg TAB) 50 mg BID PO 08/09/24 21:00 08/12/24 15:17 DC 08/11/24 20:39 50 MG Losartan Potassium (CozAAR 50 mg TAB) 50 mg DAILY PO 08/07/24 09:00 08/09/24 09:16 DC 08/09/24 08:06 50 MG Losartan Potassium (CozAAR 50 mg TAB) 50 mg DAILY PO 08/15/24 09:00 09/14/24 08:59 08/15/24 08:06 50 MG Magnesium Hydroxide (Milk Of Magnesium 30ml) 30 ml DAILY PRN PO CONSTIPATION 08/12/24 15:30 09/11/24 15:29 Magnesium Sulfate 50 ml @ 12.5 mls/hr AD PRN IV MAG LEVEL LESS THAN 2.0 08/12/24 15:30 09/11/24 15:29 08/14/24 06:16 12.5 MLS/HR Magnesium Sulfate 50 ml @ 0 mls/hr PROTOCOL PRN IV OTHER [SEE ORDER COMMENTS] 08/05/24 05:30 08/12/24 16:01 DC 08/10/24 04:13 25 MLS/HR Metoprolol Tartrate (loprESSOR) 12.5 mg BID PO 08/14/24 09:00 08/13/24 06:52 DC Metoprolol Tartrate (loprESSOR) 25 mg BID PO 08/05/24 14:30 08/08/24 08:27 DC 08/08/24 07:44 25 MG Metoprolol Tartrate (loprESSOR) 25 mg BID PO 08/13/24 09:00 08/13/24 19:21 DC 08/13/24 08:49 25 MG Metoprolol Tartrate (loprESSOR) 25 mg BID PO 08/14/24 09:00 08/13/24 08:43 DC Metoprolol Tartrate (loprESSOR) 50 mg BID PO 08/08/24 09:00 08/12/24 15:17 DC 08/12/24 08:24 50 MG Metoprolol Tartrate (loprESSOR) 50 mg BID PO 08/13/24 21:00 08/14/24 14:40 DC 08/14/24 08:37 50 MG Metoprolol Tartrate (loprESSOR) 75 mg BID PO 08/14/24 21:00 08/15/24 07:04 DC 08/14/24 21:15 75 MG Metoprolol Tartrate (loprESSOR) 100 mg BID PO 08/15/24 09:00 09/14/24 08:59 08/15/24 08:06 100 MG Morphine Sulfate (morPHINE 2MG SYG) 0.5 mg Q2H PRN IV MODERATE PAIN (4-6) 08/12/24 15:30 08/13/24 15:29 DC Morphine Sulfate (morPHINE 2MG SYG) 1 mg Q2H PRN IV SEVERE PAIN (7-10) 08/12/24 15:30 08/13/24 15:29 DC 08/12/24 18:55 1 MG Morphine Sulfate (morPHINE 2MG SYG) 2 mg Q2HPRN PRN IVP SEVERE PAIN (6-10) 08/05/24 11:10 08/10/24 14:09 DC 08/09/24 04:17 2 MG Morphine Sulfate (morPHINE 2MG SYG) 2 mg Q4H PRN IVP SEVERE PAIN (7-10) 08/05/24 06:00 08/05/24 08:31 DC 08/05/24 06:03 2 MG Nicardipine HCl 100 mg/Sodium Chloride 100 ml @ 0 mls/hr AD PRN IV TITRATE 08/12/24 17:30 09/11/24 17:29 Nitroglycerin (Nitroglycerin 1gm Oint) 0.5 inch Q8H5 TD 08/08/24 13:00 08/10/24 12:43 DC 08/10/24 06:05 0.5 INCH Nitroglycerin (Nitrostat) 0.4 mg AD PRN SL CHEST PAIN 08/05/24 02:30 08/08/24 08:53 DC 08/05/24 02:46 0.4 MG Nitroglycerin/ Dextrose 0 ml @ 0 mls/hr AD IV 08/12/24 15:30 08/12/24 16:07 DC Nitroglycerin/ Dextrose 250 ml @ 0 mls/hr PROTOCOL IV 08/05/24 03:30 09/04/24 03:29 08/14/24 09:01 30 MLS/HR Norepinephrine Bitartrate 250 ml @ 0 mls/hr AD PRN IV TITRATE 08/12/24 06:30 09/11/24 06:29 Norepinephrine Bitartrate 8 mg/ Dextrose 250 ml @ 0 mls/hr AD PRN IV POST-OP CARDIOVASCULAR ORDERS 08/12/24 15:30 08/12/24 15:32 DC Ondansetron HCl (zoFRAN 4MG INJ) 4 mg Q6H PRN IV NAUSEA/VOMITING 08/05/24 05:30 09/04/24 05:29 08/12/24 18:54 4 MG Ondansetron HCl (zoFRAN 4MG INJ) 4 mg Q6H PRN IV NAUSEA/VOMITING 08/12/24 15:30 08/12/24 16:02 DC Pantoprazole Sodium (PROTonix 40MG INJ) 40 mg DAILY IVP 08/05/24 09:00 08/12/24 15:17 DC 08/12/24 08:24 40 MG Pharmacy Profile Note (Pharmacy Communication) 1 each PROTOCOL PRN MISC ETOH Withdrawal Score changes 08/05/24 06:00 08/12/24 05:59 DC Potassium Phosphate 250 ml @ 42 mls/hr AD PRN IV LOW PHOS LEVEL 08/12/24 15:30 09/11/24 15:29 Potassium Chloride 100 ml @ 50 mls/hr AD PRN IV POTASSIUM PROTOCOL 08/05/24 05:30 08/07/24 18:24 DC Potassium Chloride 100 ml @ 100 mls/hr AD PRN IV POTASSIUM PROTOCOL 08/07/24 09:00 09/06/24 08:59 08/13/24 03:34 100 MLS/HR Potassium Chloride 100 ml @ 100 mls/hr AD PRN IV HYPOKALEMIA 08/12/24 15:30 08/13/24 09:00 DC Potassium Chloride (K-Dur/Klor-Con 20meq) 20 meq AD PRN PO POTASSIUM PROTOCOL 08/07/24 09:00 09/06/24 08:59 08/14/24 18:16 20 MEQ Potassium Chloride (K-Dur/Klor-Con 20meq) 20 meq AD PRN PO POTASSIUM PROTOCOL 08/13/24 09:00 08/13/24 09:00 DC Potassium Chloride (KCl 10% Elixir 20meq/15ml) 20 meq AD PRN PO POTASSIUM PROTOCOL 08/07/24 09:00 09/06/24 08:59 Potassium Chloride (KCl 10% Elixir 20meq/15ml) 20 meq AD PRN PO POTASSIUM PROTOCOL 08/13/24 09:00 08/13/24 09:00 DC Promethazine HCl (Phenergan) 25 mg Q6H PRN PO NAUSEA 08/05/24 06:00 08/12/24 15:17 DC Propofol 100 ml @ 0 mls/hr AD PRN IV SEDATION 08/12/24 15:30 08/16/24 15:29 Ranolazine (Ranexa) 500 mg BID PO 08/05/24 17:30 08/12/24 15:17 DC 08/11/24 20:38 500 MG Ranolazine (Ranexa) 500 mg BID PO 08/05/24 21:00 08/05/24 17:04 DC Sodium Bicarbonate (Sodium Bicarb 50meq 50ml Vial) 50 meq AD PRN IV OTHER[SEE DOSING INSTRUCTIONS] 08/12/24 15:30 08/15/24 15:29 08/12/24 19:50 50 MEQ Sodium Chloride 500 ml @ 0 mls/hr AD IV 08/12/24 15:30 09/11/24 15:29 Sodium Chloride 1,000 ml @ 10 mls/hr ONCE IV 08/12/24 15:30 08/13/24 15:29 DC 08/12/24 17:29 10 MLS/HR Sodium Chloride 1,000 ml @ 75 mls/hr [id number] IV 08/05/24 05:30 08/10/24 15:46 DC 08/08/24 16:15 75 MLS/HR Sodium Chloride 1,000 ml @ 100 mls/hr Q10H IV 08/05/24 14:30 08/05/24 17:29 DC 08/05/24 15:22 100 MLS/HR Sodium Chloride (NS Flush 10ml) 10 ml Q8H PRN IVP IV LINE FLUSH 08/12/24 15:30 09/11/24 15:29 Thiamine HCl 100 mg/Folic Acid 1 mg/Multivitamins/ Minerals 10 ml/ Sodium Chloride 1,011.2 ml @ 100 mls/ hr Q24H IV 08/05/24 06:00 08/07/24 16:07 DC 08/07/24 05:34 100 MLS/HR Tramadol HCl (UltRAM) 25 mg Q6H PRN PO MODERATE PAIN (4-6) 08/12/24 15:30 08/17/24 15:29 Tramadol HCl (UltRAM) 50 mg Q6H PRN PO SEVERE PAIN (7-10) 08/12/24 15:30 08/17/24 15:29 08/14/24 21:35 50 MG Wound Care/ Dressing Products (Venelex Ointment) 1 NAKIA AD TID TP 08/06/24 14:00 08/06/24 12:50 DC DIAGNOSTICS / RADIOLOGY: SERVICE 0400 REASON: s/p CABG ORDERING PHYSICIAN: KEYA CALVO MD PROCEDURE: [id number] - CHEST 1VW Exam Type: CHEST 1VW Clinical Information: s/p CABG Comparison: None Findings and impression: Removal of the previously seen left-sided chest tube. No pneumothorax. No other interval changes. ASSESSMENT: Chest pain, POA ACS- NSTEMI POA Multivessel CAD with LV ejection fraction of 55% hypokinesis of the inferior wall status post CABG with a HILLMAN graft to the LAD and saphenous vein graft Severe 2-vessel CAD with 80% proximal LAD and 100% distal RCA stenosis by coronary angiogram on 08/05/2024 Alcohol Intoxication POA Uncontrolled diabetes POA Acute anemia, not POA Right common femoral vein thrombus, as per right groin ultrasound on 08/08 Possible phlebitis of great saphenous vein as per right groin ultrasound on 08/08 Multiple right inguinal lymph nodes as per right groin ultrasound on 08/08 Obesity POA Hypokalemia Hyperlipidemia POA Hypertension POA Elevated CK POA Active alcohol drinker POA PLAN: Continue telemetry NSTEMI POA, chest pain Continue [id number] mg daily Continue Lipitor 40 mg daily Hold Brilinta as per Cardiology recommendation Appreciate cardiology consult and we will follow their recommendations Severe 2-vessel CAD with 80% proximal LAD and 100% distal RCA stenosis Multivessel CAD with LV ejection fraction of 55% hypokinesis of the inferior wall status post CABG Underwent CABG procedure with a HILLMAN graft to the LAD and saphenous vein graft on 08/12/2024 Postop day 3 chest tubes removed yesterday as per CT surgery consult recommendation No postprocedure complications noted Elevated TCK POA Improved TCK normal at 118 Alcohol Intoxication POA Monitor for signs of alcohol withdrawal CIWA protocol in place Counseled on alcohol use cessation Uncontrolled diabetes POA HbA1c 8.5 Continue insulin sliding scale AC & HS with hypoglycemia protocol Acute anemia, not POA Hemoglobin currently at 9.7 Iron 18, TIBC 253,% saturation 7.1 indicating iron deficiency Received 3 doses of IV Venofer so far Monitor H&H Right common femoral vein thrombus, right groin ultrasound on 08/08 Currently On Lovenox 30 mg SQ, plan to start full-dose anticoagulation in future as per cardiology consult Possible phlebitis of right saphenous vein as per ultrasound on 08/08 Warm compresses to the area Leg Elevation Multiple right inguinal lymph nodes as per right groin ultrasound on 08/08 Can be attributed to reactive lymphadenopathy due to DVT We will monitor for any signs and symptoms of infection Hyperlipidemia POA, Normal lipid panel results Continue Atorvastatin Hypertension, POA Continue metoprolol 100 mg b.i.d., losartan 50 mg p.o. b.i.d. as per Cardiology recommendation Hypokalemia Improved Continue Famotidine 20 mg IV bid for GI prophylaxis Continue SCDs for DVT prophylaxis Monitor electrolytes and replace them as needed per protocol Follow up on Cardiology consult recommendations Follow up on CT surgery consult recommendations ATTESTATION BY PHYSICIAN I have seen and examined the patient. I reviewed the documentation, medical decision making, and treatment plan as noted by the resident above. I agree with the findings and plan of care. Dalton Le MD, PRIYANKA MD Aug 15, 2024 09:48
[2024-08-15] MEDS: MAGNESIUM HYDROXIDE 30 ML/UDCUP PO PRN (17:58)
--- NOTE | 2024-08-15 18:34 | NUR ---
DR. RIZVI ROUNDED ON PATIENT. UPDATED ON PATIENT STATUS. MD ORDERED D/C OF A-LINE AND A US DUPLEX OF THE GROIN. D/C OF CORDIS TOMORROW. PATIENT NPO AFTER MIDNIGHT FOR POSSIBLE IR INTERVENTION.
[2024-08-16] VITALS (29 sets, daily range): BP systolic 2–158; BP diastolic 2–95; PULSE 61–107; RESP 11–32; TEMP 97.6–98.6; O2SAT 96–99
[2024-08-16 05:12] LABS: HEMATOCRIT 30.6 % (42-54); MEAN CORPUSCULAR HEMOGLOBIN 31.7 pg (27.0-33.0); MEAN CORPUSCULAR HGB CONC 34.3 g/dL (32.0-36.0); MEAN CORPUSCULAR VOLUME 92.4 fL (79-99); RED BLOOD CELL COUNT(AUTO) 3.31 MIL/uL (4.50-6.20); RED CELL DISTRIBUTION WIDTH 12.6 % (11.0-15.5); WHITE BLOOD COUNT (AUTO) 8.6 K/uL (4.8-10.8)
[2024-08-16 05:29] LABS: CREATININE 0.6 mg/dL (0.5-1.3); POTASSIUM 3.7 mmol/L (3.5-5.1)
--- NOTE | 2024-08-16 06:37 | PN ---
[facility] Cardiology Progress Note CARDIOLOGY PROGRESS NOTE AUGUST 16, 2024 Problems: 1. Non ST-elevation NC 2. Multivessel CAD with LV ejection fraction of 55% hypokinesis of the inferior wall status post aortocoronary bypass graft surgery with a HILLMAN graft to the LAD and saphenous vein graft 3. Dyslipidemia 4. Right common femoral vein deep vein thrombosis 5. Normocytic anemia 6. Diabetes mellitus type 2 7. Alcohol abuse Pressure 130-140 systolic heart rate is in the 80s the patient is afebrile white count 0.6 hemoglobin 10.5 Platelet count 389262. Potassium 3.7 BUN 10 creatinine 0.6. Chest x-ray shows cardiomegaly no effusions mild passive congestive changes post sternotomy changes. No pneumothorax. The patient continues on aspirin atorvastatin Lovenox for DVT prophylaxis furosemide 20 mg p.o. b.i.d. insulin scale losartan 50 mg daily metoprolol tartrate 100 mg b.i.d. potassium protocol tramadol p.r.n.. He is currently up in the chair. Fitzpatrick catheter in place. We will increase losartan to 100 mg daily for blood pressure control. Post NC we will add [id number] mg daily to his regimen for one month. He has good breath sounds bilaterally. He continues with incentive spirometry and progressive ambulation. ROSALIA LINDSAY MD Aug 16, 2024 06:37
[2024-08-16] MEDS: PoTASSium chl 10% ELIXIR 20MEQ 20 MEQ/15 ML UDCUP PO PRN (08:33)
[2024-08-16] MEDS: cloPIDOgrel 75MG TAB PO SCH (08:33)
[2024-08-16] MEDS: LoSARTan 50 MG TABLET PO SCH (08:34)
--- NOTE | 2024-08-16 08:58 | HMCIMG ---
Exam Type: CHEST 1VW Clinical Information: s/p CABG Comparison: None Findings: Pulmonary pattern is as before. No worrisome interval changes have taken place. Impression: Stable exam.
[2024-08-16] MEDS: LACTULOSE 20 GM/30 ML UDCUP PO PRN (09:02)
--- NOTE | 2024-08-16 09:13 | PN ---
TIME: 8:00 a.m. SUBJECTIVE: The patient is a 51-year-old gentleman, status post coronary artery bypass grafting. No major events overnight. PHYSICAL EXAMINATION: NEUROLOGIC: Alert and oriented. No deficits. CARDIAC: S1, S2. Regular rate and rhythm. RESPIRATORY: Clear to auscultation bilaterally. CHEST: Incision is clean, dry, and intact. ASSESSMENT AND PLAN: * Coronary artery disease, status post CAGB, on aspirin, statin and beta-kaila, not on any pressors. Recovering well. * Volume overload, on Lasix b.i.d. * Hypercholesterolemia, on high-statin therapy. * Deep vein thrombosis prophylaxis. The patient continues on Lovenox. TID: [id number] RECEIPT: [id number]
--- NOTE | 2024-08-16 09:32 | PN ---
[facility] PROGRESS NOTE Date Patient Seen: Aug 16, 2024 Time of Visit: 09:32 Supervising Physician: MICHAEL SOTOMAYOR MD Primary Care Physician: [ Francesco Gee MD] Outpatient Specialists: [none ] Inpatient Consults: [Dany Noel MD, Marcela Talbert DO, DR Khalil Aattending: Dr Paola Frye MD ] PROBLEM LIST: Multivessel CAD status post CABG x2 on 08/12/24 Acs-Nstemi Type I S/P Coronary Angiogram On 08/05/24 With Findings On Severe Two Vessel Cad With 80% Proximal Lad 100% Distal Rca Stenosis Elevated CK levels POA Leukocytosis w/ left shift Postoperative Acute blood loss anemia, not POA Essential HTN Untreated hyperglycemia in the presence of new onset Type II DM2 Alcohol abuse, POA Right femoral DVT RT Groin hematoma 2.2 x 1.2x0.9cm Right groin lymphadenopathy Obesity INTERVAL HISTORY: Pt is awake alert and oriented x 3. no major overnight events. He is hemodynamically stable. No pressors blood pressure of 139/73 heart rate in the 80s respiratory rate of 16 saturating 97% on room air and afebrile. Urine output 4.3 L in the last 24 hours with a balance of -4.3L/24 hrs. On laboratory H&H is 10.5/30.6 with a platelet count of 335 K. chemistries shows good kidneys creatinine 0.6 GFR 112. Chest x-ray stable with no increased vascular congestion noted. Soft tissue ultrasound of right groin showed right groin hematoma seen measuring 2.2 x 0.9 cm. Partial thrombosis right common femoral vein. Normal-appearing lymph nodes of the right groin. No patent pseudoaneurysm seen. REVIEW OF SYSTEMS: General: No malaise or fever. Neurological: No fainting episodes or seizures. HEENT: No nasal congestion or nasal secretion. Respiratory: No cough, shortness of breath, or wheezing Cardiac: No chest pain or palpitations. Gastrointestinal: No vomiting or diarrhea. Genitourinary: No dysuria hematuria. Skin: No rashes or lesions. Hematological: No bruises or bleeding. Musculoskeletal: No joint pains or arthralgias. Psychiatric: No depression or panic attacks. PHYSICAL EXAM: GENERAL: Alert, weak, awake oriented x 3 HEENT: EOMI, Sclera non icteric, moist mucosa NECK: Supple, no JVD, trachea midline LUNGS: Clear breath sounds bilaterally. No wheezes HEART: Regular rate and rhythm. Normal S1 and S2, without murmurs. dressing to midsternal area clean dry and intact. ABD: Abdomen soft, nontender. Bowel sounds present EXT: No clubbing cyanosis or edema Skin: Surgical site benign Cordis and Chest tube insertion site benign NEURO: Alert and oriented to person, follows commands Vital Signs (last 8hr) Date Time Temp Pulse Resp B/P (MAP) Pulse Ox O2 Delivery O2 Flow Rate FiO2 08/16/24 08:00 99 Nasal Cannula* 2 28 08/16/24 06:43 88 11 134/81 99 Nasal Cannula 2.0 08/16/24 06:13 86 23 153/87 100 08/16/24 05:43 87 18 147/82 100 Nasal Cannula 2.0 08/16/24 05:13 88 18 141/88 98 08/16/24 04:43 84 27 146/77 100 Nasal Cannula 2.0 08/16/24 04:13 82 21 142/83 100 Nasal Cannula 2.0 08/16/24 04:00 98.2 08/16/24 04:00 99 Nasal Cannula* 2 28 08/16/24 03:43 76 17 132/71 99 Nasal Cannula 2.0 08/16/24 03:13 70 17 113/69 98 Nasal Cannula 2.0 08/16/24 02:43 68 17 116/72 99 Nasal Cannula 2.0 08/16/24 02:13 73 17 139/77 100 Nasal Cannula 2.0 08/16/24 02:00 73 13 109/95 99 Nasal Cannula 2.0 08/16/24 01:43 70 15 141/76 100 Nasal Cannula 2.0 LABS: Hematology Labs: Test 08/16/24 04:59 Range/Units White Blood Count 8.6 4.8-10.8 K/uL Red Blood Count 3.31 L 4.50-6.20 MIL/uL Hemoglobin 10.5 L 14.0-18.0 g/dL Hematocrit 30.6 L 42-54 % Mean Corpuscular Volume 92.4 79-99 fL Mean Corpuscular Hemoglobin 31.7 27.0-33.0 pg Mean Corpuscular Hemoglobin Concent 34.3 32.0-36.0 g/dL Red Cell Distribution Width 12.6 11.0-15.5 % Platelet Count 335 130-400 K/uL Mean Platelet Volume 9.3 7.5-10.5 fL Nucleated Red Blood Cells 0.0 0.0-0.19 % Chemistry Labs: Test 08/16/24 06:34 08/16/24 04:59 08/15/24 04:21 Range/Units Whole Blood Glucose 162 H 70-110 MG/DL Sodium Level 139 136-145 mmol/L Potassium Level 3.7 3.5-5.1 mmol/L Chloride Level 102 101-111 mmol/L Carbon Dioxide Level 31 21-32 mmol/L Blood Urea Nitrogen 10 7-18 mg/dL Creatinine 0.6 0.5-1.3 mg/dL Glomerular Filtration Rate Calc 112 >90 mL/min Random Glucose 171 H 70-105 mg/dL Total Calcium 8.7 8.5-10.1 mg/dL Magnesium Level 2.00 1.80-2.40 mg/dL DIAGNOSTICS / RADIOLOGY RESULTS: [Signed PATIENT: MAYRA JUDD MR#: [id number] : 1965 SEX: M AGE: 59 LOCATION: [facility] ORDER 2300 STATUS: ADM IN REPORT#: [id number] SERVICE 0400 REASON: s/p CABG ORDERING PHYSICIAN: KEYA CALVO MD PROCEDURE: CXR1VW - CHEST 1VW Exam Type: CHEST 1VW Clinical Information: s/p CABG Comparison: None Findings: Pulmonary pattern is as before. No worrisome interval changes have taken place. Impression: Stable exam. DICTATED BY: EJ BLAIR MD DATE: 08/16/24855 ELECTRONICALLY SIGNED BY: EJ BLAIR MD DATE: 08/16/2458 ] PLAN Follow CT surgeon recommendations Follow cardiology recommendations Multimodal pain management Monitoring H&H Monitor chest tube output Chest x-ray in the morning Transfuse if absolutely necessary to keep hemoglobin above 8 Maintain O2 sats greater than 92% Incentive spirometry Glycemic control with goal of 80-180 Referral for cardiac rehabilitation Speech to eval once patient is extubated monitor electrolytes: K Goal of 4 Magnesium goal of 2 Replace accordingly NEURO: Minimize central acting medications as possible. Maintain fall precautions, adequate lighting during the day PULMONARY: Supplemental 02 as needed. Maintain aspiration precautions at all times CARDIOVASCULAR: Follow hemodynamics. Vital signs per facility protocol GI & NUTRITION: Continue with nutritional support. Continue stool softeners and laxatives as needed. KIDNEYS & ELECTROLYTES: Strict monitoring of intake, output and overall fluid balance. Avoid nephrotoxic medications to the extent possible. Medications to be dosed according to renal function. Monitor electrolytes and replace as needed ENDOCRINE: Maintain blood glucose between 100-180 at all times. Hypoglycemia protocol in place INFECTIOUS DISEASE: Trend temperature, WBC and procalcitonin level Follow cultures, deescalate antibiotics as soon as possible. Panculture if new onset fever ONCOLOGY/HEMATOLOGY/COAGULATION: Monitor for s/s of bleeding Monitor hemoglobin, coagulation studies as needed SKIN: Pressure ulcer prevention per facility protocol Specialty mattress ORTHO/REHAB: Continue PT/OT Prophylaxis: Continue GI and DVT prophylaxis Code Status: Full Resuscitation Disposition: TBD Other: Patient was seen and case was discussed with rodney RAMOS. Plan of care was discussed and agreed upon. ATTESTATION BY PHYSICIAN I reviewed the documentation, medical decision making, and treatment plan as noted by the mid-level provider above. I agree with the findings and plan of care. Michael Sotomayor MD, NELLY J [facility] Aug 16, 2024 09:32
--- NOTE | 2024-08-16 09:36 | PN ---
[facility] PROGRESS NOTE Date of Service: Aug 16, 2024 Time of Service: 09:35 SUBJECTIVE: This is a case of 59-year-old male with past medical history of diabetes, hypertension and hyperlipidemia who presented to the ED with complaints of left- sided chest pain which started around 8 pm last night while resting. He states that he has been experiencing intermittent chest pain since the past 2 days ago which has become persistent associated with SOB last night. Patient also reports that he had 5 beers last night and denies cigarette and recreational drug use. Initial ECG revealed ST 110 right bundle branch block, inferior infarct acute and second EKG showed ST 108 right bundle branch block inferior infarct recent and the 3rd EKG showed ST 120 with Right bundle branch block Inferior infarct recent and probable posterior infarct acute. Initial Labs WBC 10.9, BNP 147, total CK 812, troponin 13,930, serum alcohol 117. While in the ER patient received aspirin 325 mg p.o., Protonix 40 mg IV, Brilinta 90 mg p.o., verapamil 5 mg IV and metoprolol 5 mg IV and was started on heparin and nitroglycerin drip. He was admitted for further assessment and treatment in view of NSTEMI. 08/05/2024 Patient is seen and examined at the bedside. He complains of mild p ressure-like left-sided chest pain and generalized body weakness. Vitals blood pressure ranging in 120/70s. Labs WBC 10.9, hemoglobin 13.9, BNP 147, PT 10.1, INR 0.95. Urinalysis positive for glucose. Urine toxicology negative and serum alcohol 117, glucose 229, magnesium 1.9, TCK 8. Troponin trend [id number] - [id number]. Currently on heparin and nitroglycerin drip. He is scheduled for cardiac catheterization procedure today. Chest x-ray revealed clear lungs and pending 2D echo results. 08/06/2024 Patient is seen and examined at the bedside. He complains of generalized body weakness and headache. He denies fever, chills, nausea, vomiting, chest pain, palpitations, abdominal pain. Vitals Blood pressure 137/67. Labs WBC 10, hemoglobin dropped from 13.9-11.5, magnesium 1.70, calcium 8.1, AST improved from 176-115. BNP improved from 147-128 and TCK improved 812-575. He underwent left heart catheterization yesterday which revealed two- vessel coronary artery disease with 80% stenosis in the proximal LAD and 100% stenosis in the distal RCA. 2D echo revealed normal Left ventricle systolic function, estimated LVEF 55% and Indeterminate diastolic function. CT surgery was consulted. 08/07/24 Patient is seen and examined at the bedside. /He was managed for ACS/Non-STEMI and underwent further assessment with a cardiac catheterization on 08/05/2024 demonstrating two-vessel coronary artery disease with 80% stenosis in the proximal LAD and 100% stenosis in the distal RCA. He has had no recurrent angina overnight. He continues on IV heparin. 2D echocardiogram on 08/05/2024 demonstrating basal inferior wall hypokinesis and an LVEF of 55%. 08/08/2024 Patient is seen and examined at the bedside. No acute events last night. Currently on heparin drip. He mentioned about experiencing mild chest discomfort, shortness of breath this morning when he tried to sit in the chair. He also complains of pain and discomfort over right groin. We will order a repeat right groin ultrasound to rule out hematoma. Vitals blood pressure 137/78, respiratory rate 23. Labs hemoglobin decreased from 11.2-10.8, reticulocyte count high at 2.34, iron 18, TIBC 253,% saturation low at 7.1 indicating iron deficiency, BMP unremarkable, TCK normal at 118. Pending CABG. 08/09/2024 Patient is seen and examined at the bedside. No acute events last night. Currently on heparin drip. Vitals blood pressure 151/88, respiratory rate 16. He complains of right groin discomfort and pain. Right groin soft tissue ultrasound revealed multiple right inguinal lymph nodes, partial DVT with thrombus in right common femoral vein, possible phlebitis of great saphenous vein. We will continue the patient on heparin drip for DVT as per cardiology consult recommendation. Labs hemoglobin 10.9, APTT 45.8, BMP unremarkable. Pending CABG. 08/10/24 patient was seen and examined. Patient denies any complaints except dry cough. No acute events overnight. His vitals are stable. Patient reports that his right groin discomfort and pain is getting better and is able to move around. Continue heparin drip. His labs showed hemoglobin 10.7, potassium 3.3 and is being replaced as per the protocol. Magnesium 1.80 and we will cover with the protocol. He is pending CABG. 08/11/2024 Patient is seen and examined at the bedside. No acute events last night. He states that he feels well and his right groin pain and discomfort has been significantly reduced. Currently on heparin drip. Vitals temperature 98.2, pulse rate 72, respiratory rate 16, blood pressure 126/69, SpO2 98% on room air. Labs hemoglobin improved from 10.7-11, WBC 6.6, BMP unremarkable. Pending CABG procedure. 08/12/2024 Patient is seen and examined at the bedside. No acute events last night. He states that he feels well and has no complaints. Currently NPO. Vitals temperature 97.9, pulse rate 78, blood pressure 133/77, respiratory rate 20, SpO2 99% on room air. Labs WBC 7.5, hemoglobin decreased from 11-10.7, BMP, LFT and lipid panel levels are normal. ABG showed pH 7.43, PO2 78.2, HC03 28.1, pCO2 43. Scheduled for CABG procedure today. 08/13/2024 Post CABG day 1 Patient is seen and examined at the bedside. He complains of moderate chest pain and discomfort. No Acute events last night. Vitals pulse rate 106, respiratory rate 25, blood pressure 136/51, SpO2 99% on 2 L nasal cannula. Urine output 1.4 L, chest tube drainage 320 mL. Currently on nitroglycerin drip. Labs WBC improved from 11.8-9.1, hemoglobin improved from 9.5-9.8, BMP unremarkable. Carotid ultrasound results are normal. Pending Chest x-ray results. 08/14/2024 Post CABG day 2 Patient is seen and examined at the bedside. He mentioned about experiencing difficulty in breathing secondary to chest pain and discomfort yesterday night. He states that his chest pain has gotten better today after receiving the pain medication. Currently on insulin and nitroglycerin drip. Vitals blood pressure 31/70, pulse rate 104, SpO2 greater than 95% on 3 L nasal cannula. Urine output 3.3 L. Chest tube drainage 150 mL. Labs WBC 10.2, hemoglobin decreased from 9.8-9.5, sodium 133, chloride 99. ABG revealed pH 7.45, pCO2 38, PO2 73.2, HC03 26.1 indicating mild hypoxemia and alkalosis. 08/15/2024 Post CABG Day3 Patient is seen and examined at the bedside. He mentioned about experiencing similar difficulty in breathing secondary to pain and discomfort yesterday night. He feels better today. Vitals pulse rate 98, respiratory rate 9, blood pressure 150/83, SpO2 98% on 1 L nasal cannula. Urine output 4.2 L. Hemoglobin improved from 9.5-9.7, BMP unremarkable. Chest x-ray revealed no interval/acute changes. 08/16/2024 Post CABG day 4 Patient is seen and examined at the bedside. He complains of cough, mild shortness of breath. Vitals blood pressure 134/81, respiratory rate 11, pulse rate 88, SpO2 99% on 2 L nasal cannula. Urine output 4.3 L. Labs hemoglobin improved from 9.7-10.5, WBC 8.6, BMP unremarkable. Chest x-ray revealed no acute/interval changes. REVIEW OF SYSTEMS CONSTITUTIONAL: Denies fevers, chills, or night sweats. No unintentional weig ht loss reported. NEUROLOGICAL: Denies headache, amaurosis fugax, motor weakness, sensory deficit, vertigo/spinning sensation, gait abnormalities, or tremors. ENT: No hearing loss, otalgia, otorrhea, rhinitis, rhinorrhea, hoarseness, or sore throat. CARDIOVASCULAR: Chest pain, shortness of breath, Deniesdyspnea on exertion, orthopnea, paroxysmal nocturnal dyspnea, palpitations, life-threatening arrhythm ias, claudication. PULMONARY: , phlegm/sputum, hemoptysis, pleuritic chest pain. SLEEP: Denies morning headaches, daytime somnolence or napping. Denies difficulty falling asleep, staying asleep, waking from sleep. Denies knowledge of snoring. GASTROINTESTINAL: Denies any type of dysphagia to either liquids or solids. Denies nausea, vomiting, pyrosis, early satiety, abdominal pain, diarrhea, constipation, or changes in stool consistency or caliber. Denies coffee-ground emesis, hematemesis, hematochezia, or melanotic stools. GENITOURINARY: Denies frequency, urgency, nocturia, hematuria or incontinence (Storage/Irritative symptoms.) Low urinary stream, straining to void, urinary intermittency or hesitancy, splitting of the voiding stream, terminal dribbling. ENDOCRINOLOGIC: Denies polyuria, polydipsia, polyphagia or heat/cold intolerances. HEMATOLOGIC: Denies thrombophilia/previous clots, or coagulopathy/bleeding disorders. ONCOLOGIC: Denies personal history of malignancy. DERMATOLOGIC: Denies rashes or pruritus. PSYCHIATRIC: Denies any suicidal or homicidal ideation. Denies hallucinations. PHYSICAL EXAM GENERAL APPEARANCE: The patient is awake, alert, and oriented, in no acute cardiopulmonary distress. NEUROLOGICAL: Cranial nerves II-XII grossly intact. Motor is 5/5 in bilateral upper and lower extremities proximal to distal. No sensory deficits. HEENT: Face is symmetric. Pupils are equal and reactive. Extraocular movements are intact. NECK: Supple. No JVD. No thyromegaly. No submental, submandibular, pre- /postauricular, occipital or supraclavicular lymphadenopathy. CHEST: Normal chest expansion. No Telemetry. LUNGS: Absence of any rales, rhonchi or any wheezing. CARDIOVASCULAR: Regular. S1 and S2 normal. No appreciable rubs, murmurs or gallops. ABDOMEN: Soft, nontender, and nondistended. There is no rebound, voluntary guarding, or rigidity. : Improving Redness, bruising over right groin area Deferred. No Fitzpatrick. EXTREMITIES: Non-edematous and not cyanotic. No clubbing. Good capillary refill. SKIN: No skin breakdown. Vital Signs (last 8hr) Date Time Temp Pulse Resp B/P (MAP) Pulse Ox O2 Delivery O2 Flow Rate FiO2 08/16/24 08:00 99 Nasal Cannula* 2 28 08/16/24 06:43 88 11 134/81 99 Nasal Cannula 2.0 08/16/24 06:13 86 23 153/87 100 08/16/24 05:43 87 18 147/82 100 Nasal Cannula 2.0 08/16/24 05:13 88 18 141/88 98 08/16/24 04:43 84 27 146/77 100 Nasal Cannula 2.0 08/16/24 04:13 82 21 142/83 100 Nasal Cannula 2.0 08/16/24 04:00 98.2 08/16/24 04:00 99 Nasal Cannula* 2 28 08/16/24 03:43 76 17 132/71 99 Nasal Cannula 2.0 08/16/24 03:13 70 17 113/69 98 Nasal Cannula 2.0 08/16/24 02:43 68 17 116/72 99 Nasal Cannula 2.0 08/16/24 02:13 73 17 139/77 100 Nasal Cannula 2.0 08/16/24 02:00 73 13 109/95 99 Nasal Cannula 2.0 08/16/24 01:43 70 15 141/76 100 Nasal Cannula 2.0 LABS: Laboratory: Test 08/16/24 06:34 08/16/24 04:59 08/15/24 04:21 Range/Units Whole Blood Glucose 162 H 70-110 MG/DL White Blood Count 8.6 4.8-10.8 K/uL Red Blood Count 3.31 L 4.50-6.20 MIL/uL Hemoglobin 10.5 L 14.0-18.0 g/dL Hematocrit 30.6 L 42-54 % Mean Corpuscular Volume 92.4 79-99 fL Mean Corpuscular Hemoglobin 31.7 27.0-33.0 pg Mean Corpuscular Hemoglobin Concent 34.3 32.0-36.0 g/dL Red Cell Distribution Width 12.6 11.0-15.5 % Platelet Count 335 130-400 K/uL Mean Platelet Volume 9.3 7.5-10.5 fL Nucleated Red Blood Cells 0.0 0.0-0.19 % Sodium Level 139 136-145 mmol/L Potassium Level 3.7 3.5-5.1 mmol/L Chloride Level 102 101-111 mmol/L Carbon Dioxide Level 31 21-32 mmol/L Blood Urea Nitrogen 10 7-18 mg/dL Creatinine 0.6 0.5-1.3 mg/dL Glomerular Filtration Rate Calc 112 >90 mL/min Random Glucose 171 H 70-105 mg/dL Total Calcium 8.7 8.5-10.1 mg/dL Magnesium Level 2.00 1.80-2.40 mg/dL Current Medications Medications (Trade) Dose Ordered Sig/Isidoro Route PRN Reason Start Time Stop Time Status Last Admin Dose Admin Acetaminophen (TYLenol 325MG TAB) 650 mg Q4H PRN PO Temp >38.3C(AFTER EXTUBATION) 08/12/24 15:30 09/11/24 15:29 08/15/24 15:23 650 MG Acetaminophen (TYLenol 325MG TAB) 650 mg Q6H PRN PO MILD PAIN (1-3) 08/12/24 15:30 08/12/24 16:09 DC Acetaminophen (TYLenol 500MG TAB) 500 mg Q6H PRN PO MILD PAIN (1-3) 08/06/24 10:00 09/05/24 09:59 08/15/24 21:27 500 MG Acetaminophen (TYLenol 650MG SUPPOSITORY) 650 mg Q4H PRN RC Temp >38.3C WHILE INTUBATED 08/12/24 15:30 09/11/24 15:29 Acetaminophen (acetaMINOPHEN) 1,000 mg Q6H6 IV 08/12/24 18:00 08/13/24 17:59 DC 08/13/24 14:06 1,000 MG Acetaminophen (acetaMINOPHEN) 1,000 mg Q6H6 IVPB 08/14/24 12:00 08/14/24 12:14 DC 08/14/24 12:13 1,000 MG Albumin Human 250 ml @ 0 mls/hr AD PRN IV IF HEMODYNAMICALLY UNSTABLE 08/12/24 15:30 Aminocaproic Acid 91565 mg/Sodium Chloride 310 ml @ 25 mls/hr AD IV 08/12/24 15:30 08/12/24 15:32 DC Aminocaproic Acid 63456 mg/Sodium Chloride 480 ml @ 0 mls/hr AD PRN IV BLEEDING CONTROL 08/12/24 06:30 09/11/24 06:29 Aspirin (Aspirin 81mg Ec Tab) 81 mg DAILY PO 08/06/24 09:00 09/05/24 08:59 08/16/24 08:33 81 MG Atorvastatin Calcium (LIPItor 40MG) 40 mg HS PO 08/05/24 21:00 09/04/24 20:59 08/15/24 21:13 40 MG Benzocaine (Cepacol Sore Throat Lozenge) 1 each Q4H PRN MM SORE THROAT 08/13/24 20:30 09/12/24 20:29 Calcium Gluconate 1 gm/Sodium Chloride 60 ml @ 200 mls/hr AD PRN IV HYPOCALCEMIA 08/12/24 15:30 09/11/24 15:29 08/13/24 03:20 200 MLS/HR Cefazolin Sodium (Ancef) 2 gm ONCALL PRN IVP SURGERY 08/11/24 18:30 08/12/24 16:01 DC Cefazolin Sodium (Ancef) 2 gm ONCALL PRN IVP SURGERY 08/12/24 16:30 08/14/24 16:29 DC 08/12/24 21:07 2 GM Cefazolin Sodium (Ancef) 2 gm Q8H IVPB 08/12/24 20:30 08/12/24 16:05 DC Ceftriaxone Sodium (Rocephin 2gm Inj) 2 gm Q24H IVPB 08/06/24 00:00 08/15/24 23:59 DC 08/15/24 01:32 2 GM Chlordiazepoxide HCl (LIBrium 25 MG CAP) 25 mg Q2H PRN PO ALCOHOL WITHDRAWAL PROTOCOL 08/05/24 06:00 08/12/24 05:59 DC 08/06/24 22:55 25 MG Clopidogrel Bisulfate (plaVIX 75MG) 75 mg DAILY PO 08/16/24 09:00 09/15/24 08:59 08/16/24 08:33 75 MG Dexmedetomidine/ Sodium Chloride (PRECEdex 400MCG/ 100ML-NS) 400 mcg PROTOCOL IV 08/12/24 15:30 08/13/24 15:29 DC Dextrose (D50w) 50 ml AD PRN IV HYPOGLYCEMIA PROTOCOL 08/05/24 05:30 08/12/24 16:00 DC Dextrose (D50w) 50 ml AD PRN IV HYPOGLYCEMIA PROTOCOL 08/12/24 15:30 08/14/24 09:28 DC Dextrose (D50w) 50 ml AD PRN IV HYPOGLYCEMIA PROTOCOL 08/14/24 09:30 09/13/24 09:29 Diazepam (VALium 5 MG/ML 2 ML SYG) 10 mg Q4H PRN IVP ALCOHOL WITHDRAWAL PROTOCOL 08/05/24 06:30 08/12/24 06:29 DC Docusate Sodium (COLace 100MG CAP) 100 mg BID PO 08/12/24 21:00 09/11/24 20:59 08/16/24 08:33 100 MG Doxycycline Hyclate (Doxycycline Hyclate) 100 mg BID PO 08/06/24 09:00 08/06/24 12:18 DC 08/06/24 09:06 100 MG Enoxaparin Sodium (Lovenox) 30 mg DAILY SQ 08/15/24 09:00 09/14/24 08:59 08/16/24 08:34 30 MG Epinephrine HCl 10 mg/Sodium Chloride 250 ml @ 0 mls/hr AD PRN IV TITRATE 08/12/24 06:30 09/11/24 06:29 Epinephrine HCl 10 mg/Sodium Chloride 250 ml @ 0 mls/hr AD PRN IV POST-OP CARDIOVASCULAR ORDERS 08/12/24 15:30 08/12/24 15:32 DC Famotidine (Pepcid 20mg Vial) 20 mg BID IV 08/05/24 09:00 08/05/24 09:01 DC 08/05/24 07:47 20 MG Famotidine (Pepcid 20mg Vial) 20 mg BID IV 08/12/24 21:00 08/13/24 07:32 DC 08/12/24 20:12 20 MG Furosemide (LASix 20MG TAB) 20 mg Q12H PO 08/14/24 09:00 09/13/24 08:59 08/16/24 08:34 20 MG Furosemide (LASix 20MG VIAL) 20 mg Q12H IV 08/13/24 09:00 08/12/24 16:01 DC Furosemide (LASix 20MG VIAL) 20 mg Q12H IV 08/13/24 14:00 09/12/24 13:59 08/16/24 01:17 20 MG Gabapentin (NEURontin 100 mg CAP) 100 mg TID PO 08/14/24 14:00 09/13/24 13:59 08/16/24 08:33 100 MG Glucagon (Glucagon 1mg Kit) 1 mg AD PRN IM HYPOGLYCEMIA PROTOCOL 08/05/24 05:30 08/12/24 16:00 DC Glucagon (Glucagon 1mg Kit) 1 mg AD PRN IM HYPOGLYCEMIA PROTOCOL 08/12/24 15:30 08/14/24 09:28 DC Glucagon (Glucagon 1mg Kit) 1 mg AD PRN IM HYPOGLYCEMIA PROTOCOL 08/14/24 09:30 09/13/24 09:29 Guaifenesin (RobiTUSSin SUGAR-FREE 100 MG/ 5 ML UDCUP) 200 mg Q4H PRN PO COUGH 08/07/24 23:30 08/12/24 15:17 DC 08/09/24 21:09 200 MG Heparin Sodium (Porcine) (HEParin 5,000 UNIT VIAL) 5,000 unit Q8H SQ 08/05/24 11:00 08/05/24 03:04 DC Heparin Sodium/ Dextrose 250 ml @ 0 mls/hr PROTOCOL IV 08/05/24 03:00 08/12/24 15:17 DC 08/11/24 21:27 11.46 MLS/HR Insulin Glargine (LANtus 100 UNITS/ML 10 ML VIAL) 10 units BID@0730,2100 SQ 08/05/24 21:00 08/12/24 15:17 DC 08/11/24 20:31 10 UNITS Insulin Human Regular (humuLIN R 100 UNIT/ML 3ML) INSULIN SLIDING SCAL... ACHS SQ 08/05/24 07:30 08/05/24 08:55 DC 08/05/24 07:47 5 UNIT Insulin Human Regular (humuLIN R 100 UNIT/ML 3ML) INSULIN SLIDING SCAL... ACHS SQ 08/05/24 11:30 08/12/24 15:17 DC 08/11/24 20:34 14 UNIT Insulin Human Regular (humuLIN R 100 UNIT/ML 3ML) INSULIN SLIDING SCAL... ACHS SQ 08/14/24 11:30 09/13/24 11:29 08/15/24 21:24 6 UNIT Insulin Human Regular 100 unit/ Sodium Chloride 100 ml @ 0 mls/hr AD IV 08/12/24 15:30 08/14/24 09:26 DC 08/13/24 11:02 5 MLS/HR Iron Sucrose (VenoFER) 100 mg DAILY IV 08/08/24 09:30 08/08/24 09:17 DC Iron Sucrose (VenoFER) 100 mg Q24H IV 08/08/24 21:00 08/10/24 22:00 DC 08/10/24 22:03 100 MG Isosorbide Mononitrate (Imdur 30mg Sr) 30 mg DAILY PO 08/11/24 13:00 08/12/24 15:17 DC 08/11/24 14:17 30 MG Lactulose (Constulose 20gm/ 30ml Udcup) 20 gm BID PRN PO CONSTIPATION 08/12/24 15:30 09/11/24 15:29 08/16/24 09:02 20 GM Lorazepam (AtiVAN) 2 mg Q4H PRN IVP ALCOHOL WITHDRAWAL PROTOCOL 08/05/24 06:00 08/05/24 06:04 DC Losartan Potassium (CozAAR 50 mg TAB) 50 mg BID PO 08/09/24 21:00 08/12/24 15:17 DC 08/11/24 20:39 50 MG Losartan Potassium (CozAAR 50 mg TAB) 50 mg DAILY PO 08/07/24 09:00 08/09/24 09:16 DC 08/09/24 08:06 50 MG Losartan Potassium (CozAAR 50 mg TAB) 50 mg DAILY PO 08/15/24 09:00 08/16/24 06:39 DC 08/15/24 08:06 50 MG Losartan Potassium (CozAAR 50 mg TAB) 100 mg DAILY PO 08/16/24 09:00 09/15/24 08:59 08/16/24 08:34 100 MG Magnesium Hydroxide (Milk Of Magnesium 30ml) 30 ml DAILY PRN PO CONSTIPATION 08/12/24 15:30 09/11/24 15:29 08/15/24 17:58 30 ML Magnesium Sulfate 50 ml @ 12.5 mls/hr AD PRN IV MAG LEVEL LESS THAN 2.0 08/12/24 15:30 09/11/24 15:29 08/14/24 06:16 12.5 MLS/HR Magnesium Sulfate 50 ml @ 0 mls/hr PROTOCOL PRN IV OTHER [SEE ORDER COMMENTS] 08/05/24 05:30 08/12/24 16:01 DC 08/10/24 04:13 25 MLS/HR Metoprolol Tartrate (loprESSOR) 12.5 mg BID PO 08/14/24 09:00 08/13/24 06:52 DC Metoprolol Tartrate (loprESSOR) 25 mg BID PO 08/05/24 14:30 08/08/24 08:27 DC 08/08/24 07:44 25 MG Metoprolol Tartrate (loprESSOR) 25 mg BID PO 08/13/24 09:00 08/13/24 19:21 DC 08/13/24 08:49 25 MG Metoprolol Tartrate (loprESSOR) 25 mg BID PO 08/14/24 09:00 08/13/24 08:43 DC Metoprolol Tartrate (loprESSOR) 50 mg BID PO 08/08/24 09:00 08/12/24 15:17 DC 08/12/24 08:24 50 MG Metoprolol Tartrate (loprESSOR) 50 mg BID PO 08/13/24 21:00 08/14/24 14:40 DC 08/14/24 08:37 50 MG Metoprolol Tartrate (loprESSOR) 75 mg BID PO 08/14/24 21:00 08/15/24 07:04 DC 08/14/24 21:15 75 MG Metoprolol Tartrate (loprESSOR) 100 mg BID PO 08/15/24 09:00 09/14/24 08:59 08/16/24 08:34 100 MG Morphine Sulfate (morPHINE 2MG SYG) 0.5 mg Q2H PRN IV MODERATE PAIN (4-6) 08/12/24 15:30 08/13/24 15:29 DC Morphine Sulfate (morPHINE 2MG SYG) 1 mg Q2H PRN IV SEVERE PAIN (7-10) 08/12/24 15:30 08/13/24 15:29 DC 08/12/24 18:55 1 MG Morphine Sulfate (morPHINE 2MG SYG) 2 mg Q2HPRN PRN IVP SEVERE PAIN (6-10) 08/05/24 11:10 08/10/24 14:09 DC 08/09/24 04:17 2 MG Morphine Sulfate (morPHINE 2MG SYG) 2 mg Q4H PRN IVP SEVERE PAIN (7-10) 08/05/24 06:00 08/05/24 08:31 DC 08/05/24 06:03 2 MG Nicardipine HCl 100 mg/Sodium Chloride 100 ml @ 0 mls/hr AD PRN IV TITRATE 08/12/24 17:30 09/11/24 17:29 Nitroglycerin (Nitroglycerin 1gm Oint) 0.5 inch Q8H5 TD 08/08/24 13:00 08/10/24 12:43 DC 08/10/24 06:05 0.5 INCH Nitroglycerin (Nitrostat) 0.4 mg AD PRN SL CHEST PAIN 08/05/24 02:30 08/08/24 08:53 DC 08/05/24 02:46 0.4 MG Nitroglycerin/ Dextrose 0 ml @ 0 mls/hr AD IV 08/12/24 15:30 08/12/24 16:07 DC Nitroglycerin/ Dextrose 250 ml @ 0 mls/hr PROTOCOL IV 08/05/24 03:30 09/04/24 03:29 08/14/24 09:01 30 MLS/HR Norepinephrine Bitartrate 250 ml @ 0 mls/hr AD PRN IV TITRATE 08/12/24 06:30 09/11/24 06:29 Norepinephrine Bitartrate 8 mg/ Dextrose 250 ml @ 0 mls/hr AD PRN IV POST-OP CARDIOVASCULAR ORDERS 08/12/24 15:30 08/12/24 15:32 DC Ondansetron HCl (zoFRAN 4MG INJ) 4 mg Q6H PRN IV NAUSEA/VOMITING 08/05/24 05:30 09/04/24 05:29 08/12/24 18:54 4 MG Ondansetron HCl (zoFRAN 4MG INJ) 4 mg Q6H PRN IV NAUSEA/VOMITING 08/12/24 15:30 08/12/24 16:02 DC Pantoprazole Sodium (PROTonix 40MG INJ) 40 mg DAILY IVP 08/05/24 09:00 08/12/24 15:17 DC 08/12/24 08:24 40 MG Pharmacy Profile Note (Pharmacy Communication) 1 each PROTOCOL PRN MISC ETOH Withdrawal Score changes 08/05/24 06:00 08/12/24 05:59 DC Potassium Phosphate 250 ml @ 42 mls/hr AD PRN IV LOW PHOS LEVEL 08/12/24 15:30 09/11/24 15:29 Potassium Chloride 100 ml @ 50 mls/hr AD PRN IV POTASSIUM PROTOCOL 08/05/24 05:30 08/07/24 18:24 DC Potassium Chloride 100 ml @ 100 mls/hr AD PRN IV POTASSIUM PROTOCOL 08/07/24 09:00 09/06/24 08:59 08/13/24 03:34 100 MLS/HR Potassium Chloride 100 ml @ 100 mls/hr AD PRN IV HYPOKALEMIA 08/12/24 15:30 08/13/24 09:00 DC Potassium Chloride (K-Dur/Klor-Con 20meq) 20 meq AD PRN PO POTASSIUM PROTOCOL 08/07/24 09:00 09/06/24 08:59 08/15/24 13:15 20 MEQ Potassium Chloride (K-Dur/Klor-Con 20meq) 20 meq AD PRN PO POTASSIUM PROTOCOL 08/13/24 09:00 08/13/24 09:00 DC Potassium Chloride (KCl 10% Elixir 20meq/15ml) 20 meq AD PRN PO POTASSIUM PROTOCOL 08/07/24 09:00 09/06/24 08:59 08/16/24 08:33 20 MEQ Potassium Chloride (KCl 10% Elixir 20meq/15ml) 20 meq AD PRN PO POTASSIUM PROTOCOL 08/13/24 09:00 08/13/24 09:00 DC Promethazine HCl (Phenergan) 25 mg Q6H PRN PO NAUSEA 08/05/24 06:00 08/12/24 15:17 DC Propofol 100 ml @ 0 mls/hr AD PRN IV SEDATION 08/12/24 15:30 08/16/24 15:29 Ranolazine (Ranexa) 500 mg BID PO 08/05/24 17:30 08/12/24 15:17 DC 08/11/24 20:38 500 MG Ranolazine (Ranexa) 500 mg BID PO 08/05/24 21:00 08/05/24 17:04 DC Sodium Bicarbonate (Sodium Bicarb 50meq 50ml Vial) 50 meq AD PRN IV OTHER[SEE DOSING INSTRUCTIONS] 08/12/24 15:30 08/15/24 15:29 DC 08/12/24 19:50 50 MEQ Sodium Chloride 500 ml @ 0 mls/hr AD IV 08/12/24 15:30 09/11/24 15:29 Sodium Chloride 1,000 ml @ 10 mls/hr ONCE IV 08/12/24 15:30 08/13/24 15:29 DC 08/12/24 17:29 10 MLS/HR Sodium Chloride 1,000 ml @ 75 mls/hr [id number] IV 08/05/24 05:30 08/10/24 15:46 DC 08/08/24 16:15 75 MLS/HR Sodium Chloride 1,000 ml @ 100 mls/hr Q10H IV 08/05/24 14:30 08/05/24 17:29 DC 08/05/24 15:22 100 MLS/HR Sodium Chloride (NS Flush 10ml) 10 ml Q8H PRN IVP IV LINE FLUSH 08/12/24 15:30 09/11/24 15:29 Thiamine HCl 100 mg/Folic Acid 1 mg/Multivitamins/ Minerals 10 ml/ Sodium Chloride 1,011.2 ml @ 100 mls/ hr Q24H IV 08/05/24 06:00 08/07/24 16:07 DC 08/07/24 05:34 100 MLS/HR Tramadol HCl (UltRAM) 25 mg Q6H PRN PO MODERATE PAIN (4-6) 08/12/24 15:30 08/17/24 15:29 Tramadol HCl (UltRAM) 50 mg Q6H PRN PO SEVERE PAIN (7-10) 08/12/24 15:30 08/17/24 15:29 08/15/24 11:02 50 MG Wound Care/ Dressing Products (Venelex Ointment) 1 NAKIA AD TID TP 08/06/24 14:00 08/06/24 12:50 DC DIAGNOSTICS / RADIOLOGY: SERVICE 0400 REASON: s/p CABG ORDERING PHYSICIAN: KEYA CALVO MD PROCEDURE: CXR1VW - CHEST 1VW Exam Type: CHEST 1VW Clinical Information: s/p CABG Comparison: None Findings: Pulmonary pattern is as before. No worrisome interval changes have taken place. Impression: Stable exam. ASSESSMENT: Chest pain, POA ACS- NSTEMI POA Multivessel CAD with LV ejection fraction of 55% hypokinesis of the inferior wall status post CABG with a HILLMAN graft to the LAD and saphenous vein graft Severe 2-vessel CAD with 80% proximal LAD and 100% distal RCA stenosis by coronary angiogram on 08/05/2024 Alcohol Intoxication POA Uncontrolled diabetes POA Acute anemia, not POA Right common femoral vein thrombus, as per right groin ultrasound on 08/08 Possible phlebitis of great saphenous vein as per right groin ultrasound on 08/08 Multiple right inguinal lymph nodes as per right groin ultrasound on 08/08 Obesity POA Hypokalemia Hyperlipidemia POA Hypertension POA Elevated CK POA Active alcohol drinker POA PLAN: Continue telemetry NSTEMI POA, chest pain Continue [id number] mg daily Continue Lipitor 40 mg daily Plavix 75 mg p.o. daily is added to the treatment regimen by cardiology consult Appreciate cardiology consult and we will follow their recommendations Severe 2-vessel CAD with 80% proximal LAD and 100% distal RCA stenosis, s/p CABG Multivessel CAD with LV ejection fraction of 55% hypokinesis of the inferior wall status post CABG Underwent CABG procedure with a HILLMAN graft to the LAD and saphenous vein graft on 08/12/2024 Postop day 4 , stable Not on any vasopressors, drips No postprocedure complications noted Elevated TCK POA Improved TCK normal at 118 Alcohol Intoxication POA Monitor for signs of alcohol withdrawal CIWA protocol in place Counseled on alcohol use cessation Uncontrolled diabetes POA HbA1c 8.5 Continue insulin sliding scale AC & HS with hypoglycemia protocol Acute anemia, not POA Hemoglobin from 9.7-10.5 Iron 18, TIBC 253,% saturation 7.1 indicating iron deficiency Received 3 doses of IV Venofer so far Monitor H&H Right common femoral vein thrombus, right groin ultrasound on 08/08 Currently On Lovenox 30 mg SQ, plan to start full-dose anticoagulation in future per cardiology consult Possible phlebitis of right saphenous vein as per ultrasound on 08/08 Warm compresses to the area Leg Elevation Multiple right inguinal lymph nodes as per right groin ultrasound on 08/08 Can be attributed to reactive lymphadenopathy due to DVT We will monitor for any signs and symptoms of infection Hyperlipidemia POA, Normal lipid panel results Continue Atorvastatin Hypertension, POA Continue metoprolol 100 mg b.i.d., losartan 100 mg p.o. daily as per Cardiology recommendation Hypokalemia Improved Continue Famotidine 20 mg IV bid for GI prophylaxis Continue SCDs for DVT prophylaxis Monitor electrolytes and replace them as needed per protocol Follow up on Cardiology consult recommendations Follow up on CT surgery consult recommendations ATTESTATION BY PHYSICIAN I have seen and examined the patient. I reviewed the documentation, medical decision making, and treatment plan as noted by the resident above. I agree with the findings and plan of care. Dalton Le MD, PRIYANKA MD Aug 16, 2024 09:36
--- NOTE | 2024-08-16 09:40 | HMCIMG ---
Exam Type: US SOFT TISSUE GROIN Clinical Information: R/O PSEUDOANEURYSM OF RIGHT GROIN Comparison: None Findings and impression: Right groin hematoma seen measuring 2.2 x 0.9 cm. Partial thrombosis right common femoral vein. Normal-appearing lymph nodes of the right groin. No patent pseudoaneurysm seen.
[2024-08-16] MEDS: BENZONATATE 100 MG CAPSULE PO PRN (16:55)
[2024-08-16] MEDS: BENZOCAINE/MENTH/CETYLPYRD CL 1 EACH LOZENGE MM PRN (16:55)
[2024-08-17] VITALS (11 sets, daily range): BP systolic 131–145; BP diastolic 69–82; PULSE 63–91; RESP 16–20; TEMP 97.8–99.1; O2SAT 96–100
[2024-08-17 03:31] LABS: HEMATOCRIT 30.8 % (42-54); MEAN CORPUSCULAR HEMOGLOBIN 31.5 pg (27.0-33.0); MEAN CORPUSCULAR HGB CONC 33.4 g/dL (32.0-36.0); MEAN CORPUSCULAR VOLUME 94.2 fL (79-99); RED BLOOD CELL COUNT(AUTO) 3.27 MIL/uL (4.50-6.20); RED CELL DISTRIBUTION WIDTH 12.2 % (11.0-15.5); WHITE BLOOD COUNT (AUTO) 7.3 K/uL (4.8-10.8)
[2024-08-17 03:47] LABS: CREATININE 0.7 mg/dL (0.5-1.3); POTASSIUM 3.8 mmol/L (3.5-5.1)
[2024-08-17] MEDS ORDERED: PoTASSium chl 10% ELIXIR 20MEQ 20 MEQ/15 ML UDCUP PO PRN (05:30)
--- NOTE | 2024-08-17 09:21 | HMCIMG ---
INDICATION: s/p CABG TECHNIQUE: CHEST 1VW COMPARISON: None FINDINGS AND IMPRESSION: Continued bilateral airspace consolidation Mild cardiomegaly with CABG changes. Mild degenerative changes of the spine. The visualized upper abdomen appears unremarkable.
--- NOTE | 2024-08-17 11:20 | PN ---
[facility] CARDIOLOGY PROGRESS NOTE Date Patient Seen: Aug 17, 2024 Time of Visit: 11:08 Interval History: This is a 59-year-old [place] male with a past medical history of hypertension, type 2 diabetes mellitus and alcohol abuse who presented with recurrent chest pain the evening of 08/04/2024 when he developed sharp, burning in quality, 8/10 intensity chest discomfort. He previously developed symptoms after meal and with exertion. On the evening of 08/04/2024, his symptoms were more severe prompting ER visit. Symptom onset was approximately 8:00 p.m. on 08/04/2024 and did not present to the ER until approximately 2:00 a.m. on 08/05/2024. He ruled in for a non [place] [address]. Cardiac catheterization on 08/05/2024 demonstrated severe two-vessel coronary artery disease with 80% stenosis in the proximal LAD and 100% stenosis in the distal RCA. A 2D echocardiogram on 08/05/2024 demonstrating basal inferior wall hypokinesis and an LVEF of 55%. He did experience some right groin discomfort after his catheterization and was noted to have a right common femoral DVT by venous Doppler exam on 08/08/2024. He underwent Off-pump CABG x 2, HILLMAN to LAD and saphenous vein graft to the PDA on 08/12/[address] Colon. He has continued to progress well postoperatively other than complaining of cough. A chest x-ray this morning demonstrates cardiomegaly but no overt heart failure. Physical Examination: GENERAL: No acute distress. HEAD: Normal with no signs of head trauma. EYES: PERRLA, EOMI, conjunctiva and sclera normal. NECK: Supple without JVD. There is no tenderness, lymphadenopathy, or masses. No thyromegaly. Normal carotid upstrokes without bruits. LUNGS: There are diminished breath sounds at the bases left greater than right, no audible wheezing or rhonchi HEART: Normal rate and rhythm. Normal S1 and S2 without murmurs, gallop or rub. Median sternotomy incision is open to air, well approximated VASC: Peripheral pulses +2 bilaterally. Trace pedal edema EXT: No clubbing, cyanosis. NEURO: Awake, alert, and oriented x3. No focal neurological deficits noted. Laboratory: Hematology Labs: Test 08/17/24 03:22 Range/Units White Blood Count 7.3 4.8-10.8 K/uL Red Blood Count 3.27 L 4.50-6.20 MIL/uL Hemoglobin 10.3 L 14.0-18.0 g/dL Hematocrit 30.8 L 42-54 % Mean Corpuscular Volume 94.2 79-99 fL Mean Corpuscular Hemoglobin 31.5 27.0-33.0 pg Mean Corpuscular Hemoglobin Concent 33.4 32.0-36.0 g/dL Red Cell Distribution Width 12.2 11.0-15.5 % Platelet Count 390 130-400 K/uL Mean Platelet Volume 9.2 7.5-10.5 fL Nucleated Red Blood Cells 0.0 0.0-0.19 % Chemistry Labs: Test 08/17/24 05:09 08/17/24 03:22 Range/Units Whole Blood Glucose 156 H 70-110 MG/DL Sodium Level 139 136-145 mmol/L Potassium Level 3.8 3.5-5.1 mmol/L Chloride Level 103 101-111 mmol/L Carbon Dioxide Level 31 21-32 mmol/L Blood Urea Nitrogen 11 7-18 mg/dL Creatinine 0.7 0.5-1.3 mg/dL Glomerular Filtration Rate Calc 107 >90 mL/min Random Glucose 153 H 70-105 mg/dL Total Calcium 8.7 8.5-10.1 mg/dL Diagnostics / Radiology: 2D echocardiogram 08/05/2024: Conclusion The cardiac chambers are normal in size. Mild concentric left ventricular hypertrophy. The basal inferior wall is hypokinetic. The mid/apical inferior wall is normal in function. The anterior, anterolateral, inferolateral, septal, and apical carroll are normal in function. Left ventricle systolic function is normal, estimated LVEF 55%. Indeterminate diastolic function. Trace mitral regurgitation. Trace tricuspid regurgitation. PASP is normal. There is no pericardial effusion. US SOFT TISSUE GROIN 08/08/2024: REASON: Right groin pain, bruising, to rule out hematoma. TECHNIQUE: Right groin ultrasound study was performed. FINDINGS: Multiple right inguinal lymph nodes are seen with the largest measuring 1.5 x 0.5 cm. Normal flow is seen in the right common femoral artery. Noncompressible thrombus is seen in the right common femoral vein suggestive of deep venous thrombosis. No noncompressible thrombus is seen in the right superficial femoral, popliteal, and posterior tibial vein. There may be phlebitis with thickening of the wall of the right greater saphenous vein. IMPRESSION: Multiple right inguinal lymph nodes. Finding consistent with partial deep venous thrombosis with thrombus in right common femoral vein. Impression and Plan: Non [place] [id number] Severe two-vessel coronary artery disease with 80% stenosis in the proximal LAD and 100% stenosis in the distal RCA by cardiac catheterization 08/05/2024 Status post off pump coronary artery bypass graft x2 vessels with HILLMAN to the LAD and saphenous vein graft to the PDA on 08/12/[address] Colon: Normal LV systolic function with an LVEF of 55% and basal inferior wall hypokinesis by 2D echocardiogram 08/05/2024: -continue postop course with aspirin 81 mg daily, clopidogrel 75 mg daily, atorvastatin 40 mg p.o. q.h.s., furosemide 20 mg p.o. b.i.d. and metoprolol tartrate 100 mg p.o. b.i.d. Right common femoral vein DVT 08/08/2024: Rule out PE with dyspnea, chest pain, cough, and clear x-ray 08/17/2024: -begin IV heparin and transition to p.o. Eliquis tomorrow -proceed with CT angiogram with PE protocol -discharge planning for tomorrow Hypertension: -continue losartan 100 mg daily -reduce metoprolol tartrate 50 mg p.o. b.i.d. Comorbidities: Type 2 diabetes mellitus Alcohol abuse PHYSICIAN ATTESTATION OF PHYSICIAN PEARL GLUE OPERATOR DOCUMENTATION: I attest that I was physically present for the [place] portions of the service and evaluated the patient with the Physician Community Services Officer, and I reviewed and discussed the case with the Physician Community Services Officer and made modifications to the Physician Community Services Officer's findings and plans of care as documented above ALYSIA VALDOVINOS Aug 17, 2024 11:20 VINAY WONG MD Aug 17, 2024 14:49
--- NOTE | 2024-08-17 11:24 | PN ---
[facility] PROGRESS NOTE Date of Service: Aug 17, 2024 Time of Service: 11:18 SUBJECTIVE: This is a case of 59-year-old male with past medical history of diabetes, hypertension and hyperlipidemia who presented to the ED with complaints of left- sided chest pain which started around 8 pm last night while resting. He states that he has been experiencing intermittent chest pain since the past 2 days ago which has become persistent associated with SOB last night. Patient also reports that he had 5 beers last night and denies cigarette and recreational drug use. Initial ECG revealed ST 110 right bundle branch block, inferior infarct acute and second EKG showed ST 108 right bundle branch block inferior infarct recent and the 3rd EKG showed ST 120 with Right bundle branch block Inferior infarct recent and probable posterior infarct acute. Initial Labs WBC 10.9, BNP 147, total CK 812, troponin 13,930, serum alcohol 117. While in the ER patient received aspirin 325 mg p.o., Protonix 40 mg IV, Brilinta 90 mg p.o., verapamil 5 mg IV and metoprolol 5 mg IV and was started on heparin and nitroglycerin drip. He was admitted for further assessment and treatment in view of NSTEMI. 08/05/2024 Patient is seen and examined at the bedside. He complains of mild p ressure-like left-sided chest pain and generalized body weakness. Vitals blood pressure ranging in 120/70s. Labs WBC 10.9, hemoglobin 13.9, BNP 147, PT 10.1, INR 0.95. Urinalysis positive for glucose. Urine toxicology negative and serum alcohol 117, glucose 229, magnesium 1.9, TCK 8. Troponin trend [id number]. Currently on heparin and nitroglycerin drip. He is scheduled for cardiac catheterization procedure today. Chest x-ray revealed clear lungs and pending 2D echo results. 08/06/2024 Patient is seen and examined at the bedside. He complains of generalized body weakness and headache. He denies fever, chills, nausea, vomiting, chest pain, palpitations, abdominal pain. Vitals Blood pressure 137/67. Labs WBC 10, hemoglobin dropped from 13.9-11.5, magnesium 1.70, calcium 8.1, AST improved from 176-115. BNP improved from 147-128 and TCK improved 812-575. He underwent left heart catheterization yesterday which revealed two- vessel coronary artery disease with 80% stenosis in the proximal LAD and 100% stenosis in the distal RCA. 2D echo revealed normal Left ventricle systolic function, estimated LVEF 55% and Indeterminate diastolic function. CT surgery was consulted. 08/07/24 Patient is seen and examined at the bedside. /He was managed for ACS/Non-STEMI and underwent further assessment with a cardiac catheterization on 08/05/2024 demonstrating two-vessel coronary artery disease with 80% stenosis in the proximal LAD and 100% stenosis in the distal RCA. He has had no recurrent angina overnight. He continues on IV heparin. 2D echocardiogram on 08/05/2024 demonstrating basal inferior wall hypokinesis and an LVEF of 55%. 08/08/2024 Patient is seen and examined at the bedside. No acute events last night. Currently on heparin drip. He mentioned about experiencing mild chest discomfort, shortness of breath this morning when he tried to sit in the chair. He also complains of pain and discomfort over right groin. We will order a repeat right groin ultrasound to rule out hematoma. Vitals blood pressure 137/78, respiratory rate 23. Labs hemoglobin decreased from 11.2-10.8, reticulocyte count high at 2.34, iron 18, TIBC 253,% saturation low at 7.1 indicating iron deficiency, BMP unremarkable, TCK normal at 118. Pending CABG. 08/09/2024 Patient is seen and examined at the bedside. No acute events last night. Currently on heparin drip. Vitals blood pressure 151/88, respiratory rate 16. He complains of right groin discomfort and pain. Right groin soft tissue ultrasound revealed multiple right inguinal lymph nodes, partial DVT with thrombus in right common femoral vein, possible phlebitis of great saphenous vein. We will continue the patient on heparin drip for DVT as per cardiology consult recommendation. Labs hemoglobin 10.9, APTT 45.8, BMP unremarkable. Pending CABG. 08/10/24 patient was seen and examined. Patient denies any complaints except dry cough. No acute events overnight. His vitals are stable. Patient reports that his right groin discomfort and pain is getting better and is able to move around. Continue heparin drip. His labs showed hemoglobin 10.7, potassium 3.3 and is being replaced as per the protocol. Magnesium 1.80 and we will cover with the protocol. He is pending CABG. 08/11/2024 Patient is seen and examined at the bedside. No acute events last night. He states that he feels well and his right groin pain and discomfort has been significantly reduced. Currently on heparin drip. Vitals temperature 98.2, pulse rate 72, respiratory rate 16, blood pressure 126/69, SpO2 98% on room air. Labs hemoglobin improved from 10.7-11, WBC 6.6, BMP unremarkable. Pending CABG procedure. 08/12/2024 Patient is seen and examined at the bedside. No acute events last night. He states that he feels well and has no complaints. Currently NPO. Vitals temperature 97.9, pulse rate 78, blood pressure 133/77, respiratory rate 20, SpO2 99% on room air. Labs WBC 7.5, hemoglobin decreased from 11-10.7, BMP, LFT and lipid panel levels are normal. ABG showed pH 7.43, PO2 78.2, HC03 28.1, pCO2 43. Scheduled for CABG procedure today. 08/13/2024 Post CABG day 1 Patient is seen and examined at the bedside. He complains of moderate chest pain and discomfort. No Acute events last night. Vitals pulse rate 106, respiratory rate 25, blood pressure 136/51, SpO2 99% on 2 L nasal cannula. Urine output 1.4 L, chest tube drainage 320 mL. Currently on nitroglycerin drip. Labs WBC improved from 11.8-9.1, hemoglobin improved from 9.5-9.8, BMP unremarkable. Carotid ultrasound results are normal. Pending Chest x-ray results. 08/14/2024 Post CABG day 2 Patient is seen and examined at the bedside. He mentioned about experiencing difficulty in breathing secondary to chest pain and discomfort yesterday night. He states that his chest pain has gotten better today after receiving the pain medication. Currently on insulin and nitroglycerin drip. Vitals blood pressure 31/70, pulse rate 104, SpO2 greater than 95% on 3 L nasal cannula. Urine output 3.3 L. Chest tube drainage 150 mL. Labs WBC 10.2, hemoglobin decreased from 9.8-9.5, sodium 133, chloride 99. ABG revealed pH 7.45, pCO2 38, PO2 73.2, HC03 26.1 indicating mild hypoxemia and alkalosis. 08/15/2024 Post CABG Day3 Patient is seen and examined at the bedside. He mentioned about experiencing similar difficulty in breathing secondary to pain and discomfort yesterday night. He feels better today. Vitals pulse rate 98, respiratory rate 9, blood pressure 150/83, SpO2 98% on 1 L nasal cannula. Urine output 4.2 L. Hemoglobin improved from 9.5-9.7, BMP unremarkable. Chest x-ray revealed no interval/acute changes. 08/16/2024 Post CABG day 4 Patient is seen and examined at the bedside. He complains of cough, mild shortness of breath. Vitals blood pressure 134/81, respiratory rate 11, pulse rate 88, SpO2 99% on 2 L nasal cannula. Urine output 4.3 L. Labs hemoglobin improved from 9.7-10.5, WBC 8.6, BMP unremarkable. Chest x-ray revealed no acute/interval changes. 08/17/2024 the patient was seen and examined today morning. He is complaining of cough and shortness of breath which have not improved status post CABG. Vitals are stable with blood pressure 132/73 mmHg and SpO2 100% on1 L oxygen via nasal cannula. CBC unremarkable except hemoglobin 10.3. CMP unremarkable. Chest x-ray revealed no changes. Pending further recommendations from cardiovascular surgeon. REVIEW OF SYSTEMS CONSTITUTIONAL: Denies fevers, chills, or night sweats. No unintentional weight loss reported. CARDIOVASCULAR: Chest pain, shortness of breath. Denies dyspnea on exertion, orthopnea, paroxysmal nocturnal dyspnea, palpitations, life-threatening arrhythmias, claudication. PULMONARY: cough, phlegm/sputum, hemoptysis, pleuritic chest pain. SLEEP: Denies morning headaches, daytime somnolence or napping. Denies difficulty falling asleep, staying asleep, waking from sleep. Denies knowledge of snoring. GASTROINTESTINAL: Denies any type of dysphagia to either liquids or solids. Denies nausea, vomiting, pyrosis, early satiety, abdominal pain, diarrhea, constipation, or changes in stool consistency or caliber. Denies coffee-ground emesis, hematemesis, hematochezia, or melanotic stools. GENITOURINARY: Denies frequency, urgency, nocturia, hematuria or incontinence (Storage/Irritative symptoms.) Low urinary stream, straining to void, urinary intermittency or hesitancy, splitting of the voiding stream, terminal dribbling. ENDOCRINOLOGIC: Denies polyuria, polydipsia, polyphagia or heat/cold intolerances. HEMATOLOGIC: Denies thrombophilia/previous clots, or coagulopathy/bleeding disorders. PSYCHIATRIC: Denies any suicidal or homicidal ideation. Denies hallucinations. PHYSICAL EXAM GENERAL APPEARANCE: The patient is awake, alert, and oriented, in no acute cardiopulmonary distress. NEUROLOGICAL: Cranial nerves II-XII grossly intact. Motor is 5/5 in bilateral upper and lower extremities proximal to distal. No sensory deficits. HEENT: Face is symmetric. Pupils are equal and reactive. Extraocular movements are intact. NECK: Supple. No JVD. No thyromegaly. No submental, submandibular, pre- /postauricular, occipital or supraclavicular lymphadenopathy. CHEST: Normal chest expansion. No Telemetry. LUNGS: Absence of any rales, rhonchi or any wheezing. CARDIOVASCULAR: Regular. S1 and S2 normal. No appreciable rubs, murmurs or gallops. ABDOMEN: Soft, nontender, and nondistended. There is no rebound, voluntary guarding, or rigidity. : Improving Redness, bruising over right groin area Deferred. No Fitzpatrick. EXTREMITIES: Non-edematous and not cyanotic. No clubbing. Good capillary refill. SKIN: No skin breakdown. Vital Signs (last 8hr) Date Time Temp Pulse Resp B/P (MAP) Pulse Ox O2 Delivery O2 Flow Rate FiO2 08/17/24 08:14 97.9 83 16 132/73 100 Nasal Cannula 1.0 08/17/24 07:26 84 18 N/A Room Air 21 08/17/24 03:37 98.1 82 20 142/82 98 Nasal Cannula 1.0 LABS: Laboratory: Test 08/17/24 05:09 08/17/24 03:22 Range/Units Whole Blood Glucose 156 H 70-110 MG/DL White Blood Count 7.3 4.8-10.8 K/uL Red Blood Count 3.27 L 4.50-6.20 MIL/uL Hemoglobin 10.3 L 14.0-18.0 g/dL Hematocrit 30.8 L 42-54 % Mean Corpuscular Volume 94.2 79-99 fL Mean Corpuscular Hemoglobin 31.5 27.0-33.0 pg Mean Corpuscular Hemoglobin Concent 33.4 32.0-36.0 g/dL Red Cell Distribution Width 12.2 11.0-15.5 % Platelet Count 390 130-400 K/uL Mean Platelet Volume 9.2 7.5-10.5 fL Nucleated Red Blood Cells 0.0 0.0-0.19 % Sodium Level 139 136-145 mmol/L Potassium Level 3.8 3.5-5.1 mmol/L Chloride Level 103 101-111 mmol/L Carbon Dioxide Level 31 21-32 mmol/L Blood Urea Nitrogen 11 7-18 mg/dL Creatinine 0.7 0.5-1.3 mg/dL Glomerular Filtration Rate Calc 107 >90 mL/min Random Glucose 153 H 70-105 mg/dL Total Calcium 8.7 8.5-10.1 mg/dL Current Medications Medications (Trade) Dose Ordered Sig/Isidoro Route PRN Reason Start Time Stop Time Status Last Admin Dose Admin Acetaminophen (TYLenol 325MG TAB) 650 mg Q4H PRN PO Temp >38.3C(AFTER EXTUBATION) 08/12/24 15:30 09/11/24 15:29 08/15/24 15:23 650 MG Acetaminophen (TYLenol 325MG TAB) 650 mg Q6H PRN PO MILD PAIN (1-3) 08/12/24 15:30 08/12/24 16:09 DC Acetaminophen (TYLenol 500MG TAB) 500 mg Q6H PRN PO MILD PAIN (1-3) 08/06/24 10:00 09/05/24 09:59 08/15/24 21:27 500 MG Acetaminophen (TYLenol 650MG SUPPOSITORY) 650 mg Q4H PRN RC Temp >38.3C WHILE INTUBATED 08/12/24 15:30 09/11/24 15:29 Acetaminophen (acetaMINOPHEN) 1,000 mg Q6H6 IV 08/12/24 18:00 08/13/24 17:59 DC 08/13/24 14:06 1,000 MG Acetaminophen (acetaMINOPHEN) 1,000 mg Q6H6 IVPB 08/14/24 12:00 08/14/24 12:14 DC 08/14/24 12:13 1,000 MG Albumin Human 250 ml @ 0 mls/hr AD PRN IV IF HEMODYNAMICALLY UNSTABLE 08/12/24 15:30 Aminocaproic Acid 37620 mg/Sodium Chloride 310 ml @ 25 mls/hr AD IV 08/12/24 15:30 08/12/24 15:32 DC Aminocaproic Acid 36796 mg/Sodium Chloride 480 ml @ 0 mls/hr AD PRN IV BLEEDING CONTROL 08/12/24 06:30 09/11/24 06:29 Aspirin (Aspirin 81mg Ec Tab) 81 mg DAILY PO 08/06/24 09:00 09/05/24 08:59 08/17/24 09:36 81 MG Atorvastatin Calcium (LIPItor 40MG) 40 mg HS PO 08/05/24 21:00 09/04/24 20:59 08/16/24 20:53 40 MG Benzocaine (Cepacol Sore Throat Lozenge) 1 each Q4H PRN MM SORE THROAT 08/13/24 20:30 09/12/24 20:29 08/16/24 16:55 1 EACH Benzonatate (Tessalon 100mg Caps) 100 mg Q8H PRN PO COUGH 08/16/24 15:30 09/15/24 15:29 08/16/24 16:55 100 MG Calcium Gluconate 1 gm/Sodium Chloride 60 ml @ 200 mls/hr AD PRN IV HYPOCALCEMIA 08/12/24 15:30 09/11/24 15:29 08/13/24 03:20 200 MLS/HR Cefazolin Sodium (Ancef) 2 gm ONCALL PRN IVP SURGERY 08/11/24 18:30 08/12/24 16:01 DC Cefazolin Sodium (Ancef) 2 gm ONCALL PRN IVP SURGERY 08/12/24 16:30 08/14/24 16:29 DC 08/12/24 21:07 2 GM Cefazolin Sodium (Ancef) 2 gm Q8H IVPB 08/12/24 20:30 08/12/24 16:05 DC Ceftriaxone Sodium (Rocephin 2gm Inj) 2 gm Q24H IVPB 08/06/24 00:00 08/15/24 23:59 DC 08/15/24 01:32 2 GM Chlordiazepoxide HCl (LIBrium 25 MG CAP) 25 mg Q2H PRN PO ALCOHOL WITHDRAWAL PROTOCOL 08/05/24 06:00 08/12/24 05:59 DC 08/06/24 22:55 25 MG Clopidogrel Bisulfate (plaVIX 75MG) 75 mg DAILY PO 08/16/24 09:00 09/15/24 08:59 08/17/24 09:36 75 MG Dexmedetomidine/ Sodium Chloride (PRECEdex 400MCG/ 100ML-NS) 400 mcg PROTOCOL IV 08/12/24 15:30 08/13/24 15:29 DC Dextrose (D50w) 50 ml AD PRN IV HYPOGLYCEMIA PROTOCOL 08/05/24 05:30 08/12/24 16:00 DC Dextrose (D50w) 50 ml AD PRN IV HYPOGLYCEMIA PROTOCOL 08/12/24 15:30 08/14/24 09:28 DC Dextrose (D50w) 50 ml AD PRN IV HYPOGLYCEMIA PROTOCOL 08/14/24 09:30 09/13/24 09:29 Diazepam (VALium 5 MG/ML 2 ML SYG) 10 mg Q4H PRN IVP ALCOHOL WITHDRAWAL PROTOCOL 08/05/24 06:30 08/12/24 06:29 DC Docusate Sodium (COLace 100MG CAP) 100 mg BID PO 08/12/24 21:00 09/11/24 20:59 08/17/24 09:35 100 MG Doxycycline Hyclate (Doxycycline Hyclate) 100 mg BID PO 08/06/24 09:00 08/06/24 12:18 DC 08/06/24 09:06 100 MG Enoxaparin Sodium (Lovenox) 30 mg DAILY SQ 08/15/24 09:00 09/14/24 08:59 08/17/24 09:35 30 MG Epinephrine HCl 10 mg/Sodium Chloride 250 ml @ 0 mls/hr AD PRN IV TITRATE 08/12/24 06:30 08/16/24 16:44 DC Epinephrine HCl 10 mg/Sodium Chloride 250 ml @ 0 mls/hr AD PRN IV POST-OP CARDIOVASCULAR ORDERS 08/12/24 15:30 08/12/24 15:32 DC Famotidine (Pepcid 20mg Vial) 20 mg BID IV 08/05/24 09:00 08/05/24 09:01 DC 08/05/24 07:47 20 MG Famotidine (Pepcid 20mg Vial) 20 mg BID IV 08/12/24 21:00 08/13/24 07:32 DC 08/12/24 20:12 20 MG Furosemide (LASix 20MG TAB) 20 mg Q12H PO 08/14/24 09:00 09/13/24 08:59 08/17/24 09:36 20 MG Furosemide (LASix 20MG VIAL) 20 mg Q12H IV 08/13/24 09:00 08/12/24 16:01 DC Furosemide (LASix 20MG VIAL) 20 mg Q12H IV 08/13/24 14:00 09/12/24 13:59 08/16/24 01:17 20 MG Gabapentin (NEURontin 100 mg CAP) 100 mg TID PO 08/14/24 14:00 09/13/24 13:59 08/17/24 09:36 100 MG Glucagon (Glucagon 1mg Kit) 1 mg AD PRN IM HYPOGLYCEMIA PROTOCOL 08/05/24 05:30 08/12/24 16:00 DC Glucagon (Glucagon 1mg Kit) 1 mg AD PRN IM HYPOGLYCEMIA PROTOCOL 08/12/24 15:30 08/14/24 09:28 DC Glucagon (Glucagon 1mg Kit) 1 mg AD PRN IM HYPOGLYCEMIA PROTOCOL 08/14/24 09:30 09/13/24 09:29 Guaifenesin (RobiTUSSin SUGAR-FREE 100 MG/ 5 ML UDCUP) 200 mg Q4H PRN PO COUGH 08/07/24 23:30 08/12/24 15:17 DC 08/09/24 21:09 200 MG Guaifenesin (RobiTUSSin SUGAR-FREE 100 MG/ 5 ML UDCUP) 200 mg Q4H PRN PO COUGH 08/16/24 15:30 09/15/24 15:29 Heparin Sodium (Porcine) (HEParin 5,000 UNIT VIAL) 5,000 unit Q8H SQ 08/05/24 11:00 08/05/24 03:04 DC Heparin Sodium/ Dextrose 250 ml @ 0 mls/hr PROTOCOL IV 08/05/24 03:00 08/12/24 15:17 DC 08/11/24 21:27 11.46 MLS/HR Insulin Glargine (LANtus 100 UNITS/ML 10 ML VIAL) 10 units BID@0730,2100 SQ 08/05/24 21:00 08/12/24 15:17 DC 08/11/24 20:31 10 UNITS Insulin Human Regular (humuLIN R 100 UNIT/ML 3ML) INSULIN SLIDING SCAL... ACHS SQ 08/05/24 07:30 08/05/24 08:55 DC 08/05/24 07:47 5 UNIT Insulin Human Regular (humuLIN R 100 UNIT/ML 3ML) INSULIN SLIDING SCAL... ACHS SQ 08/05/24 11:30 08/12/24 15:17 DC 08/11/24 20:34 14 UNIT Insulin Human Regular (humuLIN R 100 UNIT/ML 3ML) INSULIN SLIDING SCAL... ACHS SQ 08/14/24 11:30 09/13/24 11:29 08/16/24 21:00 8 UNIT Insulin Human Regular 100 unit/ Sodium Chloride 100 ml @ 0 mls/hr AD IV 08/12/24 15:30 08/14/24 09:26 DC 08/13/24 11:02 5 MLS/HR Iron Sucrose (VenoFER) 100 mg DAILY IV 08/08/24 09:30 08/08/24 09:17 DC Iron Sucrose (VenoFER) 100 mg Q24H IV 08/08/24 21:00 08/10/24 22:00 DC 08/10/24 22:03 100 MG Isosorbide Mononitrate (Imdur 30mg Sr) 30 mg DAILY PO 08/11/24 13:00 08/12/24 15:17 DC 08/11/24 14:17 30 MG Lactulose (Constulose 20gm/ 30ml Udcup) 20 gm BID PRN PO CONSTIPATION 08/12/24 15:30 09/11/24 15:29 08/16/24 09:02 20 GM Lorazepam (AtiVAN) 2 mg Q4H PRN IVP ALCOHOL WITHDRAWAL PROTOCOL 08/05/24 06:00 08/05/24 06:04 DC Losartan Potassium (CozAAR 50 mg TAB) 50 mg BID PO 08/09/24 21:00 08/12/24 15:17 DC 08/11/24 20:39 50 MG Losartan Potassium (CozAAR 50 mg TAB) 50 mg DAILY PO 08/07/24 09:00 08/09/24 09:16 DC 08/09/24 08:06 50 MG Losartan Potassium (CozAAR 50 mg TAB) 50 mg DAILY PO 08/15/24 09:00 08/16/24 06:39 DC 08/15/24 08:06 50 MG Losartan Potassium (CozAAR 50 mg TAB) 100 mg DAILY PO 08/16/24 09:00 09/15/24 08:59 08/17/24 09:36 100 MG Magnesium Hydroxide (Milk Of Magnesium 30ml) 30 ml DAILY PRN PO CONSTIPATION 08/12/24 15:30 09/11/24 15:29 08/15/24 17:58 30 ML Magnesium Sulfate 50 ml @ 12.5 mls/hr AD PRN IV MAG LEVEL LESS THAN 2.0 08/12/24 15:30 09/11/24 15:29 08/14/24 06:16 12.5 MLS/HR Magnesium Sulfate 50 ml @ 0 mls/hr PROTOCOL PRN IV OTHER [SEE ORDER COMMENTS] 08/05/24 05:30 08/12/24 16:01 DC 08/10/24 04:13 25 MLS/HR Metoprolol Tartrate (loprESSOR) 12.5 mg BID PO 08/14/24 09:00 08/13/24 06:52 DC Metoprolol Tartrate (loprESSOR) 25 mg BID PO 08/05/24 14:30 08/08/24 08:27 DC 08/08/24 07:44 25 MG Metoprolol Tartrate (loprESSOR) 25 mg BID PO 08/13/24 09:00 08/13/24 19:21 DC 08/13/24 08:49 25 MG Metoprolol Tartrate (loprESSOR) 25 mg BID PO 08/14/24 09:00 08/13/24 08:43 DC Metoprolol Tartrate (loprESSOR) 50 mg BID PO 08/08/24 09:00 08/12/24 15:17 DC 08/12/24 08:24 50 MG Metoprolol Tartrate (loprESSOR) 50 mg BID PO 08/13/24 21:00 08/14/24 14:40 DC 08/14/24 08:37 50 MG Metoprolol Tartrate (loprESSOR) 75 mg BID PO 08/14/24 21:00 08/15/24 07:04 DC 08/14/24 21:15 75 MG Metoprolol Tartrate (loprESSOR) 100 mg BID PO 08/15/24 09:00 09/14/24 08:59 08/17/24 09:37 100 MG Morphine Sulfate (morPHINE 2MG SYG) 0.5 mg Q2H PRN IV MODERATE PAIN (4-6) 08/12/24 15:30 08/13/24 15:29 DC Morphine Sulfate (morPHINE 2MG SYG) 1 mg Q2H PRN IV SEVERE PAIN (7-10) 08/12/24 15:30 08/13/24 15:29 DC 08/12/24 18:55 1 MG Morphine Sulfate (morPHINE 2MG SYG) 2 mg Q2HPRN PRN IVP SEVERE PAIN (6-10) 08/05/24 11:10 08/10/24 14:09 DC 08/09/24 04:17 2 MG Morphine Sulfate (morPHINE 2MG SYG) 2 mg Q4H PRN IVP SEVERE PAIN (7-10) 08/05/24 06:00 08/05/24 08:31 DC 08/05/24 06:03 2 MG Nicardipine HCl 100 mg/Sodium Chloride 100 ml @ 0 mls/hr AD PRN IV TITRATE 08/12/24 17:30 08/16/24 20:17 DC Nitroglycerin (Nitroglycerin 1gm Oint) 0.5 inch Q8H5 TD 08/08/24 13:00 08/10/24 12:43 DC 08/10/24 06:05 0.5 INCH Nitroglycerin (Nitrostat) 0.4 mg AD PRN SL CHEST PAIN 08/05/24 02:30 08/08/24 08:53 DC 08/05/24 02:46 0.4 MG Nitroglycerin/ Dextrose 0 ml @ 0 mls/hr AD IV 08/12/24 15:30 08/12/24 16:07 DC Nitroglycerin/ Dextrose 250 ml @ 0 mls/hr PROTOCOL IV 08/05/24 03:30 08/16/24 16:44 DC 08/14/24 09:01 30 MLS/HR Norepinephrine Bitartrate 250 ml @ 0 mls/hr AD PRN IV TITRATE 08/12/24 06:30 08/16/24 16:44 DC Norepinephrine Bitartrate 8 mg/ Dextrose 250 ml @ 0 mls/hr AD PRN IV POST-OP CARDIOVASCULAR ORDERS 08/12/24 15:30 08/12/24 15:32 DC Ondansetron HCl (zoFRAN 4MG INJ) 4 mg Q6H PRN IV NAUSEA/VOMITING 08/05/24 05:30 09/04/24 05:29 08/12/24 18:54 4 MG Ondansetron HCl (zoFRAN 4MG INJ) 4 mg Q6H PRN IV NAUSEA/VOMITING 08/12/24 15:30 08/12/24 16:02 DC Pantoprazole Sodium (PROTonix 40MG INJ) 40 mg DAILY IVP 08/05/24 09:00 08/12/24 15:17 DC 08/12/24 08:24 40 MG Pharmacy Profile Note (Pharmacy Communication) 1 each PROTOCOL PRN MISC ETOH Withdrawal Score changes 08/05/24 06:00 08/12/24 05:59 DC Potassium Phosphate 250 ml @ 42 mls/hr AD PRN IV LOW PHOS LEVEL 08/12/24 15:30 09/11/24 15:29 Potassium Chloride 100 ml @ 50 mls/hr AD PRN IV POTASSIUM PROTOCOL 08/05/24 05:30 08/07/24 18:24 DC Potassium Chloride 100 ml @ 100 mls/hr AD PRN IV POTASSIUM PROTOCOL 08/07/24 09:00 09/06/24 08:59 08/13/24 03:34 100 MLS/HR Potassium Chloride 100 ml @ 100 mls/hr AD PRN IV HYPOKALEMIA 08/12/24 15:30 08/13/24 09:00 DC Potassium Chloride (K-Dur/Klor-Con 20meq) 20 meq AD PRN PO POTASSIUM PROTOCOL 08/07/24 09:00 09/06/24 08:59 08/15/24 13:15 20 MEQ Potassium Chloride (K-Dur/Klor-Con 20meq) 20 meq AD PRN PO POTASSIUM PROTOCOL 08/13/24 09:00 08/13/24 09:00 DC Potassium Chloride (K-Dur/Klor-Con 20meq) 20 meq AD PRN PO POTASSIUM PROTOCOL 08/17/24 05:30 09/16/24 05:29 Potassium Chloride (KCl 10% Elixir 20meq/15ml) 20 meq AD PRN PO POTASSIUM PROTOCOL 08/07/24 09:00 09/06/24 08:59 08/16/24 11:33 20 MEQ Potassium Chloride (KCl 10% Elixir 20meq/15ml) 20 meq AD PRN PO POTASSIUM PROTOCOL 08/13/24 09:00 08/13/24 09:00 DC Potassium Chloride (KCl 10% Elixir 20meq/15ml) 20 meq AD PRN PO POTASSIUM PROTOCOL 08/17/24 05:30 09/16/24 05:29 Promethazine HCl (Phenergan) 25 mg Q6H PRN PO NAUSEA 08/05/24 06:00 08/12/24 15:17 DC Propofol 100 ml @ 0 mls/hr AD PRN IV SEDATION 08/12/24 15:30 08/16/24 15:29 DC Ranolazine (Ranexa) 500 mg BID PO 08/05/24 17:30 08/12/24 15:17 DC 08/11/24 20:38 500 MG Ranolazine (Ranexa) 500 mg BID PO 08/05/24 21:00 08/05/24 17:04 DC Sodium Bicarbonate (Sodium Bicarb 50meq 50ml Vial) 50 meq AD PRN IV OTHER[SEE DOSING INSTRUCTIONS] 08/12/24 15:30 08/15/24 15:29 DC 08/12/24 19:50 50 MEQ Sodium Chloride 500 ml @ 0 mls/hr AD IV 08/12/24 15:30 09/11/24 15:29 Sodium Chloride 1,000 ml @ 10 mls/hr ONCE IV 08/12/24 15:30 08/13/24 15:29 DC 08/12/24 17:29 10 MLS/HR Sodium Chloride 1,000 ml @ 75 mls/hr [id number] IV 08/05/24 05:30 08/10/24 15:46 DC 08/08/24 16:15 75 MLS/HR Sodium Chloride 1,000 ml @ 100 mls/hr Q10H IV 08/05/24 14:30 08/05/24 17:29 DC 08/05/24 15:22 100 MLS/HR Sodium Chloride (NS Flush 10ml) 10 ml Q8H PRN IVP IV LINE FLUSH 08/12/24 15:30 09/11/24 15:29 Thiamine HCl 100 mg/Folic Acid 1 mg/Multivitamins/ Minerals 10 ml/ Sodium Chloride 1,011.2 ml @ 100 mls/ hr Q24H IV 08/05/24 06:00 08/07/24 16:07 DC 08/07/24 05:34 100 MLS/HR Tramadol HCl (UltRAM) 25 mg Q6H PRN PO MODERATE PAIN (4-6) 08/12/24 15:30 08/17/24 15:29 Tramadol HCl (UltRAM) 50 mg Q6H PRN PO SEVERE PAIN (7-10) 08/12/24 15:30 08/17/24 15:29 08/15/24 11:02 50 MG Wound Care/ Dressing Products (Venelex Ointment) 1 NAKIA AD TID TP 08/06/24 14:00 08/06/24 12:50 DC DIAGNOSTICS / RADIOLOGY: [facility] [address] [place] [id number] IMAGING REPORT Signed PATIENT: MAYRA JUDD MR#: [id number] : 1965 SEX: M AGE: 59 LOCATION: 2AH ORDER 2300 STATUS: ADM IN REPORT#: [id number] SERVICE 0400 REASON: s/p CABG ORDERING PHYSICIAN: KEYA CALVO MD PROCEDURE: CXR1VW - CHEST 1VW INDICATION: s/p CABG TECHNIQUE: CHEST 1VW COMPARISON: None FINDINGS AND IMPRESSION: Continued bilateral airspace consolidation Mild cardiomegaly with CABG changes. Mild degenerative changes of the spine. The visualized upper abdomen appears unremarkable. DICTATED BY: TOM GANDHI MD DATE: 08/17/24917 ELECTRONICALLY SIGNED BY: TOM GANDHI MD DATE: 08/17/24920 ASSESSMENT: Chest pain, POA ACS- NSTEMI POA Multivessel CAD with LV ejection fraction of 55% hypokinesis of the inferior wall status post CABG with a HILLMAN graft to the LAD and saphenous vein graft Severe 2-vessel CAD with 80% proximal LAD and 100% distal RCA stenosis by coronary angiogram on 08/05/2024 Alcohol Intoxication POA Uncontrolled diabetes POA Acute anemia, not POA Right common femoral vein thrombus, as per right groin ultrasound on 08/08 Possible phlebitis of great saphenous vein as per right groin ultrasound on 08/08 Multiple right inguinal lymph nodes as per right groin ultrasound on 08/08 Obesity POA Hypokalemia Hyperlipidemia POA Hypertension POA Elevated CK POA Active alcohol drinker POA PLAN: Continue telemetry NSTEMI POA, chest pain Continue [id number] mg daily Continue Lipitor 40 mg daily Continue Plavix 75 mg p.o. daily. Appreciate cardiology consult and we will follow their recommendations Severe 2-vessel CAD with 80% proximal LAD and 100% distal RCA stenosis, s/p CABG Multivessel CAD with LV ejection fraction of 55% hypokinesis of the inferior wall status post CABG Underwent CABG procedure with a HILLMAN graft to the LAD and saphenous vein graft on 08/12/2024 Postop day 5 , stable Not on any vasopressors, drips No postprocedure complications noted Elevated TCK POA Improved TCK normal at 118 Alcohol Intoxication POA Monitor for signs of alcohol withdrawal CIWA protocol in place Counseled on alcohol use cessation Uncontrolled diabetes POA HbA1c 8.5 On admission Continue insulin sliding scale AC & HS with hypoglycemia protocol Acute anemia, not POA Hemoglobin 10.3 Iron 18, TIBC 253,% saturation 7.1 indicating iron deficiency Received 3 doses of IV Venofer so far Monitor H&H Right common femoral vein thrombus, right groin ultrasound on 08/08 Currently On Lovenox 30 mg SQ, plan to start full-dose anticoagulation in future per cardiology consult Possible phlebitis of right saphenous vein as per ultrasound on 08/08 Warm compresses to the area Leg Elevation Multiple right inguinal lymph nodes as per right groin ultrasound on 08/08 Can be attributed to reactive lymphadenopathy due to DVT We will monitor for any signs and symptoms of infection Hyperlipidemia POA, Normal lipid panel results Continue Atorvastatin Hypertension, POA Continue metoprolol 100 mg b.i.d., losartan 100 mg p.o. daily as per Cardiology recommendation Hypokalemia Improved Continue Famotidine 20 mg IV bid for GI prophylaxis Continue Lovenox for DVT prophylaxis Monitor electrolytes and replace them as needed per protocol ATTESTATION BY PHYSICIAN I have seen and examined the patient. I reviewed the documentation, medical decision making, and treatment plan as noted by the resident provider above. I agree with the findings and plan of care. Dalton Le MD, KRUPALI P MD Aug 17, 2024 11:24
[2024-08-17 12:09] LABS: BASOPHILS # (AUTO) 0.03 K/uL (0.00-0.20); BASOPHILS % (AUTO) 0.4 % (0.0-5.0); EOSINOPHILS # (AUTO) 0.11 K/uL (0.00-0.70); EOSINOPHILS % (AUTO) 1.4 % (0.0-8.0); HEMATOCRIT 36.1 % (42-54); IMMATURE GRANULOCYTE ABSOLUTE 0.04 K/uL (0-1); LYMPHOCYTES % (AUTO) 25.8 % (21.0-51.0); MEAN CORPUSCULAR HEMOGLOBIN 31.4 pg (27.0-33.0); MEAN CORPUSCULAR HGB CONC 33.5 g/dL (32.0-36.0); MEAN CORPUSCULAR VOLUME 93.8 fL (79-99); MONOCYTES # (AUTO) 0.6 K/uL (0.1-1.0); MONOCYTES % (AUTO) 7.7 % (3.0-13.0); NEUTROPHILS % (AUTO) 64.2 % (40.0-77.0); PLATELET COUNT (AUTO) 469 K/uL (130-400); RED BLOOD CELL COUNT(AUTO) 3.85 MIL/uL (4.50-6.20); RED CELL DISTRIBUTION WIDTH 12.5 % (11.0-15.5); WHITE BLOOD COUNT (AUTO) 7.8 K/uL (4.8-10.8)
[2024-08-17 12:21] LABS: CREATININE 0.8 mg/dL (0.5-1.3); POTASSIUM 4.1 mmol/L (3.5-5.1)
[2024-08-17 12:34] LABS: ABG OXYGEN SATURATION 98.1 % (94.0-98.0); ABG PCO2 32 mmHg (35-48); ABG PH 7.473 (7.350-7.450); CARBON MONOXIDE 0.5 % (0.5-1.5); HHb 1.9; PO2, ARTERIAL BG 106.5 mmHg (83.0-108.0); VENT MODE, BG NC 2L (ROOM AIR)
[2024-08-17] MEDS: IpraTROPium 0.5 MG/2.5 ML INH IH ONE ×2 (13:52→14:00)
[2024-08-17] MEDS: HEParin 25,000 UNITS/250ML D5W 250 ML IV SCH (15:18)
--- NOTE | 2024-08-17 15:18 | NUR ---
WENT UP TO GET PATIENT FOR CT EXAM AFTER NURSE, KAY, CALLED AND STATED PATIENT WAS READY FOR EXAM. WE GOT UP THERE AND PATIENT DID NOT HAVE CONSET READY FOR EXAM OR THE PROPER IV FOR EXAM, NURSE QUESTIONED WHAT EXAM WE WERE DOING AFTER ARIVING TO THE ROOM.
--- NOTE | 2024-08-17 15:53 | PN ---
[facility] PROGRESS NOTE Date Patient Seen: Aug 17, 2024 Time of Visit: 15:53 Supervising Physician: [RAMANA JAFFE MD ] Primary Care Physician: [ Francesco Gee MD] Outpatient Specialists: [none ] Inpatient Consults: [Dany Noel MD, Marcela Talbert DO, DR Khalil Aattending: Dr Paola Frye MD ] PROBLEM LIST: Multivessel CAD status post CABG x2 on 08/12/24 Acs-Nstemi Type I S/P Coronary Angiogram On 08/05/24 With Findings On Severe Two Vessel Cad With 80% Proximal Lad 100% Distal Rca Stenosis Elevated CK levels POA Leukocytosis w/ left shift Postoperative Acute blood loss anemia, not POA Essential HTN Untreated hyperglycemia in the presence of new onset Type II DM2 Alcohol abuse, POA Right femoral DVT RT Groin hematoma 2.2 x 1.2x0.9cm Right groin lymphadenopathy Obesity INTERVAL HISTORY: Pt is awake alert and oriented x 3. no major overnight events.Post CABG Day #5. Pt reports difficulty breathing and cough spell unable to catch his breath. on assessment pt dminished to posterior lung lobes. This was communicated to DR Khalil. . Recommended CTA to rule out PE. Per Dr Khalil will see pt soon and he placed pt on heparin gtt per protocol. ON ABG pH of 7.47, pCO2 of 32 PO2 of 106 and bicarb of 23 on 2 L via NC. CXR continues with bilateral airspace consolidation. Mild cardiomegaly with CABG changes. no pneumothorax noted. Lab work unremarkable. REVIEW OF SYSTEMS: General: No malaise or fever. Neurological: No fainting episodes or seizures. HEENT: No nasal congestion or nasal secretion. Respiratory: yes for sob and coughing spell. Cardiac: No chest pain or palpitations. Gastrointestinal: No vomiting or diarrhea. Genitourinary: No dysuria hematuria. Skin: No rashes or lesions. Hematological: No bruises or bleeding. Musculoskeletal: No joint pains or arthralgias. Psychiatric: No depression or panic attacks. PHYSICAL EXAM: GENERAL: Alert, weak, awake oriented x 3 HEENT: EOMI, Sclera non icteric, moist mucosa NECK: Supple, no JVD, trachea midline LUNGS: Clear breath sounds bilaterally. No wheezes HEART: Regular rate and rhythm. Normal S1 and S2, without murmurs. dressing to midsternal area clean dry and intact. ABD: Abdomen soft, nontender. Bowel sounds present EXT: No clubbing cyanosis or edema Skin: Surgical site benign Cordis and Chest tube insertion site benign NEURO: Alert and oriented to person, follows commands Vital Signs (last 8hr) Date Time Temp Pulse Resp B/P (MAP) Pulse Ox O2 Delivery O2 Flow Rate FiO2 08/17/24 14:03 84 19 08/17/24 12:00 97.9 63 16 132/77 98 Room Air 08/17/24 08:15 100 Nasal Cannula* 1 24 08/17/24 08:14 97.9 83 16 132/73 100 Nasal Cannula 1.0 LABS: Hematology Labs: Test 08/17/24 11:56 Range/Units White Blood Count 7.8 4.8-10.8 K/uL Red Blood Count 3.85 L 4.50-6.20 MIL/uL Hemoglobin 12.1 L 14.0-18.0 g/dL Hematocrit 36.1 L 42-54 % Mean Corpuscular Volume 93.8 79-99 fL Mean Corpuscular Hemoglobin 31.4 27.0-33.0 pg Mean Corpuscular Hemoglobin Concent 33.5 32.0-36.0 g/dL Red Cell Distribution Width 12.5 11.0-15.5 % Platelet Count 469 H 130-400 K/uL Mean Platelet Volume 9.2 7.5-10.5 fL Immature Granulocyte % (Auto) 0.5 0-1 % Neutrophils (%) (Auto) 64.2 40.0-77.0 % Lymphocytes (%) (Auto) 25.8 21.0-51.0 % Monocytes (%) (Auto) 7.7 3.0-13.0 % Eosinophils (%) (Auto) 1.4 0.0-8.0 % Basophils (%) (Auto) 0.4 0.0-5.0 % Neutrophils # (Auto) 5.0 1.8-7.7 K/uL Lymphocytes # (Auto) 2.0 1.0-4.8 K/uL Monocytes # (Auto) 0.6 0.1-1.0 K/uL Eosinophils # (Auto) 0.11 0.00-0.70 K/uL Basophils # (Auto) 0.03 0.00-0.20 K/uL Absolute Immature Granulocyte (auto 0.04 0-1 K/uL Nucleated Red Blood Cells 0.0 0.0-0.19 % Chemistry Labs: Test 08/17/24 11:56 08/17/24 11:29 Range/Units Sodium Level 136 136-145 mmol/L Potassium Level 4.1 3.5-5.1 mmol/L Chloride Level 100 L 101-111 mmol/L Carbon Dioxide Level 30 21-32 mmol/L Blood Urea Nitrogen 9 7-18 mg/dL Creatinine 0.8 0.5-1.3 mg/dL Glomerular Filtration Rate Calc 103 >90 mL/min Random Glucose 273 #H 70-105 mg/dL Total Calcium 9.2 8.5-10.1 mg/dL Magnesium Level 2.00 1.80-2.40 mg/dL Whole Blood Glucose 245 #H 70-110 MG/DL Coagulation Labs: Test 08/17/24 14:18 Range/Units Activated Partial Thromboplast Time 23.7 L 26.3-35.5 SEC DIAGNOSTICS / RADIOLOGY RESULTS: [[facility] [address] [place] [address] IMAGING REPORT Signed PATIENT: MAYRA JUDD MR#: [id number] : 1965 SEX: M AGE: 59 LOCATION: [facility] ORDER 2300 STATUS: ADM IN REPORT#: [id number] SERVICE 0400 REASON: s/p CABG ORDERING PHYSICIAN: KEYA CALVO MD PROCEDURE: CXR1VW - CHEST 1VW INDICATION: s/p CABG TECHNIQUE: CHEST 1VW COMPARISON: None FINDINGS AND IMPRESSION: Continued bilateral airspace consolidation Mild cardiomegaly with CABG changes. Mild degenerative changes of the spine. The visualized upper abdomen appears unremarkable. DICTATED BY: TOM GANDHI MD DATE: 08/17/24917 ELECTRONICALLY SIGNED BY: TOM GANDHI MD DATE: 08/17/24920 ] PLAN Follow CT surgeon recommendations- Heparin gtt per protocol Follow cardiology recommendations Multimodal pain management Monitoring H&H Monitor chest tube output Chest x-ray in the morning Transfuse if absolutely necessary to keep hemoglobin above 8 Maintain O2 sats greater than 92% Incentive spirometry Glycemic control with goal of 80-180 Referral for cardiac rehabilitation Speech to eval once patient is extubated monitor electrolytes: K Goal of 4 Magnesium goal of 2 Replace accordingly NEURO: Minimize central acting medications as possible. Maintain fall precautions, adequate lighting during the day PULMONARY: Supplemental 02 as needed. Maintain aspiration precautions at all times CARDIOVASCULAR: Follow hemodynamics. Vital signs per facility protocol GI & NUTRITION: Continue with nutritional support. Continue stool softeners and laxatives as needed. KIDNEYS & ELECTROLYTES: Strict monitoring of intake, output and overall fluid balance. Avoid nephrotoxic medications to the extent possible. Medications to be dosed according to renal function. Monitor electrolytes and replace as needed ENDOCRINE: Maintain blood glucose between 100-180 at all times. Hypoglycemia protocol in place INFECTIOUS DISEASE: Trend temperature, WBC and procalcitonin level Follow cultures, deescalate antibiotics as soon as possible. Panculture if new onset fever ONCOLOGY/HEMATOLOGY/COAGULATION: Monitor for s/s of bleeding Monitor hemoglobin, coagulation studies as needed SKIN: Pressure ulcer prevention per facility protocol Specialty mattress ORTHO/REHAB: Continue PT/OT Prophylaxis: Continue GI and DVT prophylaxis Code Status: Full Resuscitation Disposition: TBD Other: Critical care time This patient required multiple bedside visits to manage the patient, review blood gases, coordinate with respiratory, nurses, talk to CV surgeon review radiology exams, talk to the family members and discuss advanced directives. I personally spent [60] minutes of critical care time in treatment of this patient. This includes patient management, time at bedside, time reviewing tests, labs, appropriate images and studies, documentation, and patient care coordination. This time excludes separately billable procedures. ATTESTATION BY PHYSICIAN I have evaluated the patient chart, medical records, and spoke with appropriate staff. I reviewed the documentation, medical decision making, and treatment plan as noted by the mid-level provider above. I agree with the findings and plan of care. Ramana Jaffe MD, [facility] Aug 17, 2024 15:53
--- NOTE | 2024-08-17 18:45 | NUR ---
PATIENT ON DRIP, NURSE UNABLE TO COME DOWN WITH PATIENT AT THE MOMENT
--- NOTE | 2024-08-17 20:14 | NUR ---
RE: CTA CHEST CLARIFIED WITH DR. RIZVI REGARDING CTA CHEST ORDERED BY CARDIOLOGY. PER DR. RIZVI MAY PERFORM TEST TOMORROW; PATIENT ALREADY ON HEPARIN DRIP FOR TREATMENT.
[2024-08-17] MEDS: guaiFENesin SUGAR-FREE 100 MG/5 ML UDCUP PO PRN (20:36)
[2024-08-17] MEDS: metoPROLOL tartRATE 50 MG TAB PO SCH (20:37)
[2024-08-18] VITALS (8 sets, daily range): BP systolic 125–143; BP diastolic 74–86; PULSE 76–101; RESP 17–19; TEMP 97.9–98.6; O2SAT 98
[2024-08-18] MEDS ORDERED: IOHEXOL-350 75 ML VIAL IV ONE (08:27)
--- NOTE | 2024-08-18 08:31 | HMCIMG ---
Exam Type: CHEST 1VW Clinical Information: SOB, chest pain status post CT Comparison: None Findings: There is cardiomegaly and there is status post median sternotomy. The lungs are clear of infiltrates. Impression: Clear lungs.
--- NOTE | 2024-08-18 08:53 | HMCIMG ---
CT angiogram chest CLINICAL INDICATION: Right leg DVT, cough, SOB, chest pain COMPARISON: None. CT Dose Index (CTDI): 113.50 mGy Dose Length Product (DLP): 1408.10 total mGy PROTOCOL: Contrast: 100 cc of Isovue-370, injected IV, no complications Examination is done at 2.5 millimeter volumetric acquisition after contrast administration. Photography is done at 5 millimeter thick intervals for the thorax. FINDINGS: There is no evidence of pulmonary embolism. The airway is intact. The trachea and major bronchi are unremarkable. No pulmonary infiltrates or mass lesions are seen. Bilateral small pleural effusions with minimal bilateral basal passive atelectasis, somewhat more prominent on the left side. The exam of the jeff and mediastinum is unremarkable. No evidence of hilar enlargement is seen. The aorta shows no aneurysmal dilatation or significant atheromatous calcification. There is no thoracic aortic dissection. No significant brachiocephalic vascular abnormalities are seen. The heart is enlarged. There is status post CABG and median sternotomy. Significant calcifications of the [place] coronary arteries is identified. There is no pericardial effusion. The rib cage appears unremarkable. The soft tissues of the chest wall are unremarkable. The dorsal spine shows no significant abnormalities. Upper abdomen shows cholelithiasis. IMPRESSION: No evidence of pulmonary embolism. Other findings as described. This study was performed using dose reduction techniques to include automated exposure control and/or adjustment of the mA and/or kV according to patient size.
[2024-08-18] MEDS ORDERED: ENOXAPARIN SODIUM 40 MG/0.4 ML SYRINGE SQ SCH (09:00)
[2024-08-18 09:49] LABS: HEMATOCRIT 37.4 % (42-54); MEAN CORPUSCULAR HEMOGLOBIN 31.6 pg (27.0-33.0); MEAN CORPUSCULAR HGB CONC 33.7 g/dL (32.0-36.0); MEAN CORPUSCULAR VOLUME 93.7 fL (79-99); RED BLOOD CELL COUNT(AUTO) 3.99 MIL/uL (4.50-6.20); RED CELL DISTRIBUTION WIDTH 12.4 % (11.0-15.5)
[2024-08-18 10:04] LABS: ALBUMIN 2.9 g/dL (3.5-5.0); BILIRUBIN,TOTAL 0.7 mg/dL (0.2-1.0); CREATININE 0.8 mg/dL (0.5-1.3); POTASSIUM 3.6 mmol/L (3.5-5.1); TOTAL PROTEIN, SERUM 8.5 g/dL (6.0-8.3)
--- NOTE | 2024-08-18 10:16 | PN ---
[facility] PROGRESS NOTE Date Patient Seen: Aug 18, 2024 Time of Visit: 10:08 Interval History: This is a 59-year-old Latin-Pak[place] male with a past medical history of hypertension, type 2 diabetes mellitus and alcohol abuse who presented with recurrent chest pain the evening of 08/04/2024 when he developed sharp, burning in quality, 8/10 intensity chest discomfort. He previously developed symptoms after meal and with exertion. On the evening of 08/04/2024, his symptoms were more severe prompting ER visit. Symptom onset was approximately 8:00 p.m. on 08/04/2024 and did not present to the ER until approximately 2:00 a.m. on 08/05/2024. He ruled in for a non [place] [address]. Cardiac catheterization on 08/05/2024 demonstrated severe two-vessel coronary artery disease with 80% stenosis in the proximal LAD and 100% stenosis in the distal RCA. A 2D echocardiogram on 08/05/2024 demonstrating basal inferior wall hypokinesis and an LVEF of 55%. He did experience some right groin discomfort after his catheterization and was noted to have a right common femoral DVT by venous Doppler exam on 08/08/2024. He underwent Off-pump CABG x 2, HILLMAN to LAD and saphenous vein graft to the PDA on 08/12/[address] Colon. He has continued to progress well postoperatively other than complaining of cough. A chest x-ray yesterday demonstrated cardiomegaly but no overt heart failure. He was started on IV heparin and a CT angiogram of the chest was requested. His CT angiogram of the chest was done this morning 08/18/2024 with no evidence of pulmonary embolism. There was small bilateral effusions and atelectasis. Physical Examination: GENERAL: No acute distress. HEAD: Normal with no signs of head trauma. EYES: PERRLA, EOMI, conjunctiva and sclera normal. NECK: Supple without JVD. There is no tenderness, lymphadenopathy, or masses. No thyromegaly. Normal carotid upstrokes without bruits. LUNGS: There are diminished breath sounds at the bases left greater than right, no audible wheezing or rhonchi HEART: Normal rate and rhythm. Normal S1 and S2 without murmurs, gallop or rub. Median sternotomy incision is open to air, well approximated VASC: Peripheral pulses +2 bilaterally. Trace pedal edema EXT: No clubbing, cyanosis. NEURO: Awake, alert, and oriented x3. No focal neurological deficits noted. Laboratory: Hematology Labs: Test 08/18/24 09:39 08/17/24 11:56 Range/Units White Blood Count 8.0 4.8-10.8 K/uL Red Blood Count 3.99 L 4.50-6.20 MIL/uL Hemoglobin 12.6 L 14.0-18.0 g/dL Hematocrit 37.4 L 42-54 % Mean Corpuscular Volume 93.7 79-99 fL Mean Corpuscular Hemoglobin 31.6 27.0-33.0 pg Mean Corpuscular Hemoglobin Concent 33.7 32.0-36.0 g/dL Red Cell Distribution Width 12.4 11.0-15.5 % Platelet Count 482 H 130-400 K/uL Mean Platelet Volume 9.0 7.5-10.5 fL Nucleated Red Blood Cells 0.0 0.0-0.19 % Immature Granulocyte % (Auto) 0.5 0-1 % Neutrophils (%) (Auto) 64.2 40.0-77.0 % Lymphocytes (%) (Auto) 25.8 21.0-51.0 % Monocytes (%) (Auto) 7.7 3.0-13.0 % Eosinophils (%) (Auto) 1.4 0.0-8.0 % Basophils (%) (Auto) 0.4 0.0-5.0 % Neutrophils # (Auto) 5.0 1.8-7.7 K/uL Lymphocytes # (Auto) 2.0 1.0-4.8 K/uL Monocytes # (Auto) 0.6 0.1-1.0 K/uL Eosinophils # (Auto) 0.11 0.00-0.70 K/uL Basophils # (Auto) 0.03 0.00-0.20 K/uL Absolute Immature Granulocyte (auto 0.04 0-1 K/uL Chemistry Labs: Test 08/18/24 09:39 08/18/24 05:32 08/17/24 11:56 Range/Units Sodium Level 134 L 136-145 mmol/L Potassium Level 3.6 3.5-5.1 mmol/L Chloride Level 98 L 101-111 mmol/L Carbon Dioxide Level 29 21-32 mmol/L Blood Urea Nitrogen 11 7-18 mg/dL Creatinine 0.8 0.5-1.3 mg/dL Glomerular Filtration Rate Calc 103 >90 mL/min Random Glucose 231 H 70-105 mg/dL Lactic Acid Level 2.4 0.8-2.5 mmol/L Total Calcium 9.1 8.5-10.1 mg/dL Total Bilirubin 0.7 0.2-1.0 mg/dL Aspartate Amino Transf (AST/SGOT) 32 10-37 U/L Alanine Aminotransferase (ALT/SGPT) 62 12-78 U/L Alkaline Phosphatase 172 H 50-136 U/L Total Protein 8.5 H 6.0-8.3 g/dL Albumin 2.9 L 3.5-5.0 g/dL Whole Blood Glucose 201 H 70-110 MG/DL Magnesium Level 2.00 1.80-2.40 mg/dL Coagulation Labs: Test 08/18/24 09:39 Range/Units Activated Partial Thromboplast Time 48.4 H 26.3-35.5 SEC Diagnostics / Radiology: 2D echocardiogram 08/05/2024: Conclusion The cardiac chambers are normal in size. Mild concentric left ventricular hypertrophy. The basal inferior wall is hypokinetic. The mid/apical inferior wall is normal in function. The anterior, anterolateral, inferolateral, septal, and apical carroll are normal in function. Left ventricle systolic function is normal, estimated LVEF 55%. Indeterminate diastolic function. Trace mitral regurgitation. Trace tricuspid regurgitation. PASP is normal. There is no pericardial effusion. US SOFT TISSUE GROIN 08/08/2024: REASON: Right groin pain, bruising, to rule out hematoma. TECHNIQUE: Right groin ultrasound study was performed. FINDINGS: Multiple right inguinal lymph nodes are seen with the largest measuring 1.5 x 0.5 cm. Normal flow is seen in the right common femoral artery. Noncompressible thrombus is seen in the right common femoral vein suggestive of deep venous thrombosis. No noncompressible thrombus is seen in the right superficial femoral, popliteal, and posterior tibial vein. There may be phlebitis with thickening of the wall of the right greater saphenous vein. IMPRESSION: Multiple right inguinal lymph nodes. Finding consistent with partial deep venous thrombosis with thrombus in right common femoral vein. CT angiogram chest 08/18/2024: CLINICAL INDICATION: Right leg DVT, cough, SOB, chest pain FINDINGS: There is no evidence of pulmonary embolism. The airway is intact. The trachea and major bronchi are unremarkable. No pulmonary infiltrates or mass lesions are seen. Bilateral small pleural effusions with minimal bilateral basal passive atelectasis, somewhat more prominent on the left side. The exam of the jeff and mediastinum is unremarkable. No evidence of hilar enlargement is seen. The aorta shows no aneurysmal dilatation or significant atheromatous calcification. There is no thoracic aortic dissection. No significant brachiocephalic vascular abnormalities are seen. The heart is enlarged. There is status post CABG and median sternotomy. Significant calcifications of the [place] coronary arteries is identified. There is no pericardial effusion. The rib cage appears unremarkable. The soft tissues of the chest wall are unremarkable. The dorsal spine shows no significant abnormalities. Upper abdomen shows cholelithiasis. IMPRESSION: No evidence of pulmonary embolism. Other findings as described. Impression and Plan: Non [place] [address] Severe two-vessel coronary artery disease with 80% stenosis in the proximal LAD and 100% stenosis in the distal RCA by cardiac catheterization 08/05/2024 Status post off pump coronary artery bypass graft x2 vessels with HILLMAN to the LAD and saphenous vein graft to the PDA on 08/12/[address] Colon: Normal LV systolic function with an LVEF of 55% and basal inferior wall hypokinesis by 2D echocardiogram 08/05/2024: -continue postop course with aspirin 81 mg daily, atorvastatin 40 mg p.o. q.h.s., furosemide 20 mg p.o. b.i.d. and metoprolol tartrate 100 mg p.o. b.i.d. Right common femoral vein DVT 08/08/2024: No evidence of pulmonary embolism on CT angiogram of the chest 08/18/2024: -continue IV heparin and transition to to Eliquis 10 mg p.o. b.i.d. for 7 days then 5 mg p.o. b.i.d. when okay with CT surgeon -when transition to Eliquis, withdraw clopidogrel to allow for DVT treatment dose of Eliquis and continue aspirin 81 mg p.o. daily -monitor for any bleeding complications -discharge planning for 24hrs Hypertension: -continue metoprolol tartrate 50 mg p.o. b.i.d. -He has had persistent cough and his losartan will be withdrawn and assess response -begin amlodipine 5 mg daily if needed for added blood pressure control Comorbidities: Type 2 diabetes mellitus Alcohol abuse PHYSICIAN ATTESTATION OF PHYSICIAN SLUMBER ROOM ATTENDANT DOCUMENTATION: I attest that I was physically present for the [place] portions of the service and evaluated the patient with the Physician Clin Nurse Spec, and I reviewed and discussed the case with the Physician Clin Nurse Spec and made modifications to the Physician Clin Nurse Spec's findings and plans of care as documented above ALYSIA VALDOVINOS Aug 18, 2024 10:16 VINAY WONG MD Aug 18, 2024 15:15
--- NOTE | 2024-08-18 11:09 | PN ---
[facility] PROGRESS NOTE Date Patient Seen: Aug 18, 2024 Time of Visit: 11:09 Supervising Physician: RAMANA JAFFE MD Primary Care Physician: [ Francesco Gee MD] Outpatient Specialists: [none ] Inpatient Consults: [Dany Noel MD, Marcela Talbert DO, DR Rizvi Aattending: Dr Paola Frye MD ] PROBLEM LIST: Postoperative hypoxic resp failure as expected Left small pleural effusion not amenable for thoracentesis Multivessel CAD status post CABG x2 on 08/12/24 Acs-Nstemi Type I S/P Coronary Angiogram On 08/05/24 With Findings On Severe Two Vessel Cad With 80% Proximal Lad 100% Distal Rca Stenosis Elevated CK levels POA Leukocytosis w/ left shift Postoperative Acute blood loss anemia, not POA Essential HTN Untreated hyperglycemia in the presence of new onset Type II DM2 Alcohol abuse, POA Right femoral DVT ON Heparing gtt RT Groin hematoma 2.2 x 1.2x0.9cm Right groin lymphadenopathy Obesity INTERVAL HISTORY: Pt is awake alert and oriented x 3. no major overnight events. CTA of the chest was done yesterday to rule out PE and impression shows no evidence of pulmonary embolism. There is bilateral small pleural effusions with minimal bilateral bases passive atelectasis, somewhat more prominent on the left side. Heart is enlarged status post CABG and median sternotomy significant calcifications of th e [place] coronary arteries is identified. Cholelithiasis. He was placed on heparin drip per protocol by CV surgery yesterday. Kidneys are doing well with a creatinine 12.6/37.4 platelet count of 482 K. patient denies any further decreasing shortness for breath or palpitations or chest pain. At this time he is only complaint is that of a cough that is dry nonproductive. Been sudden and guaifenesin seemed to be helping alleviate +Cepacol p.o.. REVIEW OF SYSTEMS: General: No malaise or fever. Neurological: No fainting episodes or seizures. HEENT: No nasal congestion or nasal secretion. Respiratory: yes for sob and coughing spell. Cardiac: No chest pain or palpitations. Gastrointestinal: No vomiting or diarrhea. Genitourinary: No dysuria hematuria. Skin: No rashes or lesions. Hematological: No bruises or bleeding. Musculoskeletal: No joint pains or arthralgias. Psychiatric: No depression or panic attacks. PHYSICAL EXAM: GENERAL: Alert, weak, awake oriented x 3 HEENT: EOMI, Sclera non icteric, moist mucosa NECK: Supple, no JVD, trachea midline LUNGS: Clear breath sounds bilaterally. No wheezes HEART: Regular rate and rhythm. Normal S1 and S2, without murmurs. dressing to midsternal area clean dry and intact. ABD: Abdomen soft, nontender. Bowel sounds present EXT: No clubbing cyanosis or edema Skin: Surgical site benign Cordis and Chest tube insertion site benign NEURO: Alert and oriented to person, follows commands Vital Signs (last 8hr) Date Time Temp Pulse Resp B/P (MAP) Pulse Ox O2 Delivery O2 Flow Rate FiO2 08/18/24 08:00 97.9 98 17 142/78 98 Room Air 08/18/24 07:48 98 Nasal Cannula* 1 24 08/18/24 06:53 80 19 N/A Room Air 21 08/18/24 04:57 98.6 79 18 134/74 96 Nasal Cannula LABS: Hematology Labs: Test 08/18/24 09:39 08/17/24 11:56 Range/Units White Blood Count 8.0 4.8-10.8 K/uL Red Blood Count 3.99 L 4.50-6.20 MIL/uL Hemoglobin 12.6 L 14.0-18.0 g/dL Hematocrit 37.4 L 42-54 % Mean Corpuscular Volume 93.7 79-99 fL Mean Corpuscular Hemoglobin 31.6 27.0-33.0 pg Mean Corpuscular Hemoglobin Concent 33.7 32.0-36.0 g/dL Red Cell Distribution Width 12.4 11.0-15.5 % Platelet Count 482 H 130-400 K/uL Mean Platelet Volume 9.0 7.5-10.5 fL Nucleated Red Blood Cells 0.0 0.0-0.19 % Immature Granulocyte % (Auto) 0.5 0-1 % Neutrophils (%) (Auto) 64.2 40.0-77.0 % Lymphocytes (%) (Auto) 25.8 21.0-51.0 % Monocytes (%) (Auto) 7.7 3.0-13.0 % Eosinophils (%) (Auto) 1.4 0.0-8.0 % Basophils (%) (Auto) 0.4 0.0-5.0 % Neutrophils # (Auto) 5.0 1.8-7.7 K/uL Lymphocytes # (Auto) 2.0 1.0-4.8 K/uL Monocytes # (Auto) 0.6 0.1-1.0 K/uL Eosinophils # (Auto) 0.11 0.00-0.70 K/uL Basophils # (Auto) 0.03 0.00-0.20 K/uL Absolute Immature Granulocyte (auto 0.04 0-1 K/uL Chemistry Labs: Test 08/18/24 09:39 08/18/24 05:32 08/17/24 11:56 Range/Units Sodium Level 134 L 136-145 mmol/L Potassium Level 3.6 3.5-5.1 mmol/L Chloride Level 98 L 101-111 mmol/L Carbon Dioxide Level 29 21-32 mmol/L Blood Urea Nitrogen 11 7-18 mg/dL Creatinine 0.8 0.5-1.3 mg/dL Glomerular Filtration Rate Calc 103 >90 mL/min Random Glucose 231 H 70-105 mg/dL Lactic Acid Level 2.4 0.8-2.5 mmol/L Total Calcium 9.1 8.5-10.1 mg/dL Total Bilirubin 0.7 0.2-1.0 mg/dL Aspartate Amino Transf (AST/SGOT) 32 10-37 U/L Alanine Aminotransferase (ALT/SGPT) 62 12-78 U/L Alkaline Phosphatase 172 H 50-136 U/L Total Protein 8.5 H 6.0-8.3 g/dL Albumin 2.9 L 3.5-5.0 g/dL Whole Blood Glucose 201 H 70-110 MG/DL Magnesium Level 2.00 1.80-2.40 mg/dL Coagulation Labs: Test 08/18/24 09:39 Range/Units Activated Partial Thromboplast Time 48.4 H 26.3-35.5 [facility] / RADIOLOGY RESULTS: [place] [id number] [address] IMAGING REPORT Signed PATIENT: MAYRA JUDD MR#: [id number] : 1965 SEX: M AGE: 59 LOCATION: [facility] ORDER 99 STATUS: ADM IN REPORT#: [id number] SERVICE 9 REASON: Right leg DVT, cough, SOB, chest pain ORDERING PHYSICIAN: EVONNE RIZVI MD PROCEDURE: CHES PE - CT CHEST PE PROTOCOL WWO CONT CT angiogram chest CLINICAL INDICATION: Right leg DVT, cough, SOB, chest pain COMPARISON: None. CT Dose Index (CTDI): 113.50 mGy Dose Length Product (DLP): 1408.10 total mGy PROTOCOL: Contrast: 100 cc of Isovue-370, injected IV, no complications Examination is done at 2.5 millimeter volumetric acquisition after contrast administration. Photography is done at 5 millimeter thick intervals for the thorax. FINDINGS: There is no evidence of pulmonary embolism. The airway is intact. The trachea and major bronchi are unremarkable. No pulmonary infiltrates or mass lesions are seen. Bilateral small pleural effusions with minimal bilateral basal passive atelectasis, somewhat more prominent on the left side. The exam of the jeff and mediastinum is unremarkable. No evidence of hilar enlargement is seen. The aorta shows no aneurysmal dilatation or significant atheromatous calcification. There is no thoracic aortic dissection. No significant brachiocephalic vascular abnormalities are seen. The heart is enlarged. There is status post CABG and median sternotomy. Significant calcifications of the [place] coronary arteries is identified. There is no pericardial effusion. The rib cage appears unremarkable. The soft tissues of the chest wall are unremarkable. The dorsal spine shows no significant abnormalities. Upper abdomen shows cholelithiasis. IMPRESSION: No evidence of pulmonary embolism. Other findings as described. This study was performed using dose reduction techniques to include automated exposure control and/or adjustment of the mA and/or kV according to patient size. DICTATED BY: EJ BLAIR MD DATE: 08/18/24847 ELECTRONICALLY SIGNED BY: EJ BLAIR MD DATE: 08/18/24852 [ ] PLAN Follow CT surgeon recommendations- Heparin gtt per protocol Follow cardiology recommendations Multimodal pain management Monitoring H&H Monitor chest tube output Chest x-ray in the morning Transfuse if absolutely necessary to keep hemoglobin above 8 Maintain O2 sats greater than 92% Incentive spirometry Glycemic control with goal of 80-180 Referral for cardiac rehabilitation Speech to eval once patient is extubated monitor electrolytes: K Goal of 4 Magnesium goal of 2 Replace accordingly NEURO: Minimize central acting medications as possible. Maintain fall precautions, adequate lighting during the day PULMONARY: Supplemental 02 as needed. Maintain aspiration precautions at all times CARDIOVASCULAR: Follow hemodynamics. Vital signs per facility protocol GI & NUTRITION: Continue with nutritional support. Continue stool softeners and laxatives as needed. KIDNEYS & ELECTROLYTES: Strict monitoring of intake, output and overall fluid balance. Avoid nephrotoxic medications to the extent possible. Medications to be dosed according to renal function. Monitor electrolytes and replace as needed ENDOCRINE: Maintain blood glucose between 100-180 at all times. Hypoglycemia protocol in place INFECTIOUS DISEASE: Trend temperature, WBC and procalcitonin level Follow cultures, deescalate antibiotics as soon as possible. Panculture if new onset fever ONCOLOGY/HEMATOLOGY/COAGULATION: Monitor for s/s of bleeding Monitor hemoglobin, coagulation studies as needed SKIN: Pressure ulcer prevention per facility protocol Specialty mattress ORTHO/REHAB: Continue PT/OT Prophylaxis: Continue GI and DVT prophylaxis Code Status: Full Resuscitation Disposition: TBD Other: Critical care time This patient required multiple bedside visits to manage the patient, review blood gases, coordinate with respiratory, nurses, talk to CV surgeon review radiology exams, talk to the family members and discuss advanced directives. I personally spent 35 minutes of critical care time in treatment of this patient. This includes patient management, time at bedside, time reviewing tests, labs, appropriate images and studies, documentation, and patient care coordination. This time excludes separately billable procedures. ATTESTATION BY PHYSICIAN I have evaluated the patient chart, medical records, and spoke with appropriate staff. I reviewed the documentation, medical decision making, and treatment plan as noted by the mid-level provider above. I agree with the findings and plan of care. Ramana Jaffe MD, NELLY J [facility] Aug 18, 2024 11:09
--- NOTE | 2024-08-18 12:47 | PN ---
[facility] PROGRESS NOTE Date of Service: Aug 18, 2024 Time of Service: 12:47 SUBJECTIVE: This is a case of 59-year-old male with past medical history of diabetes, hypertension and hyperlipidemia who presented to the ED with complaints of left- sided chest pain which started around 8 pm last night while resting. He states that he has been experiencing intermittent chest pain since the past 2 days ago which has become persistent associated with SOB last night. Patient also reports that he had 5 beers last night and denies cigarette and recreational drug use. Initial ECG revealed ST 110 right bundle branch block, inferior infarct acute and second EKG showed ST 108 right bundle branch block inferior infarct recent and the 3rd EKG showed ST 120 with Right bundle branch block Inferior infarct recent and probable posterior infarct acute. Initial Labs WBC 10.9, BNP 147, total CK 812, troponin 13,930, serum alcohol 117. While in the ER patient received aspirin 325 mg p.o., Protonix 40 mg IV, Brilinta 90 mg p.o., verapamil 5 mg IV and metoprolol 5 mg IV and was started on heparin and nitroglycerin drip. He was admitted for further assessment and treatment in view of NSTEMI. 08/05/2024 Patient is seen and examined at the bedside. He complains of mild p ressure-like left-sided chest pain and generalized body weakness. Vitals blood pressure ranging in 120/70s. Labs WBC 10.9, hemoglobin 13.9, BNP 147, PT 10.1, INR 0.95. Urinalysis positive for glucose. Urine toxicology negative and serum alcohol 117, glucose 229, magnesium 1.9, TCK 8. Troponin trend [id number]. Currently on heparin and nitroglycerin drip. He is scheduled for cardiac catheterization procedure today. Chest x-ray revealed clear lungs and pending 2D echo results. 08/06/2024 Patient is seen and examined at the bedside. He complains of generalized body weakness and headache. He denies fever, chills, nausea, vomiting, chest pain, palpitations, abdominal pain. Vitals Blood pressure 137/67. Labs WBC 10, hemoglobin dropped from 13.9-11.5, magnesium 1.70, calcium 8.1, AST improved from 176-115. BNP improved from 147-128 and TCK improved 812-575. He underwent left heart catheterization yesterday which revealed two- vessel coronary artery disease with 80% stenosis in the proximal LAD and 100% stenosis in the distal RCA. 2D echo revealed normal Left ventricle systolic function, estimated LVEF 55% and Indeterminate diastolic function. CT surgery was consulted. 08/07/24 Patient is seen and examined at the bedside. /He was managed for ACS/Non-STEMI and underwent further assessment with a cardiac catheterization on 08/05/2024 demonstrating two-vessel coronary artery disease with 80% stenosis in the proximal LAD and 100% stenosis in the distal RCA. He has had no recurrent angina overnight. He continues on IV heparin. 2D echocardiogram on 08/05/2024 demonstrating basal inferior wall hypokinesis and an LVEF of 55%. 08/08/2024 Patient is seen and examined at the bedside. No acute events last night. Currently on heparin drip. He mentioned about experiencing mild chest discomfort, shortness of breath this morning when he tried to sit in the chair. He also complains of pain and discomfort over right groin. We will order a repeat right groin ultrasound to rule out hematoma. Vitals blood pressure 137/78, respiratory rate 23. Labs hemoglobin decreased from 11.2-10.8, reticulocyte count high at 2.34, iron 18, TIBC 253,% saturation low at 7.1 indicating iron deficiency, BMP unremarkable, TCK normal at 118. Pending CABG. 08/09/2024 Patient is seen and examined at the bedside. No acute events last night. Currently on heparin drip. Vitals blood pressure 151/88, respiratory rate 16. He complains of right groin discomfort and pain. Right groin soft tissue ultrasound revealed multiple right inguinal lymph nodes, partial DVT with thrombus in right common femoral vein, possible phlebitis of great saphenous vein. We will continue the patient on heparin drip for DVT as per cardiology consult recommendation. Labs hemoglobin 10.9, APTT 45.8, BMP unremarkable. Pending CABG. 08/10/24 patient was seen and examined. Patient denies any complaints except dry cough. No acute events overnight. His vitals are stable. Patient reports that his right groin discomfort and pain is getting better and is able to move around. Continue heparin drip. His labs showed hemoglobin 10.7, potassium 3.3 and is being replaced as per the protocol. Magnesium 1.80 and we will cover with the protocol. He is pending CABG. 08/11/2024 Patient is seen and examined at the bedside. No acute events last night. He states that he feels well and his right groin pain and discomfort has been significantly reduced. Currently on heparin drip. Vitals temperature 98.2, pulse rate 72, respiratory rate 16, blood pressure 126/69, SpO2 98% on room air. Labs hemoglobin improved from 10.7-11, WBC 6.6, BMP unremarkable. Pending CABG procedure. 08/12/2024 Patient is seen and examined at the bedside. No acute events last night. He states that he feels well and has no complaints. Currently NPO. Vitals temperature 97.9, pulse rate 78, blood pressure 133/77, respiratory rate 20, SpO2 99% on room air. Labs WBC 7.5, hemoglobin decreased from 11-10.7, BMP, LFT and lipid panel levels are normal. ABG showed pH 7.43, PO2 78.2, HC03 28.1, pCO2 43. Scheduled for CABG procedure today. 08/13/2024 Post CABG day 1 Patient is seen and examined at the bedside. He complains of moderate chest pain and discomfort. No Acute events last night. Vitals pulse rate 106, respiratory rate 25, blood pressure 136/51, SpO2 99% on 2 L nasal cannula. Urine output 1.4 L, chest tube drainage 320 mL. Currently on nitroglycerin drip. Labs WBC improved from 11.8-9.1, hemoglobin improved from 9.5-9.8, BMP unremarkable. Carotid ultrasound results are normal. Pending Chest x-ray results. 08/14/2024 Post CABG day 2 Patient is seen and examined at the bedside. He mentioned about experiencing difficulty in breathing secondary to chest pain and discomfort yesterday night. He states that his chest pain has gotten better today after receiving the pain medication. Currently on insulin and nitroglycerin drip. Vitals blood pressure 31/70, pulse rate 104, SpO2 greater than 95% on 3 L nasal cannula. Urine output 3.3 L. Chest tube drainage 150 mL. Labs WBC 10.2, hemoglobin decreased from 9.8-9.5, sodium 133, chloride 99. ABG revealed pH 7.45, pCO2 38, PO2 73.2, HC03 26.1 indicating mild hypoxemia and alkalosis. 08/15/2024 Post CABG Day3 Patient is seen and examined at the bedside. He mentioned about experiencing similar difficulty in breathing secondary to pain and discomfort yesterday night. He feels better today. Vitals pulse rate 98, respiratory rate 9, blood pressure 150/83, SpO2 98% on 1 L nasal cannula. Urine output 4.2 L. Hemoglobin improved from 9.5-9.7, BMP unremarkable. Chest x-ray revealed no interval/acute changes. 08/16/2024 Post CABG day 4 Patient is seen and examined at the bedside. He complains of cough, mild shortness of breath. Vitals blood pressure 134/81, respiratory rate 11, pulse rate 88, SpO2 99% on 2 L nasal cannula. Urine output 4.3 L. Labs hemoglobin improved from 9.7-10.5, WBC 8.6, BMP unremarkable. Chest x-ray revealed no acute/interval changes. 08/17/2024 the patient was seen and examined today morning. He is complaining of cough and shortness of breath which have not improved status post CABG. Vitals are stable with blood pressure 132/73 mmHg and SpO2 100% on1 L oxygen via nasal cannula. CBC unremarkable except hemoglobin 10.3. CMP unremarkable. Chest x-ray revealed no changes. Pending further recommendations from cardiovascular surgeon. 08/18/2024: The patient was examined at today, he is sitting on the chair. Today is postoperative day 6. He continues to report a cough, expressing discomfort about pressing on his chest due to the CABG incision. Currently, the patient is on a heparin drip due to a left femoral vein thrombus, initiated by Dr. Stephen parada, a cardiovascular surgeon. His medications include aspirin 81 mg, Lipitor 40 mg, Plavix 75 mg, furosemide 20 mg BID, and metoprolol 50 mg BID. A chest CTA was performed today, which returned negative for pulmonary embolism. Remarkable lab results include sodium 134, chloride 98, lactic acid level of 2.4 and a blood sugar level of 201. The patient will transition to oral Eliquis once approved by the cardiovascular surgeon. Possible discharge in 24 hours Further assessment and plan are discussed below. REVIEW OF SYSTEMS CONSTITUTIONAL: Denies fevers, chills, or night sweats. No unintentional weight loss reported. CARDIOVASCULAR: Chest pain, shortness of breath. Denies dyspnea on exertion, orthopnea, paroxysmal nocturnal dyspnea, palpitations, life-threatening arrhythmias, claudication. PULMONARY: cough, phlegm/sputum, hemoptysis, pleuritic chest pain. SLEEP: Denies morning headaches, daytime somnolence or napping. Denies difficulty falling asleep, staying asleep, waking from sleep. Denies knowledge of snoring. GASTROINTESTINAL: Denies any type of dysphagia to either liquids or solids. Denies nausea, vomiting, pyrosis, early satiety, abdominal pain, diarrhea, constipation, or changes in stool consistency or caliber. Denies coffee-ground emesis, hematemesis, hematochezia, or melanotic stools. GENITOURINARY: Denies frequency, urgency, nocturia, hematuria or incontinence (Storage/Irritative symptoms.) Low urinary stream, straining to void, urinary intermittency or hesitancy, splitting of the voiding stream, terminal dribbling. ENDOCRINOLOGIC: Denies polyuria, polydipsia, polyphagia or heat/cold intolerances. HEMATOLOGIC: Denies thrombophilia/previous clots, or coagulopathy/bleeding disorders. PSYCHIATRIC: Denies any suicidal or homicidal ideation. Denies hallucinations. PHYSICAL EXAM GENERAL APPEARANCE: The patient is awake, alert, and oriented, in no acute cardiopulmonary distress. NEUROLOGICAL: Cranial nerves II-XII grossly intact. Motor is 5/5 in bilateral upper and lower extremities proximal to distal. No sensory deficits. HEENT: Face is symmetric. Pupils are equal and reactive. Extraocular movements are intact. NECK: Supple. No JVD. No thyromegaly. No submental, submandibular, pre- /postauricular, occipital or supraclavicular lymphadenopathy. CHEST: Normal chest expansion. No Telemetry. LUNGS: Absence of any rales, rhonchi or any wheezing. CARDIOVASCULAR: Regular. S1 and S2 normal. No appreciable rubs, murmurs or gallops. ABDOMEN: Soft, nontender, and nondistended. There is no rebound, voluntary guarding, or rigidity. : Improving Redness, bruising over right groin area Deferred. No Fitzpatrick. EXTREMITIES: Non-edematous and not cyanotic. No clubbing. Good capillary refill. SKIN: No skin breakdown. Vital Signs (last 8hr) Date Time Temp Pulse Resp B/P (MAP) Pulse Ox O2 Delivery O2 Flow Rate FiO2 08/18/24 08:00 97.9 98 17 142/78 98 Room Air 08/18/24 07:48 98 Nasal Cannula* 1 24 08/18/24 06:53 80 19 N/A Room Air 21 08/18/24 04:57 98.6 79 18 134/74 96 Nasal Cannula LABS: Laboratory: Test 08/18/24 11:31 08/18/24 09:39 08/17/24 12:33 08/17/24 11:56 Range/Units Whole Blood Glucose 195 H 70-110 MG/DL White Blood Count 8.0 4.8-10.8 K/uL Red Blood Count 3.99 L 4.50-6.20 MIL/uL Hemoglobin 12.6 L 14.0-18.0 g/dL Hematocrit 37.4 L 42-54 % Mean Corpuscular Volume 93.7 79-99 fL Mean Corpuscular Hemoglobin 31.6 27.0-33.0 pg Mean Corpuscular Hemoglobin Concent 33.7 32.0-36.0 g/dL Red Cell Distribution Width 12.4 11.0-15.5 % Platelet Count 482 H 130-400 K/uL Mean Platelet Volume 9.0 7.5-10.5 fL Nucleated Red Blood Cells 0.0 0.0-0.19 % Activated Partial Thromboplast Time 48.4 H 26.3-35.5 SEC Sodium Level 134 L 136-145 mmol/L Potassium Level 3.6 3.5-5.1 mmol/L Chloride Level 98 L 101-111 mmol/L Carbon Dioxide Level 29 21-32 mmol/L Blood Urea Nitrogen 11 7-18 mg/dL Creatinine 0.8 0.5-1.3 mg/dL Glomerular Filtration Rate Calc 103 >90 mL/min Random Glucose 231 H 70-105 mg/dL Lactic Acid Level 2.4 0.8-2.5 mmol/L Total Calcium 9.1 8.5-10.1 mg/dL Total Bilirubin 0.7 0.2-1.0 mg/dL Aspartate Amino Transf (AST/SGOT) 32 10-37 U/L Alanine Aminotransferase (ALT/SGPT) 62 12-78 U/L Alkaline Phosphatase 172 H 50-136 U/L Total Protein 8.5 H 6.0-8.3 g/dL Albumin 2.9 L 3.5-5.0 g/dL Blood Gas Specimen Type Arterial Arterial Blood pH 7.473 H 7.350-7.450 Arterial Blood Partial Pressure CO2 32 L 35-48 mmHg Arterial Blood Partial Pressure O2 106.5 83.0-108.0 mmHg Arterial Blood HCO3 23.0 21.0-28.0 mmol/L Arterial Blood Oxygen Saturation 98.1 H 94.0-98.0 % Arterial Blood Base Excess 0.0 -2.0-3.0 mmol/L Hemoglobin (Blood Gas) 12.3 L 13.5-17.5 g/dL Sodium (Blood Gas) 135 L 136-145 MMOL/L Bedside Potassium (Blood Gas) 3.9 3.4-4.5 MMOL/L Bedside Chloride (Blood Gas) 100 98-107 MMOL/L Bedside Glucose (Blood Gas) 302 H 65-95 MG/DL Bedside Ionized Calcium (Blood Gas) 1.16 1.15-1.33 MMOL/L Bedside Lactic Acid (Blood Gas) 1.14 H 0.36-0.75 MMOL/L Blood Gas Temperature 37.0 35.5-37.0 CELSIUS Blood Gas Flow-by 2.00 0.00-15.00 L/min Blood Gas Vent Mode NC 2L ROOM AIR FiO2 28.0 % Blood Gas Specimen Comment RR, VIANCA,RN Immature Granulocyte % (Auto) 0.5 0-1 % Neutrophils (%) (Auto) 64.2 40.0-77.0 % Lymphocytes (%) (Auto) 25.8 21.0-51.0 % Monocytes (%) (Auto) 7.7 3.0-13.0 % Eosinophils (%) (Auto) 1.4 0.0-8.0 % Basophils (%) (Auto) 0.4 0.0-5.0 % Neutrophils # (Auto) 5.0 1.8-7.7 K/uL Lymphocytes # (Auto) 2.0 1.0-4.8 K/uL Monocytes # (Auto) 0.6 0.1-1.0 K/uL Eosinophils # (Auto) 0.11 0.00-0.70 K/uL Basophils # (Auto) 0.03 0.00-0.20 K/uL Absolute Immature Granulocyte (auto 0.04 0-1 K/uL Magnesium Level 2.00 1.80-2.40 mg/dL Current Medications Medications (Trade) Dose Ordered Sig/Isidoro Route PRN Reason Start Time Stop Time Status Last Admin Dose Admin Acetaminophen (TYLenol 325MG TAB) 650 mg Q4H PRN PO Temp >38.3C(AFTER EXTUBATION) 08/12/24 15:30 09/11/24 15:29 08/15/24 15:23 650 MG Acetaminophen (TYLenol 325MG TAB) 650 mg Q6H PRN PO MILD PAIN (1-3) 08/12/24 15:30 08/12/24 16:09 DC Acetaminophen (TYLenol 500MG TAB) 500 mg Q6H PRN PO MILD PAIN (1-3) 08/06/24 10:00 09/05/24 09:59 08/15/24 21:27 500 MG Acetaminophen (TYLenol 650MG SUPPOSITORY) 650 mg Q4H PRN RC Temp >38.3C WHILE INTUBATED 08/12/24 15:30 09/11/24 15:29 Acetaminophen (acetaMINOPHEN) 1,000 mg Q6H6 IV 08/12/24 18:00 08/13/24 17:59 DC 08/13/24 14:06 1,000 MG Acetaminophen (acetaMINOPHEN) 1,000 mg Q6H6 IVPB 08/14/24 12:00 08/14/24 12:14 DC 08/14/24 12:13 1,000 MG Albumin Human 250 ml @ 0 mls/hr AD PRN IV IF HEMODYNAMICALLY UNSTABLE 08/12/24 15:30 Aminocaproic Acid 98464 mg/Sodium Chloride 310 ml @ 25 mls/hr AD IV 08/12/24 15:30 08/12/24 15:32 DC Aminocaproic Acid 87390 mg/Sodium Chloride 480 ml @ 0 mls/hr AD PRN IV BLEEDING CONTROL 08/12/24 06:30 09/11/24 06:29 Aspirin (Aspirin 81mg Ec Tab) 81 mg DAILY PO 08/06/24 09:00 09/05/24 08:59 08/18/24 08:44 81 MG Atorvastatin Calcium (LIPItor 40MG) 40 mg HS PO 08/05/24 21:00 09/04/24 20:59 08/17/24 20:37 40 MG Benzocaine (Cepacol Sore Throat Lozenge) 1 each Q4H PRN MM SORE THROAT 08/13/24 20:30 7/3/25 20:29 08/18/24 08:45 1 EACH Benzonatate (Tessalon 100mg Caps) 100 mg Q8H PRN PO COUGH 08/16/24 15:30 09/15/24 15:29 08/18/24 08:45 100 MG Calcium Gluconate 1 gm/Sodium Chloride 60 ml @ 200 mls/hr AD PRN IV HYPOCALCEMIA 08/12/24 15:30 09/11/24 15:29 08/13/24 03:20 200 MLS/HR Cefazolin Sodium (Ancef) 2 gm ONCALL PRN IVP SURGERY 08/11/24 18:30 08/12/24 16:01 DC Cefazolin Sodium (Ancef) 2 gm ONCALL PRN IVP SURGERY 08/12/24 16:30 08/14/24 16:29 DC 08/12/24 21:07 2 GM Cefazolin Sodium (Ancef) 2 gm Q8H IVPB 08/12/24 20:30 08/12/24 16:05 DC Ceftriaxone Sodium (Rocephin 2gm Inj) 2 gm Q24H IVPB 08/06/24 00:00 08/15/24 23:59 DC 08/15/24 01:32 2 GM Chlordiazepoxide HCl (LIBrium 25 MG CAP) 25 mg Q2H PRN PO ALCOHOL WITHDRAWAL PROTOCOL 08/05/24 06:00 08/12/24 05:59 DC 08/06/24 22:55 25 MG Clopidogrel Bisulfate (plaVIX 75MG) 75 mg DAILY PO 08/16/24 09:00 09/15/24 08:59 08/18/24 08:45 75 MG Dexmedetomidine/ Sodium Chloride (PRECEdex 400MCG/ 100ML-NS) 400 mcg PROTOCOL IV 08/12/24 15:30 08/13/24 15:29 DC Dextrose (D50w) 50 ml AD PRN IV HYPOGLYCEMIA PROTOCOL 08/05/24 05:30 08/12/24 16:00 DC Dextrose (D50w) 50 ml AD PRN IV HYPOGLYCEMIA PROTOCOL 08/12/24 15:30 08/14/24 09:28 DC Dextrose (D50w) 50 ml AD PRN IV HYPOGLYCEMIA PROTOCOL 08/14/24 09:30 09/13/24 09:29 Diazepam (VALium 5 MG/ML 2 ML SYG) 10 mg Q4H PRN IVP ALCOHOL WITHDRAWAL PROTOCOL 08/05/24 06:30 08/12/24 06:29 DC Docusate Sodium (COLace 100MG CAP) 100 mg BID PO 08/12/24 21:00 09/11/24 20:59 08/18/24 08:45 100 MG Doxycycline Hyclate (Doxycycline Hyclate) 100 mg BID PO 08/06/24 09:00 08/06/24 12:18 DC 08/06/24 09:06 100 MG Enoxaparin Sodium (Lovenox) 30 mg DAILY SQ 08/15/24 09:00 08/17/24 13:25 DC 08/17/24 09:35 30 MG Enoxaparin Sodium (Lovenox) 40 mg DAILY SQ 08/18/24 09:00 08/17/24 23:05 DC Epinephrine HCl 10 mg/Sodium Chloride 250 ml @ 0 mls/hr AD PRN IV TITRATE 08/12/24 06:30 08/16/24 16:44 DC Epinephrine HCl 10 mg/Sodium Chloride 250 ml @ 0 mls/hr AD PRN IV POST-OP CARDIOVASCULAR ORDERS 08/12/24 15:30 08/12/24 15:32 DC Famotidine (Pepcid 20mg Vial) 20 mg BID IV 08/05/24 09:00 08/05/24 09:01 DC 08/05/24 07:47 20 MG Famotidine (Pepcid 20mg Vial) 20 mg BID IV 08/12/24 21:00 08/13/24 07:32 DC 08/12/24 20:12 20 MG Furosemide (LASix 20MG TAB) 20 mg Q12H PO 08/14/24 09:00 08/17/24 21:54 DC 08/17/24 09:36 20 MG Furosemide (LASix 20MG VIAL) 20 mg Q12H IV 08/13/24 09:00 08/12/24 16:01 DC Furosemide (LASix 20MG VIAL) 20 mg Q12H IV 08/13/24 14:00 09/12/24 13:59 08/18/24 01:44 20 MG Gabapentin (NEURontin 100 mg CAP) 100 mg TID PO 08/14/24 14:00 09/13/24 13:59 08/18/24 08:44 100 MG Glucagon (Glucagon 1mg Kit) 1 mg AD PRN IM HYPOGLYCEMIA PROTOCOL 08/05/24 05:30 08/12/24 16:00 DC Glucagon (Glucagon 1mg Kit) 1 mg AD PRN IM HYPOGLYCEMIA PROTOCOL 08/12/24 15:30 08/14/24 09:28 DC Glucagon (Glucagon 1mg Kit) 1 mg AD PRN IM HYPOGLYCEMIA PROTOCOL 08/14/24 09:30 09/13/24 09:29 Guaifenesin (RobiTUSSin SUGAR-FREE 100 MG/ 5 ML UDCUP) 200 mg Q4H PRN PO COUGH 08/07/24 23:30 08/12/24 15:17 DC 08/09/24 21:09 200 MG Guaifenesin (RobiTUSSin SUGAR-FREE 100 MG/ 5 ML UDCUP) 200 mg Q4H PRN PO COUGH 08/16/24 15:30 09/15/24 15:29 08/18/24 04:22 200 MG Heparin Sodium (Porcine) (HEParin 5,000 UNIT VIAL) 5,000 unit Q8H SQ 08/05/24 11:00 08/05/24 03:04 DC Heparin Sodium/ Dextrose 250 ml @ 0 mls/hr PROTOCOL IV 08/05/24 03:00 08/12/24 15:17 DC 08/11/24 21:27 11.46 MLS/HR Heparin Sodium/ Dextrose 250 ml @ 0 mls/hr Q6H IV 08/17/24 14:30 09/16/24 14:29 08/18/24 08:44 14 MLS/HR Insulin Glargine (LANtus 100 UNITS/ML 10 ML VIAL) 10 units BID@0730,2100 SQ 08/05/24 21:00 08/12/24 15:17 DC 08/11/24 20:31 10 UNITS Insulin Human Regular (humuLIN R 100 UNIT/ML 3ML) INSULIN SLIDING SCAL... ACHS SQ 08/05/24 07:30 08/05/24 08:55 DC 08/05/24 07:47 5 UNIT Insulin Human Regular (humuLIN R 100 UNIT/ML 3ML) INSULIN SLIDING SCAL... ACHS SQ 08/05/24 11:30 08/12/24 15:17 DC 08/11/24 20:34 14 UNIT Insulin Human Regular (humuLIN R 100 UNIT/ML 3ML) INSULIN SLIDING SCAL... ACHS SQ 08/14/24 11:30 09/13/24 11:29 08/18/24 06:24 6 UNIT Insulin Human Regular 100 unit/ Sodium Chloride 100 ml @ 0 mls/hr AD IV 08/12/24 15:30 08/14/24 09:26 DC 08/13/24 11:02 5 MLS/HR Iron Sucrose (VenoFER) 100 mg DAILY IV 08/08/24 09:30 08/08/24 09:17 DC Iron Sucrose (VenoFER) 100 mg Q24H IV 08/08/24 21:00 08/10/24 22:00 DC 08/10/24 22:03 100 MG Isosorbide Mononitrate (Imdur 30mg Sr) 30 mg DAILY PO 08/11/24 13:00 08/12/24 15:17 DC 08/11/24 14:17 30 MG Lactulose (Constulose 20gm/ 30ml Udcup) 20 gm BID PRN PO CONSTIPATION 08/12/24 15:30 09/11/24 15:29 08/16/24 09:02 20 GM Lorazepam (AtiVAN) 2 mg Q4H PRN IVP ALCOHOL WITHDRAWAL PROTOCOL 08/05/24 06:00 08/05/24 06:04 DC Losartan Potassium (CozAAR 50 mg TAB) 50 mg BID PO 08/09/24 21:00 08/12/24 15:17 DC 08/11/24 20:39 50 MG Losartan Potassium (CozAAR 50 mg TAB) 50 mg DAILY PO 08/07/24 09:00 08/09/24 09:16 DC 08/09/24 08:06 50 MG Losartan Potassium (CozAAR 50 mg TAB) 50 mg DAILY PO 08/15/24 09:00 08/16/24 06:39 DC 08/15/24 08:06 50 MG Losartan Potassium (CozAAR 50 mg TAB) 100 mg DAILY PO 08/16/24 09:00 09/15/24 08:59 08/18/24 08:45 100 MG Magnesium Hydroxide (Milk Of Magnesium 30ml) 30 ml DAILY PRN PO CONSTIPATION 08/12/24 15:30 09/11/24 15:29 08/15/24 17:58 30 ML Magnesium Sulfate 50 ml @ 12.5 mls/hr AD PRN IV MAG LEVEL LESS THAN 2.0 08/12/24 15:30 09/11/24 15:29 08/14/24 06:16 12.5 MLS/HR Magnesium Sulfate 50 ml @ 0 mls/hr PROTOCOL PRN IV OTHER [SEE ORDER COMMENTS] 08/05/24 05:30 08/12/24 16:01 DC 08/10/24 04:13 25 MLS/HR Metoprolol Tartrate (loprESSOR) 12.5 mg BID PO 08/14/24 09:00 08/13/24 06:52 DC Metoprolol Tartrate (loprESSOR) 25 mg BID PO 08/05/24 14:30 08/08/24 08:27 DC 08/08/24 07:44 25 MG Metoprolol Tartrate (loprESSOR) 25 mg BID PO 08/13/24 09:00 08/13/24 19:21 DC 08/13/24 08:49 25 MG Metoprolol Tartrate (loprESSOR) 25 mg BID PO 08/14/24 09:00 08/13/24 08:43 DC Metoprolol Tartrate (loprESSOR) 50 mg BID PO 08/08/24 09:00 08/12/24 15:17 DC 08/12/24 08:24 50 MG Metoprolol Tartrate (loprESSOR) 50 mg BID PO 08/13/24 21:00 08/14/24 14:40 DC 08/14/24 08:37 50 MG Metoprolol Tartrate (loprESSOR) 50 mg BID PO 08/17/24 21:00 09/16/24 20:59 08/18/24 08:44 50 MG Metoprolol Tartrate (loprESSOR) 75 mg BID PO 08/14/24 21:00 08/15/24 07:04 DC 08/14/24 21:15 75 MG Metoprolol Tartrate (loprESSOR) 100 mg BID PO 08/15/24 09:00 08/17/24 14:51 DC 08/17/24 09:37 100 MG Morphine Sulfate (morPHINE 2MG SYG) 0.5 mg Q2H PRN IV MODERATE PAIN (4-6) 08/12/24 15:30 08/13/24 15:29 DC Morphine Sulfate (morPHINE 2MG SYG) 1 mg Q2H PRN IV SEVERE PAIN (7-10) 08/12/24 15:30 08/13/24 15:29 DC 08/12/24 18:55 1 MG Morphine Sulfate (morPHINE 2MG SYG) 2 mg Q2HPRN PRN IVP SEVERE PAIN (6-10) 08/05/24 11:10 08/10/24 14:09 DC 08/09/24 04:17 2 MG Morphine Sulfate (morPHINE 2MG SYG) 2 mg Q4H PRN IVP SEVERE PAIN (7-10) 08/05/24 06:00 08/05/24 08:31 DC 08/05/24 06:03 2 MG Nicardipine HCl 100 mg/Sodium Chloride 100 ml @ 0 mls/hr AD PRN IV TITRATE 08/12/24 17:30 08/16/24 20:17 DC Nitroglycerin (Nitroglycerin 1gm Oint) 0.5 inch Q8H5 TD 08/08/24 13:00 08/10/24 12:43 DC 08/10/24 06:05 0.5 INCH Nitroglycerin (Nitrostat) 0.4 mg AD PRN SL CHEST PAIN 08/05/24 02:30 08/08/24 08:53 DC 08/05/24 02:46 0.4 MG Nitroglycerin/ Dextrose 0 ml @ 0 mls/hr AD IV 08/12/24 15:30 08/12/24 16:07 DC Nitroglycerin/ Dextrose 250 ml @ 0 mls/hr PROTOCOL IV 08/05/24 03:30 08/16/24 16:44 DC 08/14/24 09:01 30 MLS/HR Norepinephrine Bitartrate 250 ml @ 0 mls/hr AD PRN IV TITRATE 08/12/24 06:30 08/16/24 16:44 DC Norepinephrine Bitartrate 8 mg/ Dextrose 250 ml @ 0 mls/hr AD PRN IV POST-OP CARDIOVASCULAR ORDERS 08/12/24 15:30 08/12/24 15:32 DC Ondansetron HCl (zoFRAN 4MG INJ) 4 mg Q6H PRN IV NAUSEA/VOMITING 08/05/24 05:30 09/04/24 05:29 08/12/24 18:54 4 MG Ondansetron HCl (zoFRAN 4MG INJ) 4 mg Q6H PRN IV NAUSEA/VOMITING 08/12/24 15:30 08/12/24 16:02 DC Pantoprazole Sodium (PROTonix 40MG INJ) 40 mg DAILY IVP 08/05/24 09:00 08/12/24 15:17 DC 08/12/24 08:24 40 MG Pharmacy Profile Note (Pharmacy Communication) 1 each PROTOCOL PRN MISC ETOH Withdrawal Score changes 08/05/24 06:00 08/12/24 05:59 DC Potassium Phosphate 250 ml @ 42 mls/hr AD PRN IV LOW PHOS LEVEL 08/12/24 15:30 09/11/24 15:29 Potassium Chloride 100 ml @ 50 mls/hr AD PRN IV POTASSIUM PROTOCOL 08/05/24 05:30 08/07/24 18:24 DC Potassium Chloride 100 ml @ 100 mls/hr AD PRN IV POTASSIUM PROTOCOL 08/07/24 09:00 09/06/24 08:59 08/13/24 03:34 100 MLS/HR Potassium Chloride 100 ml @ 100 mls/hr AD PRN IV HYPOKALEMIA 08/12/24 15:30 08/13/24 09:00 DC Potassium Chloride (K-Dur/Klor-Con 20meq) 20 meq AD PRN PO POTASSIUM PROTOCOL 08/07/24 09:00 08/17/24 13:34 DC 08/15/24 13:15 20 MEQ Potassium Chloride (K-Dur/Klor-Con 20meq) 20 meq AD PRN PO POTASSIUM PROTOCOL 08/13/24 09:00 08/13/24 09:00 DC Potassium Chloride (K-Dur/Klor-Con 20meq) 20 meq AD PRN PO POTASSIUM PROTOCOL 08/17/24 05:30 09/16/24 05:29 Potassium Chloride (KCl 10% Elixir 20meq/15ml) 20 meq AD PRN PO POTASSIUM PROTOCOL 08/07/24 09:00 08/17/24 13:34 DC 08/16/24 11:33 20 MEQ Potassium Chloride (KCl 10% Elixir 20meq/15ml) 20 meq AD PRN PO POTASSIUM PROTOCOL 08/13/24 09:00 08/13/24 09:00 DC Potassium Chloride (KCl 10% Elixir 20meq/15ml) 20 meq AD PRN PO POTASSIUM PROTOCOL 08/17/24 05:30 09/16/24 05:29 Promethazine HCl (Phenergan) 25 mg Q6H PRN PO NAUSEA 08/05/24 06:00 08/12/24 15:17 DC Propofol 100 ml @ 0 mls/hr AD PRN IV SEDATION 08/12/24 15:30 08/16/24 15:29 DC Ranolazine (Ranexa) 500 mg BID PO 08/05/24 17:30 08/12/24 15:17 DC 08/11/24 20:38 500 MG Ranolazine (Ranexa) 500 mg BID PO 08/05/24 21:00 08/05/24 17:04 DC Sodium Bicarbonate (Sodium Bicarb 50meq 50ml Vial) 50 meq AD PRN IV OTHER[SEE DOSING INSTRUCTIONS] 08/12/24 15:30 08/15/24 15:29 DC 08/12/24 19:50 50 MEQ Sodium Chloride 500 ml @ 0 mls/hr AD IV 08/12/24 15:30 09/11/24 15:29 Sodium Chloride 1,000 ml @ 10 mls/hr ONCE IV 08/12/24 15:30 08/13/24 15:29 DC 08/12/24 17:29 10 MLS/HR Sodium Chloride 1,000 ml @ 75 mls/hr [id number] IV 08/05/24 05:30 08/10/24 15:46 DC 08/08/24 16:15 75 MLS/HR Sodium Chloride 1,000 ml @ 100 mls/hr Q10H IV 08/05/24 14:30 08/05/24 17:29 DC 08/05/24 15:22 100 MLS/HR Sodium Chloride (NS Flush 10ml) 10 ml Q8H PRN IVP IV LINE FLUSH 08/12/24 15:30 09/11/24 15:29 Thiamine HCl 100 mg/Folic Acid 1 mg/Multivitamins/ Minerals 10 ml/ Sodium Chloride 1,011.2 ml @ 100 mls/ hr Q24H IV 08/05/24 06:00 08/07/24 16:07 DC 08/07/24 05:34 100 MLS/HR Tramadol HCl (UltRAM) 25 mg Q6H PRN PO MODERATE PAIN (4-6) 08/12/24 15:30 08/17/24 15:29 DC Tramadol HCl (UltRAM) 50 mg Q6H PRN PO SEVERE PAIN (7-10) 08/12/24 15:30 08/17/24 15:29 DC 08/15/24 11:02 50 MG Wound Care/ Dressing Products (Venelex Ointment) 1 NAKIA AD TID TP 08/06/24 14:00 08/06/24 12:50 DC DIAGNOSTICS / RADIOLOGY: [place] [address] [place] [id number] IMAGING REPORT Signed PATIENT: MAYRA JUDD MR#: [id number] : 1965 SEX: M AGE: 59 LOCATION: 2AH ORDER 2300 STATUS: ADM IN REPORT#: [id number] SERVICE 0800 REASON: Right leg DVT, cough, SOB, chest pain ORDERING PHYSICIAN: EVONNE RIZVI MD PROCEDURE: CHES PE - CT CHEST PE PROTOCOL WWO CONT CT angiogram chest CLINICAL INDICATION: Right leg DVT, cough, SOB, chest pain COMPARISON: None. CT Dose Index (CTDI): 113.50 mGy Dose Length Product (DLP): 1408.10 total mGy PROTOCOL: Contrast: 100 cc of [id number], injected IV, no complications Examination is done at 2.5 millimeter volumetric acquisition after contrast administration. Photography is done at 5 millimeter thick intervals for the thorax. FINDINGS: There is no evidence of pulmonary embolism. The airway is intact. The trachea and major bronchi are unremarkable. No pulmonary infiltrates or mass lesions are seen. Bilateral small pleural effusions with minimal bilateral basal passive atelectasis, somewhat more prominent on the left side. The exam of the jeff and mediastinum is unremarkable. No evidence of hilar enlargement is seen. The aorta shows no aneurysmal dilatation or significant atheromatous calcification. There is no thoracic aortic dissection. No significant brachiocephalic vascular abnormalities are seen. The heart is enlarged. There is status post CABG and median sternotomy. Significant calcifications of the [place] coronary arteries is identified. There is no pericardial effusion. The rib cage appears unremarkable. The soft tissues of the chest wall are unremarkable. The dorsal spine shows no significant abnormalities. Upper abdomen shows cholelithiasis. IMPRESSION: No evidence of pulmonary embolism. Other findings as described. This study was performed using dose reduction techniques to include automated exposure control and/or adjustment of the mA and/or kV according to patient size. DICTATED BY: EJ BLAIR MD DATE: 08/18/24 0848 ELECTRONICALLY SIGNED BY: JE BLAIR MD DATE: 08/18/24 0853 [facility] [address] [place] [address] [id number] IMAGING REPORT Signed PATIENT: MAYRA JUDD MR#: [id number] : 1965 SEX: M AGE: 59 LOCATION: 2CH ORDER 184 STATUS: ADM IN REPORT#: [id number] SERVICE 183 REASON: R/O PSEUDOANEURYSM OF RIGHT GROIN ORDERING PHYSICIAN: EVONNE RIZVI MD PROCEDURE: SOFT GROIN - US SOFT TISSUE GROIN Exam Type: US SOFT TISSUE GROIN Clinical Information: R/O PSEUDOANEURYSM OF RIGHT GROIN Comparison: None Findings and impression: Right groin hematoma seen measuring 2.2 x 0.9 cm. Partial thrombosis right common femoral vein. Normal-appearing lymph nodes of the right groin. No patent pseudoaneurysm seen. DICTATED BY: EJ BLAIR MD DATE: 08/16/24 0936 ELECTRONICALLY SIGNED BY: EJ BLAIR MD DATE: 08/16/24 0940 [facility] [address] [id number] IMAGING REPORT Signed PATIENT: MAYRA JUDD MR#: [id number] : 1965 SEX: M AGE: 59 LOCATION: 2CV ORDER 06 STATUS: ADM IN REPORT#: [id number] SERVICE 06 REASON: chest pain ORDERING PHYSICIAN: BOBBI TIPTON APPLIANCE REPAIR TECHNICIAN PROCEDURE: ECHO CMP - ECHO 2-D COMPLETE APPROVED REPORT EXAM: Two-dimensional and M-mode echocardiogram with Doppler and color Doppler. INDICATION ICD: Chest Pain 2D Dimensions RVDd 3.3 cm LVEF(%) 41.7 (>50%) LVED Vol(simp.) 84.4 mL IVSd 1.0 (0.7-1.1cm) FS(%) 20 % LVES Vol(simp.) 39.1 mL LVDd 3.8 (3.8-5.6cm) LA (2D) 3.0 (1.6-4.0cm) LVEF(%, simp.) 54 % PWd 1.0 (0.7-1.1cm) Ao Root(2D) 3.2 (2.0-3.7cm) LA ESV INDEX (BP) 20.57 mL/m2 LVDs 3.0 (2.5-4.0cm) LVOT diam 1.8 (1.8-2.4cm) IVC diam 1.4 cm Deformation Strain Apical 4 -14.4 % Apical 2 -14.4 % Apical 3 -13.5 % Global Strain -14.1 % M-Mode Dimensions EPSS 0.7 cm LA (MM) 3.3 (1.6-4.0cm) Ao Root(MM) 3.4 (2.0-3.7cm) Aortic Valve AoV Vmax 1.5 m/s Ao Peak GR 8.6 mmHg LVOT Vmax 1.1 m/s AoV VTI 0.2 m Ao Mean GR 4.4 mmHg LVOT VTI 0.16 m YEHUDA (VMAX) 1.88 cm2 YEHUDA (VTI) 1.8 cm2 Mitral Valve MV E Vmax 50.0 cm/s P 1/2 T 32 ms MVA (PHT) 6.9 cm2 TDI E/E' Medial 7.1 E/E' Lateral 5.0 Medial E' Peak V 7.08 cm/s Lateral E' Peak V 10.04 cm/s Pulmonary Valve PV Vmax 1.2 m/s PV VTI 0.18 m PV Mean GR 3.1 mmHg PV Peak GR 5.9 mmHg Left Ventricle The left ventricle is normal size. The basal inferior wall is hypokinetic. The mid/apical inferior wall is normal in function. The anterior, anterolateral, inferolateral, septal, and apical carroll are normal in function. Mild concentric left ventricular hypertrophy. Left ventricle systolic function is normal, estimated LV EF 55%. Indeterminate diastolic function. Right Ventricle The right ventricle is normal size. The right ventricular systolic function is normal. Atria The left atrium size is normal. The right atrium size is normal. Aortic Valve The aortic valve is normal in structure. No aortic regurgitation is present. There is no aortic valvular stenosis. Mitral Valve The mitral valve is normal in structure. Trace mitral regurgitation. There is no mitral valve stenosis. Tricuspid Valve The tricuspid valve is normal in structure. Trace tricuspid regurgitation. RVSP is normal. Pulmonic Valve Pulmonic valve is not well visualized. Great Vessels The aortic root is normal in size. The IVC is normal in size and collapses >50% with inspiration. Pericardium There is no pericardial effusion. Conclusion The cardiac chambers are normal in size. Mild concentric left ventricular hypertrophy. The basal inferior wall is hypokinetic. The mid/apical inferior wall is normal in function. The anterior, anterolateral, inferolateral, septal, and apical carroll are normal in function. Left ventricle systolic function is normal, estimated LVEF 55%. Indeterminate diastolic function. Trace mitral regurgitation. Trace tricuspid regurgitation. PASP is normal. There is no pericardial effusion. DICTATED BY: ROSALIA MAJANO MD DATE: 08/05/24 0850 ELECTRONICALLY SIGNED BY: ROSALIA MAJANO MD DATE: 08/06/24 0055 ASSESSMENT: Chest pain, POA ACS- NSTEMI POA Multivessel CAD with LV ejection fraction of 55% hypokinesis of the inferior wall status post CABG with a HILLMAN graft to the LAD and saphenous vein graft Severe 2-vessel CAD with 80% proximal LAD and 100% distal RCA stenosis by coronary angiogram on 08/05/2024 Alcohol Intoxication POA Uncontrolled diabetes POA Acute anemia, not POA Right common femoral vein thrombus, as per right groin ultrasound on 08/08, No evidence of pulmonary embolism on CT angiogram of the chest 08/18/2024 Possible phlebitis of great saphenous vein as per right groin ultrasound on 08/08 Multiple right inguinal lymph nodes as per right groin ultrasound on 08/08 Obesity POA Hypokalemia, resolved Hyperlipidemia POA Hypertension POA Elevated CK POA Active alcohol drinker POA Hypoalbuminemia PLAN: Continue telemetry NSTEMI POA, chest pain Continue [id number] mg daily Continue Lipitor 40 mg daily Continue Plavix 75 mg p.o. daily. Appreciate cardiology consult and we will follow their recommendations Severe 2-vessel CAD with 80% proximal LAD and 100% distal RCA stenosis, s/p CABG Multivessel CAD with LV ejection fraction of 55% hypokinesis of the inferior wall status post CABG Underwent CABG procedure with a HILLMAN graft to the LAD and saphenous vein graft on 08/12/2024 Postop day 6, stable Not on any vasopressors, drips No postprocedure complications noted Elevated TCK POA Improved TCK normal at 118 Alcohol Intoxication POA Monitor for signs of alcohol withdrawal Counseled on alcohol use cessation Uncontrolled diabetes POA HbA1c 8.5 On admission Continue insulin sliding scale AC & HS with hypoglycemia protocol Acute anemia, not POA Hemoglobin improved to 12.6 Iron 18, TIBC 253,% saturation 7.1 indicating iron deficiency Received 3 doses of IV Venofer so far Monitor H&H Right common femoral vein thrombus, right groin ultrasound on 08/08 No evidence of pulmonary embolism on CT angiogram of the chest 08/18/2024: Per cardiology recommendations, continue IV heparin and transition to to Eliquis 10 mg p.o. b.i.d. for 7 days then 5 mg p.o. b.i.d. when okay with cardiothoracic surgeon When transition to Eliquis, withdraw clopidogrel to allow for DVT treatment dose of Eliquis and continue aspirin 81 mg p.o. daily discharge planning in 24 hrs Possible phlebitis of right saphenous vein as per ultrasound on 08/08 Warm compresses to the area Leg Elevation Multiple right inguinal lymph nodes as per right groin ultrasound on 08/08 Can be attributed to reactive lymphadenopathy due to DVT We will monitor for any signs and symptoms of infection Hyperlipidemia POA, Normal lipid panel results Continue Atorvastatin Hypertension, POA Continue metoprolol 100 mg b.i.d., losartan 100 mg p.o. daily as per Cardiology recommendation Hypokalemia Improved Continue Famotidine 20 mg IV bid for GI prophylaxis Continue Lovenox for DVT prophylaxis Monitor electrolytes and replace them as needed per protocol ATTESTATION BY PHYSICIAN I have seen and examined the patient. I reviewed the documentation, medical decision making, and treatment plan as noted by the resident provider above. I agree with the findings and plan of care. Dalton Le MD, MANALI MD Aug 18, 2024 12:47
[2024-08-18] MEDS: GABApentin 100 MG CAPSULE PO SCH (14:28)
--- NOTE | 2024-08-18 20:39 | PN ---
TIME: 11 a.m. SUBJECTIVE: The patient is a 59-year-old gentleman status post coronary artery bypass grafting. No major events overnight. PHYSICAL EXAMINATION: NEUROLOGIC: Alert and oriented, no deficits. CARDIAC: S1 is S2. Regular rate and rhythm. RESPIRATORY: Clear to auscultation bilaterally. CHEST: Incision is clean, dry, and intact. ASSESSMENT AND PLAN: * Coronary artery disease, status post CABG, on aspirin, statin, [id number]. Off all pressors. * Volume overload, on Lasix IV b.i.d. * Hypercholesterolemia, on high statin therapy. * Deep venous thrombosis in the right lower extremity. The patient was started on a heparin drip. We will continue to monitor and transition into p.o. anticoagulant upon discharge. TID: [id number] RECEIPT: [id number]
[2024-08-19] VITALS (10 sets, daily range): BP systolic 113–139; BP diastolic 47–81; PULSE 70–101; RESP 18–22; TEMP 97.7–98.7; O2SAT 92–99
[2024-08-19 04:36] LABS: BASOPHILS # (AUTO) 0.05 K/uL (0.00-0.20); BASOPHILS % (AUTO) 0.6 % (0.0-5.0); EOSINOPHILS # (AUTO) 0.13 K/uL (0.00-0.70); EOSINOPHILS % (AUTO) 1.6 % (0.0-8.0); HEMATOCRIT 32.2 % (42-54); IMMATURE GRANULOCYTE ABSOLUTE 0.05 K/uL (0-1); LYMPHOCYTES # (AUTO) 2.3 K/uL (1.0-4.8); LYMPHOCYTES % (AUTO) 27.6 % (21.0-51.0); MEAN CORPUSCULAR HEMOGLOBIN 30.6 pg (27.0-33.0); MEAN CORPUSCULAR HGB CONC 32.9 g/dL (32.0-36.0); MEAN CORPUSCULAR VOLUME 93.1 fL (79-99); MONOCYTES # (AUTO) 0.6 K/uL (0.1-1.0); MONOCYTES % (AUTO) 7.6 % (3.0-13.0); NEUTROPHILS # (AUTO) 5.2 K/uL (1.8-7.7); PLATELET COUNT (AUTO) 462 K/uL (130-400); RED BLOOD CELL COUNT(AUTO) 3.46 MIL/uL (4.50-6.20); RED CELL DISTRIBUTION WIDTH 12.4 % (11.0-15.5); WHITE BLOOD COUNT (AUTO) 8.3 K/uL (4.8-10.8)
[2024-08-19 05:06] LABS: CREATININE 0.7 mg/dL (0.5-1.3); POTASSIUM 3.3 mmol/L (3.5-5.1)
[2024-08-19] MEDS: PoTASSium chloRIDE 20MEQ ER 20 MEQ ERTAB PO PRN (05:13)
--- NOTE | 2024-08-19 07:40 | PN ---
[facility] Cardiology Progress Note CARDIOLOGY PROGRESS NOTE AUGUST 19, 2024 Problems: 1. Non ST-elevation AL 2. Multivessel CAD with LV ejection fraction of 55% hypokinesis of the inferior wall status post aortocoronary bypass graft surgery with a HILLMAN graft to the LAD and saphenous vein graft 3. Dyslipidemia 4. Right common femoral vein deep vein thrombosis 5. Normocytic anemia 6. Diabetes mellitus type 2 7. Alcohol abuse Blood pressure is 1 20-140 systolic heart rate is in the 70-80. The patient is afebrile. Hemoglobin 10.6 platelet count 528145 potassium 3.3 BUN11 creatinine 0.7. The patient continues on aspirin atorvastatin clopidogrel heparin protocol insulin metoprolol tartrate. CT scan of the chest showed no evidence of pulmonary embolism. We will discontinue heparin and clopidogrel continue with aspirin and add Eliquis 10 mg b.i.d. for one week then5 mg b.i.d. after that. ROSALIA LINDSAY MD Aug 19, 2024 07:40
[2024-08-19] MEDS: APIXaban 5 MG TABLET PO SCH (09:45)
--- NOTE | 2024-08-19 10:31 | PN ---
[facility] PROGRESS NOTE Date Patient Seen: Aug 19, 2024 Time of Visit: 10:31 Supervising Physician: [ VICENTE ULRICH MD ] Primary Care Physician: [ Francesco Gee MD] Outpatient Specialists: [none ] Inpatient Consults: [Dany Noel MD, Marcela Talbert DO, DR Khalil Aattending: Dr Paola Frye MD ] PROBLEM LIST: Postoperative hypoxic resp failure as expected, RESOLVING Left small pleural effusion not amenable for thoracentesis Multivessel CAD status post CABG x2 on 08/12/24 Acs-Nstemi Type I S/P Coronary Angiogram On 08/05/24 With Findings On Severe Two Vessel Cad With 80% Proximal Lad 100% Distal Rca Stenosis Elevated CK levels POA Leukocytosis w/ left shift Postoperative Acute blood loss anemia, not POA Essential HTN Untreated hyperglycemia in the presence of new onset Type II DM2 Alcohol abuse, POA Right femoral DVT ON Heparing gtt RT Groin hematoma 2.2 x 1.2x0.9cm Right groin lymphadenopathy Obesity INTERVAL HISTORY: DAY 7. STATUS POST CABG X2. HE CONTINUES ON HEPARIN DRIP WHICH WILL BE TRANSITIONED TO ELIQUIS 5 MG P.O. B.I.D. PER CARDIOLOGY RECOMMENDATION TODAY. HE DENIES ANY CHEST PAIN PALPITATIONS OR SHORTNESS FOR BREATH AT THIS TIME. CURRENTLY WORKING WITH HIS IS AND PHYSICAL THERAPY. INCISION SITE CLEAN DRY AND INTACT WELL APPROXIMATED NO SIGNS OF INFECTION GOOD URINE OUTPUT OF 2.3 L IN LAST 24 HOURS. H&H WITH MINIMAL DROP FROM 12.6-10.6 OF HEMOGLOBIN AND HEMATOCRIT 37.4232.2 TODAY. PLATELET COUNT IS 462 K. CHEMISTRY POTASSIUM WAS 3.3 COVERED PER PROTOCOL OTHERWISE UNREMARKABLE. PLAN IS FOR DC HOME LIKELY IN THE NEXT 24 HOURS. REVIEW OF SYSTEMS: General: No malaise or fever. Neurological: No fainting episodes or seizures. HEENT: No nasal congestion or nasal secretion. Respiratory: yes for sob and coughing spell. Cardiac: No chest pain or palpitations. Gastrointestinal: No vomiting or diarrhea. Genitourinary: No dysuria hematuria. Skin: No rashes or lesions. Hematological: No bruises or bleeding. Musculoskeletal: No joint pains or arthralgias. Psychiatric: No depression or panic attacks. PHYSICAL EXAM: GENERAL: Alert, weak, awake oriented x 3 HEENT: EOMI, Sclera non icteric, moist mucosa NECK: Supple, no JVD, trachea midline LUNGS: Clear breath sounds bilaterally. No wheezes HEART: Regular rate and rhythm. Normal S1 and S2, without murmurs. dressing to midsternal area clean dry and intact. ABD: Abdomen soft, nontender. Bowel sounds present EXT: No clubbing cyanosis or edema Skin: Surgical site benign Cordis and Chest tube insertion site benign NEURO: Alert and oriented to person, follows commands Vital Signs (last 8hr) Date Time Temp Pulse Resp B/P (MAP) Pulse Ox O2 Delivery O2 Flow Rate FiO2 08/19/24 08:00 98.8 77 20 132/81 97 Room Air 08/19/24 04:41 97.7 82 18 134/79 98 Room Air LABS: Hematology Labs: Test 08/19/24 04:12 Range/Units White Blood Count 8.3 4.8-10.8 K/uL Red Blood Count 3.46 L 4.50-6.20 MIL/uL Hemoglobin 10.6 L 14.0-18.0 g/dL Hematocrit 32.2 L 42-54 % Mean Corpuscular Volume 93.1 79-99 fL Mean Corpuscular Hemoglobin 30.6 27.0-33.0 pg Mean Corpuscular Hemoglobin Concent 32.9 32.0-36.0 g/dL Red Cell Distribution Width 12.4 11.0-15.5 % Platelet Count 462 H 130-400 K/uL Mean Platelet Volume 8.9 7.5-10.5 fL Immature Granulocyte % (Auto) 0.6 0-1 % Neutrophils (%) (Auto) 62.0 40.0-77.0 % Lymphocytes (%) (Auto) 27.6 21.0-51.0 % Monocytes (%) (Auto) 7.6 3.0-13.0 % Eosinophils (%) (Auto) 1.6 0.0-8.0 % Basophils (%) (Auto) 0.6 0.0-5.0 % Neutrophils # (Auto) 5.2 1.8-7.7 K/uL Lymphocytes # (Auto) 2.3 1.0-4.8 K/uL Monocytes # (Auto) 0.6 0.1-1.0 K/uL Eosinophils # (Auto) 0.13 0.00-0.70 K/uL Basophils # (Auto) 0.05 0.00-0.20 K/uL Absolute Immature Granulocyte (auto 0.05 0-1 K/uL Nucleated Red Blood Cells 0.0 0.0-0.19 % Chemistry Labs: Test 08/19/24 05:30 08/19/24 04:12 08/18/24 13:38 08/18/24 09:39 Range/Units Whole Blood Glucose 123 #H 70-110 MG/DL Sodium Level 138 136-145 mmol/L Potassium Level 3.3 L 3.5-5.1 mmol/L Chloride Level 101 101-111 mmol/L Carbon Dioxide Level 29 21-32 mmol/L Blood Urea Nitrogen 11 7-18 mg/dL Creatinine 0.7 0.5-1.3 mg/dL Glomerular Filtration Rate Calc 107 >90 mL/min Random Glucose 115 #H 70-105 mg/dL Total Calcium 8.5 8.5-10.1 mg/dL Lactic Acid Level 2.0 0.8-2.5 mmol/L Total Bilirubin 0.7 0.2-1.0 mg/dL Aspartate Amino Transf (AST/SGOT) 32 10-37 U/L Alanine Aminotransferase (ALT/SGPT) 62 12-78 U/L Alkaline Phosphatase 172 H 50-136 U/L Total Protein 8.5 H 6.0-8.3 g/dL Albumin 2.9 L 3.5-5.0 g/dL Test 08/17/24 11:56 Range/Units Magnesium Level 2.00 1.80-2.40 mg/dL Coagulation Labs: Test 08/19/24 09:28 Range/Units Activated Partial Thromboplast Time 27.3 # 26.3-35.5 SEC DIAGNOSTICS / RADIOLOGY RESULTS: [ ] PLAN Follow CT surgeon recommendations- Heparin gtt per protocol -TRANSITIONED TO ELIQUIS PER CARDIOLOGY 5 MG P.O. B.I.D.. Follow cardiology recommendations Multimodal pain management Monitoring H&H Monitor chest tube output Chest x-ray in the morning Transfuse if absolutely necessary to keep hemoglobin above 8 Maintain O2 sats greater than 92% Incentive spirometry Glycemic control with goal of 80-180 Referral for cardiac rehabilitation Speech to eval once patient is extubated monitor electrolytes: K Goal of 4 Magnesium goal of 2 Replace accordingly NEURO: Minimize central acting medications as possible. Maintain fall precautions, adequate lighting during the day PULMONARY: Supplemental 02 as needed. Maintain aspiration precautions at all times CARDIOVASCULAR: Follow hemodynamics. Vital signs per facility protocol GI & NUTRITION: Continue with nutritional support. Continue stool softeners and laxatives as needed. KIDNEYS & ELECTROLYTES: Strict monitoring of intake, output and overall fluid balance. Avoid nephrotoxic medications to the extent possible. Medications to be dosed according to renal function. Monitor electrolytes and replace as needed ENDOCRINE: Maintain blood glucose between 100-180 at all times. Hypoglycemia protocol in place INFECTIOUS DISEASE: Trend temperature, WBC and procalcitonin level Follow cultures, deescalate antibiotics as soon as possible. Panculture if new onset fever ONCOLOGY/HEMATOLOGY/COAGULATION: Monitor for s/s of bleeding Monitor hemoglobin, coagulation studies as needed SKIN: Pressure ulcer prevention per facility protocol Specialty mattress ORTHO/REHAB: Continue PT/OT Prophylaxis: Continue GI and DVT prophylaxis Code Status: Full Resuscitation Disposition: TBD Other: Supervising Physician Attestation: [Dr. VICENTE ULRICH MD], supervising physician, reviewed the patients case with me, including the history, physical exam findings, diagnostic data, and current clinical status. We discussed the assessment and plan in detail.He is in agreement with the proposed plan of care. CHONG BEASLEY [facility] Aug 19, 2024 10:31
--- NOTE | 2024-08-19 13:58 | PN ---
[facility] PROGRESS NOTE Date of Service: Aug 19, 2024 Time of Service: 13:48 SUBJECTIVE: This is a case of 59-year-old male with past medical history of diabetes, hypertension and hyperlipidemia who presented to the ED with complaints of left- sided chest pain which started around 8 pm last night while resting. He states that he has been experiencing intermittent chest pain since the past 2 days ago which has become persistent associated with SOB last night. Patient also reports that he had 5 beers last night and denies cigarette and recreational drug use. Initial ECG revealed ST 110 right bundle branch block, inferior infarct acute and second EKG showed ST 108 right bundle branch block inferior infarct recent and the 3rd EKG showed ST 120 with Right bundle branch block Inferior infarct recent and probable posterior infarct acute. Initial Labs WBC 10.9, BNP 147, total CK 812, troponin 13,930, serum alcohol 117. While in the ER patient received aspirin 325 mg p.o., Protonix 40 mg IV, Brilinta 90 mg p.o., verapamil 5 mg IV and metoprolol 5 mg IV and was started on heparin and nitroglycerin drip. He was admitted for further assessment and treatment in view of NSTEMI. 08/05/2024 Patient is seen and examined at the bedside. He complains of mild p ressure-like left-sided chest pain and generalized body weakness. Vitals blood pressure ranging in 120/70s. Labs WBC 10.9, hemoglobin 13.9, BNP 147, PT 10.1, INR 0.95. Urinalysis positive for glucose. Urine toxicology negative and serum alcohol 117, glucose 229, magnesium 1.9, TCK 8. Troponin trend [id number]. Currently on heparin and nitroglycerin drip. He is scheduled for cardiac catheterization procedure today. Chest x-ray revealed clear lungs and pending 2D echo results. 08/06/2024 Patient is seen and examined at the bedside. He complains of generalized body weakness and headache. He denies fever, chills, nausea, vomiting, chest pain, palpitations, abdominal pain. Vitals Blood pressure 137/67. Labs WBC 10, hemoglobin dropped from 13.9-11.5, magnesium 1.70, calcium 8.1, AST improved from 176-115. BNP improved from 147-128 and TCK improved 812-575. He underwent left heart catheterization yesterday which revealed two- vessel coronary artery disease with 80% stenosis in the proximal LAD and 100% stenosis in the distal RCA. 2D echo revealed normal Left ventricle systolic function, estimated LVEF 55% and Indeterminate diastolic function. CT surgery was consulted. 08/07/24 Patient is seen and examined at the bedside. /He was managed for ACS/Non-STEMI and underwent further assessment with a cardiac catheterization on 08/05/2024 demonstrating two-vessel coronary artery disease with 80% stenosis in the proximal LAD and 100% stenosis in the distal RCA. He has had no recurrent angina overnight. He continues on IV heparin. 2D echocardiogram on 08/05/2024 demonstrating basal inferior wall hypokinesis and an LVEF of 55%. 08/08/2024 Patient is seen and examined at the bedside. No acute events last night. Currently on heparin drip. He mentioned about experiencing mild chest discomfort, shortness of breath this morning when he tried to sit in the chair. He also complains of pain and discomfort over right groin. We will order a repeat right groin ultrasound to rule out hematoma. Vitals blood pressure 137/78, respiratory rate 23. Labs hemoglobin decreased from 11.2-10.8, reticulocyte count high at 2.34, iron 18, TIBC 253,% saturation low at 7.1 indicating iron deficiency, BMP unremarkable, TCK normal at 118. Pending CABG. 08/09/2024 Patient is seen and examined at the bedside. No acute events last night. Currently on heparin drip. Vitals blood pressure 151/88, respiratory rate 16. He complains of right groin discomfort and pain. Right groin soft tissue ultrasound revealed multiple right inguinal lymph nodes, partial DVT with thrombus in right common femoral vein, possible phlebitis of great saphenous vein. We will continue the patient on heparin drip for DVT as per cardiology consult recommendation. Labs hemoglobin 10.9, APTT 45.8, BMP unremarkable. Pending CABG. 08/10/24 patient was seen and examined. Patient denies any complaints except dry cough. No acute events overnight. His vitals are stable. Patient reports that his right groin discomfort and pain is getting better and is able to move around. Continue heparin drip. His labs showed hemoglobin 10.7, potassium 3.3 and is being replaced as per the protocol. Magnesium 1.80 and we will cover with the protocol. He is pending CABG. 08/11/2024 Patient is seen and examined at the bedside. No acute events last night. He states that he feels well and his right groin pain and discomfort has been significantly reduced. Currently on heparin drip. Vitals temperature 98.2, pulse rate 72, respiratory rate 16, blood pressure 126/69, SpO2 98% on room air. Labs hemoglobin improved from 10.7-11, WBC 6.6, BMP unremarkable. Pending CABG procedure. 08/12/2024 Patient is seen and examined at the bedside. No acute events last night. He states that he feels well and has no complaints. Currently NPO. Vitals temperature 97.9, pulse rate 78, blood pressure 133/77, respiratory rate 20, SpO2 99% on room air. Labs WBC 7.5, hemoglobin decreased from 11-10.7, BMP, LFT and lipid panel levels are normal. ABG showed pH 7.43, PO2 78.2, HC03 28.1, pCO2 43. Scheduled for CABG procedure today. 08/13/2024 Post CABG day 1 Patient is seen and examined at the bedside. He complains of moderate chest pain and discomfort. No Acute events last night. Vitals pulse rate 106, respiratory rate 25, blood pressure 136/51, SpO2 99% on 2 L nasal cannula. Urine output 1.4 L, chest tube drainage 320 mL. Currently on nitroglycerin drip. Labs WBC improved from 11.8-9.1, hemoglobin improved from 9.5-9.8, BMP unremarkable. Carotid ultrasound results are normal. Pending Chest x-ray results. 08/14/2024 Post CABG day 2 Patient is seen and examined at the bedside. He mentioned about experiencing difficulty in breathing secondary to chest pain and discomfort yesterday night. He states that his chest pain has gotten better today after receiving the pain medication. Currently on insulin and nitroglycerin drip. Vitals blood pressure 31/70, pulse rate 104, SpO2 greater than 95% on 3 L nasal cannula. Urine output 3.3 L. Chest tube drainage 150 mL. Labs WBC 10.2, hemoglobin decreased from 9.8-9.5, sodium 133, chloride 99. ABG revealed pH 7.45, pCO2 38, PO2 73.2, HC03 26.1 indicating mild hypoxemia and alkalosis. 08/15/2024 Post CABG Day3 Patient is seen and examined at the bedside. He mentioned about experiencing similar difficulty in breathing secondary to pain and discomfort yesterday night. He feels better today. Vitals pulse rate 98, respiratory rate 9, blood pressure 150/83, SpO2 98% on 1 L nasal cannula. Urine output 4.2 L. Hemoglobin improved from 9.5-9.7, BMP unremarkable. Chest x-ray revealed no interval/acute changes. 08/16/2024 Post CABG day 4 Patient is seen and examined at the bedside. He complains of cough, mild shortness of breath. Vitals blood pressure 134/81, respiratory rate 11, pulse rate 88, SpO2 99% on 2 L nasal cannula. Urine output 4.3 L. Labs hemoglobin improved from 9.7-10.5, WBC 8.6, BMP unremarkable. Chest x-ray revealed no acute/interval changes. 08/17/2024 the patient was seen and examined today morning. He is complaining of cough and shortness of breath which have not improved status post CABG. Vitals are stable with blood pressure 132/73 mmHg and SpO2 100% on1 L oxygen via nasal cannula. CBC unremarkable except hemoglobin 10.3. CMP unremarkable. Chest x-ray revealed no changes. Pending further recommendations from cardiovascular surgeon. 08/18/2024: The patient was examined at today, he is sitting on the chair. Today is postoperative day 6. He continues to report a cough, expressing discomfort about pressing on his chest due to the CABG incision. Currently, the patient is on a heparin drip due to a left femoral vein thrombus, initiated by Dr. Stephen parada, a cardiovascular surgeon. His medications include aspirin 81 mg, Lipitor 40 mg, Plavix 75 mg, furosemide 20 mg BID, and metoprolol 50 mg BID. A chest CTA was performed today, which returned negative for pulmonary embolism. Remarkable lab results include sodium 134, chloride 98, lactic acid level of 2.4 and a blood sugar level of 201. The patient will transition to oral Eliquis once approved by the cardiovascular surgeon. Possible discharge in 24 hours Further assessment and plan are discussed below. 08/19/24 the patient was seen and examined today, sitting comfortably on the chair. His family at the bedside. He is status post CABG day 7. He is complaining of productive cough has not gotten any better. Shortness of breath, improved. His vitals are stable. Labs showed WBC 8.3, hemoglobin 10.6, sodium 138, potassium 3.3 and replaced with p.o. protocol, BUN11 and creatinine 0.7. Cardiology discontinued heparin and clopidogrel and advised to continue with [id number] mg and added Eliquis 10 mg b.i.d. for 1 week then5 mg b.i.d. after that. We will monitor him [id number] hours after starting Eliquis. Card iovascular surgery cleared him for discharge. Pending cardiology clearance for discharge. Pulmonology recommended 6 minute walk to see any home O2 requirement on discharge. Likely discharge tomorrow if he is cleared from Cardiology standpoint. REVIEW OF SYSTEMS CONSTITUTIONAL: Denies fevers, chills, or night sweats. No unintentional minal ght loss reported. CARDIOVASCULAR: Chest pain, shortness of breath. Denies dyspnea on exertion, orthopnea, paroxysmal nocturnal dyspnea, palpitations, life-threatening arrhythmias, claudication. PULMONARY: cough, phlegm/sputum, hemoptysis, pleuritic chest pain. SLEEP: Denies morning headaches, daytime somnolence or napping. Denies difficulty falling asleep, staying asleep, waking from sleep. Denies knowledge of snoring. GASTROINTESTINAL: Denies any type of dysphagia to either liquids or solids. Denies nausea, vomiting, pyrosis, early satiety, abdominal pain, diarrhea, constipation, or changes in stool consistency or caliber. Denies coffee-ground emesis, hematemesis, hematochezia, or melanotic stools. GENITOURINARY: Denies frequency, urgency, nocturia, hematuria or incontinence (Storage/Irritative symptoms.) Low urinary stream, straining to void, urinary intermittency or hesitancy, splitting of the voiding stream, terminal dribbling. ENDOCRINOLOGIC: Denies polyuria, polydipsia, polyphagia or heat/cold intolerances. HEMATOLOGIC: Denies thrombophilia/previous clots, or coagulopathy/bleeding disorders. PSYCHIATRIC: Denies any suicidal or homicidal ideation. Denies hallucinations. PHYSICAL EXAM GENERAL APPEARANCE: The patient is awake, alert, and oriented, in no acute cardiopulmonary distress. NEUROLOGICAL: Cranial nerves II-XII grossly intact. Motor is 5/5 in bilateral upper and lower extremities proximal to distal. No sensory deficits. HEENT: Face is symmetric. Pupils are equal and reactive. Extraocular movements are intact. NECK: Supple. No JVD. No thyromegaly. No submental, submandibular, pre-/ postauricular, occipital or supraclavicular lymphadenopathy. CHEST: Normal chest expansion. No Telemetry. LUNGS: Absence of any rales, rhonchi or any wheezing. CARDIOVASCULAR: Regular. S1 and S2 normal. No appreciable rubs, murmurs or gallops. ABDOMEN: Soft, nontender, and nondistended. There is no rebound, voluntary guarding, or rigidity. : Improving Redness, bruising over right groin area Deferred. No Fitzpatrick. EXTREMITIES: Non-edematous and not cyanotic. No clubbing. Good capillary refill. SKIN: No skin breakdown. Vital Signs (last 8hr) Date Time Temp Pulse Resp B/P (MAP) Pulse Ox O2 Delivery O2 Flow Rate FiO2 08/19/24 12:08 77 18 21 95 22 21 08/19/24 08:00 98.8 77 20 132/81 97 Room Air LABS: Laboratory: Test 08/19/24 12:12 08/19/24 09:28 08/19/24 04:12 08/18/24 13:38 Range/Units Whole Blood Glucose 281 #H 70-110 MG/DL Activated Partial Thromboplast Time 27.3 # 26.3-35.5 SEC White Blood Count 8.3 4.8-10.8 K/uL Red Blood Count 3.46 L 4.50-6.20 MIL/uL Hemoglobin 10.6 L 14.0-18.0 g/dL Hematocrit 32.2 L 42-54 % Mean Corpuscular Volume 93.1 79-99 fL Mean Corpuscular Hemoglobin 30.6 27.0-33.0 pg Mean Corpuscular Hemoglobin Concent 32.9 32.0-36.0 g/dL Red Cell Distribution Width 12.4 11.0-15.5 % Platelet Count 462 H 130-400 K/uL Mean Platelet Volume 8.9 7.5-10.5 fL Immature Granulocyte % (Auto) 0.6 0-1 % Neutrophils (%) (Auto) 62.0 40.0-77.0 % Lymphocytes (%) (Auto) 27.6 21.0-51.0 % Monocytes (%) (Auto) 7.6 3.0-13.0 % Eosinophils (%) (Auto) 1.6 0.0-8.0 % Basophils (%) (Auto) 0.6 0.0-5.0 % Neutrophils # (Auto) 5.2 1.8-7.7 K/uL Lymphocytes # (Auto) 2.3 1.0-4.8 K/uL Monocytes # (Auto) 0.6 0.1-1.0 K/uL Eosinophils # (Auto) 0.13 0.00-0.70 K/uL Basophils # (Auto) 0.05 0.00-0.20 K/uL Absolute Immature Granulocyte (auto 0.05 0-1 K/uL Nucleated Red Blood Cells 0.0 0.0-0.19 % Sodium Level 138 136-145 mmol/L Potassium Level 3.3 L 3.5-5.1 mmol/L Chloride Level 101 101-111 mmol/L Carbon Dioxide Level 29 21-32 mmol/L Blood Urea Nitrogen 11 7-18 mg/dL Creatinine 0.7 0.5-1.3 mg/dL Glomerular Filtration Rate Calc 107 >90 mL/min Random Glucose 115 #H 70-105 mg/dL Total Calcium 8.5 8.5-10.1 mg/dL Lactic Acid Level 2.0 0.8-2.5 mmol/L Test 08/18/24 09:39 Range/Units Total Bilirubin 0.7 0.2-1.0 mg/dL Aspartate Amino Transf (AST/SGOT) 32 10-37 U/L Alanine Aminotransferase (ALT/SGPT) 62 12-78 U/L Alkaline Phosphatase 172 H 50-136 U/L Total Protein 8.5 H 6.0-8.3 g/dL Albumin 2.9 L 3.5-5.0 g/dL Current Medications Medications (Trade) Dose Ordered Sig/Isidoro Route PRN Reason Start Time Stop Time Status Last Admin Dose Admin Acetaminophen (TYLenol 325MG TAB) 650 mg Q4H PRN PO Temp >38.3C(AFTER EXTUBATION) 08/12/24 15:30 09/11/24 15:29 08/15/24 15:23 650 MG Acetaminophen (TYLenol 325MG TAB) 650 mg Q6H PRN PO MILD PAIN (1-3) 08/12/24 15:30 08/12/24 16:09 DC Acetaminophen (TYLenol 500MG TAB) 500 mg Q6H PRN PO MILD PAIN (1-3) 08/06/24 10:00 09/05/24 09:59 08/15/24 21:27 500 MG Acetaminophen (TYLenol 650MG SUPPOSITORY) 650 mg Q4H PRN RC Temp >38.3C WHILE INTUBATED 08/12/24 15:30 09/11/24 15:29 Acetaminophen (acetaMINOPHEN) 1,000 mg Q6H6 IV 08/12/24 18:00 08/13/24 17:59 DC 08/13/24 14:06 1,000 MG Acetaminophen (acetaMINOPHEN) 1,000 mg Q6H6 IVPB 08/14/24 12:00 08/14/24 12:14 DC 08/14/24 12:13 1,000 MG Albumin Human 250 ml @ 0 mls/hr AD PRN IV IF HEMODYNAMICALLY UNSTABLE 08/12/24 15:30 Aminocaproic Acid 61478 mg/Sodium Chloride 310 ml @ 25 mls/hr AD IV 08/12/24 15:30 08/12/24 15:32 DC Aminocaproic Acid 56930 mg/Sodium Chloride 480 ml @ 0 mls/hr AD PRN IV BLEEDING CONTROL 08/12/24 06:30 09/11/24 06:29 Apixaban (EliquIS) 5 mg BID PO 08/26/24 09:00 09/25/24 08:59 Apixaban (EliquIS) 10 mg BID PO 08/19/24 09:00 08/25/24 21:01 08/19/24 09:45 10 MG Aspirin (Aspirin 81mg Ec Tab) 81 mg DAILY PO 08/06/24 09:00 09/05/24 08:59 08/19/24 09:45 81 MG Atorvastatin Calcium (LIPItor 40MG) 40 mg HS PO 08/05/24 21:00 09/04/24 20:59 08/18/24 20:26 40 MG Benzocaine (Cepacol Sore Throat Lozenge) 1 each Q4H PRN MM SORE THROAT 08/13/24 20:30 09/12/24 20:29 08/19/24 09:53 1 EACH Benzonatate (Tessalon 100mg Caps) 100 mg Q8H PRN PO COUGH 08/16/24 15:30 09/15/24 15:29 08/19/24 05:17 100 MG Calcium Gluconate 1 gm/Sodium Chloride 60 ml @ 200 mls/hr AD PRN IV HYPOCALCEMIA 08/12/24 15:30 09/11/24 15:29 08/13/24 03:20 200 MLS/HR Cefazolin Sodium (Ancef) 2 gm ONCALL PRN IVP SURGERY 08/11/24 18:30 08/12/24 16:01 DC Cefazolin Sodium (Ancef) 2 gm ONCALL PRN IVP SURGERY 08/12/24 16:30 08/14/24 16:29 DC 08/12/24 21:07 2 GM Cefazolin Sodium (Ancef) 2 gm Q8H IVPB 08/12/24 20:30 08/12/24 16:05 DC Ceftriaxone Sodium (Rocephin 2gm Inj) 2 gm Q24H IVPB 08/06/24 00:00 08/15/24 23:59 DC 08/15/24 01:32 2 GM Chlordiazepoxide HCl (LIBrium 25 MG CAP) 25 mg Q2H PRN PO ALCOHOL WITHDRAWAL PROTOCOL 08/05/24 06:00 08/12/24 05:59 DC 08/06/24 22:55 25 MG Clopidogrel Bisulfate (plaVIX 75MG) 75 mg DAILY PO 08/16/24 09:00 08/19/24 07:43 DC 08/18/24 08:45 75 MG Dexmedetomidine/ Sodium Chloride (PRECEdex 400MCG/ 100ML-NS) 400 mcg PROTOCOL IV 08/12/24 15:30 08/13/24 15:29 DC Dextrose (D50w) 50 ml AD PRN IV HYPOGLYCEMIA PROTOCOL 08/05/24 05:30 08/12/24 16:00 DC Dextrose (D50w) 50 ml AD PRN IV HYPOGLYCEMIA PROTOCOL 08/12/24 15:30 08/14/24 09:28 DC Dextrose (D50w) 50 ml AD PRN IV HYPOGLYCEMIA PROTOCOL 08/14/24 09:30 09/13/24 09:29 Diazepam (VALium 5 MG/ML 2 ML SYG) 10 mg Q4H PRN IVP ALCOHOL WITHDRAWAL PROTOCOL 08/05/24 06:30 08/12/24 06:29 DC Docusate Sodium (COLace 100MG CAP) 100 mg BID PO 08/12/24 21:00 09/11/24 20:59 08/19/24 09:45 100 MG Doxycycline Hyclate (Doxycycline Hyclate) 100 mg BID PO 08/06/24 09:00 08/06/24 12:18 DC 08/06/24 09:06 100 MG Enoxaparin Sodium (Lovenox) 30 mg DAILY SQ 08/15/24 09:00 08/17/24 13:25 DC 08/17/24 09:35 30 MG Enoxaparin Sodium (Lovenox) 40 mg DAILY SQ 08/18/24 09:00 08/17/24 23:05 DC Epinephrine HCl 10 mg/Sodium Chloride 250 ml @ 0 mls/hr AD PRN IV TITRATE 08/12/24 06:30 08/16/24 16:44 DC Epinephrine HCl 10 mg/Sodium Chloride 250 ml @ 0 mls/hr AD PRN IV POST-OP CARDIOVASCULAR ORDERS 08/12/24 15:30 08/12/24 15:32 DC Famotidine (Pepcid 20mg Vial) 20 mg BID IV 08/05/24 09:00 08/05/24 09:01 DC 08/05/24 07:47 20 MG Famotidine (Pepcid 20mg Vial) 20 mg BID IV 08/12/24 21:00 08/13/24 07:32 DC 08/12/24 20:12 20 MG Furosemide (LASix 20MG TAB) 20 mg Q12H PO 08/14/24 09:00 08/17/24 21:54 DC 08/17/24 09:36 20 MG Furosemide (LASix 20MG VIAL) 20 mg Q12H IV 08/13/24 09:00 08/12/24 16:01 DC Furosemide (LASix 20MG VIAL) 20 mg Q12H IV 08/13/24 14:00 09/12/24 13:59 08/19/24 01:46 20 MG Gabapentin (NEURontin 100 mg CAP) 100 mg TID PO 08/14/24 14:00 08/18/24 12:47 DC 08/18/24 08:44 100 MG Gabapentin (NEURontin 100 mg CAP) 200 mg TID PO 08/18/24 14:00 09/17/24 13:59 08/19/24 09:45 200 MG Glucagon (Glucagon 1mg Kit) 1 mg AD PRN IM HYPOGLYCEMIA PROTOCOL 08/05/24 05:30 08/12/24 16:00 DC Glucagon (Glucagon 1mg Kit) 1 mg AD PRN IM HYPOGLYCEMIA PROTOCOL 08/12/24 15:30 08/14/24 09:28 DC Glucagon (Glucagon 1mg Kit) 1 mg AD PRN IM HYPOGLYCEMIA PROTOCOL 08/14/24 09:30 09/13/24 09:29 Guaifenesin (RobiTUSSin SUGAR-FREE 100 MG/ 5 ML UDCUP) 200 mg Q4H PRN PO COUGH 08/07/24 23:30 08/12/24 15:17 DC 08/09/24 21:09 200 MG Guaifenesin (RobiTUSSin SUGAR-FREE 100 MG/ 5 ML UDCUP) 200 mg Q4H PRN PO COUGH 08/16/24 15:30 09/15/24 15:29 08/19/24 09:53 200 MG Heparin Sodium (Porcine) (HEParin 5,000 UNIT VIAL) 5,000 unit Q8H SQ 08/05/24 11:00 08/05/24 03:04 DC Heparin Sodium/ Dextrose 250 ml @ 0 mls/hr PROTOCOL IV 08/05/24 03:00 08/12/24 15:17 DC 08/11/24 21:27 11.46 MLS/HR Heparin Sodium/ Dextrose 250 ml @ 0 mls/hr Q6H IV 08/17/24 14:30 08/19/24 07:43 DC 08/19/24 01:51 18.98 MLS/HR Insulin Glargine (LANtus 100 UNITS/ML 10 ML VIAL) 10 units BID@0730,2100 SQ 08/05/24 21:00 08/12/24 15:17 DC 08/11/24 20:31 10 UNITS Insulin Human Regular (humuLIN R 100 UNIT/ML 3ML) INSULIN SLIDING SCAL... ACHS SQ 08/05/24 07:30 08/05/24 08:55 DC 08/05/24 07:47 5 UNIT Insulin Human Regular (humuLIN R 100 UNIT/ML 3ML) INSULIN SLIDING SCAL... ACHS SQ 08/05/24 11:30 08/12/24 15:17 DC 08/11/24 20:34 14 UNIT Insulin Human Regular (humuLIN R 100 UNIT/ML 3ML) INSULIN SLIDING SCAL... ACHS SQ 08/14/24 11:30 09/13/24 11:29 08/19/24 13:04 12 UNIT Insulin Human Regular 100 unit/ Sodium Chloride 100 ml @ 0 mls/hr AD IV 08/12/24 15:30 08/14/24 09:26 DC 08/13/24 11:02 5 MLS/HR Iron Sucrose (VenoFER) 100 mg DAILY IV 08/08/24 09:30 08/08/24 09:17 DC Iron Sucrose (VenoFER) 100 mg Q24H IV 08/08/24 21:00 08/10/24 22:00 DC 08/10/24 22:03 100 MG Isosorbide Mononitrate (Imdur 30mg Sr) 30 mg DAILY PO 08/11/24 13:00 08/12/24 15:17 DC 08/11/24 14:17 30 MG Lactulose (Constulose 20gm/ 30ml Udcup) 20 gm BID PRN PO CONSTIPATION 08/12/24 15:30 09/11/24 15:29 08/16/24 09:02 20 GM Lorazepam (AtiVAN) 2 mg Q4H PRN IVP ALCOHOL WITHDRAWAL PROTOCOL 08/05/24 06:00 08/05/24 06:04 DC Losartan Potassium (CozAAR 50 mg TAB) 50 mg BID PO 08/09/24 21:00 08/12/24 15:17 DC 08/11/24 20:39 50 MG Losartan Potassium (CozAAR 50 mg TAB) 50 mg DAILY PO 08/07/24 09:00 08/09/24 09:16 DC 08/09/24 08:06 50 MG Losartan Potassium (CozAAR 50 mg TAB) 50 mg DAILY PO 08/15/24 09:00 08/16/24 06:39 DC 08/15/24 08:06 50 MG Losartan Potassium (CozAAR 50 mg TAB) 100 mg DAILY PO 08/16/24 09:00 08/18/24 15:13 DC 08/18/24 08:45 100 MG Magnesium Hydroxide (Milk Of Magnesium 30ml) 30 ml DAILY PRN PO CONSTIPATION 08/12/24 15:30 09/11/24 15:29 08/15/24 17:58 30 ML Magnesium Sulfate 50 ml @ 12.5 mls/hr AD PRN IV MAG LEVEL LESS THAN 2.0 08/12/24 15:30 09/11/24 15:29 08/14/24 06:16 12.5 MLS/HR Magnesium Sulfate 50 ml @ 0 mls/hr PROTOCOL PRN IV OTHER [SEE ORDER COMMENTS] 08/05/24 05:30 08/12/24 16:01 DC 08/10/24 04:13 25 MLS/HR Metoprolol Tartrate (loprESSOR) 12.5 mg BID PO 08/14/24 09:00 08/13/24 06:52 DC Metoprolol Tartrate (loprESSOR) 25 mg BID PO 08/05/24 14:30 08/08/24 08:27 DC 08/08/24 07:44 25 MG Metoprolol Tartrate (loprESSOR) 25 mg BID PO 08/13/24 09:00 08/13/24 19:21 DC 08/13/24 08:49 25 MG Metoprolol Tartrate (loprESSOR) 25 mg BID PO 08/14/24 09:00 08/13/24 08:43 DC Metoprolol Tartrate (loprESSOR) 50 mg BID PO 08/08/24 09:00 08/12/24 15:17 DC 08/12/24 08:24 50 MG Metoprolol Tartrate (loprESSOR) 50 mg BID PO 08/13/24 21:00 08/14/24 14:40 DC 08/14/24 08:37 50 MG Metoprolol Tartrate (loprESSOR) 50 mg BID PO 08/17/24 21:00 09/16/24 20:59 08/19/24 09:45 50 MG Metoprolol Tartrate (loprESSOR) 75 mg BID PO 08/14/24 21:00 08/15/24 07:04 DC 08/14/24 21:15 75 MG Metoprolol Tartrate (loprESSOR) 100 mg BID PO 08/15/24 09:00 08/17/24 14:51 DC 08/17/24 09:37 100 MG Morphine Sulfate (morPHINE 2MG SYG) 0.5 mg Q2H PRN IV MODERATE PAIN (4-6) 08/12/24 15:30 08/13/24 15:29 DC Morphine Sulfate (morPHINE 2MG SYG) 1 mg Q2H PRN IV SEVERE PAIN (7-10) 08/12/24 15:30 08/13/24 15:29 DC 08/12/24 18:55 1 MG Morphine Sulfate (morPHINE 2MG SYG) 2 mg Q2HPRN PRN IVP SEVERE PAIN (6-10) 08/05/24 11:10 08/10/24 14:09 DC 08/09/24 04:17 2 MG Morphine Sulfate (morPHINE 2MG SYG) 2 mg Q4H PRN IVP SEVERE PAIN (7-10) 08/05/24 06:00 08/05/24 08:31 DC 08/05/24 06:03 2 MG Nicardipine HCl 100 mg/Sodium Chloride 100 ml @ 0 mls/hr AD PRN IV TITRATE 08/12/24 17:30 08/16/24 20:17 DC Nitroglycerin (Nitroglycerin 1gm Oint) 0.5 inch Q8H5 TD 08/08/24 13:00 08/10/24 12:43 DC 08/10/24 06:05 0.5 INCH Nitroglycerin (Nitrostat) 0.4 mg AD PRN SL CHEST PAIN 08/05/24 02:30 08/08/24 08:53 DC 08/05/24 02:46 0.4 MG Nitroglycerin/ Dextrose 0 ml @ 0 mls/hr AD IV 08/12/24 15:30 08/12/24 16:07 DC Nitroglycerin/ Dextrose 250 ml @ 0 mls/hr PROTOCOL IV 08/05/24 03:30 08/16/24 16:44 DC 08/14/24 09:01 30 MLS/HR Norepinephrine Bitartrate 250 ml @ 0 mls/hr AD PRN IV TITRATE 08/12/24 06:30 08/16/24 16:44 DC Norepinephrine Bitartrate 8 mg/ Dextrose 250 ml @ 0 mls/hr AD PRN IV POST-OP CARDIOVASCULAR ORDERS 08/12/24 15:30 08/12/24 15:32 DC Ondansetron HCl (zoFRAN 4MG INJ) 4 mg Q6H PRN IV NAUSEA/VOMITING 08/05/24 05:30 09/04/24 05:29 08/12/24 18:54 4 MG Ondansetron HCl (zoFRAN 4MG INJ) 4 mg Q6H PRN IV NAUSEA/VOMITING 08/12/24 15:30 08/12/24 16:02 DC Pantoprazole Sodium (PROTonix 40MG INJ) 40 mg DAILY IVP 08/05/24 09:00 08/12/24 15:17 DC 08/12/24 08:24 40 MG Pharmacy Profile Note (Pharmacy Communication) 1 each PROTOCOL PRN MISC ETOH Withdrawal Score changes 08/05/24 06:00 08/12/24 05:59 DC Potassium Phosphate 250 ml @ 42 mls/hr AD PRN IV LOW PHOS LEVEL 08/12/24 15:30 09/11/24 15:29 Potassium Chloride 100 ml @ 50 mls/hr AD PRN IV POTASSIUM PROTOCOL 08/05/24 05:30 08/07/24 18:24 DC Potassium Chloride 100 ml @ 100 mls/hr AD PRN IV POTASSIUM PROTOCOL 08/07/24 09:00 09/06/24 08:59 08/13/24 03:34 100 MLS/HR Potassium Chloride 100 ml @ 100 mls/hr AD PRN IV HYPOKALEMIA 08/12/24 15:30 08/13/24 09:00 DC Potassium Chloride (K-Dur/Klor-Con 20meq) 20 meq AD PRN PO POTASSIUM PROTOCOL 08/07/24 09:00 08/17/24 13:34 DC 08/15/24 13:15 20 MEQ Potassium Chloride (K-Dur/Klor-Con 20meq) 20 meq AD PRN PO POTASSIUM PROTOCOL 08/13/24 09:00 08/13/24 09:00 DC Potassium Chloride (K-Dur/Klor-Con 20meq) 20 meq AD PRN PO POTASSIUM PROTOCOL 08/17/24 05:30 09/16/24 05:29 08/19/24 09:53 20 MEQ Potassium Chloride (KCl 10% Elixir 20meq/15ml) 20 meq AD PRN PO POTASSIUM PROTOCOL 08/07/24 09:00 08/17/24 13:34 DC 08/16/24 11:33 20 MEQ Potassium Chloride (KCl 10% Elixir 20meq/15ml) 20 meq AD PRN PO POTASSIUM PROTOCOL 08/13/24 09:00 08/13/24 09:00 DC Potassium Chloride (KCl 10% Elixir 20meq/15ml) 20 meq AD PRN PO POTASSIUM PROTOCOL 08/17/24 05:30 09/16/24 05:29 Promethazine HCl (Phenergan) 25 mg Q6H PRN PO NAUSEA 08/05/24 06:00 08/12/24 15:17 DC Propofol 100 ml @ 0 mls/hr AD PRN IV SEDATION 08/12/24 15:30 08/16/24 15:29 DC Ranolazine (Ranexa) 500 mg BID PO 08/05/24 17:30 08/12/24 15:17 DC 08/11/24 20:38 500 MG Ranolazine (Ranexa) 500 mg BID PO 08/05/24 21:00 08/05/24 17:04 DC Sodium Bicarbonate (Sodium Bicarb 50meq 50ml Vial) 50 meq AD PRN IV OTHER[SEE DOSING INSTRUCTIONS] 08/12/24 15:30 08/15/24 15:29 DC 08/12/24 19:50 50 MEQ Sodium Chloride 500 ml @ 0 mls/hr AD IV 08/12/24 15:30 09/11/24 15:29 Sodium Chloride 1,000 ml @ 10 mls/hr ONCE IV 08/12/24 15:30 08/13/24 15:29 DC 08/12/24 17:29 10 MLS/HR Sodium Chloride 1,000 ml @ 75 mls/hr [id number] IV 08/05/24 05:30 08/10/24 15:46 DC 08/08/24 16:15 75 MLS/HR Sodium Chloride 1,000 ml @ 100 mls/hr Q10H IV 08/05/24 14:30 08/05/24 17:29 DC 08/05/24 15:22 100 MLS/HR Sodium Chloride (NS Flush 10ml) 10 ml Q8H PRN IVP IV LINE FLUSH 08/12/24 15:30 09/11/24 15:29 Thiamine HCl 100 mg/Folic Acid 1 mg/Multivitamins/ Minerals 10 ml/ Sodium Chloride 1,011.2 ml @ 100 mls/ hr Q24H IV 08/05/24 06:00 08/07/24 16:07 DC 08/07/24 05:34 100 MLS/HR Tramadol HCl (UltRAM) 25 mg Q6H PRN PO MODERATE PAIN (4-6) 08/12/24 15:30 08/17/24 15:29 DC Tramadol HCl (UltRAM) 50 mg Q6H PRN PO SEVERE PAIN (7-10) 08/12/24 15:30 08/17/24 15:29 DC 08/15/24 11:02 50 MG Wound Care/ Dressing Products (Venelex Ointment) 1 NAKIA AD TID TP 08/06/24 14:00 08/06/24 12:50 DC DIAGNOSTICS / RADIOLOGY: [facility] [address] [place] [address] IMAGING REPORT Signed PATIENT: MAYRA JUDD MR#: [id number] : 1965 SEX: M AGE: 59 LOCATION: 2AH ORDER 2300 STATUS: ADM IN REPORT#: [id number] SERVICE [id number] REASON: Right leg DVT, cough, SOB, chest pain ORDERING PHYSICIAN: EVONNE RIZVI MD PROCEDURE: CHES PE - CT CHEST PE PROTOCOL WWO CONT CT angiogram chest CLINICAL INDICATION: Right leg DVT, cough, SOB, chest pain COMPARISON: None. CT Dose Index (CTDI): 113.50 mGy Dose Length Product (DLP): 1408.10 total mGy PROTOCOL: Contrast: 100 cc of Isovue-370, injected IV, no complications Examination is done at 2.5 millimeter volumetric acquisition after contrast administration. Photography is done at 5 millimeter thick intervals for the thorax. FINDINGS: There is no evidence of pulmonary embolism. The airway is intact. The trachea and major bronchi are unremarkable. No pulmonary infiltrates or mass lesions are seen. Bilateral small pleural effusions with minimal bilateral basal passive atelectasis, somewhat more prominent on the left side. The exam of the jeff and mediastinum is unremarkable. No evidence of hilar enlargement is seen. The aorta shows no aneurysmal dilatation or significant atheromatous calcification. There is no thoracic aortic dissection. No significant brachiocephalic vascular abnormalities are seen. The heart is enlarged. There is status post CABG and median sternotomy. Significant calcifications of the grindstone coronary arteries is identified. There is no pericardial effusion. The rib cage appears unremarkable. The soft tissues of the chest wall are unremarkable. The dorsal spine shows no significant abnormalities. Upper abdomen shows cholelithiasis. IMPRESSION: No evidence of pulmonary embolism. Other findings as described. This study was performed using dose reduction techniques to include automated exposure control and/or adjustment of the mA and/or kV according to patient size. DICTATED BY: EJ BLAIR MD DATE: 08/18/24847 ELECTRONICALLY SIGNED BY: EJ BLAIR MD DATE: 08/18/24852 ASSESSMENT: Chest pain, POA Productive cough status post CABG, not POA ACS- NSTEMI POA Multivessel CAD with LV ejection fraction of 55% hypokinesis of the inferior wall status post CABG with a HILLMAN graft to the LAD and saphenous vein graft Severe 2-vessel CAD with 80% proximal LAD and 100% distal RCA stenosis by coronary angiogram on 08/05/2024 Alcohol Intoxication POA Uncontrolled diabetes POA Acute anemia, not POA Right common femoral vein thrombus, as per right groin ultrasound on 08/08, No evidence of pulmonary embolism on CT angiogram of the chest 08/18/2024 Possible phlebitis of great saphenous vein as per right groin ultrasound on 08/08 Multiple right inguinal lymph nodes as per right groin ultrasound on 08/08 Obesity POA Hypokalemia, resolved Hyperlipidemia POA Hypertension POA Elevated CK POA Active alcohol drinker POA Hypoalbuminemia PLAN: Continue telemetry NSTEMI POA, chest pain Continue [id number] mg daily Continue Lipitor 40 mg daily Discontinue Plavix 75 mg p.o. daily. Appreciate cardiology consult and we will follow their recommendations Severe 2-vessel CAD with 80% proximal LAD and 100% distal RCA stenosis, s/p CABG Productive cough status post CABG, not POA Patient is complaining of productive cough status post CABG. Has not been improving. He is on Robitussin and Tessalon Perles. His gabapentin dose was increased. Multivessel CAD with LV ejection fraction of 55% hypokinesis of the inferior wall status post CABG Underwent CABG procedure with a HILLMAN graft to the LAD and saphenous vein graft on 08/12/2024 Postop day 7, stable Not on any vasopressors, drips No postprocedure complications noted Elevated TCK POA Improved TCK normal at 118 Alcohol Intoxication POA Monitor for signs of alcohol withdrawal Counseled on alcohol use cessation Uncontrolled diabetes POA HbA1c 8.5 On admission Continue insulin sliding scale AC & HS with hypoglycemia protocol Acute anemia, not POA Hemoglobin 10.6 Iron 18, TIBC 253,% saturation 7.1 indicating iron deficiency Received 3 doses of IV Venofer so far Monitor H&H Right common femoral vein thrombus, right groin ultrasound on 08/08 No evidence of pulmonary embolism on CT angiogram of the chest 08/18/2024: Cardiology discontinued IV heparin drip and transitioned to Eliquis 10 mg p.o. b.i.d. for 7 days then 5 mg p.o. b.i.d. when okay with cardiothoracic surgeon When transition to Eliquis, withdraw clopidogrel to allow for DVT treatment dose of Eliquis and continue aspirin 81 mg p.o. daily discharge planning in 24 hrs Possible phlebitis of right saphenous vein as per ultrasound on 08/08 Warm compresses to the area Leg Elevation Multiple right inguinal lymph nodes as per right groin ultrasound on 08/08 Can be attributed to reactive lymphadenopathy due to DVT We will monitor for any signs and symptoms of infection Hyperlipidemia POA, Normal lipid panel results Continue Atorvastatin Hypertension, POA Continue metoprolol 50 mg b.i.d., losartan 100 mg p.o. daily as per Cardiology recommendation Hypokalemia Potassium 3.3 and replaced with p.o. protocol Continue Famotidine 20 mg IV bid for GI prophylaxis Continue Eliquis for DVT prophylaxis Monitor electrolytes and replace them as needed per protocol Cleared for discharge from cardiovascular surgery standpoint, doing clearance from Cardiology Pulmonology ordered 6 minute walk before the discharge. ATTESTATION BY PHYSICIAN I have seen and examined the patient. I reviewed the documentation, medical decision making, and treatment plan as noted by the resident provider above. I agree with the findings and plan of care. Dalton Le MD, KRUPALI P MD Aug 19, 2024 13:58
[2024-08-20 04:10] VITALS: BP 137/77; PULSE 84; RESP 18; TEMP 98.2
[2024-08-20 04:29] LABS: BASOPHILS # (AUTO) 0.04 K/uL (0.00-0.20); BASOPHILS % (AUTO) 0.5 % (0.0-5.0); CREATININE 0.8 mg/dL (0.5-1.3); EOSINOPHILS # (AUTO) 0.16 K/uL (0.00-0.70); EOSINOPHILS % (AUTO) 2.1 % (0.0-8.0); IMMATURE GRANULOCYTE ABSOLUTE 0.04 K/uL (0-1); LYMPHOCYTES # (AUTO) 2.5 K/uL (1.0-4.8); LYMPHOCYTES % (AUTO) 33.1 % (21.0-51.0); MAGNESIUM 1.8 mg/dL (1.80-2.40); MEAN CORPUSCULAR HEMOGLOBIN 30.5 pg (27.0-33.0); MEAN CORPUSCULAR HGB CONC 32.1 g/dL (32.0-36.0); MEAN CORPUSCULAR VOLUME 95.2 fL (79-99); MONOCYTES # (AUTO) 0.7 K/uL (0.1-1.0); MONOCYTES % (AUTO) 9.7 % (3.0-13.0); NEUTROPHILS # (AUTO) 4.1 K/uL (1.8-7.7); NEUTROPHILS % (AUTO) 54.1 % (40.0-77.0); PLATELET COUNT (AUTO) 471 K/uL (130-400); POTASSIUM 4.2 mmol/L (3.5-5.1); RED BLOOD CELL COUNT(AUTO) 3.57 MIL/uL (4.50-6.20); RED CELL DISTRIBUTION WIDTH 12.3 % (11.0-15.5); WHITE BLOOD COUNT (AUTO) 7.6 K/uL (4.8-10.8)
--- NOTE | 2024-08-20 07:16 | PN ---
[facility] Cardiology Progress Note CARDIOLOGY PROGRESS NOTE AUGUST 20, 2024 Problems: 1. Non ST-elevation [place] 2. Multivessel CAD with LV ejection fraction of 55% hypokinesis of the inferior wall status post aortocoronary bypass graft surgery with a HILLMAN graft to the LAD and saphenous vein graft to the PDA 3. Dyslipidemia 4. Right common femoral vein deep vein thrombosis 5. Normocytic anemia 6. Diabetes mellitus type 2 7. Alcohol abuse Blood pressure is ranging between 110 and 130 systolic. Heart rate is in the 80s and 70s the patient is afebrile. Hemoglobin 10.9 platelet count [id number]. Potassium 4.2 BUN 10 creatinine 0.8. The patient continues on apixaban 10 mg b.i.d. for one week then we will be reduced down to 5 mg b.i.d. for his deep vein thrombosis. In addition he is receiving aspirin atorvastatin IV furosemide gabapentin insulin scale metoprolol tartrate. CT surgery has cleared the patient for discharge. I am in agreement with this he can follow up with me in 1-2 weeks. ROSALIA LINDSAY MD Aug 20, 2024 07:15
[2024-08-20 07:47] VITALS: BP 125/73; PULSE 95; RESP 18; TEMP 98.4
[2024-08-20 08:00] VITALS: O2SAT 98
--- NOTE | 2024-08-20 09:23 | PN ---
TIME: 9:00 a.m. SUBJECTIVE: The patient is a 59-year-old gentleman, status post coronary artery bypass grafting day #8. No major issues overnight. PHYSICAL EXAMINATION: NEUROLOGIC: Alert and oriented. No deficits. CARDIAC: S1, S2. Regular rate and rhythm. RESPIRATORY: Clear to auscultation bilaterally. CHEST: Incision is clean, dry, and intact. ASSESSMENT AND PLAN: * Coronary artery disease, status post CABG, on aspirin, statin and beta-kaila. Not on any pressors at this time. * Volume overload, on Lasix b.i.d. * Hypercholesterolemia, on high statin therapy. * DVT prophylaxis, on Lovenox. Overall, the patient is doing quite well. He should be able to be discharged from a cardiac surgery standpoint. No other concerns. TID: [id number] RECEIPT: [id number]
--- NOTE | 2024-08-20 10:15 | PN ---
[facility] PROGRESS NOTE Date Patient Seen: Aug 20, 2024 Time of Visit: 10:14 Supervising Physician: Dr. Rajan Primary Care Physician: [ Francesco Gee MD] Outpatient Specialists: [none ] Inpatient Consults: [Dany Noel MD, Marcela Talbert DO, DR Khalil Aattending: Dr Paola Frye MD ] PROBLEM LIST: Postoperative hypoxic resp failure as expected, RESOLVING Left small pleural effusion not amenable for thoracentesis Multivessel CAD status post CABG x2 on 08/12/24 Acs-Nstemi Type I S/P Coronary Angiogram On 08/05/24 With Findings On Severe Two Vessel Cad With 80% Proximal Lad 100% Distal Rca Stenosis Elevated CK levels POA Leukocytosis w/ left shift Postoperative Acute blood loss anemia, not POA Essential HTN Untreated hyperglycemia in the presence of new onset Type II DM2 Alcohol abuse, POA Right femoral DVT ON Heparing gtt RT Groin hematoma 2.2 x 1.2x0.9cm Right groin lymphadenopathy Obesity INTERVAL HISTORY: DAY 7. STATUS POST CABG X2. HE CONTINUES ON HEPARIN DRIP WHICH WILL BE TRANSITIONED TO ELIQUIS 5 MG P.O. B.I.D. PER CARDIOLOGY RECOMMENDATION TODAY. HE DENIES ANY CHEST PAIN PALPITATIONS OR SHORTNESS FOR BREATH AT THIS TIME. CURRENTLY WORKING WITH HIS IS AND PHYSICAL THERAPY. INCISION SITE CLEAN DRY AND INTACT WELL APPROXIMATED NO SIGNS OF INFECTION GOOD URINE OUTPUT OF 2.3 L IN LAST 24 HOURS. H&H WITH MINIMAL DROP FROM 12.6-10.6 OF HEMOGLOBIN AND HEMATOCRIT 37.4232.2 TODAY. PLATELET COUNT IS 462 K. CHEMISTRY POTASSIUM WAS 3.3 COVERED PER PROTOCOL OTHERWISE UNREMARKABLE. PLAN IS FOR DC HOME LIKELY IN THE NEXT 24 HOURS. 08/20/2024: At the time of my evaluation, the patient is sitting up to the bedside chair. Staff reports no acute events overnight. The patient remains on room air and with optimal oxygen saturation. On the monitor, vital signs are unremarkable. Laboratory data was unremarkable. The patient remains on Eliquis, Toprol, Lasix and Lipitor. No other complaint. REVIEW OF SYSTEMS: 12 point review of system carried out. Pertinent positive as documented above, otherwise pertinent negative. PHYSICAL EXAM: GENERAL: Alert, weak, awake oriented x 3 HEENT: EOMI, Sclera non icteric, moist mucosa NECK: Supple, no JVD, trachea midline LUNGS: Clear breath sounds bilaterally. No wheezes HEART: Regular rate and rhythm. Normal S1 and S2, without murmurs. dressing to midsternal area clean dry and intact. ABD: Abdomen soft, nontender. Bowel sounds present EXT: No clubbing cyanosis or edema Skin: Surgical site benign Cordis and Chest tube insertion site benign NEURO: Alert and oriented to person, follows commands Vital Signs (last 8hr) Date Time Temp Pulse Resp B/P (MAP) Pulse Ox O2 Delivery O2 Flow Rate FiO2 08/20/24 07:47 98.4 95 18 125/73 98 Room Air 08/20/24 04:10 98.2 84 18 137/77 96 Room Air LABS: Hematology Labs: Test 08/20/24 03:53 Range/Units White Blood Count 7.6 4.8-10.8 K/uL Red Blood Count 3.57 L 4.50-6.20 MIL/uL Hemoglobin 10.9 L 14.0-18.0 g/dL Hematocrit 34.0 L 42-54 % Mean Corpuscular Volume 95.2 79-99 fL Mean Corpuscular Hemoglobin 30.5 27.0-33.0 pg Mean Corpuscular Hemoglobin Concent 32.1 32.0-36.0 g/dL Red Cell Distribution Width 12.3 11.0-15.5 % Platelet Count 471 H 130-400 K/uL Mean Platelet Volume 9.1 7.5-10.5 fL Immature Granulocyte % (Auto) 0.5 0-1 % Neutrophils (%) (Auto) 54.1 40.0-77.0 % Lymphocytes (%) (Auto) 33.1 21.0-51.0 % Monocytes (%) (Auto) 9.7 3.0-13.0 % Eosinophils (%) (Auto) 2.1 0.0-8.0 % Basophils (%) (Auto) 0.5 0.0-5.0 % Neutrophils # (Auto) 4.1 1.8-7.7 K/uL Lymphocytes # (Auto) 2.5 1.0-4.8 K/uL Monocytes # (Auto) 0.7 0.1-1.0 K/uL Eosinophils # (Auto) 0.16 0.00-0.70 K/uL Basophils # (Auto) 0.04 0.00-0.20 K/uL Absolute Immature Granulocyte (auto 0.04 0-1 K/uL Nucleated Red Blood Cells 0.0 0.0-0.19 % Chemistry Labs: Test 08/20/24 05:47 08/20/24 03:53 08/18/24 13:38 Range/Units Whole Blood Glucose 148 H 70-110 MG/DL Sodium Level 138 136-145 mmol/L Potassium Level 4.2 3.5-5.1 mmol/L Chloride Level 102 101-111 mmol/L Carbon Dioxide Level 27 21-32 mmol/L Blood Urea Nitrogen 10 7-18 mg/dL Creatinine 0.8 0.5-1.3 mg/dL Glomerular Filtration Rate Calc 103 >90 mL/min Random Glucose 142 H 70-105 mg/dL Total Calcium 9.1 8.5-10.1 mg/dL Magnesium Level 1.80 1.80-2.40 mg/dL Lactic Acid Level 2.0 0.8-2.5 mmol/L Coagulation Labs: Test 08/19/24 09:28 Range/Units Activated Partial Thromboplast Time 27.3 # 26.3-35.5 SEC DIAGNOSTICS / RADIOLOGY RESULTS: [ ] PLAN Follow CT surgeon recommendations- Heparin gtt per protocol -TRANSITIONED TO ELIQUIS PER CARDIOLOGY 5 MG P.O. B.I.D.. Follow cardiology recommendations Multimodal pain management Monitoring H&H Monitor chest tube output Chest x-ray in the morning Transfuse if absolutely necessary to keep hemoglobin above 8 Maintain O2 sats greater than 92% Incentive spirometry Glycemic control with goal of 80-180 Referral for cardiac rehabilitation Speech to eval once patient is extubated monitor electrolytes: K Goal of 4 Magnesium goal of 2 Replace accordingly 08/20/2024: For now, we are going to continue current management for the patient. Patient will continue on cardiac management per the Cardiology team/CTVS. We will follow the recommendation of the CTS and we will intervene if necessary. If the plan is to discharge patient home today, from the pulmonary/critical care team, no objection for discharge. We will call a minimal a Further orders per attending MD and hospital course. NEURO: Minimize central acting medications as possible. Maintain fall precautions, adequate lighting during the day PULMONARY: Supplemental 02 as needed. Maintain aspiration precautions at all times CARDIOVASCULAR: Follow hemodynamics. Vital signs per facility protocol GI & NUTRITION: Continue with nutritional support. Continue stool softeners and laxatives as needed. KIDNEYS & ELECTROLYTES: Strict monitoring of intake, output and overall fluid balance. Avoid nephrotoxic medications to the extent possible. Medications to be dosed according to renal function. Monitor electrolytes and replace as needed ENDOCRINE: Maintain blood glucose between 100-180 at all times. Hypoglycemia protocol in place INFECTIOUS DISEASE: Trend temperature, WBC and procalcitonin level Follow cultures, deescalate antibiotics as soon as possible. Panculture if new onset fever ONCOLOGY/HEMATOLOGY/COAGULATION: Monitor for s/s of bleeding Monitor hemoglobin, coagulation studies as needed SKIN: Pressure ulcer prevention per facility protocol Specialty mattress ORTHO/REHAB: Continue PT/OT Prophylaxis: Continue GI and DVT prophylaxis Code Status: Full Resuscitation Disposition: TBD Other: Patient was seen and case discussed with rodney RAMOS. Plan of care was discussed and agreed upon. TR LIVINGSTON NP Aug 20, 2024 10:14
--- NOTE | 2024-08-20 10:28 | NUR ---
Spoke with Dr. Lane and notified that patient cleared by cardiology and cardiothoracic surgeon to be DC home. stated she will visit patient and will proceed with DC order at that time.
[2024-08-20 11:22] VITALS: BP 123/80; PULSE 78; RESP 18; TEMP 97.8
[2024-08-20] MEDS ORDERED: BENZ-226 PO (13:23)
[2024-08-20] MEDS ORDERED: METO50 PO (13:23)
[2024-08-20] MEDS ORDERED: AEC81 PO (13:30)
[2024-08-20] MEDS ORDERED: APIX5TAB PO (13:30)
[2024-08-20] MEDS ORDERED: FURO20TA4 PO (13:30)
[2024-08-20] MEDS ORDERED: ATOR40TA69 PO (13:30)
[2024-08-20] MEDS ORDERED: GABA100C PO (13:30)
[2024-08-20] MEDS ORDERED: GUAI237L82 PO (13:31)
--- NOTE | 2024-08-20 14:00 | NUR ---
Patient alert and oriented x4, being discharged home with family care. Patient educated to follow up with PCP, Dr. Dooley and Dr. Khalil as per scheduled appointment. Patient educated on new medications list, including side effects. Patient educated to take all medications as ordered by MD. Sternal precautions reinforced. IV removed without complications. All questions answered, patient verbalized complete understanding. Patient gathered all belongings and took with him at discharge.
--- NOTE | 2024-08-20 14:01 | DS ---
Discharge Summary Hospital Course Summary: This is a case of 59-year-old male with past medical history of diabetes, hypertension and hyperlipidemia who presented to the ED on 08/05/24 with complaints of left-sided chest pain which started around 8 pm on 08/04/24 while resting. He stated that he was experiencing intermittent chest pain since the in st 2 days ago which had become persistent associated with SOB. Initial ECG revealed ST 110 right bundle branch block, inferior infarct acute and second EKG showed ST 108 right bundle branch block inferior infarct recent and the 3rd EKG showed ST 120 with Right bundle branch block Inferior infarct recent and probable posterior infarct acute. Initial Labs WBC 10.9, BNP 147, total CK 812, troponin 13,930, serum alcohol 117. While in the ER patient received aspirin 325 mg p.o., Protonix 40 mg IV, Brilinta 90 mg p.o., verapamil 5 mg IV and metoprolol 5 mg IV and was started on heparin and nitroglycerin drip. He was admitted for further assessment and treatment in view of NSTEMI. On 08/05/24, he complained of mild pressure-like left-sided chest pain and generalized body weakness. Troponin trend [id number]. He underwent left heart catheterization which revealed two-vessel coronary artery disease with 80% stenosis in the proximal LAD and 100% stenosis in the distal RCA. 2D echo revealed normal Left ventricle systolic function, estimated LVEF 55% and Indeterminate diastolic function. CV Surgery consult was obtained. On 08/06/24, BNP improved from 147-128 and TCK improved 812-575. He continued on IV heparin. On 08/08/24, he was experiencing mild chest discomfort, shortness of breath in morning when he tried to sit in the chair. He also complained of pain and discomfort over right groin. Right groin soft tissue ultrasound revealed multiple right inguinal lymph nodes, partial DVT with thrombus in right common femoral vein, possible phlebitis of great saphenous vein. Heparin drip for DVT was continued as per the Cardio recommendations. Labs hemoglobin decreased from 11.2-10.8, reticulocyte count high at 2.34, iron 18, TIBC 253,% saturation low at 7.1 indicating iron deficiency, BMP unremarkable, TCK normal at 118. He was also treated with comfort measures like ice pack limb elevation. On 08/11/24, his right groin pain and discomfort were significantly reduced. He underwent CABG on 08/12/24. Carotid US normal. Post CABG he had difficulty in breathing secondary to chest pain and discomfort. ABG revealed pH 7.45, pCO2 38, PO2 73.2, HC03 26.1 indicating mild hypoxemia and alkalosis. He also had a bad productive cough and SOB status post CABG. He was being treated with Robitussin and tessalon pearls. CT Chest PE ruled out pulmonary embolism. His medications include aspirin 81 mg, Lipitor 40 mg, Plavix 75 mg, furosemide 20 mg BID, and metoprolol 50 mg BID. Cardiology recommended Eliquis 10 mg PO bid for 7 days then 5 mg po bid. He was started on 10 mg on 08/19/24. Patient is cleared for discharge from CV surgery, Cardiology and pulmo. On 08/20/24, patient is hemodynamically stable for discharge, vitals are stable. Hemoglobin 10.9, WBC 7.6. CMP unremarkable. He is advised to follow up with PCP within 3-5 days, with CV Surgery and Cardiology in 1-2 weeks after the discharge. 08/19/24 the patient was seen and examined today, sitting comfortably on the chair. His family at the bedside. He is status post CABG day 7. He is complaining of productive cough has not gotten any better. Shortness of breath, improved. His vitals are stable. Labs showed WBC 8.3, hemoglobin 10.6, sodium 138, potassium 3.3 and replaced with p.o. protocol, BUN11 and creatinine 0.7. Cardiology discontinued heparin and clopidogrel and advised to continue with mg and added Eliquis 10 mg b.i.d. for 1 week then5 mg b.i.d. after that. We will monitor him gnqudef20 hours after starting Eliquis. Cardiova scular surgery cleared him for discharge. Pending cardiology clearance for discharge. Pulmonology recommended 6 minute walk to see any home O2 requirement on discharge. Likely discharge tomorrow if he is cleared from Cardiology standpoint. Vp Of Product(s): Cardiovascular surgery : , Cardiology : Dr. Madrid, Critical care : Dr. Saenz Procedure(s): OPERATIVE REPORT Name: MAYRA JUDD Acct: [id number] MR: [id number] : 1965 Admit Date: 08/05/24 KEYA CALVO MD [place] [id number] [address] DATE OF PROCEDURE: 08/12/2024 PREOPERATIVE DIAGNOSIS: Coronary artery disease. POSTOPERATIVE DIAGNOSIS: Coronary artery disease. PROCEDURE PERFORMED: Off-pump CABG x 2, HILLMAN to LAD and reverse saphenous vein graft to PDA. SURGEON: Keya Calvo MD SCREEN OPERATOR: Ovi Gee. ANESTHESIA: Jaylen Mckeon DO CARDIOLOGY: Rosalia Madrid MD DISPOSITION: Stable. COMPLICATIONS: None. ESTIMATED BLOOD LOSS: 500 mL. BLOOD UTILIZATION: None. IMPLANTS: Three ANTIONETTE plates with eighteen #16 gauge screws. INDICATIONS: This is a patient of Dr. Madrid. I had the opportunity to review the medical record, examined the patient and discussed the case with the caring shopping centre manager. We both agreed surgery as indicated, and we have recommended. The patient understood the indications of surgery as well as the potential complications of the operation including but not limited to postoperative bleeding, infection, stroke, and/or , as well as the associated morbidity and mortality of the procedure as it relates to his own comorbidities and is depicted in the manner of morbidity and mortality in the Society of Thoracic Surgeons' clinical current database. He wished to proceed with surgery. [address] [address] IMAGING REPORT Signed PATIENT: MAYRA JUDD MR#: [id number] : 1965 SEX: M AGE: 59 LOCATION: EDHIP ORDER 5 STATUS: ADM IN REPORT#: [id number] SERVICE 3 REASON: cp ORDERING PHYSICIAN: YVON CARDOZO MD PROCEDURE: CXR1VW - CHEST 1VW Exam Type: CHEST 1VW Clinical Information: cp Comparison: None Findings: The lungs are clear of infiltrates. The heart is normal in size. The bony and soft tissue structures of the chest are unremarkable. Impression: Clear lungs. DICTATED BY: EJ BLAIR MD DATE: 08/05/24924 ELECTRONICALLY SIGNED BY: EJ BLAIR MD DATE: 08/05/24927 [place] [address] [place] [phone] IMAGING REPORT Signed PATIENT: MAYRA JUDD MR#: [id number] : 1965 SEX: M AGE: 59 LOCATION: 2CV ORDER 4 STATUS: ADM IN REPORT#: [id number] SERVICE REASON: chest pain ORDERING PHYSICIAN: BOBBI TIPTON PROCEDURE: ECHO CMP - ECHO 2-D COMPLETE APPROVED REPORT EXAM: Two-dimensional and M-mode echocardiogram with Doppler and color Doppler. INDICATION ICD: Chest Pain 2D Dimensions RVDd 3.3 cm LVEF(%) 41.7 (>50%) LVED Vol(simp.) 84.4 mL IVSd 1.0 (0.7-1.1cm) FS(%) 20 % LVES Vol(simp.) 39.1 mL LVDd 3.8 (3.8-5.6cm) LA (2D) 3.0 (1.6-4.0cm) LVEF(%, simp.) 54 % PWd 1.0 (0.7-1.1cm) Ao Root(2D) 3.2 (2.0-3.7cm) LA ESV INDEX (BP) 20.57 mL/m2 LVDs 3.0 (2.5-4.0cm) LVOT diam 1.8 (1.8-2.4cm) IVC diam 1.4 cm Deformation Strain Apical 4 -14.4 % Apical 2 -14.4 % Apical 3 -13.5 % Global Strain -14.1 % M-Mode Dimensions EPSS 0.7 cm LA (MM) 3.3 (1.6-4.0cm) Ao Root(MM) 3.4 (2.0-3.7cm) Aortic Valve AoV Vmax 1.5 m/s Ao Peak GR 8.6 mmHg LVOT Vmax 1.1 m/s AoV VTI 0.2 m Ao Mean GR 4.4 mmHg LVOT VTI 0.16 m YEHUDA (VMAX) 1.88 cm2 YEHUDA (VTI) 1.8 cm2 Mitral Valve MV E Vmax 50.0 cm/s P 1/2 T 32 ms MVA (PHT) 6.9 cm2 TDI E/E' Medial 7.1 E/E' Lateral 5.0 Medial E' Peak V 7.08 cm/s Lateral E' Peak V 10.04 cm/s Pulmonary Valve PV Vmax 1.2 m/s PV VTI 0.18 m PV Mean GR 3.1 mmHg PV Peak GR 5.9 mmHg Left Ventricle The left ventricle is normal size. The basal inferior wall is hypokinetic. The mid/apical inferior wall is normal in function. The anterior, anterolateral, inferolateral, septal, and apical carroll are normal in function. Mild concentric left ventricular hypertrophy. Left ventricle systolic function is normal, estimated LV EF 55%. Indeterminate diastolic function. Right Ventricle The right ventricle is normal size. The right ventricular systolic function is normal. Atria The left atrium size is normal. The right atrium size is normal. Aortic Valve The aortic valve is normal in structure. No aortic regurgitation is present. There is no aortic valvular stenosis. Mitral Valve The mitral valve is normal in structure. Trace mitral regurgitation. There is no mitral valve stenosis. Tricuspid Valve The tricuspid valve is normal in structure. Trace tricuspid regurgitation. RVSP is normal. Pulmonic Valve Pulmonic valve is not well visualized. Great Vessels The aortic root is normal in size. The IVC is normal in size and collapses >50% with inspiration. Pericardium There is no pericardial effusion. Conclusion The cardiac chambers are normal in size. Mild concentric left ventricular hypertrophy. The basal inferior wall is hypokinetic. The mid/apical inferior wall is normal in function. The anterior, anterolateral, inferolateral, septal, and apical carroll are normal in function. Left ventricle systolic function is normal, estimated LVEF 55%. Indeterminate diastolic function. Trace mitral regurgitation. Trace tricuspid regurgitation. PASP is normal. There is no pericardial effusion. DICTATED BY: ROSALIA MADRID MD DATE: 08/05/24 0850 ELECTRONICALLY SIGNED BY: ROSALIA MADRID MD DATE: 08/06/24 0055 [place] [address] [address] IMAGING REPORT Signed PATIENT: MAYRA JUDD MR#: [id number] : 1965 SEX: M AGE: 59 LOCATION: 2CV ORDER 1246 STATUS: ADM IN REPORT#: [id number] SERVICE 1240 REASON: RT GROIN DISCOMFORT ORDERING PHYSICIAN: TABATHA SNOW MD PROCEDURE: SOFT GROIN - US SOFT TISSUE GROIN Superficial ultrasound for possible hematoma- right groin Clinical Information: Pain Comparison: None Findings: No fluid collections or masses are seen. Significantly, there is no evidence of hematoma. No increased fluid throughout the visualized tissue planes is identified. No lymphadenopathy is identified. Impression: No evidence of hematoma or fluid collections or other abnormalities. DICTATED BY: EJ BLAIR MD DATE: 08/06/241434 ELECTRONICALLY SIGNED BY: EJ BLAIR MD DATE: 08/06/241437 [address] [address] IMAGING REPORT Signed PATIENT: MAYRA JUDD MR#: [id number] : 1965 SEX: M AGE: 59 LOCATION: 2DH ORDER 1028 STATUS: ADM IN REPORT#: [id number] SERVICE 1024 REASON: Right groin pain, bruising, to rule out hematoma ORDERING PHYSICIAN: TABATHA SNOW MD PROCEDURE: SOFT GROIN - US SOFT TISSUE GROIN US SOFT TISSUE GROIN REASON: Right groin pain, bruising, to rule out hematoma. COMPARISON: None TECHNIQUE: Right groin ultrasound study was performed. FINDINGS: Multiple right inguinal lymph nodes are seen with the largest measuring 1.5 x 0.5 cm. Normal flow is seen in the right common femoral artery. Noncompressible thrombus is seen in the right common femoral vein suggestive of deep venous thrombosis. No noncompressible thrombus is seen in the right superficial femoral, popliteal, and posterior tibial vein. There may be phlebitis with thickening of the wall of the right greater saphenous vein. IMPRESSION: Multiple right inguinal lymph nodes. Finding consistent with partial deep venous thrombosis with thrombus in right common femoral vein. DICTATED BY: KALLIE EDWARDS MD DATE: 08/08/241917 ELECTRONICALLY SIGNED BY: KALLIE EDWARDS MD DATE: 08/08/241923 [place] [address] [phone] IMAGING REPORT Signed PATIENT: MAYRA JUDD MR#: [id number] : 1965 SEX: M AGE: 59 LOCATION: 2CV ORDER 99 [facility]US: [facility] REPORT#: [id number] SERVICE 9 REASON: preop CABG ORDERING PHYSICIAN: KEYA CALVO MD PROCEDURE: CAROTID - US CAROTID DUPLEX US CAROTID DUPLEX REASON: preop CABG TECHNIQUE: Exam was performed using spectral analysis and color flow imaging. FINDINGS: Color flow Doppler ultrasound shows normal-appearing bifurcations. There is no anatomic evidence of significant focal narrowing. Flow velocities and velocity ratios appear normal throughout. There is antegrade flow in both vertebral arteries. RIGHT CAROTID: CCA: 69 cm/sec ICA: 86 cm/sec Ratio: ICA/CCA: 1.2 ECA: 87 cm/sec Vertebral artery: 39 cm/sec LEFT CAROTID: CCA: 102 cm/sec ICA: 101 cm/sec Ratio: ICA/CCA: 0.9 ECA: 106 cm/sec Vertebral artery: 20 cm/sec IMPRESSION: Normal bilateral carotid Doppler ultrasound. DICTATED BY: MOIZ HANKINS MD DATE: 08/12/24 1353 ELECTRONICALLY SIGNED BY: MOIZ HANKINS MD DATE: 08/12/24 1355 [place] [address] [phone] IMAGING REPORT Signed PATIENT: MAYRA JUDD MR#: [id number] : 1965 SEX: M AGE: 59 LOCATION: 2CV ORDER 99 STATUS: ADM IN REPORT#: [id number] SERVICE 06 REASON: preop CABG ORDERING PHYSICIAN: KEYA CALVO MD PROCEDURE: CXR1VW - CHEST 1VW CHEST 1VW REASON: preop CABG COMPARISON: 08/05/2024 FINDINGS: Single view of the chest was obtained. Lungs are clear. Heart size is normal. There is no pulmonary vascular congestion. Mediastinum and bony thorax appear unremarkable. IMPRESSION: 1. Normal view chest x-ray. DICTATED BY: MOIZ HANKINS MD DATE: 08/12/24 1314 ELECTRONICALLY SIGNED BY: MOIZ HANKINS MD DATE: 08/13/24 0905 [facility] [address] [place] [phone] IMAGING REPORT Signed PATIENT: MAYRA JUDD MR#: [id number] : 1965 SEX: M AGE: 59 LOCATION: 2CV ORDER 1527 STATUS: ADM IN REPORT#: [id number] SERVICE 1700 REASON: s/p CABG ORDERING PHYSICIAN: KEYA CALVO MD PROCEDURE: CXR1VW - CHEST 1VW CHEST 1VW HISTORY: Post CABG COMPARISON: 08/12/2024 FINDINGS: A frontal projection of the chest was obtained. Mild bilateral pulmonary infiltrates are seen may be related to mild pulmonary vascular congestion with possible superimposed pneumonitis. Poststernotomy changes are seen. The heart is enlarged. Degenerative changes of the thoracolumbar spine are present. All the lines and tubes are again seen in place. No evidence of aortic calcification is seen. IMPRESSION: 1. Mild bilateral pulmonary infiltrates are seen may be related to mild pulmonary vascular congestion with possible superimposed pneumonitis. DICTATED BY: KALLIE EDWARDS MD DATE: 08/12/241957 ELECTRONICALLY SIGNED BY: KALLIE EDWARDS MD DATE: 08/12/242003 [facility] [address] [place] [phone] IMAGING REPORT Signed PATIENT: MAYRA JUDD MR#: [id number] : 1965 SEX: M AGE: 59 LOCATION: 2CH ORDER 2300 STATUS: ADM IN REPORT#: [id number] SERVICE 0400 REASON: s/p CABG ORDERING PHYSICIAN: KEYA CALVO MD PROCEDURE: CXR1VW - CHEST 1VW CHEST 1VW REASON: s/p CABG COMPARISON: 08/12/2024 FINDINGS: Heart size appears larger. Lungs are clear. There is no vascular congestion or pleural effusion. ET and NG tubes have been removed. [place] introducer sheath remains in place. IMPRESSION: 1 stable postop chest. DICTATED BY: MOIZ HANKINS MD DATE: 08/13/24 1329 ELECTRONICALLY SIGNED BY: MOIZ HANKINS MD DATE: 08/13/24 1332 [place] [address] [address] IMAGING REPORT Signed PATIENT: MAYRA JUDD MR#: [id number] : 1965 SEX: M AGE: 59 LOCATION: 2CH ORDER 2300 STATUS: ADM IN REPORT#: [id number] SERVICE 0400 REASON: s/p CABG ORDERING PHYSICIAN: KEYA CALVO MD PROCEDURE: CXR1VW - CHEST 1VW CHEST 1VW REASON: s/p CABG COMPARISON: 08/13/2024 FINDINGS: There is mild cardiomegaly, unchanged. There is no pulmonary vascular congestion. Lungs are clear. [place] introducer sheath remains in place. There is no pneumothorax. IMPRESSION: 1. Stable postop chest. DICTATED BY: MOIZ HANKINS MD DATE: 08/14/24 1241 ELECTRONICALLY SIGNED BY: MOIZ HANKINS MD DATE: 08/14/24 1244 [facility] [address] [place] [phone] IMAGING REPORT Signed PATIENT: MAYRA JUDD MR#: [id number] : 1965 SEX: M AGE: 59 LOCATION: 2CH ORDER 2300 STATUS: ADM IN REPORT#: [id number] SERVICE 0400 REASON: s/p CABG ORDERING PHYSICIAN: KEYA CALVO MD PROCEDURE: CXR1VW - CHEST 1VW Exam Type: CHEST 1VW Clinical Information: s/p CABG Comparison: None Findings and impression: Removal of the previously seen left-sided chest tube. No pneumothorax. No other interval changes. DICTATED BY: EJ BLAIR MD DATE: 08/15/24901 ELECTRONICALLY SIGNED BY: EJ BLAIR MD DATE: 08/15/24 09 [place] [address] [phone] IMAGING REPORT Signed PATIENT: MAYRA JUDD MR#: [id number] : 1965 SEX: M AGE: 59 LOCATION: 2CH ORDER 184 STATUS: ADM IN REPORT#: [id number] SERVICE 183 REASON: R/O PSEUDOANEURYSM OF RIGHT GROIN ORDERING PHYSICIAN: EVONNE RIZVI MD PROCEDURE: SOFT GROIN - US SOFT TISSUE GROIN Exam Type: US SOFT TISSUE GROIN Clinical Information: R/O PSEUDOANEURYSM OF RIGHT GROIN Comparison: None Findings and impression: Right groin hematoma seen measuring 2.2 x 0.9 cm. Partial thrombosis right common femoral vein. Normal-appearing lymph nodes of the right groin. No patent pseudoaneurysm seen. DICTATED BY: EJ BLAIR MD DATE: 08/16/24 0936 ELECTRONICALLY SIGNED BY: EJ BLAIR MD DATE: 08/16/24 0940 [place] [address] [phone] IMAGING REPORT Signed PATIENT: MAYRA JUDD MR#: [id number] : 1965 SEX: M AGE: 59 LOCATION: 2CH ORDER 2300 STATUS: ADM IN REPORT#: [id number] SERVICE 0400 REASON: s/p CABG ORDERING PHYSICIAN: KEYA CALVO MD PROCEDURE: CXR1VW - CHEST 1VW Exam Type: CHEST 1VW Clinical Information: s/p CABG Comparison: None Findings: Pulmonary pattern is as before. No worrisome interval changes have taken place. Impression: Stable exam. DICTATED BY: EJ BLAIR MD DATE: 08/16/24 0856 ELECTRONICALLY SIGNED BY: EJ BLAIR MD DATE: 08/16/24 0865 [facility] [address] [place] [phone] IMAGING REPORT Signed PATIENT: MAYRA JUDD MR#: [id number] : 1965 SEX: M AGE: 59 LOCATION: 2AH ORDER 2300 STATUS: ADM IN REPORT#: [id number] SERVICE 0400 REASON: s/p CABG ORDERING PHYSICIAN: KEYA CALVO MD PROCEDURE: CXR1VW - CHEST 1VW INDICATION: s/p CABG TECHNIQUE: CHEST 1VW COMPARISON: None FINDINGS AND IMPRESSION: Continued bilateral airspace consolidation Mild cardiomegaly with CABG changes. Mild degenerative changes of the spine. The visualized upper abdomen appears unremarkable. DICTATED BY: TOM GANDHI MD DATE: 08/17/24 0918 ELECTRONICALLY SIGNED BY: TOM GANDHI MD DATE: 08/17/24 0921 [facility] [address] [place] [phone] IMAGING REPORT Signed PATIENT: MAYRA JUDD MR#: [id number] : 1965 SEX: M AGE: 59 LOCATION: 2AH ORDER 2300 STATUS: ADM IN REPORT#: [id number] SERVICE 0600 REASON: SOB, chest pain status post CT ORDERING PHYSICIAN: LUISANA NARAYANAN MD PROCEDURE: CXR1VW - CHEST 1VW Exam Type: CHEST 1VW Clinical Information: SOB, chest pain status post CT Comparison: None Findings: There is cardiomegaly and there is status post median sternotomy. The lungs are clear of infiltrates. Impression: Clear lungs. DICTATED BY: EJ BLAIR MD DATE: 08/18/24827 ELECTRONICALLY SIGNED BY: EJ BLAIR MD DATE: 08/18/24830 [facility] [address] [place], [place] [phone] IMAGING REPORT Signed PATIENT: MAYRA JUDD MR#: [id number] : 1965 SEX: M AGE: 59 LOCATION: 2AH ORDER 99 STATUS: ADM IN REPORT#: [id number] SERVICE 08 REASON: Right leg DVT, cough, SOB, chest pain ORDERING PHYSICIAN: EVONNE RIZVI MD PROCEDURE: CHES PE - CT CHEST PE PROTOCOL WWO CONT CT angiogram chest CLINICAL INDICATION: Right leg DVT, cough, SOB, chest pain COMPARISON: None. CT Dose Index (CTDI): 113.50 mGy Dose Length Product (DLP): 1408.10 total mGy PROTOCOL: Contrast: 100 cc of Isovue-370, injected IV, no complications Examination is done at 2.5 millimeter volumetric acquisition after contrast administration. Photography is done at 5 millimeter thick intervals for the thorax. FINDINGS: There is no evidence of pulmonary embolism. The airway is intact. The trachea and major bronchi are unremarkable. No pulmonary infiltrates or mass lesions are seen. Bilateral small pleural effusions with minimal bilateral basal passive atelectasis, somewhat more prominent on the left side. The exam of the jeff and mediastinum is unremarkable. No evidence of hilar enlargement is seen. The aorta shows no aneurysmal dilatation or significant atheromatous calcification. There is no thoracic aortic dissection. No significant brachiocephalic vascular abnormalities are seen. The heart is enlarged. There is status post CABG and median sternotomy. Significant calcifications of the [place] coronary arteries is identified. There is no pericardial effusion. The rib cage appears unremarkable. The soft tissues of the chest wall are unremarkable. The dorsal spine shows no significant abnormalities. Upper abdomen shows cholelithiasis. IMPRESSION: No evidence of pulmonary embolism. Other findings as described. This study was performed using dose reduction techniques to include automated exposure control and/or adjustment of the mA and/or kV according to patient size. DICTATED BY: EJ BLAIR MD DATE: 08/18/24847 ELECTRONICALLY SIGNED BY: EJ BLAIR MD DATE: 08/18/2453 RUN DATE: 08/13/24 [facility] PAGE 1 RUN TIME: [id number] [address] Department of Laboratories CLIA # [id number] Heater Worker: Yvonne Yin DO Specimen Report --- --------- PATIENT: MAYRA JUDD ACCT: [id number] LOC: 2CV U: [id number] AGE/SX: 59/M ROOM: 214 RE08/05/[address]: KRAIG EMMANUEL MD : 1965 BED: 1 DIS: STATUS: ADM IN TLOC: SPEC: [id number] [place]ARK[place]: 08/12/24-1212 STATUS: COMP REQ: [id number] RECD: 08/12/24-[address]: KEYA CALVO MD SOURCE: NASAL ENTR: 08/11/24-[address]: FRANCESCO ANTONIO MD SPDESC: KRAIG EMMANUEL MD, MICHAIL MD RODRIGUEZ,TRACEE JOHNSON,DONELL ORDERED: MRSA BY PCR Procedure Result Mckayla Date-Time MRSA NASAL SCREEN-PCR Final 08/13/24-1125 MRL RESULT: NEGATIVE FOR MRSA TARGET DNA. @ [facility] Test Performed at: [facility] [address], [place], [place] [facility] Cns: Mitchell Russell D.O. [address] [phone] ELECTRO CARDIOGRAM Signed PATIENT: MAYRA JUDD MR#: [id number] : 1965 SEX: M AGE: 59 LOCATION: [facility] ROOM/BED: [facility] ORDER 0354 [id number] REPORT#: [id number] REASON: ORDERING PHYSICIAN: KEYA CALVO MD PROCEDURE: EKG - 12 LEAD EKG TRACING- TECHNICAL [facility] Test Date: 2024-08-14 Test Time: 03:37:36 Pat Name: MAYRA JUDD Department: [facility] Patient [place]: [id number] Room: [facility] Gender: Male Care Manager Cna: MARLENA : 1965 Requested By: KEYA CALVO Order Number: [id number] Julian MD: Francesco Gee Measurements Intervals [place] Rate: 108 P: 42 AK: 158 QRS: -46 QRSD: 136 T: -10 QT: 368 QTc: 493 Interpretive Statements Sinus tachycardia Left axis deviation Right bundle branch block Minimal voltage criteria for LVH, may be normal variant Inferior infarct , age undetermined Anterior injury pattern ACUTE OK / STEMI Compared to ECG 08/14/2024 03:36:41 Left-axis deviation now present Left ventricular hypertrophy now present Myocardial infarct finding still present Electronically Signed On 08-14-2024 11:35:14 CDT by Francesco Gee Please click the below link to view image of tracing. [address] [address] ELECTRO CARDIOGRAM Signed PATIENT: MAYRA JUDD MR#: [id number] : 1965 SEX: M AGE: 59 LOCATION: [facility] ROOM/BED: [facility] ORDER 1523 [id number] REPORT#: [id number] REASON: ORDERING PHYSICIAN: KEYA CALVO MD PROCEDURE: EKG - 12 LEAD EKG TRACING- TECHNICAL [facility] Test Date: 2024-08-12 Test Time: 16:40:42 Pat Name: MAYRA JUDD Department: 2C Patient ID: [id number] Room: [facility] Gender: M Care Manager Cna: Perico LAI : 1965 Requested By: KEYA CALVO Order Number: [id number] Julian MD: Chad Cortez Measurements Intervals [place] Rate: 76 P: 55 AK: 186 QRS: -65 QRSD: 145 T: -40 QT: 450 QTc: 508 Interpretive Statements Sinus rhythm Right bundle branch block Inferior infarct, age indeterminate RBBB Compared to ECG 08/12/2024 06:06:21 No significant changes Electronically Signed On 08-13-2024 19:34:51 CDT by Chad Cortez Please click the below link to view image of tracing. [facility] [address] [place], [place] [id number] ELECTRO CARDIOGRAM Signed PATIENT: MAYRA JUDD MR#: [id number] : 1965 SEX: M AGE: 59 LOCATION: 2CV ROOM/BED: 214-1 ORDER [id number] REPORT#: [id number] REASON: ORDERING PHYSICIAN: KEYA CALVO MD PROCEDURE: EKG - 12 LEAD EKG TRACING- TECHNICAL [facility] Test Date: 2024-08-12 Test Time: 06:06:21 Pat Name: MAYRA JUDD Department: [facility] Room: 214 Gender: M Care Manager Cna: [id number] : 1965 Requested By: KEYA CALVO Order Number: [id number] Julian MD: Ricardo Saenz Measurements Intervals [place] Rate: 73 P: 46 AK: 176 QRS: -58 QRSD: 142 T: -36 QT: 408 QTc: 451 Interpretive Statements Sinus rhythm Right bundle branch block Inferior infarct, age indeterminate Compared to ECG 08/05/2024 10:27:40 No significant changes Electronically Signed On 08-12-2024 22:16:54 CDT by Ricardo Saenz Please click the below link to view image of tracing. [facility] [address] [address] [place], [place] [address] ELECTRO CARDIOGRAM Signed PATIENT: MAYRA JUDD MR#: [id number] : 1965 SEX: M AGE: 59 LOCATION: 2CV ROOM/BED: 211-1 ORDER [id number] REPORT#: [id number] REASON: ORDERING PHYSICIAN: ROSALIA ZHENG AGPCNP PROCEDURE: EKG - 12 LEAD EKG TRACING- TECHNICAL [facility] Test Date: 2024-08-05 Test Time: 10:27:40 Pat Name: MAYRA JUDD Department: 2CV Patient [facility]: [id number] Room: 211 1 Gender: M Care Manager Cna: [id number] : 1965 Requested By: ROSALIA ZHENG Order Number: [id number] Julian RAMOS: Giovani Wayne Measurements Intervals [place] Rate: 97 P: 53 AK: 169 QRS: -72 QRSD: 132 T: -19 QT: 375 QTc: 478 Interpretive Statements Sinus rhythm Right bundle branch block Inferior infarct, recent Compared to ECG 08/05/2024 02:49:30 Sinus tachycardia no longer present Myocardial infarct finding still present Electronically Signed On 08-06-2024 17:31:15 CDT by Giovani Wayne Please click the below link to view image of tracing. [place] [address] [address] ELECTRO CARDIOGRAM Signed PATIENT: MAYRA JUDD MR#: [id number] : 1965 SEX: M AGE: 59 LOCATION: 2CV ROOM[facility]BED: [id number] [id number] REPORT#: [id number] REASON: ORDERING PHYSICIAN: YVON CARDOZO MD PROCEDURE: EKG - 12 LEAD EKG TRACING- TECHNICAL [facility] Test Date: 2024-08-05 Test Time: 02:49:30 Pat Name: MAYRA JUDD Department: 2CV Patient ID: [id number] Room: [facility] Gender: M Care Manager Cna: [id number] : 1965 Requested By: YVON CARDOZO Order Number: [id number] Julian MD: Giovani Wayne Measurements Intervals [place] Rate: 120 P: 64 AK: 155 QRS: -88 QRSD: 134 T: -44 QT: 342 QTc: 484 Interpretive Statements Sinus tachycardia Right bundle branch block Inferior infarct, recent Probable posterior infarct, acute Compared to ECG 08/05/2024 02:15:11 No significant changes Electronically Signed On 08-06-2024 17:30:32 CDT by Giovani Wayne Please click the below link to view image of tracing. [place] [address] [id number] ELECTRO CARDIOGRAM Signed PATIENT: MAYRA JUDD MR#: [id number] : 1965 SEX: M AGE: 59 LOCATION: 2CV ROOM/BED: [facility] ORDER [id number] REPORT#: [id number] REASON: ORDERING PHYSICIAN: YVON CARDOZO MD PROCEDURE: EKG - 12 LEAD EKG TRACING- TECHNICAL [facility] Test Date: 2024-08-05 Test Time: 02:15:11 Pat Name: MAYRA JUDD Department: 2CV Patient ID: [id number] Room: [facility] Gender: M Care Manager Cna: [id number] : 1965 Requested By: YOVN CARDOZO Order Number: [id number] [place] MD: Giovani Wayne Measurements Intervals [place] Rate: 110 P: 43 AK: 167 QRS: -75 QRSD: 138 T: 1 QT: 344 QTc: 465 Interpretive Statements Sinus tachycardia Right bundle branch block Inferior infarct, acute (RCA) Probable posterior infarct, acute No previous ECG available for comparison Electronically Signed On 08-06-2024 17:30:31 CDT by Giovani Wayne Please click the below link to view image of tracing. Assessment/Plan: ASSESSMENT: Chest pain, resolved Productive cough status post CABG, not POA ACS- NSTEMI POA Multivessel CAD with LV ejection fraction of 55% hypokinesis of the inferior wall status post CABG with a HILLMAN graft to the LAD and saphenous vein graft Severe 2-vessel CAD with 80% proximal LAD and 100% distal RCA stenosis by coronary angiogram on 08/05/2024 Alcohol Intoxication POA Uncontrolled diabetes POA Acute anemia, not POA Right common femoral vein thrombus, as per right groin ultrasound on 08/08, No evidence of pulmonary embolism on CT angiogram of the chest 08/18/2024 Possible phlebitis of great saphenous vein as per right groin ultrasound on 08/08 Multiple right inguinal lymph nodes as per right groin ultrasound on 08/08 Obesity POA Hypokalemia, resolved Hyperlipidemia POA Hypertension POA Elevated CK POA Active alcohol drinker POA Hypoalbuminemia Discharge Instructions: ADMISSION DATE : 08/05/24 DISCHARGE DATE : 08/20/24 DISPOSITION : Home CONDITION : Stable Vp Of Product(s) : Cardiovascular surgery : , Cardiology : Dr. Madrid, Critical care : Dr. Saenz FOLLOW UP APPOINTMENTS : Patient to follow-up with the PCP within 3-5 days and with cardiovascular surgeon in 1-2 weeks, with Cardiology in 1-2 weeks upon discharge. PROCEDURES : Report attached to summary : CABG IMAGING (s) : Report attached to summary : Chest x-ray, chest CT, soft tissue ultrasound, carotid artery ultrasound, 2D echo, biology laboratory assistant procedure and EKG MICROBIOLOGY : Report attached to summary. Nasal MRSA ACTIVITY : ab janis HOME MEDICATIONS : Continue NEW MEDICATIONS : Eliquis 10 mg PO bid for 1 week, then 5 mg bid PO Tessalon pearls and Robitussin DM for cough TEACHING : We reinforced the importance of medication compliance and with follow up appointments. Advised patient to follow-up with the PCP within 3-5 days and with cardiovascular surgeon in 1-2 weeks, with Cardiology in 1-2 weeks upon discharge. Emergency instructions : The patient was instructed to present to the nearest Emergency Department or call 911 should their symptoms return or worsen. Home Medications: Reported Medications Metoprolol Succinate (Metoprolol Succinate) 100 Mg Tab.er.24h, 1 TAB PO DAILY for 30 Days, #30 TAB 0 Refills 08/05/24 Metformin HCl (Metformin HCl) 1,000 Mg Tablet, 1 TAB PO BID for 30 Days, #60 TAB 0 Refills 08/05/24 New Medications: Furosemide (Furosemide) 20 Mg Tablet 20 MG PO BID, #30 TAB Guaifenesin/Dextromethorphan (Robitussin Cough-Chest Dm Liq) 100 Mg-5 Mg/5 Ml Liquid 5 ML PO Q6H for 6 Days, #120 ML 0 Refills Apixaban (Eliquis) 5 Mg Tablet 10 MG PO BID, #11 TAB Apixaban (Eliquis) 5 Mg Tablet 5 MG PO BID, #30 TAB Aspirin (Aspirin 81 Mg Ectab) 81 Mg Ectab 81 MG PO DAILY, #30 TAB.EC Atorvastatin Calcium (Lipitor) 40 Mg Tablet 40 MG PO HS, #30 TAB Benzonatate (Benzonatate) 100 Mg Capsule 100 MG PO Q8H PRN for COUGH, #45 CAP Gabapentin (Neurontin) 100 Mg Capsule 200 MG PO TID, #45 CAP Metoprolol Tartrate (Lopressor 50Mg Tab) 50 Mg Tab 50 MG PO BID, #60 TAB Continued Medications: Metformin HCl (Metformin HCl) 1,000 Mg Tablet 1 TAB PO BID for 30 Days, #60 TAB 0 Refills Discontinued Medications: Metoprolol Succinate (Metoprolol Succinate) 100 Mg Tab.er.24h 1 TAB PO DAILY for 30 Days, #30 TAB 0 Refills Time spent arranging discharge: 31-60 minutes ATTESTATION BY PHYSICIAN I have seen and examined the patient. I reviewed the documentation, medical decision making, and treatment plan as noted by the resident provider above. I agree with the findings and plan of care. Dalton Le MD, KRUPALI P MD Aug 20, 2024 14:01
--- NOTE | 2024-08-20 16:38 | NUR ---
Pt d/c before RD could assess due to LOS >7 Addendum: 08/20/24 at [address] Amended: Links added.
[2024-08-26] MEDS ORDERED: APIXaban 5 MG TABLET PO SCH (09:00)
== END 2024-08-20 14:16 | disposition home or self-care (01) | DRG 234 ==
LOC: EDH 02:10 → EDHIP 02:11 → 2CV 09:49 → 2DH 08-08 17:46 → 2CV 08-12 12:26 → 2CH 08-13 12:50 → 2AH 08-16 18:00
PROVIDERS: ADMIT Internal Medicine; ATTEND Internal Medicine
PROC: 4A023N7 Measurement of Cardiac Sampling and Pressure, Left Heart, Percutaneous Approach (ICD-10-PCS; principal; 2024-08-05)
PROC: B2111ZZ Fluoroscopy of Multiple Coronary Arteries using Low Osmolar Contrast (ICD-10-PCS; 2024-08-05)
PROC: 06BQ4ZZ Excision of Left Saphenous Vein, Percutaneous Endoscopic Approach (ICD-10-PCS; 2024-08-12)
PROC: 0PH000Z Insertion of Rigid Plate Internal Fixation Device into Sternum, Open Approach (ICD-10-PCS; 2024-08-12)
PROC: B24BZZ4 Ultrasonography of Heart with Aorta, Transesophageal (ICD-10-PCS; 2024-08-12)
PROC: 021009W Bypass Coronary Artery, One Artery from Aorta with Autologous Venous Tissue, Open Approach (ICD-10-PCS; 2024-08-12 13:00)
PROC: 02100Z9 Bypass Coronary Artery, One Artery from Left Internal Mammary, Open Approach (ICD-10-PCS; 2024-08-12 13:00)
DX: I21.4 Non-ST elevation (NSTEMI) myocardial infarction (principal); D62 Acute posthemorrhagic anemia; E87.3 Alkalosis; I23.7 Postinfarction angina; I82.413 Acute embolism and thrombosis of femoral vein, bilateral; Z20.822 Contact with and (suspected) exposure to COVID-19; D50.9 Iron deficiency anemia, unspecified; I10 Essential (primary) hypertension; E11.65 Type 2 diabetes mellitus with hyperglycemia; E66.9 Obesity, unspecified; E78.5 Hyperlipidemia, unspecified; I45.10 Unspecified right bundle-branch block; E87.6 Hypokalemia; I25.10 Atherosclerotic heart disease of native coronary artery without angina pectoris; R59.1 Generalized enlarged lymph nodes; E78.00 Pure hypercholesterolemia, unspecified; D72.829 Elevated white blood cell count, unspecified; E87.70 Fluid overload, unspecified; F10.129 Alcohol abuse with intoxication, unspecified; E88.09 Other disorders of plasma-protein metabolism, not elsewhere classified; Z79.01 Long term (current) use of anticoagulants; Z79.02 Long term (current) use of antithrombotics/antiplatelets; Z79.82 Long term (current) use of aspirin; Z79.899 Other long term (current) drug therapy; Z86.718 Personal history of other venous thrombosis and embolism; Z86.72 Personal history of thrombophlebitis
CPT/HCPCS: 36415; 36600; 71045; 71270; 76882; 80048; 80053; 80061; 80305; 81003; 82010; 82330; 82435; 82550; 82607; 82728; 82803; 82947; 82948; 83036; 83605; 83735; 83880; 84100; 84132; 84295; 84443; 84484; 85018; 85025; 85027; 85347; 85610; 85730; 86850; 86900; 86901; 86923; 87426; 87641; 87804; 93005; 93306; 93312; 93325; 93356; 93458; 93880; 93971; 94002; 94010; 94150; 94640; 94664; 94760; 99156; 99157; 99291; A4450; A7048; C1760; C1894; G0378; J0360; J0583; J0690; J0696; J1644; J1650; J1756; J1815; J1940; J2003; J2250; J2270; J2405; J2440; J2470; J2704; J2720; J3010; J3411; J3475; J3480; J3490; J7030; J7040; Q9967; A4216; A4222; A4223; A4649; A4930; A6204; A7040; C1713; C1776; C1887; Q9965